=== PATIENT | male | born 1955 | race Caucasian/White ===

== ENCOUNTER 2016-09-10 10:01 | Inpatient (IN) | payer OTHER, MEDICARE ==
[~2016-09-10] VITALS: Ht 177.8 cm; Wt 65.6 kg
[~2016-09-10 10:01] MED LIST: ALBU2.5I INH; AMIT50 PO; OXYC1TAB13 PO; PREG75 PO
[2016-09-10 10:07] VITALS: BP 139/96; PULSE 126; RESP 18; TEMP 98.2; O2SAT 97
[2016-09-10] MEDS ORDERED: SODIUM CHLOR 0.9% 1000 ML INJ 1,000 ML IV SCH (10:15)
[2016-09-10] MEDS ORDERED: SODIUM CHLORIDE 0.9% FLUSH 10 ML FLUSH IV FLUSH PRN ×2 (10:15→14:15)
[2016-09-10] MEDS ORDERED: ONDANSETRON HCL 4 MG/2 ML VIAL IVP ONE (10:15)
[2016-09-10] MEDS ORDERED: MORPHINE SULFATE 4 MG/ML INJ IV PUSH ONE (10:15)
[2016-09-10] MEDS ORDERED: LYRI75CA PO (10:16)
--- NOTE | 2016-09-10 10:27 | PD ---
HPI . Abdominal pain Chief Complaint: Abdominal Pain Time Seen by Provider: 10:10 Travel History International Travel<30 days: No Contact w/Intl Traveler<30days: No Traveled to known affect area: No History of Present Illness HPI Patient presents with chronic abdominal pain which has become acutely worse over the last 2 weeks. He reports associated dry heaves. He reports decreased oral intake and decreased urinary output. He has not been running a fever. Patient has a history of ulcerative colitis and is status total colectomy with ileostomy bag. He has high output from his ileostomy. This is a chronic issue for him. [id number]: Generalized abdominal QUALITY: Cramping SEVERITY: Severe DURATION: Chronic TIMING: Worse for 2 weeks CONTEXT: History of ulcerative colitis with previous colectomy with resultant ileostomy ASSOCIATED SYMPTOMS: Dry heaves, poor oral intake, decreased urinary output PFSH Past Medical History Arthritis: Yes Asthma: Yes Anxiety: Yes Depression: Yes Cancer: No Cardiovascular Problems: No Chest Pain: No Congestive Heart Failure: No COPD: No Cerebrovascular Accident: No Diabetes: No Endocrine: No Gastrointestinal Disorders: Yes (HX ULCERATIVE COLITIS, CHR. ABD. PAIN, CHR. DIARRHEA) GERD: No Genitourinary: No Headaches: No Hepatitis: Yes ( TEENAGER) Hiatal Hernia: No Hypertension: Yes Immune Disorder: No Musculoskeletal: Yes (BACK PAIN) Neurologic: Yes (VERTIGO, NUMBNESS LEGS (L)>(R)) Psychiatric: Yes (DEPRESSION) Reproductive: No Respiratory: Yes (ASTHMA) Migraines: No Seizures: No Sleep Apnea: No Thyroid Disease: No Ulcer: No Tetanus Vaccination: Unknown Influenza Vaccination: No ?: Not Past Surgical History Abdominal Surgery: Yes (ILEOSTOMY & CLOSURE, COLON RESECTION, ENTIRE LARGE INSTESTINE REMOVED) Appendectomy: Yes Cardiac Surgery: No Ear Surgery: No Endocrine Surgery: No Eye Surgery: No Genitourinary Surgery: No Gynecologic Surgery: No Joint Replacement: No Neurologic Surgery: No Pacemaker: No Thoracic Surgery: No Tonsillectomy: Yes (T&A) Other Surgery: Yes (COLOSTOMY) Social History Alcohol Use: No Tobacco Use: Yes (2-3 PPD) Substance Use: No Allergies-Medications (Allergen,Severity, Reaction): Coded Allergies: Nucynta (Verified Allergy, Severe, AMNESIA EPISODES, 09/10/16) Dilaudid (Verified Adverse Reaction, Severe, HALLUCINATIONS, 09/10/16) Reported Meds & Prescriptions Reported Meds & Active Scripts Active Reported Lyrica (Pregabalin) 75 Mg Cap 75 Mg PO BID Review of Systems Except as stated in HPI: all other systems reviewed are Neg General / Constitutional: No: Fever, Chills Cardiovascular: No: Chest Pain or Discomfort Respiratory: No: Shortness of Breath Gastrointestinal: Positive: Nausea, Vomiting, Abdominal Pain Genitourinary: Positive: Decreased Urinary Output Physical Exam Narrative GENERAL: Chronically ill-appearing man. SKIN: Warm and dry. HEAD: Atraumatic. Normocephalic. EYES: Pupils equal and round. Sclera are anicteric. ENT: No nasal bleeding or discharge. Mucous membranes pink and moist. NECK: Trachea midline. Neck is supple. CARDIOVASCULAR: Regular rate and rhythm. Heart sounds are normal. RESPIRATORY: No accessory muscle use. Lungs are clear with full air movement throughout. GASTROINTESTINAL: Abdomen soft. Ileostomy bag on the left-hand side. Brown, watery stool in the ostomy bag. Bowel sounds present. Diffuse abdominal tenderness. Nondistended. MUSCULOSKELETAL: No obvious deformities. No edema. NEUROLOGICAL: Awake and alert. No obvious cranial nerve deficits. Motor grossly within normal limits. Normal speech. PSYCHIATRIC: Appropriate mood and affect; insight and judgment normal. Data Data Last Documented VS Vital Signs Date Time Temp Pulse Resp B/P Pulse Ox O2 Delivery O2 Flow Rate FiO2 09/10/16 12:47 117 16 134/97 96 Room Air 09/10/16 10:07 98.2 Orders Complete Blood Count With Diff (09/10/16 10:15) Comprehensive Metabolic Panel (09/10/16 10:15) Lipase (09/10/16 10:15) Lactic Acid (09/10/16 10:15) Urinalysis - C+S If Indicated (09/10/16 10:15) Ct Abd/Pel W Iv Contrast(Rout) (09/10/16 10:15) Iv Access Insert/Monitor (09/10/16 10:15) NPO (09/10/16 10:15) Morphine Inj (Morphine Inj) (09/10/16 10:15) Ondansetron Inj (Zofran Inj) (09/10/16 10:15) Sodium Chlor 0.9% 1000 Ml Inj (Ns 1000 M (09/10/16 10:15) Sodium Chloride 0.9% Flush (Ns Flush) (09/10/16 10:15) Sodium Chlor 0.9% 1000 Ml Inj (Ns 1000 M (09/10/16 11:45) Urine Culture (09/10/16 12:00) Ceftriaxone Inj (Rocephin Inj) (09/10/16 12:30) Iodixanol 320 Inj (Rad Ct) (Visipaque 32 (09/10/16 12:40) Labs Laboratory Tests Test 09/10/16 09/10/16 10:27 12:00 White Blood Count 22.7 TH/MM3 Red Blood Count 6.06 MIL/MM3 Hemoglobin 16.7 GM/DL Hematocrit 48.0 % Mean Corpuscular Volume 79.2 FL Mean Corpuscular Hemoglobin 27.6 PG Mean Corpuscular Hemoglobin 34.8 % Concent Red Cell Distribution Width 15.5 % Platelet Count 377 TH/MM3 Mean Platelet Volume 7.8 FL Neutrophils (%) (Auto) 83.0 % Lymphocytes (%) (Auto) 10.1 % Monocytes (%) (Auto) 6.3 % Eosinophils (%) (Auto) 0.3 % Basophils (%) (Auto) 0.3 % Neutrophils # (Auto) 18.9 TH/MM3 Lymphocytes # (Auto) 2.3 TH/MM3 Monocytes # (Auto) 1.4 TH/MM3 Eosinophils # (Auto) 0.1 TH/MM3 Basophils # (Auto) 0.1 TH/MM3 CBC Comment AUTO DIFF Differential Comment AUTO DIFF CONFIRMED Sodium Level 127 MEQ/L Potassium Level 3.9 MEQ/L Chloride Level 88 MEQ/L Carbon Dioxide Level 26.2 MEQ/L Anion Gap 13 MEQ/L Blood Urea Nitrogen 33 MG/DL Creatinine 1.80 MG/DL Estimat Glomerular Filtration 39 ML/MIN Rate Random Glucose 112 MG/DL Lactic Acid Level 2.4 mmol/L Calcium Level 9.7 MG/DL Total Bilirubin 1.0 MG/DL Aspartate Amino Transf 23 U/L (AST/SGOT) Alanine Aminotransferase 18 U/L (ALT/SGPT) Alkaline Phosphatase 168 U/L Total Protein 8.8 GM/DL Albumin 4.2 GM/DL Lipase 212 U/L Urine Color YELLOW Urine Turbidity HAZY Urine pH 5.5 Urine Specific [place] 1.009 Urine Protein TRACE mg/dL Urine Glucose (UA) NEG mg/dL Urine Ketones NEG mg/dL Urine Occult Blood MOD Urine Nitrite NEG Urine Bilirubin NEG Urine Urobilinogen LESS THAN 2.0 MG/DL Urine Leukocyte Esterase SMALL Urine RBC 41 /hpf Urine WBC 15 /hpf Urine Squamous Epithelial 1 /hpf Cells Urine Transitional Epithelial <1 /hpf Cells Urine Amorphous Sediment RARE Urine Bacteria RARE /hpf Urine Hyaline Casts 1 /lpf Urine Mucus FEW /lpf Microscopic Urinalysis Comment CULTURE INDICATED MDM Medical Decision Making Medical Screen Exam Complete: Yes Emergency Medical Condition: Yes Medical Record Reviewed: Yes (medical history as outlined in his history of present illness) Differential Diagnosis Differential diagnosis of abdominal pain includes but is not limited to gastritis, pancreatitis, hepatitis, gastroenteritis, gallbladder disease, constipation, urinary retention, UTI, peptic ulcer disease, diverticulitis or appendicitis Narrative Course Patient presents with acute exacerbation of chronic abdominal pain. CBC & BMP Diagram 09/10/16 10:27 UA shows small leukocyte esterase with 15 white cells and rare bacteria. Last Impressions Abdomen/Pelvis CT 09/10/16 1015 Signed Impressions: Service Date/Time: Saturday, September 10, 2016 12:34 - CONCLUSION: The patient is status post prior colectomy with no evidence of intra-abdominal or intra- pelvic abnormality noted. Awilda Aguilera MD Diagnosis Primary Impression: Leukocytosis Qualified Code: D72.829 - Leukocytosis, unspecified type Additional Impressions: Hyponatremia Abdominal pain Qualified Code: R10.84 - Generalized abdominal pain Urinary tract infection Qualified Code: N30.00 - Acute cystitis without hematuria ARF (acute renal failure) Qualified Code: N17.9 - Acute renal failure, unspecified acute renal failure type Admitting Information Admitting Physician Requests: Admit Condition: Dee Quevedo MD Sep 10, 2016 10:26
[2016-09-10 10:42] LABS: AUTOMATED NEUTROPHIL # 18.9 TH/MM3 (1.8-7.7); BASOPHIL # 0.1 TH/MM3 (0-0.2); BASOPHIL % 0.3 % (0.0-2.0); EOSINOPHIL # 0.1 TH/MM3 (0-0.4); EOSINOPHIL % 0.3 % (0.0-4.0); LYMPH % 10.1 % (9.0-44.0); LYMPHOCYTE # 2.3 TH/MM3 (1.0-4.8); MEAN CELL VOLUME 79.2 FL (80.0-100.0); MEAN CORPUSCULAR HEMOGLOBIN 27.6 PG (27.0-34.0); MEAN CORPUSCULAR HGB CONC 34.8 % (32.0-36.0); MONO % 6.3 % (0.0-8.0); PLATELET COUNT 377 TH/MM3 (150-450); RED BLOOD COUNT 6.06 MIL/MM3 (4.50-5.90); RED CELL DISTRIBUTION WIDTH 15.5 % (11.6-17.2); WHITE BLOOD COUNT 22.7 TH/MM3 (4.0-11.0)
[2016-09-10 10:43] LABS: HEMO FLAGS AUTO DIFF
[2016-09-10 11:17] LABS: ALKALINE PHOSPHATASE 168 U/L (45-117)
[2016-09-10 11:19] LABS: ALT (GPT) 18 U/L (12-78); ANION GAP 13 MEQ/L (5-15); AST (GOT) 23 U/L (15-37); BICARBONATE 26.2 MEQ/L (21.0-32.0); BLOOD UREA NITROGEN 33 MG/DL (7-18); CHLORIDE 88 MEQ/L (98-107); GLOMERULAR FILTRATION RATE 39 ML/MIN (>89); SODIUM (NA) 127 MEQ/L (136-145)
[2016-09-10 11:20] LABS: POTASSIUM 3.9 MEQ/L (3.5-5.1); SCAN/DIFF AUTO DIFF CONFIRMED
[2016-09-10] MEDS ORDERED: SODIUM CHLOR 0.9% 1000 ML INJ 1,000 ML IV ONE (11:45)
[2016-09-10 12:22] LABS: BACTERIA, URINE RARE /hpf; BLOOD, URINE MOD (NEG); GLUCOSE,URINE NEG (NEG); HYALINE CAST, URINE 1 /lpf (RARE); KETONE, URINE NEG (NEG); MUCUS URINE FEW /lpf (OCC); NITRITE,URINE NEG (NEG); PH, URINE 5.5 (5.0-8.5); SQUAMOUS EPITHELIAL CELL URINE 1 /hpf (0-5); TRANSITIONAL EPI CELLS, URINE <1 /hpf; URINE COLOR YELLOW (YELLW/STRAW)
[2016-09-10 12:23] LABS: COMMENT (UR) CULTURE INDICATED; CULTURE IF INDICATED CULTURE INDICATED
[2016-09-10] MEDS ORDERED: cefTRIAXone INJ 1,000 MG in SODIUM CHLORIDE 0.9% INJ 100 ML IV ONE (12:30)
[2016-09-10] MEDS ORDERED: IODIXANOL 320 MG/ML 10 ML VIAL (for Rad CT) IV ONE (12:40)
[2016-09-10 12:47] VITALS: BP 134/97; PULSE 117; RESP 16; O2SAT 96
--- NOTE | 2016-09-10 13:15 | RADRPT ---
EXAM DATE/TIME: 09/10/2016 12:34 [facility] COMPARISON: CT ABDOMEN & PELVIS W CONTRAST, April 30, 2014, 18:36. INDICATIONS : Increasing abdominal pain. IV CONTRAST: 47 cc Visipaque (iodixanol) IV ORAL CONTRAST: No oral contrast ingested. RADIATION DOSE: 7.25 CTDIvol (mGy) MEDICAL HISTORY : Ulcerative colitis. SURGICAL HISTORY : Colon resection. Appendectomy. ENCOUNTER: Initial ACUITY: 2 weeks PAIN SCALE: 7/10 LOCATION: Bilateral abdomen TECHNIQUE: Volumetric scanning of the abdomen and pelvis was performed. Using automated exposure control and ad justment of the mA and/or kV according to patient size, radiation dose was kept as low as reasonably achievable to obtain optimal diagnostic quality images. FINDINGS: LOWER LUNGS: The visualized lower lungs are clear. LIVER: Homogeneous density without lesion. There is no dilation of the biliary tree. No calcified gallston es. SPLEEN: Normal size without lesion. PANCREAS: Within normal limits. KIDNEYS: Normal in size and shape. There is no concerning mass, stone or hydronephrosis. Simple right renal c yst exophytic from the lower pole. ADRENAL GLANDS: Within normal limits. VASCULAR: There is no aortic aneurysm. BOWEL/MESENTERY: The stomach and small bowel are unremarkable. Patient is status post prior colostomy with ileostomy i dentified to the left pelvic wall. No evidence of complication. ABDOMINAL WALL: Left pelvic wall ileostomy no evidence of additional defect. RETROPERITONEUM: There is no lymphadenopathy. BLADDER: No wall thickening or mass. REPRODUCTIVE: Within normal limits. INGUINAL: There is no lymphadenopathy or hernia. MUSCULOSKELETAL: Within normal limits for patient age. CONCLUSION: The patient is status post prior colectomy with no evidence of intra-abdominal or int ra-pelvic abnormality noted. Awilda Aguilera MD on September 10, 2016 at 13:09 Board Certified Radiologist. This report was verified electronically.
[2016-09-10] MEDS ORDERED: RESP: ALBUTEROL 2.5 MG/IPRATROPIUM 0.5 MG NEB (PRN) NEB (14:15)
[2016-09-10] MEDS ORDERED: TEMAZEPAM 15 MG CAP PO PRN (14:15)
[2016-09-10] MEDS ORDERED: ONDANSETRON HCL 4 MG/2 ML VIAL IVP PRN (14:15)
[2016-09-10] MEDS ORDERED: ACETAMINOPHEN 325 MG TAB PO PRN ×2 (14:15)
[2016-09-10] MEDS ORDERED: NALOXONE HCL 0.4 MG/ML AMP IV PRN (14:15)
[2016-09-10 14:45] VITALS: BP 156/91; PULSE 98; RESP 16; O2SAT 98
[2016-09-10] MEDS: SODIUM CHLOR 0.9% 1000 ML INJ 1,000 ML IV SCH ×2 (15:16→23:45)
--- NOTE | 2016-09-10 15:41 | HHI.HP ---
[facility] Primary Care Physician Elias Day MD Admission Diagnosis UTI, leukocytosis, acute renal failure, hyponatremia Diagnoses: (1) Urinary tract infection (2) ARF (acute renal failure) (3) High output ileostomy (4) Chronic pain (5) Hyponatremia (6) Abdominal pain (7) Leukocytosis (8) Ulcerative colitis Chief Complaint: Abdominal pain Travel History International Travel<30 Days: No Contact w/Intl Traveler <30 Da: No Traveled to Known Affected Are: No History of Present Illness 60-year-old man with history of ulcerative colitis with significant past surgical history including colectomy done in [place] that was reverted; diverting ileostomy and adhesion removal. He also had a complicated medical course by abdominal abscess and wound infection; came today to the medicine department by EMS for evaluation of over 1 week history of abdominal and rectal pain, decreased appetite, increased ileostomy output and dry heaves. Patient states, he was recently in hospice for 3 months and released in July 2016. Normal labs include WBC of 22.7, sodium 127 and BUN/creatinine 33/1.80 and a UA positive for small leukocytes. CT abdomen/pelvic unremarkable. Patient denies any hematemesis or hemoptysis. Review of Systems Other 12 systems reviewed and are negative except for the one mentioned in history of present illness Past Family Social History Past Medical History Ulcerative colitis Hx of infectious colitis as well - entire large intestines removed after that ( 12 years ago) Complicated course with abdominal wound infection Hx of hypertension prior to losing weight Asthma Past Surgical History Colectomy 10 years Diverting ileostomy and adhesion lysis Feb 2014 Tonsillectomy Deviated septum x2 Appendectomy Reported Medications Lyrica (Pregabalin) 75 Mg Cap 75 Mg PO BID Allergies: Coded Allergies: Nucynta (Verified Allergy, Severe, AMNESIA EPISODES, 09/10/16) Dilaudid (Verified Adverse Reaction, Severe, HALLUCINATIONS, 09/10/16) Family History Mother removal of intestinal mass Sibling with polyps removed Social History Alcohol Use: No Tobacco Use: Yes (2-3 PPD) Substance Use: No Physical Exam Vital Signs Vital Signs Date Time Temp Pulse Resp B/P Pulse Ox O2 Delivery O2 Flow Rate FiO2 09/10/16 14:45 98 16 156/91 98 Room Air 09/10/16 12:47 117 16 134/97 96 Room Air 09/10/16 11:36 18 09/10/16 10:12 18 09/10/16 10:07 98.2 126 18 139/96 97 Physical Exam GENERAL: NAD SKIN: No rashes, ecchymoses or lesions. Cool and dry. HEAD: Atraumatic. Normocephalic. No temporal or scalp tenderness. EYES: Pupils equal round and reactive. Extraocular motions intact. No scleral icterus. No injection or drainage. ENT: Nose without bleeding, purulent drainage or septal hematoma. Throat without erythema, tonsillar hypertrophy or exudate. Uvula midline. Airway patent. NECK: Trachea midline. No JVD or lymphadenopathy. Supple, nontender, no meningeal signs. CARDIOVASCULAR: Regular rate and rhythm without murmurs, gallops, or rubs. RESPIRATORY: Clear to auscultation. Breath sounds equal bilaterally. No wheezes , rales, or rhonchi. GASTROINTESTINAL: Abdomen soft, non-tender, nondistended. ileostomy bag in place; a bag over a small open abdominal wound MUSCULOSKELETAL: Extremities without clubbing, cyanosis, or edema. No joint tenderness, effusion, or edema noted. No calf tenderness. Negative Homans sign bilaterally. NEUROLOGICAL: Awake and alert. Cranial nerves II through XII intact. Motor and sensory grossly within normal limits. Five out of 5 muscle strength in all muscle groups. Normal speech. Laboratory Laboratory Tests Test 09/10/16 09/10/16 09/10/16 10:27 12:00 14:45 White Blood Count 22.7 Red Blood Count 6.06 Hemoglobin 16.7 Hematocrit 48.0 Mean Corpuscular Volume 79.2 Mean Corpuscular Hemoglobin 27.6 Mean Corpuscular Hemoglobin 34.8 Concent Red Cell Distribution Width 15.5 Platelet Count 377 Mean Platelet Volume 7.8 Neutrophils (%) (Auto) 83.0 Lymphocytes (%) (Auto) 10.1 Monocytes (%) (Auto) 6.3 Eosinophils (%) (Auto) 0.3 Basophils (%) (Auto) 0.3 Neutrophils # (Auto) 18.9 Lymphocytes # (Auto) 2.3 Monocytes # (Auto) 1.4 Eosinophils # (Auto) 0.1 Basophils # (Auto) 0.1 CBC Comment AUTO DIFF Differential Comment AUTO DIFF CONFIRMED Sodium Level 127 Potassium Level 3.9 Chloride Level 88 Carbon Dioxide Level 26.2 Anion Gap 13 Blood Urea Nitrogen 33 Creatinine 1.80 Estimat Glomerular Filtration 39 Rate Random Glucose 112 Lactic Acid Level 2.4 0.8 Calcium Level 9.7 Total Bilirubin 1.0 Aspartate Amino Transf 23 (AST/SGOT) Alanine Aminotransferase 18 (ALT/SGPT) Alkaline Phosphatase 168 Total Protein 8.8 Albumin 4.2 Lipase 212 Urine Color YELLOW Urine Turbidity HAZY Urine pH 5.5 Urine Specific [place] 1.009 Urine Protein TRACE Urine Glucose (UA) NEG Urine Ketones NEG Urine Occult Blood MOD Urine Nitrite NEG Urine Bilirubin NEG Urine Urobilinogen LESS THAN 2.0 Urine Leukocyte Esterase SMALL Urine RBC 41 Urine WBC 15 Urine Squamous Epithelial 1 Cells Urine Transitional Epithelial <1 Cells Urine Amorphous Sediment RARE Urine Bacteria RARE Urine Hyaline Casts 1 Urine Mucus FEW Microscopic Urinalysis Comment CULTURE INDICATED Date/Time Procedure Status Source Growth 09/10/16 12:00 Urine Culture Received Urine Clean Catch Pending Result Diagram: 09/10/16 1027 09/10/16 1027 Imaging Last Impressions Abdomen/Pelvis CT 09/10/16 1015 Signed Impressions: Service Date/Time: Saturday, September 10, 2016 12:34 - CONCLUSION: The patient is status post prior colectomy with no evidence of intra-abdominal or intra- pelvic abnormality noted. Awilda Aguilera MD Assessment and Plan Problem List: (1) Ulcerative colitis ICD Code: K51.919 Status: Chronic (2) High output ileostomy ICD Code: R19.8 Status: Acute (3) Urinary tract infection ICD Code: N39.0 Status: Acute (4) ARF (acute renal failure) ICD Code: N17.9 Status: Acute (5) Leukocytosis ICD Code: D72.829 Status: Acute (6) Hyponatremia ICD Code: E87.1 Status: Acute (7) Benign labile hypertension ICD Code: I10 Status: Acute Assessment and Plan 60-year-old man with History of UC Abdominal pain Increased ileostomy output -CT abdomen/pelvics noted and review by me without any acute finding -Start IV fluid NS@ 100cc/hr -Pain management accordingly -Change ileostomy bag per protocol Abnormal UA Leukocytosis -s/p Rocephin IV 1 in ED, continue with antibiotic pending urine and blood culture -Check chest x-ray Hyponatremia -Continue IV fluid hydration Acute renal failure: Prerenal secondary to high ileostomy output; continue with IV fluid hydration. Monitor BUN and creatinine and avoid all nephrotoxic drugs Labile benign hypertension: Start Lopressor 50 mg by mouth every 12 History of UC: Chronic. Patient was recently admitted to hospice. DVT prophylaxis: Bilateral SCDs DO NOT RESUSCITATE Code Status Full code Discussed Condition With Patient, ED physician Physician Certification 2 Midnight Certification Type: Admission for Inpatient Services Order for Inpatient Services The services are ordered in accordance with Medicare regulations or non- Medicare payer requirements, as applicable. In the case of services not specified as inpatient-only, they are appropriately provided as inpatient services in accordance with the 2-midnight benchmark. Estimated LOS (days): 2 days is the estimated time the patient will need to remain in the hospital, assuming treatment plan goals are met and no additional complications. Post-Hospital Plan: Not yet determined Problem Qualifiers (1) Urinary tract infection: Qualified Code: N30.00 - Acute cystitis without hematuria (2) ARF (acute renal failure): Qualified Code: N17.9 - Acute renal failure, unspecified acute renal failure type (3) Abdominal pain: Qualified Code: R10.84 - Generalized abdominal pain (4) Leukocytosis: Qualified Code: D72.829 - Leukocytosis, unspecified type Alex Holt MD Sep 10, 2016 15:41
[2016-09-10 16:26] VITALS: BP 140/90; PULSE 90; RESP 17; O2SAT 97
[2016-09-10] MEDS: MORPHINE SULFATE 4 MG/ML INJ IV PUSH PRN ×3 (17:07→23:42)
--- NOTE | 2016-09-10 17:11 | RADRPT ---
EXAM DATE/TIME: 09/10/2016 16:13 [facility] COMPARISON: CHEST SINGLE AP, November 06, 2014, 12:36. INDICATIONS : Short of breath. Smoker. MEDICAL HISTORY : Ulcerative colitis. SURGICAL HISTORY : Appendectomy. Colon resection. ENCOUNTER: Initial ACUITY: 1 day PAIN SCORE: 0/10 LOCATION: Bilateral chest FINDINGS: A single view of the chest demonstrates the lungs to be symmetrically aerated without evidence of mas s, infiltrate or effusion. There is hyperaeration bilaterally. The cardiomediastinal contours are unr emarkable. Osseous structures are intact. No significant changes compared to the prior study. CONCLUSION: No acute pulmonary infiltrates. Hyperaeration of the lung maxwell. Jonathan Eng MD on September 10, 2016 at 17:08 Board Certified Radiologist. This report was verified electronically.
[2016-09-10 20:00] VITALS: BP 123/80; PULSE 103; RESP 20; TEMP 97.8; O2SAT 93
[2016-09-10] MEDS: SODIUM CHLORIDE 0.9% FLUSH 10 ML FLUSH IV FLUSH SCH (20:39)
[2016-09-10] MEDS: METOPROLOL TARTRATE 50 MG TAB PO SCH (20:39)
[2016-09-11] VITALS: BP 107/75; PULSE 70; RESP 20; TEMP 97.3; O2SAT 92
[2016-09-11] MEDS: MORPHINE SULFATE 4 MG/ML INJ IV PUSH PRN ×7 (02:46→21:07)
[2016-09-11 05:59] LABS: AUTOMATED NEUTROPHIL # 10.8 TH/MM3 (1.8-7.7); BASOPHIL # 0.1 TH/MM3 (0-0.2); BASOPHIL % 0.6 % (0.0-2.0); EOSINOPHIL % 0.3 % (0.0-4.0); HEMATOCRIT 37.6 % (39.0-51.0); HEMO FLAGS DIFF FINAL; LYMPH % 13.3 % (9.0-44.0); LYMPHOCYTE # 1.8 TH/MM3 (1.0-4.8); MEAN CORPUSCULAR HEMOGLOBIN 27.4 PG (27.0-34.0); MEAN CORPUSCULAR HGB CONC 33.8 % (32.0-36.0); MONO % 7.5 % (0.0-8.0); NEUT % 78.3 % (16.0-70.0); PLATELET COUNT 270 TH/MM3 (150-450); RED BLOOD COUNT 4.64 MIL/MM3 (4.50-5.90); RED CELL DISTRIBUTION WIDTH 15.4 % (11.6-17.2); WHITE BLOOD COUNT 13.8 TH/MM3 (4.0-11.0)
[2016-09-11 06:21] LABS: ALKALINE PHOSPHATASE 116 U/L (45-117); ALT (GPT) 11 U/L (12-78); ANION GAP 10 MEQ/L (5-15); AST (GOT) 10 U/L (15-37); BLOOD UREA NITROGEN 30 MG/DL (7-18); CHLORIDE 102 MEQ/L (98-107); GLOMERULAR FILTRATION RATE 49 ML/MIN (>89); SODIUM (NA) 136 MEQ/L (136-145); TOTAL BILIRUBIN ADULT 0.6 MG/DL (0.2-1.0)
[2016-09-11 08:00] VITALS: BP 114/70; PULSE 76; RESP 17; TEMP 98.9; O2SAT 92
[2016-09-11] MEDS: METOPROLOL TARTRATE 50 MG TAB PO SCH ×2 (08:27→20:49)
[2016-09-11] MEDS: PANTOPRAZOLE SOD 40 MG DELAYED RELEASE TAB PO SCH (08:27)
[2016-09-11] MEDS: SODIUM CHLORIDE 0.9% FLUSH 10 ML FLUSH IV FLUSH SCH ×2 (08:27→20:49)
[2016-09-11] MEDS ORDERED: POTASSIUM CHLORIDE 25 MEQ EFFERVESCENT TAB PO ONE (10:15)
[2016-09-11] MEDS: SODIUM CHLOR 0.9% 1000 ML INJ 1,000 ML IV SCH ×2 (10:23→20:50)
--- NOTE | 2016-09-11 10:24 | HHI.PR ---
Subjective Remarks Follow up UTI/Hyponatremia?UC/Chronic pain syndrome 09/11/16-patient seen and examined; still complains of poorly controlled pain; WBC trending down; H/H dropping and patient reports some bleeding in ileostomy bag Objective Vitals Vital Signs Date Time Temp Pulse Resp B/P Pulse Ox O2 Delivery O2 Flow Rate FiO2 09/11/16 08:49 17 09/11/16 08:00 98.9 76 17 114/70 92 09/11/16 00:00 97.3 70 20 107/75 92 09/10/16 20:00 97.8 103 20 123/80 93 09/10/16 16:26 90 17 140/90 97 Room Air 09/10/16 14:45 98 16 156/91 98 Room Air 09/10/16 12:47 117 16 134/97 96 Room Air 09/10/16 11:36 18 I/O 09/10/16 09/10/16 09/10/16 09/11/16 09/11/16 09/11/16 07:00 15:00 23:00 07:00 15:00 23:00 Intake Total 624 ml 240 ml 892 ml Output Total 0 ml 200 ml Balance 624 ml 40 ml 892 ml Intake Oral 120 ml 240 ml IV Total 504 ml 892 ml Output Urine Total 0 ml 200 ml # Voids 1 # Bowel Movements 0 0 Result Diagram: 09/11/16 0458 09/11/16 0458 Imaging Last Impressions Abdomen/Pelvis CT 09/10/16 1015 Signed Impressions: Service Date/Time: Saturday, September 10, 2016 12:34 - CONCLUSION: The patient is status post prior colectomy with no evidence of intra-abdominal or intra- pelvic abnormality noted. Awilda Aguilera MD Chest X-Ray 09/10/16 0000 Signed Impressions: Service Date/Time: Saturday, September 10, 2016 16:13 - CONCLUSION: No acute pulmonary infiltrates. Hyperaeration of the lung maxwell. Jonathan Eng MD Objective Remarks GENERAL: NAD SKIN: Warm and dry. HEAD: Normocephalic. EYES: No scleral icterus. No injection or drainage. NECK: Supple, trachea midline. No JVD or lymphadenopathy. CARDIOVASCULAR: Regular rate and rhythm without murmurs, gallops, or rubs. RESPIRATORY: Breath sounds equal bilaterally. No accessory muscle use. GASTROINTESTINAL: Abdomen soft, non-tender, nondistended. MUSCULOSKELETAL: No cyanosis, or edema. BACK: Nontender without obvious deformity. No CVA tenderness. A/P Problem List: (1) Ulcerative colitis ICD Code: K51.919 Status: Chronic (2) High output ileostomy ICD Code: R19.8 Status: Acute (3) Urinary tract infection ICD Code: N39.0 Status: Acute (4) ARF (acute renal failure) ICD Code: N17.9 Status: Acute (5) Leukocytosis ICD Code: D72.829 Status: Acute (6) Hyponatremia ICD Code: E87.1 Status: Acute (7) Benign labile hypertension ICD Code: I10 Status: Resolved Assessment and Plan 60-year-old man with History of UC Abdominal pain Increased ileostomy output -CT abdomen/pelvics without any acute finding -continue IV fluid NS@ 100cc/hr -Pain management accordingly; increase Morphine to 3mg Q3HPRN -Change ileostomy bag per protocol Abnormal UA/UTI Leukocytosis--trending down -s/p Rocephin IV 1 in ED, continue with antibiotic pending urine and blood culture -CXR with No acute pulmonary infiltrates Hyponatremia -Resolved with IV fluid hydration Hypokalemia: Give K 50Meq X 1 NOW Acute renal failure: Prerenal secondary to high ileostomy output; improving with IV fluid hydration. Monitor BUN and creatinine and avoid all nephrotoxic drugs Labile benign hypertension: Normotensive with Lopressor 50 mg by mouth every 12 History of UC: Chronic. Patient was recently admitted to hospice. Anemia of CD: Monitor H/H however may consider CRS for evaluation if patient with continue Bleeding for Colostomy vs GI DVT prophylaxis: Bilateral SCDs Problem Qualifiers (1) Urinary tract infection: Qualified Code: N30.00 - Acute cystitis without hematuria (2) ARF (acute renal failure): Qualified Code: N17.9 - Acute renal failure, unspecified acute renal failure type (3) Leukocytosis: Qualified Code: D72.829 - Leukocytosis, unspecified type Alex Holt MD Sep 11, 2016 10:24
[2016-09-11] MEDS: cefTRIAXone INJ 1,000 MG in SODIUM CHLORIDE 0.9% INJ 100 ML IV SCH (11:49)
[2016-09-11 12:00] VITALS: BP 120/73; PULSE 76; RESP 17; TEMP 97.7; O2SAT 93
[2016-09-11 16:00] VITALS: BP 103/61; PULSE 64; RESP 16; TEMP 96.9; O2SAT 95
[2016-09-11 20:00] VITALS: BP 123/58; PULSE 60; RESP 21; TEMP 96; O2SAT 93
[2016-09-12 00:02] VITALS: BP 99/96; PULSE 58; RESP 20; TEMP 96; O2SAT 93
[2016-09-12] MEDS: MORPHINE SULFATE 4 MG/ML INJ IV PUSH PRN ×4 (00:20→12:38)
[2016-09-12 04:00] VITALS: BP 109/64; PULSE 69; RESP 20; TEMP 96.2; O2SAT 92
[2016-09-12 05:36] LABS: AUTOMATED NEUTROPHIL # 7.3 TH/MM3 (1.8-7.7); BASOPHIL % 0.4 % (0.0-2.0); EOSINOPHIL # 0.1 TH/MM3 (0-0.4); EOSINOPHIL % 1.2 % (0.0-4.0); HEMATOCRIT 34.2 % (39.0-51.0); HEMO FLAGS DIFF FINAL; LYMPH % 20.4 % (9.0-44.0); LYMPHOCYTE # 2.1 TH/MM3 (1.0-4.8); MEAN CELL VOLUME 82.6 FL (80.0-100.0); MEAN CORPUSCULAR HEMOGLOBIN 27.3 PG (27.0-34.0); MONO % 7.4 % (0.0-8.0); NEUT % 70.6 % (16.0-70.0); PLATELET COUNT 201 TH/MM3 (150-450); RED BLOOD COUNT 4.15 MIL/MM3 (4.50-5.90); RED CELL DISTRIBUTION WIDTH 15.5 % (11.6-17.2); WHITE BLOOD COUNT 10.3 TH/MM3 (4.0-11.0)
[2016-09-12] MEDS: SODIUM CHLOR 0.9% 1000 ML INJ 1,000 ML IV SCH ×3 (05:45→23:37)
[2016-09-12 05:51] LABS: BICARBONATE 22.9 MEQ/L (21.0-32.0)
[2016-09-12 05:59] LABS: POTASSIUM 2.6 MEQ/L (3.5-5.1)
[2016-09-12] MEDS ORDERED: POTASSIUM CHLORIDE 20 MEQ CONTROLLED RELEASE TAB PO ONE ×2 (06:15→08:30)
[2016-09-12] MEDS: POTASSIUM CHLOR 20 MEQ PREMIX 100 ML IV SCH ×2 (06:34→09:30)
[2016-09-12 08:00] VITALS: BP 113/69; PULSE 71; RESP 16; TEMP 98.1; O2SAT 96
[2016-09-12] MEDS: PANTOPRAZOLE SOD 40 MG DELAYED RELEASE TAB PO SCH (08:29)
[2016-09-12] MEDS: METOPROLOL TARTRATE 50 MG TAB PO SCH ×2 (08:29→19:52)
[2016-09-12] MEDS: SODIUM CHLORIDE 0.9% FLUSH 10 ML FLUSH IV FLUSH SCH ×2 (08:29→19:52)
[2016-09-12 12:00] VITALS: BP 106/60; PULSE 63; RESP 16; TEMP 98.7; O2SAT 95
[2016-09-12] MEDS: cefTRIAXone INJ 1,000 MG in SODIUM CHLORIDE 0.9% INJ 100 ML IV SCH (12:37)
--- NOTE | 2016-09-12 13:26 | HHI.PR ---
Subjective Remarks Follow up UTI/Hyponatremia?UC/Chronic pain syndrome 09/11/16-patient seen and examined; still complains of poorly controlled pain; WBC trending down; H/H dropping and patient reports some bleeding in ileostomy bag 09/12/16-patient seen and examined; pain well controlled; would like to try some solid food prior to discharge.Afebrile Objective Vitals Vital Signs Date Time Temp Pulse Resp B/P Pulse Ox O2 Delivery O2 Flow Rate FiO2 09/12/16 12:00 98.7 63 16 106/60 95 09/12/16 08:00 98.1 71 16 113/69 96 09/12/16 04:00 96.2 69 20 109/64 92 09/12/16 00:02 96.0 58 20 99/96 93 09/11/16 20:00 96.0 60 21 123/58 93 09/11/16 17:55 17 09/11/16 16:00 96.9 64 16 103/61 95 I/O 09/11/16 09/11/16 09/11/16 09/12/16 09/12/16 09/12/16 07:00 15:00 23:00 07:00 15:00 23:00 Intake Total 240 ml 1952 ml 740 ml 981 ml Output Total 200 ml 900 ml 200 ml 1300 ml Balance 40 ml 1052 ml 540 ml -319 ml Intake Oral 240 ml 500 ml 120 ml 120 ml IV Total 1452 ml 620 ml 861 ml Output Urine Total 200 ml 900 ml 200 ml 350 ml Stool Total 950 ml Drainage Total 0 ml # Bowel Movements 0 0 0 0 Result Diagram: 09/12/16 0455 09/12/16 0455 Objective Remarks GENERAL: NAD SKIN: Warm and dry. HEAD: Normocephalic. EYES: No scleral icterus. No injection or drainage. NECK: Supple, trachea midline. No JVD or lymphadenopathy. CARDIOVASCULAR: Regular rate and rhythm without murmurs, gallops, or rubs. RESPIRATORY: Breath sounds equal bilaterally. No accessory muscle use. GASTROINTESTINAL: Abdomen soft, non-tender, nondistended. MUSCULOSKELETAL: No cyanosis, or edema. BACK: Nontender without obvious deformity. No CVA tenderness. A/P Problem List: (1) Ulcerative colitis ICD Code: K51.919 Status: Chronic (2) High output ileostomy ICD Code: R19.8 Status: Acute (3) Urinary tract infection ICD Code: N39.0 Status: Acute (4) ARF (acute renal failure) ICD Code: N17.9 Status: Acute (5) Leukocytosis ICD Code: D72.829 Status: Acute (6) Hyponatremia ICD Code: E87.1 Status: Acute (7) Benign labile hypertension ICD Code: I10 Status: Resolved Assessment and Plan 60-year-old man with History of UC Abdominal pain Increased ileostomy output -CT abdomen/pelvics without any acute finding -continue IV fluid NS@ 100cc/hr -Pain management accordingly; d/c Morphine -Change ileostomy bag per protocol Abnormal UA/UTI Leukocytosis--resolved -s/p Rocephin IV 1 in ED, continue with antibiotic pending urine and blood culture -CXR with No acute pulmonary infiltrates Hyponatremia -Resolved with IV fluid hydration Hypokalemia: Give K 40Meq X 1 NOW Acute renal failure: Prerenal secondary to high ileostomy output; improving with IV fluid hydration. Monitor BUN and creatinine and avoid all nephrotoxic drugs Labile benign hypertension: Normotensive with Lopressor 50 mg by mouth every 12 History of UC: Chronic. Patient was recently admitted to hospice. Anemia of CD: Monitor H/H however may consider CRS for evaluation if patient with continue Bleeding for Colostomy vs GI DVT prophylaxis: Bilateral SCDs Discharge Planning Likely discharge in 1 day Problem Qualifiers (1) Urinary tract infection: Qualified Code: N30.00 - Acute cystitis without hematuria (2) ARF (acute renal failure): Qualified Code: N17.9 - Acute renal failure, unspecified acute renal failure type (3) Leukocytosis: Qualified Code: D72.829 - Leukocytosis, unspecified type Alex Holt MD Sep 12, 2016 13:25
[2016-09-12 15:27] LABS: MAGNESIUM 1.5 MG/DL (1.5-2.5); POTASSIUM 3.3 MEQ/L (3.5-5.1)
[2016-09-12] MEDS: ACETAMINOPHEN/HYDROcodone 325 MG/10 MG TAB PO PRN ×3 (15:45→23:20)
[2016-09-12 20:00] VITALS: BP 122/71; PULSE 77; RESP 22; TEMP 97.5; O2SAT 95
[2016-09-13] VITALS: BP 125/83; PULSE 65; RESP 20; TEMP 97.5; O2SAT 99
[2016-09-13] MEDS: ACETAMINOPHEN/HYDROcodone 325 MG/10 MG TAB PO PRN ×3 (03:25→13:20)
[2016-09-13 05:49] LABS: BICARBONATE 20.8 MEQ/L (21.0-32.0); POTASSIUM 3.4 MEQ/L (3.5-5.1)
[2016-09-13] MEDS: SODIUM CHLORIDE 0.9% FLUSH 10 ML FLUSH IV FLUSH SCH (07:59)
[2016-09-13 08:00] VITALS: BP 135/75; PULSE 66; RESP 16; TEMP 97.3; O2SAT 98
[2016-09-13] MEDS: METOPROLOL TARTRATE 50 MG TAB PO SCH (08:00)
[2016-09-13] MEDS: PANTOPRAZOLE SOD 40 MG DELAYED RELEASE TAB PO SCH (08:00)
[2016-09-13] MEDS: SODIUM CHLOR 0.9% 1000 ML INJ 1,000 ML IV SCH (09:56)
--- NOTE | 2016-09-13 11:41 | HHI.PR ---
Subjective Remarks Follow up UTI/Hyponatremia?UC/Chronic pain syndrome 09/11/16-patient seen and examined; still complains of poorly controlled pain; WBC trending down; H/H dropping and patient reports some bleeding in ileostomy bag 09/12/16-patient seen and examined; pain well controlled; would like to try some solid food prior to discharge.Afebrile 09/13/16-patient seen and examined; Pain is requesting more and stronger narcotics;states he can't eat however he was brought to [employer] yesterday which he ate all without any complication of nausea or emesis Objective Vitals Vital Signs Date Time Temp Pulse Resp B/P Pulse Ox O2 Delivery O2 Flow Rate FiO2 09/13/16 08:00 97.3 66 16 135/75 98 09/13/16 04:25 20 09/13/16 00:00 97.5 65 20 125/83 99 09/12/16 20:00 97.5 77 22 122/71 95 09/12/16 12:00 98.7 63 16 106/60 95 I/O 09/12/16 09/12/16 09/12/16 09/13/16 09/13/16 09/13/16 07:00 15:00 23:00 07:00 15:00 23:00 Intake Total 981 ml 923 ml 60 ml 240 ml Output Total 1300 ml 850 ml 500 ml 300 ml Balance -319 ml 73 ml -440 ml -60 ml Intake Oral 120 ml 60 ml 240 ml IV Total 861 ml 923 ml Output Urine Total 350 ml 850 ml 200 ml Stool Total 950 ml 300 ml 300 ml # Voids 4 1 # Bowel Movements 0 Result Diagram: 09/12/16 0455 09/13/16 0522 Imaging Last Impressions Abdomen/Pelvis CT 09/10/16 1015 Signed Impressions: Service Date/Time: Saturday, September 10, 2016 12:34 - CONCLUSION: The patient is status post prior colectomy with no evidence of intra-abdominal or intra- pelvic abnormality noted. Awilda Aguilera MD Chest X-Ray 09/10/16 0000 Signed Impressions: Service Date/Time: Saturday, September 10, 2016 16:13 - CONCLUSION: No acute pulmonary infiltrates. Hyperaeration of the lung maxwell. Jonathan Eng MD Objective Remarks GENERAL: NAD SKIN: Warm and dry. HEAD: Normocephalic. EYES: No scleral icterus. No injection or drainage. NECK: Supple, trachea midline. No JVD or lymphadenopathy. CARDIOVASCULAR: Regular rate and rhythm without murmurs, gallops, or rubs. RESPIRATORY: Breath sounds equal bilaterally. No accessory muscle use. GASTROINTESTINAL: Abdomen soft, non-tender, nondistended. MUSCULOSKELETAL: No cyanosis, or edema. BACK: Nontender without obvious deformity. No CVA tenderness. Procedures none A/P Problem List: (1) Ulcerative colitis ICD Code: K51.919 Status: Chronic (2) High output ileostomy ICD Code: R19.8 Status: Acute (3) Urinary tract infection ICD Code: N39.0 Status: Acute (4) ARF (acute renal failure) ICD Code: N17.9 Status: Acute (5) Leukocytosis ICD Code: D72.829 Status: Acute (6) Hyponatremia ICD Code: E87.1 Status: Acute (7) Benign labile hypertension ICD Code: I10 Status: Resolved (8) Drug-induced mood disorder ICD Code: F19.94 Status: Acute Assessment and Plan 60-year-old man with History of UC Abdominal pain-Improving Increased ileostomy output -CT abdomen/pelvics without any acute finding -continue IV fluid NS@ 100cc/hr -Pain management accordingly; -Change ileostomy bag per protocol Abnormal UA/UTI Leukocytosis--resolved -s/p Rocephin IV 1 in ED, will d/c abx as Urine culture negative -CXR with No acute pulmonary infiltrates Drug-seeking behavior: Patient was advised against Hyponatremia -Resolved with IV fluid hydration Hypokalemia: Give K 40Meq X 1 NOW Acute renal failure: Prerenal secondary to high ileostomy output; improving with IV fluid hydration. Monitor BUN and creatinine and avoid all nephrotoxic drugs Labile benign hypertension: Normotensive with Lopressor 50 mg by mouth every 12 History of UC: Chronic. Patient was recently admitted to hospice. Anemia of CD: Monitor H/H however may consider CRS for evaluation if patient with continue Bleeding for Colostomy vs GI DVT prophylaxis: Bilateral SCDs Problem Qualifiers (1) Urinary tract infection: Qualified Code: N30.00 - Acute cystitis without hematuria (2) ARF (acute renal failure): Qualified Code: N17.9 - Acute renal failure, unspecified acute renal failure type (3) Leukocytosis: Qualified Code: D72.829 - Leukocytosis, unspecified type Alex Holt MD Sep 13, 2016 11:41
--- NOTE | 2016-09-13 11:47 | HHI.FF ---
Face to Face Verification Diagnosis: (1) High output ileostomy (2) Ulcerative colitis (3) Chronic pain (4) Drug-induced mood disorder (5) Benign labile hypertension Physical Therapy Order: Evaluate and Treat Home Health Nursing Order: Signs/symptoms of disease process I have seen patient Stu Dolan on 09/13/16. My clinical findings support the need for the requested home health care services because: Deconditioned w/ increased weakness I certify that my clinical findings support that this patient is homebound because: Poor cardiac reserve Alex Holt MD Sep 13, 2016 11:47
--- NOTE | 2016-09-13 11:48 | HHI.DS ---
Discharge Summary Admission Date Sep 10, 2016 at 14:05 Discharge Date: Sep 13, 2016 Admitting Diagnosis UTI, leukocytosis, acute renal failure, hyponatremia (1) Ulcerative colitis ICD Code: K51.919 (2) High output ileostomy ICD Code: R19.8 (3) Urinary tract infection ICD Code: N39.0 (4) ARF (acute renal failure) ICD Code: N17.9 (5) Leukocytosis ICD Code: D72.829 (6) Hyponatremia ICD Code: E87.1 (7) Benign labile hypertension ICD Code: I10 (8) Drug-induced mood disorder ICD Code: F19.94 Procedures none Brief History - From Admission 60-year-old man with history of ulcerative colitis with significant past surgical history including colectomy done in [place] that was reverted; diverting ileostomy and adhesion removal. He also had a complicated medical course by abdominal abscess and wound infection; came today to the medicine department by EMS for evaluation of over 1 week history of abdominal and rectal pain, decreased appetite, increased ileostomy output and dry heaves. Patient states, he was recently in hospice for 3 months and released in July 2016. Normal labs include WBC of 22.7, sodium 127 and BUN/creatinine 33/1.80 and a UA positive for small leukocytes. CT abdomen/pelvic unremarkable. Patient denies any hematemesis or hemoptysis. CBC/BMP: 09/12/16 0455 09/13/16 0522 Significant Findings Laboratory Tests Test 09/10/16 09/11/16 09/12/16 09/12/16 12:00 04:58 04:55 14:34 Urine Turbidity HAZY (CLEAR) Urine Occult Blood MOD (NEG) Urine Leukocyte Esterase SMALL (NEG) Urine RBC 41 /hpf (0-3) Urine WBC 15 /hpf (0-5) Urine Bacteria RARE /hpf (NONE) Urine Mucus FEW /lpf (OCC) White Blood Count 13.8 TH/MM3 (4.0-11.0) Hemoglobin 12.7 GM/DL 11.3 GM/DL (13.0-17.0) (13.0-17.0) Hematocrit 37.6 % 34.2 % (39.0-51.0) (39.0-51.0) Neutrophils (%) (Auto) 78.3 % 70.6 % (16.0-70.0) (16.0-70.0) Neutrophils # (Auto) 10.8 TH/MM3 (1.8-7.7) Monocytes # (Auto) 1.0 TH/MM3 (0-0.9) Potassium Level 3.0 MEQ/L 2.6 MEQ/L 3.3 MEQ/L (3.5-5.1) (3.5-5.1) (3.5-5.1) Blood Urea Nitrogen 30 MG/DL (7-18) Creatinine 1.46 MG/DL (0.60-1.30) Estimat Glomerular Filtration 49 ML/MIN (>89) 58 ML/MIN (>89) Rate Random Glucose 124 MG/DL 160 MG/DL (74-106) (74-106) Calcium Level 8.4 MG/DL 8.1 MG/DL (8.5-10.1) (8.5-10.1) Aspartate Amino Transf 10 U/L (15-37) (AST/SGOT) Alanine Aminotransferase 11 U/L (12-78) (ALT/SGPT) Total Protein 6.1 GM/DL (6.4-8.2) Albumin 3.0 GM/DL (3.4-5.0) Red Blood Count 4.15 MIL/MM3 (4.50-5.90) Test 09/13/16 05:22 Potassium Level 3.4 MEQ/L (3.5-5.1) Chloride Level 111 MEQ/L (98-107) Carbon Dioxide Level 20.8 MEQ/L (21.0-32.0) Estimat Glomerular Filtration 66 ML/MIN (>89) Rate Random Glucose 121 MG/DL (74-106) Calcium Level 7.9 MG/DL (8.5-10.1) Imaging Last Impressions Abdomen/Pelvis CT 09/10/16 1015 Signed Impressions: Service Date/Time: Saturday, September 10, 2016 12:34 - CONCLUSION: The patient is status post prior colectomy with no evidence of intra-abdominal or intra- pelvic abnormality noted. Awilda Aguilera MD Chest X-Ray 09/10/16 0000 Signed Impressions: Service Date/Time: Saturday, September 10, 2016 16:13 - CONCLUSION: No acute pulmonary infiltrates. Hyperaeration of the lung maxwell. Jonathan Eng MD PE at Discharge GENERAL: NAD SKIN: Warm and dry. HEAD: Normocephalic. EYES: No scleral icterus. No injection or drainage. NECK: Supple, trachea midline. No JVD or lymphadenopathy. CARDIOVASCULAR: Regular rate and rhythm without murmurs, gallops, or rubs. RESPIRATORY: Breath sounds equal bilaterally. No accessory muscle use. GASTROINTESTINAL: Abdomen soft, non-tender, nondistended. MUSCULOSKELETAL: No cyanosis, or edema. BACK: Nontender without obvious deformity. No CVA tenderness. Hospital Course History of UC Abdominal pain-Improving Increased ileostomy output -CT abdomen/pelvics without any acute finding -continue IV fluid NS@ 100cc/hr -Pain management accordingly; -Change ileostomy bag per protocol Abnormal UA/UTI Leukocytosis--resolved -s/p Rocephin IV 1 in ED, will d/c abx as Urine culture negative -CXR with No acute pulmonary infiltrates Drug-seeking behavior: Patient was advised against Hyponatremia -Resolved with IV fluid hydration Hypokalemia: Give K 40Meq X 1 NOW Acute renal failure: Prerenal secondary to high ileostomy output; improving with IV fluid hydration. Monitor BUN and creatinine and avoid all nephrotoxic drugs Labile benign hypertension: Normotensive with Lopressor 50 mg by mouth every 12 History of UC: Chronic. Patient was recently admitted to hospice. Anemia of CD: Monitor H/H however may consider CRS for evaluation if patient with continue Bleeding for Colostomy vs GI DVT prophylaxis: Bilateral SCDs Pt Condition on Discharge: Stable Discharge Disposition: Disch w/ Home Health Serv Discharge Time: > 30 minutes Discharge Instructions DIET: Follow Instructions for: Heart Healthy Diet Activities you can perform: Regular-No Restrictions Follow up Referrals: PCP Follow-up - 1 Week New Medications: Oxycodone (Oxycodone) 10 Mg Tab 10 MG PO Q8H PRN PAIN #20 Ref 0 TAB Continued Medications: Pregabalin (Lyrica) 75 Mg Cap 75 MG PO BID #60 Ref 0 CAP Alex Holt MD Sep 13, 2016 11:48
[2016-09-13] MEDS ORDERED: OXYC-395 PO (11:50)
[2016-09-13 12:00] VITALS: BP 132/79; PULSE 54; RESP 17; TEMP 97.8; O2SAT 97
[2016-09-13] MEDS: cefTRIAXone INJ 1,000 MG in SODIUM CHLORIDE 0.9% INJ 100 ML IV SCH (13:21)
== END 2016-09-13 15:49 | disposition home health service (06) | DRG 683 ==
LOC: NEPE 10:01 → NEDA 14:05 → N07B 17:00
PROVIDERS: ADMIT Hospitalist; ATTEND Hospitalist
DX: N17.9 Acute kidney failure, unspecified (principal); N39.0 Urinary tract infection, site not specified; E87.1 Hypo-osmolality and hyponatremia; I10 Essential (primary) hypertension; K51.90 Ulcerative colitis, unspecified, without complications; Z93.2 Ileostomy status; Z90.49 Acquired absence of other specified parts of digestive tract; G89.4 Chronic pain syndrome; F19.94 Other psychoactive substance use, unspecified with psychoactive substance-induced mood disorder; D63.8 Anemia in other chronic diseases classified elsewhere; J45.909 Unspecified asthma, uncomplicated; F17.210 Nicotine dependence, cigarettes, uncomplicated; Z66 Do not resuscitate
CPT/HCPCS: 71010; 74177; 80048; 80053; 81001; 83605; 83690; 83735; 84132; 85025; 87086; 96361; 96365; 96375; J0696; J2270; J2405; J3480; J7030; Q9967

== ENCOUNTER 2016-12-29 10:33 | Inpatient (IN) | payer OTHER, MEDICARE ==
[~2016-12-29] VITALS: Ht 177.8 cm; Wt 59.8 kg
[~2016-12-29 10:33] MED LIST changes: -ALBU2.5I INH; -AMIT50 PO; +LYRI75CA PO; +OXYC-395 PO; -OXYC1TAB13 PO; -PREG75 PO
[2016-12-29 10:42] VITALS: BP 169/82; PULSE 78; RESP 20; TEMP 98; O2SAT 96
[2016-12-29] MEDS ORDERED: SODIUM CHLOR 0.9% 1000 ML INJ 1,000 ML IV SCH (10:43)
[2016-12-29] MEDS ORDERED: SODIUM CHLORIDE 0.9% FLUSH 5 ML FLUSH IV FLUSH PRN (10:45)
--- NOTE | 2016-12-29 10:49 | PD ---
HPI Chief Complaint: General Weakness Time Seen by Provider: 10:39 Travel History International Travel<30 days: No Contact w/Intl Traveler<30days: No Traveled to known affect area: No History of Present Illness HPI Patient is a 61-year-old male with a history of colostomy secondary to colectomy secondary to colitis presents emergency Department with fatigue and weakness and inability to ambulate times today. Patient states his normal caregivers the son who is been out of town. He states since his son his left he has not had any real by mouth intake except for alcohol. He states has been out of town for 2-3 days. Denies any fever chest pain shortness of breath abdominal pain nausea vomiting diarrhea. States he's been having some loose stool output in his colostomy bag but this is been chronic. She's never had any alcohol withdrawals before. PFSH Past Medical History Arthritis: Yes Asthma: Yes Anxiety: Yes Depression: Yes Cancer: No Cardiovascular Problems: No Chest Pain: No Congestive Heart Failure: No COPD: No Cerebrovascular Accident: No Diabetes: No Endocrine: No Gastrointestinal Disorders: Yes (HX ULCERATIVE COLITIS, CHR. ABD. PAIN, CHR. DIARRHEA) GERD: No Genitourinary: No Headaches: No Hepatitis: Yes ( TEENAGER) Hiatal Hernia: No Hypertension: Yes Immune Disorder: No Musculoskeletal: Yes (BACK PAIN) Neurologic: Yes (VERTIGO, NUMBNESS LEGS (L)>(R)) Psychiatric: Yes (DEPRESSION) Reproductive: No Respiratory: Yes (ASTHMA) Migraines: No Seizures: No Sleep Apnea: No Thyroid Disease: No Ulcer: No Past Surgical History Abdominal Surgery: Yes (ILEOSTOMY & CLOSURE, COLON RESECTION, ENTIRE LARGE INSTESTINE REMOVED) Appendectomy: Yes Cardiac Surgery: No Ear Surgery: No Endocrine Surgery: No Eye Surgery: No Genitourinary Surgery: No Gynecologic Surgery: No Joint Replacement: No Neurologic Surgery: No Pacemaker: No Thoracic Surgery: No Tonsillectomy: Yes (T&A) Other Surgery: Yes (COLOSTOMY) Social History Alcohol Use: No Tobacco Use: Yes (2-3 PPD) Substance Use: No Allergies-Medications (Allergen,Severity, Reaction): Coded Allergies: Nucynta (Verified Allergy, Severe, AMNESIA EPISODES, 09/10/16) Dilaudid (Verified Adverse Reaction, Severe, HALLUCINATIONS, 09/10/16) Reported Meds & Prescriptions Reported Meds & Active Scripts Active Reported Methadone (Methadone HCl) 40 Mg Tab 50 Mg PO DAILY Review of Systems Except as stated in HPI: all other systems reviewed are Neg Physical Exam Narrative GENERAL: Well-developed, very thin male, tremulous. Nontoxic appearance. SKIN: Focused skin assessment warm/dry. HEAD: Atraumatic. Normocephalic. EYES: Pupils equal and round. No scleral icterus. No injection or drainage. ENT: No nasal bleeding or discharge. Mucous membranes pink and moist. NECK: Trachea midline. No JVD. CARDIOVASCULAR: Regular rate and rhythm. No murmur appreciated. RESPIRATORY: No accessory muscle use. Clear to auscultation. Breath sounds equal bilaterally. GASTROINTESTINAL: Abdomen soft, non-tender, nondistended. Hepatic and splenic margins not palpable. Colostomy site clean dry and intact, liquid stool. MUSCULOSKELETAL: No obvious deformities. No clubbing. No cyanosis. No edema. NEUROLOGICAL: Awake and alert. No nerves II through XII are grossly intact and nonfocal, 5 out of 5 strength in all 4 extremity's, normal speech, normal thought pattern, alert and awake and oriented. There is coarse tremor in all 4 extremities mostly on exertion. Psychiatric: insight and judgment normal. Denies suicidal homicidal ideation. Data Data Last Documented VS Vital Signs Date Time Temp Pulse Resp B/P Pulse Ox O2 Delivery O2 Flow Rate FiO2 12/29/16 11:42 69 20 150/76 95 Nasal Cannula 2 12/29/16 10:42 98.0 Orders Electrocardiogram (12/29/16 10:43) Complete Blood Count With Diff (12/29/16 10:43) Comprehensive Metabolic Panel (12/29/16 10:43) Creatine Kinase (Cpk) (12/29/16 10:43) Prothrombin Time / Inr (Pt) (12/29/16 10:43) Act Partial Throm Time (Ptt) (12/29/16 10:43) Troponin I (12/29/16 10:43) Urinalysis - C+S If Indicated (12/29/16 10:43) Chest, Single Ap (12/29/16 10:43) Blood Glucose (12/29/16 10:43) Ecg Monitoring (12/29/16 10:43) Iv Access Insert/Monitor (12/29/16 10:43) Oximetry (12/29/16 10:43) Sodium Chloride 0.9% Flush (Ns Flush) (12/29/16 10:45) Sodium Chlor 0.9% 1000 Ml Inj (Ns 1000 M (12/29/16 10:43) Alcohol (Ethanol) (12/29/16 10:43) Lorazepam Inj (Ativan Inj) (12/29/16 11:00) Admit Order (Ed Use Only) (12/29/16 ) Lorazepam Inj (Ativan Inj) (12/29/16 12:30) Labs Laboratory Tests Test 12/29/16 10:45 White Blood Count 5.7 TH/MM3 Red Blood Count 4.23 MIL/MM3 Hemoglobin 13.3 GM/DL Hematocrit 39.3 % Mean Corpuscular Volume 92.9 FL Mean Corpuscular Hemoglobin 31.4 PG Mean Corpuscular Hemoglobin 33.8 % Concent Red Cell Distribution Width 15.1 % Platelet Count 252 TH/MM3 Mean Platelet Volume 7.3 FL Neutrophils (%) (Auto) % Lymphocytes (%) (Auto) % Monocytes (%) (Auto) % Eosinophils (%) (Auto) % Basophils (%) (Auto) % Neutrophils # (Auto) TH/MM3 Lymphocytes # (Auto) TH/MM3 Monocytes # (Auto) TH/MM3 Eosinophils # (Auto) TH/MM3 Basophils # (Auto) TH/MM3 CBC Comment AUTO DIFF Differential Total Cells 100 Counted Neutrophils % (Manual) 80 % Band Neutrophils % 3 % Lymphocytes % 14 % Monocytes % 3 % Neutrophils # (Manual) 4.7 TH/MM3 Differential Comment FINAL DIFF MANUAL Atypical Lymphocytes % Platelet Estimate NORMAL Platelet Morphology Comment GIANT Red Cell Morphology Comment NORMAL Prothrombin Time 10.5 SEC Prothromb Time International 1.0 RATIO Ratio Activated Partial 25.8 SEC Thromboplast Time Sodium Level 121 MEQ/L Potassium Level 3.2 MEQ/L Chloride Level 74 MEQ/L Carbon Dioxide Level 28.5 MEQ/L Anion Gap 19 MEQ/L Blood Urea Nitrogen 26 MG/DL Creatinine 1.42 MG/DL Estimat Glomerular Filtration 51 ML/MIN Rate Random Glucose 120 MG/DL Calcium Level 9.5 MG/DL Total Bilirubin 0.9 MG/DL Aspartate Amino Transf 133 U/L (AST/SGOT) Alanine Aminotransferase 94 U/L (ALT/SGPT) Alkaline Phosphatase 170 U/L Total Creatine Kinase 61 U/L Troponin I LESS THAN 0.02 NG/ML Total Protein 7.7 GM/DL Albumin 3.6 GM/DL Ethyl Alcohol Level 49 MG/DL MDM Medical Decision Making Medical Screen Exam Complete: Yes Emergency Medical Condition: Yes Interpretation(s) EKG shows sinus rhythm rate of 75, normal axis normal R-wave progression. No concerning ST segment changes. Prolonged QTC of 471. Otherwise normal intervals. This is an abnormal EKG. Differential Diagnosis Dehydration, lecture M normality, AKA, alcoholic ketoacidosis, alcohol withdrawals. Narrative Course Patient roomed in emergency department, thin history suggestive of malnourishment. He is tremulous, labs are significant for hyponatremia to 121, has a CO2 of 28 day 9 gap 19. Mildly hypokalemic. Creatinine of 1.4. My concerns this is a hypovolemic hyponatremic patient, liter of normal saline was given emergency department as well as 2 mg of Ativan. Discussed with Dr. Mercedes of the resident service to be admitted to Dr. Jackson. Recommended ICU level care at this time given the level of sodium in the mild tremors and she is agreeable. Further management by the resident team. Critical Care Narrative Aggregate critical care time was 35 minutes. Time to perform other separately billable procedures was not included in the critical care time. My time did not include minutes spent treating any other patients simultaneously or on activities that did not directly contribute to the patient's treatment. The services I provided to this patient were to treat and/or prevent clinically significant deterioration that could result in: , disability, organ failure. I provided critical care services requiring my management, as noted below: Chart data review, documentation time, medication orders and management, vital sign assessments/reviewing monitor data, ordering and reviewing lab tests, ordering and interpreting/reviewing x-rays and diagnostic studies, care of the patient and discussion of the patient with the admitting physicians. Diagnosis Primary Impression: Hyponatremia Admitting Information Admitting Physician Requests: Admit Condition: Stable Jeffrey Menezes MD Dec 29, 2016 10:49
[2016-12-29] MEDS ORDERED: METH40TA PO (10:52)
[2016-12-29 11:00] LABS: HEMATOCRIT 39.3 % (39.0-51.0); MEAN CELL VOLUME 92.9 FL (80.0-100.0); MEAN CORPUSCULAR HEMOGLOBIN 31.4 PG (27.0-34.0); MEAN CORPUSCULAR HGB CONC 33.8 % (32.0-36.0); PLATELET COUNT 252 TH/MM3 (150-450); RED BLOOD COUNT 4.23 MIL/MM3 (4.50-5.90); RED CELL DISTRIBUTION WIDTH 15.1 % (11.6-17.2); WHITE BLOOD COUNT 5.7 TH/MM3 (4.0-11.0)
[2016-12-29] MEDS ORDERED: LORazepam 2 MG/ML VIAL IV PUSH ONE ×2 (11:00→12:30)
[2016-12-29 11:04] LABS: HEMO FLAGS AUTO DIFF
[2016-12-29 11:13] LABS: PROTHROMBIN TIME - PATIENT 10.5 SEC (9.8-11.6)
[2016-12-29 11:14] LABS: APTT (PATIENT) 25.8 SEC (24.3-30.1)
--- NOTE | 2016-12-29 11:29 | RADRPT ---
EXAM DATE/TIME: 12/29/2016 11:06 [facility] COMPARISON: CHEST SINGLE AP, September 10, 2016, 16:13. INDICATIONS : Cough MEDICAL HISTORY : None. SURGICAL HISTORY : None. ENCOUNTER: Initial ACUITY: 1 day PAIN SCORE: 0/10 LOCATION: Bilateral chest FINDINGS: 2 portable frontal views of the chest show the lungs to be hyperaerated. No infiltrate or effusion. H eart is normal in size. Mild scoliotic curvature to the spine. Old trauma involving the left clavicle . CONCLUSION: Hyperaeration. Clear lungs. Jamil Bradley Jr., MD on December 29, 2016 at 11:27 Board Certified Radiologist. This report was verified electronically.
[2016-12-29 11:33] LABS: ALKALINE PHOSPHATASE 170 U/L (45-117); ALT (GPT) 94 U/L (12-78); ANION GAP 19 MEQ/L (5-15); AST (GOT) 133 U/L (15-37); BICARBONATE 28.5 MEQ/L (21.0-32.0); BLOOD UREA NITROGEN 26 MG/DL (7-18); CHLORIDE 74 MEQ/L (98-107); GLOMERULAR FILTRATION RATE 51 ML/MIN (>89); TOTAL BILIRUBIN ADULT 0.9 MG/DL (0.2-1.0)
[2016-12-29 11:37] LABS: CREATINE KINASE 61 U/L (39-308); POTASSIUM 3.2 MEQ/L (3.5-5.1)
[2016-12-29 11:39] LABS: SODIUM (NA) 121 MEQ/L (136-145)
[2016-12-29 11:42] VITALS: BP 150/76; PULSE 69; RESP 20; O2SAT 95
[2016-12-29 11:42] LABS: BANDS 3 % (0-6); NEUTROPHIL # MANUAL DIFF 4.7 TH/MM3 (1.8-7.7); POLYS (SEG NEUTROPHILS) 80 % (16-70); WBC DIFF SAMPLE 100
[2016-12-29 11:43] LABS: PLATELET ESTIMATE SMEAR NORMAL (NORMAL); PLATELET MORPHOLOGY GIANT (NORMAL); SCAN/DIFF FINAL DIFF MANUAL
--- NOTE | 2016-12-29 12:36 | EKG ---
Date Performed: 12/29/2016 Time Performed: 11:08:12 PTAGE: 61 years EKG: Sinus rhythm PROLONGED QT INTERVAL ABNORMAL ECG NO PREVIOUS TRACING DOCTOR: Eleuterio Del Castillo Interpretating Date/Time 12/29/2016 12:34:40
[2016-12-29] MEDS: SODIUM CHLOR 0.9% 1000 ML INJ 1,000 ML IV SCH ×2 (12:38→20:04)
[2016-12-29] MEDS ORDERED: LORazepam 2 MG TAB PO PRN (12:45)
[2016-12-29] MEDS ORDERED: NALOXONE HCL 0.4 MG/ML AMP IV PRN ×2 (12:45→14:30)
[2016-12-29] MEDS ORDERED: SENNOSIDES 8.6 MG TAB PO PRN (12:45)
[2016-12-29] MEDS ORDERED: LORazepam 2 MG/ML VIAL IV PUSH PRN ×3 (12:45)
[2016-12-29] MEDS ORDERED: ACETAMINOPHEN 325 MG TAB PO PRN (12:45)
[2016-12-29] MEDS ORDERED: BISACODYL 10 MG SUPP RECTAL PRN (12:45)
[2016-12-29] MEDS ORDERED: LACTULOSE SYRUP 20 GM/30 ML CUP PO PRN (12:45)
[2016-12-29] MEDS ORDERED: MAGNESIUM HYDROXIDE SUSP 30 ML CUP PO PRN (12:45)
[2016-12-29] MEDS ORDERED: ONDANSETRON HCL 4 MG/2 ML VIAL IVP PRN (12:45)
[2016-12-29] MEDS ORDERED: SODIUM CHLORIDE 0.9% FLUSH 10 ML FLUSH IV FLUSH PRN (12:45)
[2016-12-29] MEDS ORDERED: FLUMAZENIL 0.5 MG/5 ML VIAL IV PUSH PRN (12:45)
--- NOTE | 2016-12-29 12:48 | HHI.HP ---
[facility] Service Family Medicine Primary Care Physician Elias Day MD Admission Diagnosis Hypovolemic Hyponatremia. Diagnoses: International Travel<30 Days: No Contact w/Intl Traveler<30days: No Known Affected Area: No History of Present Illness Patient is a 61-year-old male with past medical history significant for alcohol abuse, ulcerative colitis status post colectomy presenting due to generalized weakness. Patient reports that he came to the ED because he was not able to stand up this morning. Over the past several months he has been feeling weak and this has worsened over the past several days. The last time he had something to eat is about 2 days ago. His stepson axis his caregiver and prepares his food. He has been out of town for the last 2 days. Patient has only been drinking alcohol. He has had about 4 glasses of whiskey with ice today. He denies ever going through alcohol withdrawal. When he was younger he stopped drinking beer on his own and denies having any issues. He denies history of seizures. He has gone through withdrawal from opiate pain medication. He reports that he was previously on hospice, indication is unclear. He reports that he is no longer on hospice due to weight gain. He endorses chronic abdominal pain and he currently treats this pain with methadone and alcohol. He has fallen several times in the past few days. He attributes this to losing his balance. No injuries associated with falls. Review of Systems Constitutional: COMPLAINS OF: Fever, Dizziness, DENIES: Chills, Change in appetite Eyes: DENIES: Blurred vision Ears, nose, mouth, throat: COMPLAINS OF: Hearing loss, Vertigo Respiratory: COMPLAINS OF: Cough, Sputum production, Shortness of breath Cardiovascular: DENIES: Chest pain, Syncope Gastrointestinal: DENIES: Black stools, Bloody stools Genitourinary: DENIES: Dysuria Musculoskeletal: COMPLAINS OF: Muscle aches Integumentary: COMPLAINS OF: Rash Neurologic: COMPLAINS OF: Localized weakness Past Family Social History Past Medical History Per EMR review and patient: Ulcerative colitis History of infectious colitis History of hypertension, controlled after weight loss Asthma [place] on right buttock Past Surgical History Per EMR: Colectomy 10 years ago Diverting ileostomy and adhesion lysis in 2014 Tonsillectomy Deviated septum repair 2 Appendectomy Reported Medications Reported Meds & Active Scripts Active Reported Methadone (Methadone HCl) 40 Mg Tab 50 Mg PO DAILY liquid Allergies: Coded Allergies: Nucynta (Verified Allergy, Severe, AMNESIA EPISODES, 09/10/16) Dilaudid (Verified Adverse Reaction, Severe, HALLUCINATIONS, 09/10/16) Active Ordered Medications Inpatient Medications Acetaminophen (Tylenol) 650 mg Q4H PRN PO TEMP > 100.4; Start 12/29/16 at 12:45 Bisacodyl (Dulcolax Supp) 10 mg DAILY PRN RECTAL SEVERE CONSITIPATION; Start at 12:45 Enoxaparin Sodium (Lovenox Inj) 40 mg Q24H SQ Last administered on 12/29/16 13 :00; Start 12/29/16 at 13:00 Flumazenil (Romazicon Inj) 0.2 mg Q1M PRN IV PUSH SEE LABEL COMMENTS; Start at 12:45 IV Flush (NS Flush) 2 ml UNSCH PRN IV FLUSH FLUSH AFTER USING IV ACCESS; Start 12/29/16 at 10:45; Stop 12/29/16 at 12:56; Status DC Lactulose (Lactulose Liq) 30 ml DAILY PRN PO SEVERE CONSITIPATION; Start at 12:45 Lorazepam (Ativan Inj) 2 mg Q15M PRN IV PUSH CIWA > 20; Start 12/29/16 at 12:45 Lorazepam (Ativan) 2 mg Q2H PRN PO CIWA 11-14; Start 12/29/16 at 12:45 Lorazepam 1 mg 1 mg ONCE ONCE IV PUSH Last administered on 12/29/16 12:30; Start 12/29/16 at 12:30; Stop 12/29/16 at 12:58; Status DC Magnesium Hydroxide (Milk Of Magnesia Liq) 30 ml Q12H PRN PO MILD - MODERATE CONSTIPATION; Start 12/29/16 at 12:45 Naloxone HCl (Narcan Inj) 0.4 mg UNSCH PRN IV SEE LABEL COMMENTS; Start at 12:45 Ondansetron HCl (Zofran Inj) 4 mg Q6H PRN IVP NAUSEA OR VOMITING; Start at 12:45 Senna/Docusate Sodium (Lilliana-Colace) 1 tab BID PO ; Start 12/29/16 at 21:00 Sennosides (Senokot) 17.2 mg Q12H PRN PO MODERATE - SEVERE CONSTIPATION; Start 12/29/16 at 12:45 Sodium Chloride (NS 1000 ml Inj) 1,000 ml @ 100 mls/hr Q10H IV Last administered on 12/29/16t 12:38; Start 12/29/16 at 12:38 Sodium Chloride (NS Flush) 2 ml BID IV FLUSH ; Start 12/29/16 at 21:00 Family History Mother: overweight, ?DM, at 80 Father: at 64, "blood clot in his heart" Social History Lives with step son Smoke: 2 PPD, 40 years Alcohol: 4-5 glasses of whiskey 1.75L lasts 3 days Drugs: denies Physical Exam Vital Signs Vital Signs Date Time Temp Pulse Resp B/P Pulse Ox O2 Delivery O2 Flow Rate FiO2 12/29/16 11:42 69 20 150/76 95 Nasal Cannula 2 12/29/16 10:42 98.0 78 20 169/82 96 Physical Exam GENERAL: This is a thin disheveled appearing patient, patient with significant resting tremor of upper extremities. SKIN: Patient with macular rash over upper chest, right lateral arm. Cool and dry. Patient with decubitus ulcer stage 1-2 on right side of intergluteal cleft about 5 cm in diameter, does not appear to be infected. HEAD: Atraumatic. Normocephalic. No temporal or scalp tenderness. EYES: Pupils sluggish. Extraocular motions intact. No scleral icterus. No injection or drainage. ENT: Nose without bleeding, purulent drainage or septal hematoma. Throat without erythema, tonsillar hypertrophy or exudate. Uvula midline. Airway patent. NECK: Trachea midline. No JVD or lymphadenopathy. Supple, nontender, no meningeal signs. CARDIOVASCULAR: Regular rate and rhythm. RESPIRATORY: Clear to auscultation. Breath sounds equal bilaterally. No wheezes. GASTROINTESTINAL: Abdomen soft, non-tender, nondistended. Pt with ostomy in left lower quadrant, stoma appears pink, minimal amount of green liquid output. MUSCULOSKELETAL: Extremities without clubbing, cyanosis, or edema. No calf tenderness. Negative Homans sign bilaterally. NEUROLOGICAL: Awake and alert. 4 out of 5 muscle strength in all muscle groups. Normal speech. Pt with difficulty answering some questions due to not being able to remember. Laboratory Laboratory Tests Test 12/29/16 10:45 White Blood Count 5.7 Red Blood Count 4.23 Hemoglobin 13.3 Hematocrit 39.3 Mean Corpuscular Volume 92.9 Mean Corpuscular Hemoglobin 31.4 Mean Corpuscular Hemoglobin 33.8 Concent Red Cell Distribution Width 15.1 Platelet Count 252 Mean Platelet Volume 7.3 Neutrophils (%) (Auto) Lymphocytes (%) (Auto) Monocytes (%) (Auto) Eosinophils (%) (Auto) Basophils (%) (Auto) Neutrophils # (Auto) Lymphocytes # (Auto) Monocytes # (Auto) Eosinophils # (Auto) Basophils # (Auto) CBC Comment AUTO DIFF Differential Total Cells 100 Counted Neutrophils % (Manual) 80 Band Neutrophils % 3 Lymphocytes % 14 Monocytes % 3 Neutrophils # (Manual) 4.7 Differential Comment FINAL DIFF MANUAL Atypical Lymphocytes Platelet Estimate NORMAL Platelet Morphology Comment GIANT Red Cell Morphology Comment NORMAL Prothrombin Time 10.5 Prothromb Time International 1.0 Ratio Activated Partial 25.8 Thromboplast Time Sodium Level 121 Potassium Level 3.2 Chloride Level 74 Carbon Dioxide Level 28.5 Anion Gap 19 Blood Urea Nitrogen 26 Creatinine 1.42 Estimat Glomerular Filtration 51 Rate Random Glucose 120 Calcium Level 9.5 Total Bilirubin 0.9 Aspartate Amino Transf 133 (AST/SGOT) Alanine Aminotransferase 94 (ALT/SGPT) Alkaline Phosphatase 170 Total Creatine Kinase 61 Troponin I LESS THAN 0.02 Total Protein 7.7 Albumin 3.6 Ethyl Alcohol Level 49 Result Diagram: 12/29/16 1045 12/29/16 1045 Imaging Last 24 hours Impressions Chest X-Ray 12/29/16 1043 Signed Impressions: Service Date/Time: December 11:06 - CONCLUSION: Hyperaeration. Clear lungs. Jamil Bradley Jr., MD Assessment and Plan Assessment and Plan Patient is a 61-year-old male with history of ulcerative colitis, status post colectomy, chronic pain presenting due to weakness. On admission patient was found to be hyponatremic with a sodium of 121. Patient also has a history of alcohol abuse, concern for withdrawal. Patient to be admitted to the intensive care unit. Code Status Full Discussed Condition With SDW Dr. Avina, PGY-1 Problem List: (1) Generalized weakness Status: Acute Plan: Patient reports weakness for the past several months, worsening over the last few days. Likely due to combination of alcohol abuse and poor nutrition status. -Patient with history of alcohol abuse, see plan below -See plan for hyponatremia -We'll check B12, folate -Continue to monitor (2) Alcohol withdrawal Status: Acute Plan: Patient with significant alcohol use history. Concern for withdrawal. Patient denies having any issues or seizures associated with withdrawal in the past. -CIWA Proticol -Rally pack -Patient to be counseled regarding alcohol abuse (3) Hyponatremia Status: Acute Plan: On admission patient with hyponatremia, sodium 121. -We'll monitor BMPs Q4hrs to avoid rapid overcorrection -pt with very poor nutritional status and hx of alcohol abuse which are likely contributing factors (4) Chronic pain Status: Acute Plan: Patient reports history of chronic abdominal pain and that he has been on methadone. Unable to verify. -[place] 5-325 for pain 3-5, 10-325 pain >5 -Additional pain control as needed (5) Pressure ulcer of sacrum Status: Acute Plan: Pt with 6cm pressure ulcer to the right intragluteal cleft. Does not appear to be infected. -Wound care consult -Continue to monitor (6) Elevated liver enzymes Status: Acute Plan: Patient reports a distant history of hepatitis, unable to recall type. AST and ALT elevated to 133 and 94 respectively. -Will check hepatitis profile (7) FEN/PPX Status: Acute Plan: Fluids: Normal saline at 100 mL's/Hr, to be titrated based on sodium increase Electrolytes: See above. Continue to monitor and replete as needed. Nutrition: Regular diet DVT PPX: Lovenox GI PPX: Protonix Physician Certification 2 Midnight Certification Type: Admission for Inpatient Services Order for Inpatient Services The services are ordered in accordance with Medicare regulations or non- Medicare payer requirements, as applicable. In the case of services not specified as inpatient-only, they are appropriately provided as inpatient services in accordance with the 2-midnight benchmark. Estimated LOS (days): 2 2 days is the estimated time the patient will need to remain in the hospital, assuming treatment plan goals are met and no additional complications. Post-Hospital Plan: Not yet determined Problem Qualifiers (1) Pressure ulcer of sacrum: Qualified Code: L89.152 - Decubitus ulcer of sacral region, stage 2 Eden Mercedes MD R2 Dec 29, 2016 12:48
[2016-12-29 12:50] LABS: BLOOD, URINE NEG (NEG); GLUCOSE,URINE NEG (NEG); KETONE, URINE 40 mg/dL (NEG); MUCUS URINE FEW /lpf (OCC); NITRITE,URINE NEG (NEG); URINE COLOR YELLOW (YELLW/STRAW)
[2016-12-29 13:00] LABS: COMMENT (UR) CATH-CULT NOT IND; CULTURE IF INDICATED CATH CULTURE NOT IND
[2016-12-29] MEDS: ENOXAPARIN SODIUM 40 MG/0.4 ML SYRINGE SQ SCH (13:00)
[2016-12-29] MEDS ORDERED: cloNIDine HCL 0.1 MG TAB PO PRN (14:15)
[2016-12-29] MEDS: MULTIVITAMINS/MINERALS THERAPEUTIC TAB PO SCH (14:15)
[2016-12-29] MEDS: THIAMINE HCL 100 MG TAB PO SCH (14:15)
[2016-12-29] MEDS: FOLIC ACID 1 MG TAB PO SCH (14:15)
[2016-12-29] MEDS ORDERED: ACETAMINOPHEN/HYDROcodone 325 MG/5 MG TAB PO PRN (14:30)
[2016-12-29] MEDS ORDERED: POTASSIUM CHLORIDE 10 MEQ CAP PO ONE (14:30)
[2016-12-29 16:55] VITALS: BP 139/69; PULSE 86; RESP 20; O2SAT 98
[2016-12-29] MEDS: LORazepam 2 MG/ML VIAL IV PUSH PRN ×2 (18:25→22:09)
[2016-12-29] MEDS ORDERED: CHLORHEXIDINE GLUCONATE 2 % 1 PACK (2 CLOTHS)(extra cloths) TOPICAL PRN (19:00)
[2016-12-29 21:08] VITALS: BP 127/70; PULSE 67; RESP 20; TEMP 98.2; O2SAT 91
[2016-12-29 21:55] LABS: BICARBONATE 27.5 MEQ/L (21.0-32.0); POTASSIUM 3.5 MEQ/L (3.5-5.1)
[2016-12-29 22:00] VITALS: PULSE 78
[2016-12-29] MEDS: DOCUSATE SODIUM 50 MG/SENNA 8.6 MG TAB PO SCH (22:09)
[2016-12-29] MEDS: SODIUM CHLORIDE 0.9% FLUSH 10 ML FLUSH IV FLUSH SCH (22:10)
[2016-12-29] MEDS: CHLORHEXIDINE GLUCONATE 2 % 1 PACK (2 CLOTHS)(taper/protocol) TOPICAL SCH (22:10)
[2016-12-29 23:00] VITALS: BP 147/91; PULSE 69; RESP 28; TEMP 98.2; O2SAT 97
[2016-12-30] VITALS (13 sets, daily range): BP systolic 122–160; BP diastolic 68–84; PULSE 61–88; RESP 17–32; TEMP 97.8–99.3; O2SAT 95–100
[2016-12-30 03:55] LABS: ANION GAP 12 MEQ/L (5-15); BICARBONATE 31.5 MEQ/L (21.0-32.0); BLOOD UREA NITROGEN 22 MG/DL (7-18); CHLORIDE 90 MEQ/L (98-107); GLOMERULAR FILTRATION RATE 81 ML/MIN (>89); POTASSIUM 3.2 MEQ/L (3.5-5.1); SODIUM (NA) 133 MEQ/L (136-145)
[2016-12-30] MEDS ORDERED: POTASSIUM CHLORIDE 10 MEQ CAP PO ONE (04:45)
[2016-12-30 05:34] LABS: ANION GAP 11 MEQ/L (5-15); BICARBONATE 29.7 MEQ/L (21.0-32.0); BLOOD UREA NITROGEN 22 MG/DL (7-18); CHLORIDE 89 MEQ/L (98-107); GLOMERULAR FILTRATION RATE 85 ML/MIN (>89); POTASSIUM 3.1 MEQ/L (3.5-5.1); SODIUM (NA) 130 MEQ/L (136-145)
[2016-12-30] MEDS: LORazepam 2 MG/ML VIAL IV PUSH PRN ×2 (05:37→09:30)
[2016-12-30] MEDS: SODIUM CHLOR 0.9% 1000 ML INJ 1,000 ML IV SCH ×2 (05:38→17:17)
[2016-12-30] MEDS: FOLIC ACID 1 MG TAB PO SCH (09:30)
[2016-12-30] MEDS: MULTIVITAMINS/MINERALS THERAPEUTIC TAB PO SCH (09:30)
[2016-12-30] MEDS: DOCUSATE SODIUM 50 MG/SENNA 8.6 MG TAB PO SCH ×2 (09:30→20:31)
[2016-12-30] MEDS: PANTOPRAZOLE SOD 40 MG DELAYED RELEASE TAB PO SCH (09:30)
[2016-12-30] MEDS: THIAMINE HCL 100 MG TAB PO SCH (09:30)
[2016-12-30] MEDS: ACETAMINOPHEN/HYDROcodone 325 MG/10 MG TAB PO PRN (09:31)
[2016-12-30 11:13] LABS: ALT (GPT) 63 U/L (12-78); AST (GOT) 81 U/L (15-37)
[2016-12-30 11:15] LABS: ALKALINE PHOSPHATASE 136 U/L (45-117); CALCIUM-PROTEIN CORRECTED 9.1 MG/DL (8.5-10.1); TOTAL BILIRUBIN ADULT 1.2 MG/DL (0.2-1.0)
[2016-12-30] MEDS ORDERED: METHADONE HCL 10 MG/10 ML ORAL SOLUTION PO ONE (12:00)
[2016-12-30] MEDS ORDERED: POTASSIUM CHLORIDE 10 MEQ CONTROLLED RELEASE TAB PO ONE (12:00)
[2016-12-30] MEDS: ENOXAPARIN SODIUM 40 MG/0.4 ML SYRINGE SQ SCH (12:46)
[2016-12-30 13:04] LABS: MAGNESIUM 1.4 MG/DL (1.5-2.5)
--- NOTE | 2016-12-30 15:43 | PD.WCN.NOT ---
Wound Consult Description: Consult for WOUND MANAGEMENT for sacral decub ulcer per Eden Mercedes MD R2 Communicated with: JEAN Gunderson Recommendation: Barrier cream BID and PRN for excoriation (scratch morgan) to right buttock Additional Information: Patient seen on with JEAN Gunderson for sacral evaluation. Patient independently turned himself to his left side for assessment of sacrum, bilateral buttocks. Scratch morgan noted to right inner buttock with blanching erythema noted. There are no open areas or ulcers noted. Patient skin is visualized and note to be dry and "itchy" per patient with evidence of scratch morgan to right buttock as well as bilateral upper extremities. Patient is noted with an ileostomy attached to gravity drainage bag with 4 unidentified coated pills noted inside pouch. Patient states that he crushes his pills at home, due to ileostomy, his pills aren't absorbed in the small intestine otherwise. Supplies were ordered in the patients size of 1 & 3/4, however patient states he has tried many companies and has found that only the eber appliances stick to his skin. All other appliances leak. Ostomy Type: Ileostomy Additional information [employer] appliances ordered in his size of 1 & 3/4 for the end ileostomy noted in the mid lower left quadrant. The functioning stoma is red, moist, round, with a long protrusion. Yellow/green effluent noted in gravity drainage bag with 4 undigested pills noted to the pouch. Shirley Tobar [facility] Dec 30, 2016 15:43
--- NOTE | 2016-12-30 15:50 | HHI.FPPN ---
Subjective Remarks Patient seen and examined this morning. He states that he continues to have shaking movements, but at this time they are at his baseline level. No current complaint of Nausea, vomiting, fever, chills, shortness of breath, chest pain, change in bowel or bladder habits. Patient states that he would like to resume his methadone treatment he was receiving outpatient, 50mg daily. No other acute complaints. (Mychal Avina MD R1) Objective Vitals Vital Signs Date Time Temp Pulse Resp B/P Pulse Ox O2 Delivery O2 Flow Rate FiO2 12/30/16 14:00 75 12/30/16 12:00 75 12/30/16 11:00 99.3 65 32 128/84 97 12/30/16 10:00 75 12/30/16 08:00 75 12/30/16 08:00 98.9 68 32 122/68 97 12/30/16 06:00 75 12/30/16 04:00 64 12/30/16 03:00 99.3 65 32 147/84 97 12/30/16 02:00 61 12/30/16 00:00 64 12/29/16 23:00 98.2 69 28 147/91 97 12/29/16 22:00 78 12/29/16 21:08 98.2 67 20 127/70 91 12/29/16 16:55 86 20 139/69 98 Room Air I/O 12/29/16 12/29/16 12/29/16 12/30/16 12/30/16 12/30/16 06:59 14:59 22:59 06:59 14:59 22:59 Intake Total 360 ml 770 ml 1130 ml Output Total 150 ml 570 ml 1000 ml Balance 210 ml 200 ml 130 ml Intake Oral 20 ml 50 ml 380 ml IV Total 340 ml 720 ml 750 ml Output Urine Total 470 ml 450 ml Stool Total 150 ml 100 ml 550 ml (Mychal Avina MD R1) Result Diagram: 12/29/16 1045 12/30/16 0341 Objective Remarks GENERAL: Patient laying in bed, comfortable, pleasant SKIN: Warm and dry. HEAD: Atraumatic. Normocephalic. EYES: Pupils equal and round. No scleral icterus. No injection or drainage. ENT: No nasal bleeding or discharge. Mucous membranes pink and moist. NECK: Trachea midline. No JVD. CARDIOVASCULAR: Regular rate and rhythm. Normal S1/S2 RESPIRATORY: No accessory muscle use. Clear to auscultation. Breath sounds equal bilaterally. GASTROINTESTINAL: Abdomen soft, non-tender, nondistended. Hepatic and splenic margins not palpable. Ostomy bag in place, no leakage, brownish/liquid feces within. MUSCULOSKELETAL: Extremities without clubbing, cyanosis, or edema. No obvious deformities. NEUROLOGICAL: Awake and alert. No obvious cranial nerve deficits. Motor grossly within normal limits. Five out of 5 muscle strength in the arms and legs. Normal speech. PSYCHIATRIC: Appropriate mood and affect; insight and judgment normal. Medications and IVs Current Medications Medications (Trade) Dose Ordered Sig/Huber Route Start Time Stop Time Status Last Admin (NS 1000 ml Inj) 1,000 ml @ 100 mls/hr Q10H IV 12/29/16 12:38 12/30/16 05:38 (NS Flush) 2 ml UNSCH PRN IV FLUSH 12/29/16 12:45 (NS Flush) 2 ml BID IV FLUSH 12/29/16 21:00 12/29/16 22:10 (Tylenol) 650 mg Q4H PRN PO 12/29/16 12:45 (Zofran Inj) 4 mg Q6H PRN IVP 12/29/16 12:45 (Lovenox Inj) 40 mg Q24H SQ 12/29/16 13:00 12/30/16 12:46 (Narcan Inj) 0.4 mg UNSCH PRN IV 12/29/16 12:45 (Lilliana-Colace) 1 tab BID PO 12/29/16 21:00 12/30/16 09:30 (Milk Of Magnesia Liq) 30 ml Q12H PRN PO 12/29/16 12:45 (Senokot) 17.2 mg Q12H PRN PO 12/29/16 12:45 (Dulcolax Supp) 10 mg DAILY PRN RECTAL 12/29/16 12:45 (Lactulose Liq) 30 ml DAILY PRN PO 12/29/16 12:45 (Romazicon Inj) 0.2 mg Q1M PRN IV PUSH 12/29/16 12:45 (Ativan) 1 mg Q4H PRN PO 12/29/16 12:45 (Ativan Inj) 1 mg Q4H PRN IV PUSH 12/29/16 12:45 12/30/16 09:30 (Ativan) 2 mg Q2H PRN PO 12/29/16 12:45 (Ativan Inj) 2 mg Q2H PRN IV PUSH 12/29/16 12:45 (Ativan Inj) 2 mg Q1H PRN IV PUSH 12/29/16 12:45 (Ativan Inj) 2 mg Q15M PRN IV PUSH 12/29/16 12:45 (Folate) 1 mg DAILY PO 12/29/16 14:15 01/03/17 14:14 12/30/16 09:30 (Vitamin B1) 100 mg DAILY PO 12/29/16 14:15 12/30/16 09:30 (Theragran M Tab) 1 tab DAILY PO 12/29/16 14:15 01/03/17 14:14 12/30/16 09:30 (Protonix) 40 mg DAILY PO 12/30/16 09:00 12/30/16 09:30 (Catapres) 0.1 mg Q6H PRN PO 12/29/16 14:15 ([place] 5-325 Mg) 1 tab Q4H PRN PO 12/29/16 14:30 ([place] 10-325 Mg) 1 tab Q4H PRN PO 12/29/16 14:30 12/30/16 09:31 (Narcan Inj) 0.4 mg UNSCH PRN IV 12/29/16 14:30 Miscellaneous Information Patient in critical care unit? Ass... [id number] .XX 12/29/16 19:00 12/29/16 19:00 (Chlorhexidine 2% Cloth) 3 pack DAILY@04 TOPICAL 12/30/16 04:00 01/03/17 04:01 12/29/16 22:10 (Chlorhexidine 2% Cloth) 3 pack UNSCH PRN TOPICAL 12/29/16 19:00 01/03/17 18:56 (Habitrol 21 Mg Patch.24 Hr) 1 patch DAILY T-DERMAL 12/31/16 09:00 Miscellaneous Information 1 HS T-DERMAL 12/30/16 21:00 (Mychal Avina MD R1) A/P Assessment and Plan Patient is a 61-year-old male with history of ulcerative colitis, status post colectomy, chronic pain presenting due to weakness. On admission patient was found to be hyponatremic with a sodium of 121. 130 the next day (12/30) Patient also has a history of alcohol abuse, concern for withdrawal. Patient initially admitted to the intensive care unit. (Mychal Avina MD R1) Attending Attestation Patient seen and examined. Case reviewed and discussed with the resident team. Agree with plan of care as discussed with me and documented in the resident note. (John Douglass MD) Problem List: (1) Generalized weakness Status: Acute Plan: Patient reports weakness for the past several months, worsening over the last few days. Likely due to combination of alcohol abuse and poor nutrition status. -Patient with history of alcohol abuse, see plan below -See plan for hyponatremia -B12 normal 424 - Folate high >20 -Continue to monitor (2) Alcohol withdrawal Status: Acute Plan: Patient with significant alcohol use history. Concern for withdrawal. Patient denies having any issues or seizures associated with withdrawal in the past. -CIWA Proticol -Rally pack -Patient to be counseled regarding alcohol abuse (3) Hyponatremia Status: Acute Plan: On admission patient with hyponatremia, sodium 121. 130 on 12/30 -Will monitor BMPs to avoid rapid overcorrection -pt with very poor nutritional status and hx of alcohol abuse which are likely contributing factors (4) Chronic pain Status: Acute Plan: Patient reports history of chronic abdominal pain and that he has been on methadone. -[place] 5-325 for pain 3-5, 10-325 pain >5 - Will add 50 mg Methadone daily as reported -Additional pain control as needed (5) Pressure ulcer of sacrum Status: Acute Plan: Pt with 6cm pressure ulcer to the right intragluteal cleft. Does not appear to be infected. -Wound care consult -Continue to monitor (6) Elevated liver enzymes Status: Acute Plan: Patient reports a distant history of hepatitis, unable to recall type. AST and ALT elevated to 133 and 94 respectively. -Will check hepatitis profile (7) FEN/PPX Status: Acute Plan: Fluids: Normal saline at 100 mL's/Hr, to be titrated based on sodium increase Electrolytes: See above. Continue to monitor and replete as needed. Nutrition: Regular diet DVT PPX: Lovenox GI PPX: Protonix (Mychal Avina MD R1) Problem Qualifiers (1) Pressure ulcer of sacrum: Qualified Code: L89.152 - Decubitus ulcer of sacral region, stage 2 Mychal Avina MD R1 Dec 30, 2016 15:50 John Douglass MD Dec 30, 2016 16:11
[2016-12-30] MEDS: SODIUM CHLORIDE 0.9% FLUSH 10 ML FLUSH IV FLUSH SCH (20:31)
[2016-12-30] MEDS: REMOVE OLD PATCH T-DERMAL SCH (20:37)
[2016-12-31] VITALS (7 sets, daily range): BP systolic 128–175; BP diastolic 80–97; PULSE 57–82; RESP 16–20; TEMP 97.8–98.5; O2SAT 93–100
[2016-12-31] MEDS: CHLORHEXIDINE GLUCONATE 2 % 1 PACK (2 CLOTHS)(taper/protocol) TOPICAL SCH (03:47)
[2016-12-31] MEDS: SODIUM CHLOR 0.9% 1000 ML INJ 1,000 ML IV SCH ×2 (04:38→22:07)
[2016-12-31] MEDS: LORazepam 1 MG TAB PO PRN ×2 (06:30→17:30)
[2016-12-31] MEDS: DOCUSATE SODIUM 50 MG/SENNA 8.6 MG TAB PO SCH ×2 (09:00→21:00)
[2016-12-31] MEDS: SODIUM CHLORIDE 0.9% FLUSH 10 ML FLUSH IV FLUSH SCH ×2 (09:00→22:07)
--- NOTE | 2016-12-31 09:06 | HHI.FPPN ---
Subjective Remarks Pt seen and examined this morning. No acute events overnight. Pt has been afebrile. Pt is frustrated that his ostomy is leaking despite several attempts to secure it. He denies chest pain, shortness of breath. He has not been getting out of bed. PT recommended In Patient rehabilitation and he is interested in this to help him regain his strength. He has been eating well, no nausea or vomiting. No other acute concerns. Objective Vitals Vital Signs Date Time Temp Pulse Resp B/P Pulse Ox O2 Delivery O2 Flow Rate FiO2 12/31/16 07:51 Room Air 12/31/16 04:00 97.8 64 16 150/80 93 12/31/16 00:00 98.0 80 16 128/87 94 12/30/16 20:10 65 12/30/16 20:00 97.8 88 17 153/79 95 12/30/16 16:00 Room Air 2.00 12/30/16 14:57 97.9 67 20 160/80 100 12/30/16 14:00 75 12/30/16 12:00 75 12/30/16 11:00 99.3 65 32 128/84 97 12/30/16 10:00 75 I/O 12/30/16 12/30/16 12/30/16 12/31/16 12/31/16 12/31/16 06:59 14:59 22:59 06:59 14:59 22:59 Intake Total 770 ml 1130 ml 480 ml 1140 ml Output Total 570 ml 1000 ml 400 ml 600 ml Balance 200 ml 130 ml 80 ml 540 ml Intake Oral 50 ml 380 ml 480 ml 240 ml IV Total 720 ml 750 ml 900 ml Output Urine Total 470 ml 450 ml 400 ml 450 ml Stool Total 100 ml 550 ml 150 ml Result Diagram: 12/29/16 1045 12/30/16 0341 Objective Remarks GENERAL: Patient laying in bed, comfortable. Pt with mild resting tremor. SKIN: Warm and dry. HEAD: Atraumatic. Normocephalic. EYES: Pupils equal and round. No scleral icterus. No injection or drainage. ENT: No nasal bleeding or discharge. Mucous membranes pink and moist. NECK: Trachea midline. No JVD. CARDIOVASCULAR: Regular rate and rhythm. Normal S1/S2 RESPIRATORY: No accessory muscle use. Clear to auscultation. Breath sounds equal bilaterally. No wheezing. GASTROINTESTINAL: Abdomen soft, non-tender, nondistended. Hepatic and splenic margins not palpable. Ostomy bag in place, minimal leakage, brown/green liquid stool. MUSCULOSKELETAL: Extremities without clubbing, cyanosis, or edema. No obvious deformities. NEUROLOGICAL: Awake and alert. No obvious cranial nerve deficits. Motor grossly within normal limits. Five out of 5 muscle strength in the arms and legs. Normal speech. PSYCHIATRIC: Appropriate mood and affect; insight and judgment normal. A/P Assessment and Plan Patient is a 61-year-old male with history of ulcerative colitis, status post colectomy, chronic pain presenting due to weakness. On admission patient was found to be hyponatremic with a sodium of 121. 130 the next day (12/30) Patient also has a history of alcohol abuse, concern for withdrawal. Patient initially admitted to the intensive care unit. Discharge Planning Anticipate discharge to inpatient rehabilitation facility once sodium levels returned to normal and patient is stable for discharge, likely later today or tomorrow. Problem List: (1) Generalized weakness Status: Acute Plan: Patient reports weakness for the past several months, worsening over the last few days. Likely due to combination of alcohol abuse and poor nutrition status. Patient has been seen and evaluated by physical therapy who recommends inpatient rehabilitation, patient is agreeable to this. -Patient with history of alcohol abuse, see plan below -See plan for hyponatremia -B12 normal 424 - Folate high >20 -Continue to monitor (2) Alcohol withdrawal Status: Acute Plan: Patient with significant alcohol use history. Concern for withdrawal. Patient denies having any issues or seizures associated with withdrawal in the past. Patient has required 1 mg of po Ativan this morning -[place] Protocol -Rally pack -Patient to be counseled regarding alcohol abuse (3) Hyponatremia Status: Acute Plan: On admission patient with hyponatremia, sodium 121. 130 on 12/30 -Labs for this morning pending -Continue to monitor (4) Chronic pain Status: Acute Plan: Patient reports history of chronic abdominal pain and that he has been on methadone. -[place] 5-325 for pain 3-5, 10-325 pain >5 -Will add 50 mg Methadone daily as reported -Additional pain control as needed (5) Pressure ulcer of sacrum Status: Acute Plan: Pt with 6cm pressure ulcer to the right of intragluteal cleft. Does not appear to be infected. -Wound care consulted, appreciate recommendations -Continue to monitor (6) Elevated liver enzymes Status: Acute Plan: Patient reports a distant history of hepatitis, unable to recall type. On admission AST and ALT elevated to 133 and 94 respectively. -Hepatitis profile negative -Continue to monitor (7) FEN/PPX Status: Acute Plan: Fluids: Normal saline at 100 mL's/Hr, to be titrated based on sodium increase Electrolytes: See above. Magnesium slightly low, will give Magnesium sulfate 1Gm x1. Potassium low at 3.1, will give 40meq potassium chloride. Consider crushing tablets if potassium remains low. Continue to monitor and replete as needed. Nutrition: Regular diet DVT PPX: Lovenox GI PPX: Protonix Problem Qualifiers (1) Pressure ulcer of sacrum: Qualified Code: L89.152 - Decubitus ulcer of sacral region, stage 2 Eden Mercedes MD R2 Dec 31, 2016 09:06
[2016-12-31] MEDS: BACITRACIN TOP OINT 15 GM TUBE TOPICAL SCH ×2 (10:00→22:10)
[2016-12-31 10:29] LABS: BICARBONATE 28.4 MEQ/L (21.0-32.0); POTASSIUM 3.1 MEQ/L (3.5-5.1)
[2016-12-31] MEDS: MULTIVITAMINS/MINERALS THERAPEUTIC TAB PO SCH (10:29)
[2016-12-31] MEDS: PANTOPRAZOLE SOD 40 MG DELAYED RELEASE TAB PO SCH (10:29)
[2016-12-31] MEDS: THIAMINE HCL 100 MG TAB PO SCH (10:29)
[2016-12-31] MEDS: NICOTINE 21 MG/24 HR PATCH T-DERMAL SCH (10:29)
[2016-12-31] MEDS: FOLIC ACID 1 MG TAB PO SCH (10:30)
[2016-12-31] MEDS ORDERED: MAGNESIUM SULFATE 1 GM PREMIX 100 ML IV ONE (10:45)
[2016-12-31] MEDS ORDERED: POTASSIUM CHLORIDE 10 MEQ CAP PO ONE (10:45)
--- NOTE | 2016-12-31 10:48 | HHI.DCPOC ---
Discharge Care Plan Diagnosis: (1) Chronic pain (2) Pressure ulcer of sacrum (3) Elevated liver enzymes (4) Alcohol withdrawal (5) Hyponatremia (6) Generalized weakness Goals to Promote Your Health * To prevent worsening of your condition and complications * To maintain your health at the optimal level Directions to Meet Your Goals Take your medications as prescribed Follow your dietary instruction Follow activity as directed Keep your appointments as scheduled Take your immunizations and boosters as scheduled If your symptoms worsen call your PCP, if no PCP go to Urgent Care Center or Emergency Room Smoking is Dangerous to Your Health. Avoid second hand smoke Call the 24-hour hour crisis hotline for domestic abuse at Eden Mercedes MD R2 Dec 31, 2016 10:48
[2016-12-31] MEDS: ENOXAPARIN SODIUM 40 MG/0.4 ML SYRINGE SQ SCH (12:54)
[2016-12-31] MEDS: METHADONE HCL 10 MG/10 ML ORAL SOLUTION PO SCH (13:08)
[2016-12-31 13:52] LABS: CALCIUM-PROTEIN CORRECTED 8.7 MG/DL (8.5-10.1)
[2016-12-31] MEDS: REMOVE OLD PATCH T-DERMAL SCH (21:00)
[2016-12-31] MEDS: ACETAMINOPHEN/HYDROcodone 325 MG/10 MG TAB PO PRN (22:09)
[2017-01-01 00:52] VITALS: BP 142/77; PULSE 70; RESP 18; TEMP 98.6; O2SAT 98
[2017-01-01] MEDS: CHLORHEXIDINE GLUCONATE 2 % 1 PACK (2 CLOTHS)(taper/protocol) TOPICAL SCH (03:01)
[2017-01-01 05:16] VITALS: BP 122/60; PULSE 96; RESP 20; TEMP 97.4; O2SAT 97
[2017-01-01] MEDS: ACETAMINOPHEN/HYDROcodone 325 MG/10 MG TAB PO PRN ×2 (05:54→22:22)
[2017-01-01 08:00] VITALS: BP 150/89; PULSE 64; PULSE 73; RESP 20; TEMP 98; O2SAT 100
[2017-01-01 08:31] LABS: BICARBONATE 30.4 MEQ/L (21.0-32.0); CALCIUM-PROTEIN CORRECTED 8.7 MG/DL (8.5-10.1)
[2017-01-01 08:39] LABS: POTASSIUM 2.7 MEQ/L (3.5-5.1)
[2017-01-01] MEDS: NICOTINE 21 MG/24 HR PATCH T-DERMAL SCH (08:51)
[2017-01-01] MEDS: PANTOPRAZOLE SOD 40 MG DELAYED RELEASE TAB PO SCH (08:52)
[2017-01-01] MEDS: METHADONE HCL 10 MG/10 ML ORAL SOLUTION PO SCH (08:53)
[2017-01-01] MEDS: MULTIVITAMINS/MINERALS THERAPEUTIC TAB PO SCH (08:54)
[2017-01-01] MEDS: THIAMINE HCL 100 MG TAB PO SCH (08:54)
[2017-01-01] MEDS: FOLIC ACID 1 MG TAB PO SCH (08:54)
[2017-01-01] MEDS: DOCUSATE SODIUM 50 MG/SENNA 8.6 MG TAB PO SCH ×2 (08:55→21:00)
[2017-01-01] MEDS: SODIUM CHLORIDE 0.9% FLUSH 10 ML FLUSH IV FLUSH SCH ×2 (09:00→21:00)
[2017-01-01] MEDS ORDERED: POTASSIUM CHLORIDE 10 MEQ CONTROLLED RELEASE TAB PO ONE (09:30)
[2017-01-01] MEDS: SODIUM CHLOR 0.9% 1000 ML INJ 1,000 ML IV SCH ×2 (10:38→20:38)
[2017-01-01] MEDS: BACITRACIN TOP OINT 15 GM TUBE TOPICAL SCH ×2 (10:41→22:21)
--- NOTE | 2017-01-01 11:27 | HHI.FPPN ---
Subjective Remarks Patient seen and examined this morning. No acute events over night. Patient states that he continues to feel weak, however it is better than when he first came in. Complains of some mild nausea. Brought in home supplies for his ostomy and hopes to change out the one supplied by the hospital. No other complaints of vomiting, fever, chills, chest pain, shortness of breath, abdominal pain, change in bowel habits, change in urinary habits. Objective Vitals Vital Signs Date Time Temp Pulse Resp B/P Pulse Ox O2 Delivery O2 Flow Rate FiO2 01/01/17 05:16 97.4 96 20 122/60 97 01/01/17 00:52 98.6 70 18 142/77 98 01/01/17 00:00 Room Air 12/31/16 20:07 61 12/31/16 20:00 98.5 65 18 161/89 100 12/31/16 20:00 Room Air 12/31/16 16:00 98.0 82 20 165/97 98 12/31/16 12:00 98.1 68 20 172/90 100 I/O 12/31/16 12/31/16 12/31/16 01/01/17 01/01/17 01/01/17 07:00 15:00 23:00 07:00 15:00 23:00 Intake Total 1140 ml 240 ml 1050 ml 392 ml Output Total 600 ml 1275 ml 300 ml 200 ml Balance 540 ml -1035 ml 750 ml 192 ml Intake Oral 240 ml 240 ml IV Total 900 ml 1050 ml 392 ml Output Urine Total 450 ml 700 ml 300 ml 200 ml Stool Total 150 ml 575 ml # Bowel Movements 0 0 Result Diagram: 12/29/16 1045 01/01/17 0505 Objective Remarks GENERAL: Patient laying in bed, comfortable. Pt with mild resting tremor. SKIN: Warm and dry. HEAD: Atraumatic. Normocephalic. EYES: Pupils equal and round. No scleral icterus. No injection or drainage. ENT: No nasal bleeding or discharge. Mucous membranes pink and moist. NECK: Trachea midline. No JVD. CARDIOVASCULAR: Regular rate and rhythm. Normal S1/S2 RESPIRATORY: No accessory muscle use. Clear to auscultation. Breath sounds equal bilaterally. No wheezing. GASTROINTESTINAL: Abdomen soft, non-tender, nondistended. Hepatic and splenic margins not palpable. Ostomy bag in place, no leakage, brown/green liquid stool. MUSCULOSKELETAL: Extremities without clubbing, cyanosis, or edema. No obvious deformities. NEUROLOGICAL: Awake and alert. No obvious cranial nerve deficits. Motor grossly within normal limits. Five out of 5 muscle strength in the arms and legs. Normal speech. PSYCHIATRIC: Appropriate mood and affect; insight and judgment normal. Medications and IVs Current Medications Medications (Trade) Dose Ordered Sig/Huber Route Start Time Stop Time Status Last Admin (NS 1000 ml Inj) 1,000 ml @ 100 mls/hr Q10H IV 12/29/16 12:38 01/01/17 10:38 (NS Flush) 2 ml UNSCH PRN IV FLUSH 12/29/16 12:45 (NS Flush) 2 ml BID IV FLUSH 12/29/16 21:00 01/01/17 09:00 (Tylenol) 650 mg Q4H PRN PO 12/29/16 12:45 (Zofran Inj) 4 mg Q6H PRN IVP 12/29/16 12:45 (Lovenox Inj) 40 mg Q24H SQ 12/29/16 13:00 12/31/16 12:54 (Narcan Inj) 0.4 mg UNSCH PRN IV 12/29/16 12:45 (Lilliana-Colace) 1 tab BID PO 12/29/16 21:00 12/30/16 09:30 (Milk Of Magnesia Liq) 30 ml Q12H PRN PO 12/29/16 12:45 (Senokot) 17.2 mg Q12H PRN PO 12/29/16 12:45 (Dulcolax Supp) 10 mg DAILY PRN RECTAL 12/29/16 12:45 (Lactulose Liq) 30 ml DAILY PRN PO 12/29/16 12:45 (Romazicon Inj) 0.2 mg Q1M PRN IV PUSH 12/29/16 12:45 (Ativan) 1 mg Q4H PRN PO 12/29/16 12:45 12/31/16 17:30 (Ativan Inj) 1 mg Q4H PRN IV PUSH 12/29/16 12:45 12/30/16 09:30 (Ativan) 2 mg Q2H PRN PO 12/29/16 12:45 (Ativan Inj) 2 mg Q2H PRN IV PUSH 12/29/16 12:45 (Ativan Inj) 2 mg Q1H PRN IV PUSH 12/29/16 12:45 (Ativan Inj) 2 mg Q15M PRN IV PUSH 12/29/16 12:45 (Folate) 1 mg DAILY PO 12/29/16 14:15 01/03/17 14:14 01/01/17 08:54 (Vitamin B1) 100 mg DAILY PO 12/29/16 14:15 01/01/17 08:54 (Theragran M Tab) 1 tab DAILY PO 12/29/16 14:15 01/03/17 14:14 01/01/17 08:54 (Protonix) 40 mg DAILY PO 12/30/16 09:00 01/01/17 08:52 (Catapres) 0.1 mg Q6H PRN PO 12/29/16 14:15 ([place] 5-325 Mg) 1 tab Q4H PRN PO 12/29/16 14:30 ([place] 10-325 Mg) 1 tab Q4H PRN PO 12/29/16 14:30 01/01/17 05:54 (Narcan Inj) 0.4 mg UNSCH PRN IV 12/29/16 14:30 Miscellaneous Information Patient in critical care unit? Ass... Q361D .XX 12/29/16 19:00 12/29/16 19:00 (Chlorhexidine 2% Cloth) 3 pack DAILY@04 TOPICAL 12/30/16 04:00 01/03/17 04:01 12/29/16 22:10 (Chlorhexidine 2% Cloth) 3 pack UNSCH PRN TOPICAL 12/29/16 19:00 01/03/17 18:56 (Habitrol 21 Mg Patch.24 Hr) 1 patch DAILY T-DERMAL 12/31/16 09:00 01/01/17 08:51 Miscellaneous Information 1 HS T-DERMAL 12/30/16 21:00 12/31/16 21:00 (Methadone Liq) 50 mg DAILY PO 12/31/16 09:00 01/01/17 08:53 (Baciguent Oint) 1 applic Q12HR TOPICAL 12/31/16 10:00 01/01/17 10:41 A/P Assessment and Plan Patient is a 61-year-old male with history of ulcerative colitis, status post colectomy, chronic pain presenting due to weakness. On admission patient was found to be hyponatremic with a sodium of 121. 130 the next day (12/30) Patient also has a history of alcohol abuse, concern for withdrawal. Patient initially admitted to the intensive care unit. Discharge Planning Anticipate discharge to inpatient rehabilitation facility once sodium levels returned to normal and patient is stable for discharge, likely later today or tomorrow. Problem List: (1) Generalized weakness Status: Acute Plan: Patient reports weakness for the past several months, worsening over the last few days. Likely due to combination of alcohol abuse and poor nutrition status. Patient has been seen and evaluated by physical therapy who recommends inpatient rehabilitation, patient is agreeable to this. -Patient with history of alcohol abuse, see plan below -See plan for hyponatremia -B12 normal 424 - Folate high >20 -Continue to monitor (2) Alcohol withdrawal Status: Acute Plan: Patient with significant alcohol use history. Concern for withdrawal. Patient denies having any issues or seizures associated with withdrawal in the past. Patient has required 1 mg of po Ativan 12/31 -[facility] Protocol -Rally pack -Patient to be counseled regarding alcohol abuse (3) Hyponatremia Status: Acute Plan: On admission patient with hyponatremia, sodium 121. 130 on 12/30, 01/01: 133 -Sodium improving -Continue to monitor (4) Hypokalemia Status: Acute Plan: Potassium reported as 2.7 on 01/01 - 40 mg KCL administered - Follow up afternoon labs, additional KCL if low - Continue to monitor and treat as needed (5) Chronic pain Status: Acute Plan: Patient reports history of chronic abdominal pain and that he has been on methadone. -[place] 5-325 for pain 3-5, 10-325 pain >5 -50 mg Methadone daily as reported -Additional pain control as needed (6) Pressure ulcer of sacrum Status: Acute Plan: Pt with 6cm pressure ulcer to the right of intragluteal cleft. Does not appear to be infected. -Wound care consulted, appreciate recommendations -Continue to monitor (7) Elevated liver enzymes Status: Acute Plan: Patient reports a distant history of hepatitis, unable to recall type. On admission AST and ALT elevated to 133 and 94 respectively. -Hepatitis profile negative -Continue to monitor (8) FEN/PPX Status: Acute Plan: Fluids: Normal saline at 100 mL's/Hr, to be titrated based on sodium increase Electrolytes: See above. Magnesium still low, will give Magnesium sulfate 1Gm x1. Potassium low at 2.7, will give 40meq potassium chloride. Consider crushing tablets if potassium remains low. Continue to monitor and replete as needed. Nutrition: Regular diet DVT PPX: Lovenox GI PPX: Protonix Problem Qualifiers (1) Pressure ulcer of sacrum: Qualified Code: L89.152 - Decubitus ulcer of sacral region, stage 2 Mychal Avina MD R1 Jan 01, 2017 11:27
[2017-01-01] MEDS ORDERED: MAGNESIUM SULFATE 1 GM PREMIX 100 ML IV ONE (11:30)
[2017-01-01 12:00] VITALS: BP 155/95; PULSE 89; RESP 20; TEMP 97.6; O2SAT 97
[2017-01-01 13:32] LABS: BICARBONATE 30.6 MEQ/L (21.0-32.0); POTASSIUM 3.4 MEQ/L (3.5-5.1)
[2017-01-01] MEDS: ENOXAPARIN SODIUM 40 MG/0.4 ML SYRINGE SQ SCH (14:35)
[2017-01-01 16:00] VITALS: BP 149/97; PULSE 92; RESP 20; TEMP 98.2; O2SAT 97
[2017-01-01] MEDS: LORazepam 1 MG TAB PO PRN (17:33)
[2017-01-01 20:00] VITALS: BP 136/74; PULSE 81; PULSE 92; RESP 20; TEMP 98.7; O2SAT 96
[2017-01-01] MEDS: REMOVE OLD PATCH T-DERMAL SCH (21:00)
[2017-01-02] VITALS (7 sets, daily range): BP systolic 132–161; BP diastolic 74–91; PULSE 67–93; RESP 17–22; TEMP 97.8–98.4; O2SAT 97–99
[2017-01-02] MEDS: CHLORHEXIDINE GLUCONATE 2 % 1 PACK (2 CLOTHS)(taper/protocol) TOPICAL SCH (04:00)
[2017-01-02] MEDS: SODIUM CHLOR 0.9% 1000 ML INJ 1,000 ML IV SCH ×2 (04:42→16:43)
[2017-01-02 08:42] LABS: HEMATOCRIT 33.2 % (39.0-51.0); MEAN CELL VOLUME 95.3 FL (80.0-100.0); MEAN CORPUSCULAR HEMOGLOBIN 31.8 PG (27.0-34.0); MEAN CORPUSCULAR HGB CONC 33.4 % (32.0-36.0); PLATELET COUNT 163 TH/MM3 (150-450); RED BLOOD COUNT 3.49 MIL/MM3 (4.50-5.90); RED CELL DISTRIBUTION WIDTH 15.2 % (11.6-17.2); REVIEW FLAG FINAL; WHITE BLOOD COUNT 5.5 TH/MM3 (4.0-11.0)
[2017-01-02] MEDS: SODIUM CHLORIDE 0.9% FLUSH 10 ML FLUSH IV FLUSH SCH ×2 (08:58→20:57)
[2017-01-02] MEDS: DOCUSATE SODIUM 50 MG/SENNA 8.6 MG TAB PO SCH ×2 (08:59→20:57)
[2017-01-02] MEDS: FOLIC ACID 1 MG TAB PO SCH (08:59)
[2017-01-02] MEDS: MULTIVITAMINS/MINERALS THERAPEUTIC TAB PO SCH (09:01)
[2017-01-02] MEDS: PANTOPRAZOLE SOD 40 MG DELAYED RELEASE TAB PO SCH (09:01)
[2017-01-02] MEDS: THIAMINE HCL 100 MG TAB PO SCH (09:02)
[2017-01-02] MEDS: BACITRACIN TOP OINT 15 GM TUBE TOPICAL SCH ×2 (09:03→21:02)
[2017-01-02] MEDS: NICOTINE 21 MG/24 HR PATCH T-DERMAL SCH (09:03)
[2017-01-02] MEDS: METHADONE HCL 10 MG/10 ML ORAL SOLUTION PO SCH (09:05)
[2017-01-02 09:14] LABS: BICARBONATE 27.3 MEQ/L (21.0-32.0); MAGNESIUM 1.3 MG/DL (1.5-2.5); POTASSIUM 3.3 MEQ/L (3.5-5.1)
[2017-01-02] MEDS ORDERED: MAGNESIUM SULFATE 1 GM PREMIX 100 ML IV ONE (13:00)
[2017-01-02] MEDS ORDERED: POTASSIUM CHLORIDE 10 MEQ CONTROLLED RELEASE TAB PO ONE (13:00)
--- NOTE | 2017-01-02 13:38 | HHI.FPPN ---
Subjective Remarks Pt seen and examined this morning. No acute events overnight. Pt reports feeling stable. He denies new chest pain, shortness of breath. He denies any new abdominal pain. Ostomy output is normal in color and consistency. He has no other acute complains. Objective Vitals Vital Signs Date Time Temp Pulse Resp B/P Pulse Ox O2 Delivery O2 Flow Rate FiO2 01/02/17 12:00 98.1 76 20 161/84 97 01/02/17 10:18 20 01/02/17 10:10 67 01/02/17 08:00 97.8 73 20 157/88 97 01/02/17 04:00 98.4 69 20 132/74 97 01/02/17 00:00 97.9 93 20 139/90 97 01/01/17 20:00 81 01/01/17 20:00 Room Air 01/01/17 20:00 98.7 92 20 136/74 96 01/01/17 16:00 98.2 92 20 149/97 97 I/O 01/01/17 01/01/17 01/01/17 01/02/17 01/02/17 01/02/17 07:00 15:00 23:00 07:00 15:00 23:00 Intake Total 392 ml 210 ml 879 ml 616 ml Output Total 200 ml 2000 ml 220 ml Balance 192 ml -1790 ml 879 ml 396 ml Intake Oral 210 ml 240 ml IV Total 392 ml 879 ml 376 ml Output Urine Total 200 ml 400 ml 130 ml Stool Total 1600 ml 90 ml # Bowel Movements 0 Result Diagram: 01/02/1772301/02/17723 Objective Remarks GENERAL: Patient laying in bed, comfortable. Pt with mild resting tremor. SKIN: Warm and dry. HEAD: Atraumatic. Normocephalic. EYES: Pupils equal and round. No scleral icterus. No injection or drainage. ENT: No nasal bleeding or discharge. Mucous membranes pink and moist. NECK: Trachea midline. No JVD. CARDIOVASCULAR: Regular rate and rhythm. Normal S1/S2 RESPIRATORY: No accessory muscle use. Clear to auscultation. Breath sounds equal bilaterally. No wheezing. GASTROINTESTINAL: Abdomen soft, non-tender, nondistended. Hepatic and splenic margins not palpable. Ostomy bag in place, no leakage, brown/green liquid stool. MUSCULOSKELETAL: Extremities without clubbing, cyanosis, or edema. No obvious deformities. NEUROLOGICAL: Awake and alert. No obvious cranial nerve deficits. Normal speech. PSYCHIATRIC: Appropriate mood and affect; insight and judgment normal. A/P Assessment and Plan Patient is a 61-year-old male with history of ulcerative colitis, status post colectomy, chronic pain presenting due to weakness. On admission patient was found to be hyponatremic with a sodium of 121. 130 the next day (12/30) Patient also has a history of alcohol abuse, concern for withdrawal. Patient initially admitted to the intensive care unit. Discharge Planning Anticipate discharge to inpatient rehabilitation facility once sodium levels returned to normal and patient is stable for discharge, likely later today or tomorrow. Problem List: (1) Generalized weakness Status: Acute Plan: Patient reports weakness for the past several months, worsening over the last few days. Likely due to combination of alcohol abuse and poor nutrition status. Patient has been seen and evaluated by physical therapy who recommends inpatient rehabilitation, patient is agreeable to this. -Patient with history of alcohol abuse, see plan below -See plan for hyponatremia -B12 normal 424 - Folate high >20 -Continue to monitor (2) Alcohol withdrawal Status: Acute Plan: Patient with significant alcohol use history. Concern for withdrawal. Patient denies having any issues or seizures associated with withdrawal in the past. -[facility] Protocol -Rally pack -Patient to be counseled regarding alcohol abuse (3) Hyponatremia Status: Resolved Plan: On admission patient with hyponatremia, sodium 121. 130 on 12/30, 01/01: 133 Sodium 136 this morning, hyponatremia resolved -Continue to monitor (4) Hypokalemia Status: Acute Plan: Potassium reported as 2.7 on 01/01 - 40 mg KCL administered - Follow up afternoon labs, additional KCL if low - Continue to monitor and treat as needed (5) Chronic pain Status: Acute Plan: Patient reports history of chronic abdominal pain and that he has been on methadone. -[place] 5-325 for pain 3-5, 10-325 pain >5 -50 mg Methadone daily as reported -Additional pain control as needed (6) Pressure ulcer of sacrum Status: Acute Plan: Pt with 6cm pressure ulcer to the right of intragluteal cleft. Does not appear to be infected. -Wound care consulted, appreciate recommendations -Continue to monitor (7) Elevated liver enzymes Status: Acute Plan: Patient reports a distant history of hepatitis, unable to recall type. On admission AST and ALT elevated to 133 and 94 respectively. -Hepatitis profile negative -Continue to monitor (8) FEN/PPX Status: Acute Plan: Fluids: Normal saline at 100 mL's/Hr, to be titrated based on sodium increase Electrolytes: See above. Magnesium still low, will give Magnesium sulfate 1Gm x1. Potassium low at 3.3, will give 40meq potassium chloride. Continue to monitor and replete as needed. Nutrition: Regular diet DVT PPX: Lovenox GI PPX: Protonix Problem Qualifiers (1) Pressure ulcer of sacrum: Qualified Code: L89.152 - Decubitus ulcer of sacral region, stage 2 Eden Mercedes MD R2 Jan 02, 2017 13:38
[2017-01-02] MEDS: ENOXAPARIN SODIUM 40 MG/0.4 ML SYRINGE SQ SCH (13:47)
[2017-01-02] MEDS ORDERED: ALBUAER3 INH (13:53)
[2017-01-02] MEDS: ACETAMINOPHEN/HYDROcodone 325 MG/10 MG TAB PO PRN ×2 (16:44→20:57)
[2017-01-02 18:19] LABS: BICARBONATE 26.7 MEQ/L (21.0-32.0); MAGNESIUM 1.6 MG/DL (1.5-2.5); POTASSIUM 3.8 MEQ/L (3.5-5.1)
[2017-01-02] MEDS: REMOVE OLD PATCH T-DERMAL SCH (21:03)
[2017-01-03] VITALS (7 sets, daily range): BP systolic 111–162; BP diastolic 56–83; PULSE 63–78; RESP 17–24; TEMP 97.9–98; O2SAT 96–100
[2017-01-03] MEDS: ACETAMINOPHEN/HYDROcodone 325 MG/10 MG TAB PO PRN ×4 (01:14→14:49)
[2017-01-03] MEDS: SODIUM CHLOR 0.9% 1000 ML INJ 1,000 ML IV SCH ×2 (01:15→13:58)
[2017-01-03] MEDS: CHLORHEXIDINE GLUCONATE 2 % 1 PACK (2 CLOTHS)(taper/protocol) TOPICAL SCH (04:00)
[2017-01-03] MEDS: SODIUM CHLORIDE 0.9% FLUSH 10 ML FLUSH IV FLUSH SCH (08:21)
[2017-01-03] MEDS: FOLIC ACID 1 MG TAB PO SCH (08:21)
[2017-01-03] MEDS: METHADONE HCL 10 MG/10 ML ORAL SOLUTION PO SCH (08:22)
[2017-01-03] MEDS: PANTOPRAZOLE SOD 40 MG DELAYED RELEASE TAB PO SCH (08:22)
[2017-01-03] MEDS: DOCUSATE SODIUM 50 MG/SENNA 8.6 MG TAB PO SCH (08:22)
[2017-01-03] MEDS: THIAMINE HCL 100 MG TAB PO SCH (08:23)
[2017-01-03] MEDS: NICOTINE 21 MG/24 HR PATCH T-DERMAL SCH (08:23)
[2017-01-03] MEDS: BACITRACIN TOP OINT 15 GM TUBE TOPICAL SCH (08:23)
[2017-01-03] MEDS: MULTIVITAMINS/MINERALS THERAPEUTIC TAB PO SCH (08:23)
[2017-01-03 12:11] LABS: HEMATOCRIT 29.5 % (39.0-51.0); MEAN CELL VOLUME 94.2 FL (80.0-100.0); MEAN CORPUSCULAR HEMOGLOBIN 31.6 PG (27.0-34.0); MEAN CORPUSCULAR HGB CONC 33.6 % (32.0-36.0); PLATELET COUNT 172 TH/MM3 (150-450); RED BLOOD COUNT 3.14 MIL/MM3 (4.50-5.90); RED CELL DISTRIBUTION WIDTH 15.3 % (11.6-17.2); REVIEW FLAG FINAL; WHITE BLOOD COUNT 4.6 TH/MM3 (4.0-11.0)
[2017-01-03 12:32] LABS: BICARBONATE 20.7 MEQ/L (21.0-32.0); POTASSIUM 3.6 MEQ/L (3.5-5.1)
[2017-01-03] MEDS ORDERED: ALBUTEROL SULFATE 90 MCG/ACT HFA 18 GM INHALER INH PRN (12:45)
--- NOTE | 2017-01-03 13:39 | HHI.FPPN ---
Subjective Remarks Patient seen and examined this morning. Afebrile vital signs stable. Patient reports that he still feeling weak and having some generalized pain. He is worried about leaving the hospital but he does want to go to rehabilitation to get stronger. He admits to drinking but does not feel that he is an alcoholic. Endorses: Anxiety, generalized pain, generalized weakness Denies: Fever, chills, nausea, vomiting, shortness of breath, chest pain, headache, abdominal pain, calf pain Objective Vitals Vital Signs Date Time Temp Pulse Resp B/P Pulse Ox O2 Delivery O2 Flow Rate FiO2 01/03/17 12:00 98.0 64 24 152/82 98 01/03/17 11:51 18 01/03/17 10:55 100 Room Air 01/03/17 10:54 78 01/03/17 09:39 20 01/03/17 08:00 98.0 68 22 151/73 100 01/03/17 04:00 97.9 63 17 162/83 96 01/03/17 00:00 97.9 69 19 158/77 98 01/02/17 20:00 98.0 75 17 143/74 99 01/02/17 20:00 71 01/02/17 20:00 Room Air 01/02/17 16:00 98.4 76 22 138/91 97 01/02/17 15:47 97 Room Air I/O 01/02/17 01/02/17 01/02/17 01/03/17 01/03/17 01/03/17 07:00 15:00 23:00 07:00 15:00 23:00 Intake Total 616 ml 360 ml 1540 ml 1144 ml Output Total 220 ml 450 ml 1050 ml 280 ml Balance 396 ml -90 ml 490 ml 864 ml Intake Oral 240 ml 360 ml 160 ml 220 ml IV Total 376 ml 1380 ml 924 ml Output Urine Total 130 ml 450 ml 200 ml 280 ml Stool Total 90 ml 850 ml # Bowel Movements 0 0 0 Result Diagram: 01/03/17 1100 01/03/17 1100 Imaging Last Impressions Chest X-Ray 12/29/16 1043 Signed Impressions: Service Date/Time: December 11:06 - CONCLUSION: Hyperaeration. Clear lungs. Jamil Bradley Jr., MD Objective Remarks GENERAL: Patient laying in bed, comfortable. Pt with mild resting tremor. SKIN: Warm and dry. HEAD: Atraumatic. Normocephalic. EYES: Pupils equal and round. No scleral icterus. No injection or drainage. ENT: No nasal bleeding or discharge. Mucous membranes pink and moist. NECK: Trachea midline. No JVD. CARDIOVASCULAR: Regular rate and rhythm. Normal S1/S2 RESPIRATORY: No accessory muscle use. Clear to auscultation. Breath sounds equal bilaterally. No wheezing. GASTROINTESTINAL: Abdomen soft, non-tender, nondistended. Hepatic and splenic margins not palpable. Ostomy bag in place, no leakage, brown/green liquid stool. MUSCULOSKELETAL: Extremities without clubbing, cyanosis, or edema. No obvious deformities. NEUROLOGICAL: Awake and alert. No obvious cranial nerve deficits. Normal speech. PSYCHIATRIC: Appropriate mood and affect; insight and judgment normal. Medications and IVs Current Medications Medications (Trade) Dose Ordered Sig/Huber Route Start Time Stop Time Status Last Admin (NS 1000 ml Inj) 1,000 ml @ 100 mls/hr Q10H IV 12/29/16 12:38 01/03/17 01:15 (NS Flush) 2 ml UNSCH PRN IV FLUSH 12/29/16 12:45 (NS Flush) 2 ml BID IV FLUSH 12/29/16 21:00 01/02/17 20:57 (Tylenol) 650 mg Q4H PRN PO 12/29/16 12:45 (Zofran Inj) 4 mg Q6H PRN IVP 12/29/16 12:45 (Lovenox Inj) 40 mg Q24H SQ 12/29/16 13:00 01/02/17 13:47 (Narcan Inj) 0.4 mg UNSCH PRN IV 12/29/16 12:45 (Lilliana-Colace) 1 tab BID PO 12/29/16 21:00 01/03/17 08:22 (Milk Of Magnesia Liq) 30 ml Q12H PRN PO 12/29/16 12:45 (Senokot) 17.2 mg Q12H PRN PO 12/29/16 12:45 (Dulcolax Supp) 10 mg DAILY PRN RECTAL 12/29/16 12:45 (Lactulose Liq) 30 ml DAILY PRN PO 12/29/16 12:45 (Romazicon Inj) 0.2 mg Q1M PRN IV PUSH 12/29/16 12:45 (Ativan) 1 mg Q4H PRN PO 12/29/16 12:45 01/01/17 17:33 (Ativan Inj) 1 mg Q4H PRN IV PUSH 12/29/16 12:45 12/30/16 09:30 (Ativan) 2 mg Q2H PRN PO 12/29/16 12:45 (Ativan Inj) 2 mg Q2H PRN IV PUSH 12/29/16 12:45 (Ativan Inj) 2 mg Q1H PRN IV PUSH 12/29/16 12:45 (Ativan Inj) 2 mg Q15M PRN IV PUSH 12/29/16 12:45 (Folate) 1 mg DAILY PO 12/29/16 14:15 01/03/17 14:14 01/03/17 08:21 (Vitamin B1) 100 mg DAILY PO 12/29/16 14:15 01/03/17 08:23 (Theragran M Tab) 1 tab DAILY PO 12/29/16 14:15 01/03/17 14:14 01/03/17 08:23 (Protonix) 40 mg DAILY PO 12/30/16 09:00 01/03/17 08:22 (Catapres) 0.1 mg Q6H PRN PO 12/29/16 14:15 ([place] 5-325 Mg) 1 tab Q4H PRN PO 12/29/16 14:30 ([place] 10-325 Mg) 1 tab Q4H PRN PO 12/29/16 14:30 01/03/17 10:29 (Narcan Inj) 0.4 mg UNSCH PRN IV 12/29/16 14:30 Miscellaneous Information Patient in critical care unit? Ass... Q361D .XX 12/29/16 19:00 12/29/16 19:00 (Chlorhexidine 2% Cloth) 3 pack UNSCH PRN TOPICAL 12/29/16 19:00 01/03/17 18:56 (Habitrol 21 Mg Patch.24 Hr) 1 patch DAILY T-DERMAL 12/31/16 09:00 01/03/17 08:23 Miscellaneous Information 1 HS T-DERMAL 12/30/16 21:00 01/02/17 21:03 (Methadone Liq) 50 mg DAILY PO 12/31/16 09:00 01/03/17 08:22 (Baciguent Oint) 1 applic Q12HR TOPICAL 12/31/16 10:00 01/03/17 08:23 (Ventolin Hfa Inh) 2 puff Q6H PRN INH 01/03/17 12:45 A/P Assessment and Plan Patient is a 61-year-old male with history of ulcerative colitis, status post colectomy, chronic pain presenting due to weakness. On admission patient was found to be hyponatremic with a sodium of 121. 130 the next day (12/30) Patient also has a history of alcohol abuse, concern for withdrawal. Patient initially admitted to the intensive care unit. Discharge Planning Anticipate discharge to inpatient rehabilitation facility today Problem List: (1) Generalized weakness Status: Acute Plan: Generalized weakness believed to be due to low sodium from alcohol abuse -Patient with history of alcohol abuse, see plan below -See plan for hyponatremia -B12 normal 424 - Folate high >20 -Continue to monitor (2) Alcohol withdrawal Status: Acute Plan: Patient with significant alcohol use history. Concern for withdrawal. Patient denies having any issues or seizures associated with withdrawal in the past. -[facility] Protocol -Rally pack -Patient to be counseled regarding alcohol abuse (3) Hyponatremia Status: Resolved Plan: On admission patient with hyponatremia, sodium 121. Currently 134 Hyponatremia has been resolved -Continue to monitor (4) Chronic pain Status: Acute Plan: Patient reports history of chronic abdominal pain and that he has been on methadone. -[place] 5-325 for pain 3-5, 10-325 pain >5 -50 mg Methadone daily as reported -Additional pain control as needed (5) Pressure ulcer of sacrum Status: Acute Plan: Pt with 6cm pressure ulcer to the right of intragluteal cleft. Does not appear to be infected. -Wound care consulted, appreciate recommendations -Continue to monitor (6) Elevated liver enzymes Status: Acute Plan: Patient reports a distant history of hepatitis, unable to recall type. On admission AST and ALT elevated to 133 and 94 respectively. -Hepatitis profile negative -Continue to monitor (7) FEN/PPX Status: Acute Plan: Fluids: Normal saline at 100 mL's/Hr, to be titrated based on sodium increase Electrolytes monitor and exercise replace accordingly Nutrition: Regular diet DVT PPX: Lovenox GI PPX: Protonix (8) Anemia Status: Acute Plan: Patient found to have a trending down H&H during this visit. 13.1/39.3- 11.1/33.2- 9.9/29.5 Currently believed to be due to dilution -Repeat CBC in 1 day at the SNF -[place] ordered Problem Qualifiers (1) Pressure ulcer of sacrum: Qualified Code: L89.152 - Decubitus ulcer of sacral region, stage 2 Chava Hammonds MD R2 Jan 03, 2017 13:39
[2017-01-03] MEDS: ENOXAPARIN SODIUM 40 MG/0.4 ML SYRINGE SQ SCH (13:58)
[2017-01-03] MEDS ORDERED: HYDR-3288 PO (17:50)
== END 2017-01-03 16:40 | DRG 641 ==
LOC: NEPC 10:33 → NEDA 12:22 → HIMN 18:55 → N03B 12-30 12:20 → HIMN 12-30 12:22 → N04A 12-30 14:58
PROVIDERS: ADMIT Family Medicine; ATTEND Family Medicine
DX: E87.1 Hypo-osmolality and hyponatremia (principal); L89.152 Pressure ulcer of sacral region, stage 2; E46 Unspecified protein-calorie malnutrition; Z68.1 Body mass index [BMI] 19.9 or less, adult; K51.90 Ulcerative colitis, unspecified, without complications; F10.239 Alcohol dependence with withdrawal, unspecified; R53.1 Weakness; G89.29 Other chronic pain; Z79.891 Long term (current) use of opiate analgesic; R74.8 Abnormal levels of other serum enzymes; Z90.49 Acquired absence of other specified parts of digestive tract; F17.210 Nicotine dependence, cigarettes, uncomplicated; Z93.3 Colostomy status; E87.6 Hypokalemia; D64.9 Anemia, unspecified
CPT/HCPCS: 71010; 76937; 80048; 80053; 80074; 80307; 81001; 82272; 82550; 82607; 82746; 83735; 84100; 84155; 84484; 85007; 85027; 85610; 85730; 87641; 93005; 96361; 96374; J1650; J2060; J3475; J7030

== ENCOUNTER 2017-02-03 20:02 | Inpatient (IN) | payer OTHER, MEDICARE ==
[~2017-02-03] VITALS: Ht 177.8 cm; Wt 55.5 kg
[~2017-02-03 20:02] MED LIST changes: +ALBUAER3 INH; +HYDR-3288 PO; -LYRI75CA PO; +METH40TA PO; -OXYC-395 PO
[2017-02-03 21:15] VITALS: BP 114/65; PULSE 91; RESP 15; TEMP 97.5; O2SAT 95
[2017-02-03 21:19] LABS: AUTOMATED NEUTROPHIL # 14.4 TH/MM3 (1.8-7.7); BASOPHIL % 0.2 % (0.0-2.0); HEMATOCRIT 39.3 % (39.0-51.0); HEMO FLAGS DIFF FINAL; LYMPH % 3.6 % (9.0-44.0); LYMPHOCYTE # 0.6 TH/MM3 (1.0-4.8); MEAN CELL VOLUME 92.3 FL (80.0-100.0); MEAN CORPUSCULAR HEMOGLOBIN 30.2 PG (27.0-34.0); MEAN CORPUSCULAR HGB CONC 32.7 % (32.0-36.0); MONO % 5.3 % (0.0-8.0); NEUT % 90.9 % (16.0-70.0); PLATELET COUNT 270 TH/MM3 (150-450); RED BLOOD COUNT 4.26 MIL/MM3 (4.50-5.90); RED CELL DISTRIBUTION WIDTH 15.3 % (11.6-17.2); WHITE BLOOD COUNT 15.9 TH/MM3 (4.0-11.0)
[2017-02-03 21:29] LABS: INTERNATIONAL NORMALIZED RATIO 1.1 RATIO; PROTHROMBIN TIME - PATIENT 12.5 SEC (9.8-11.6)
[2017-02-03 21:33] LABS: ANION GAP 20 MEQ/L (5-15); AST (GOT) 60 U/L (15-37); BICARBONATE 34.7 MEQ/L (21.0-32.0); CHLORIDE 72 MEQ/L (98-107); GLOMERULAR FILTRATION RATE 6 ML/MIN (>89); POTASSIUM 3.3 MEQ/L (3.5-5.1); SODIUM (NA) 127 MEQ/L (136-145)
[2017-02-03 21:35] LABS: ALT (GPT) 37 U/L (12-78); BLOOD UREA NITROGEN 178 MG/DL (7-18); TOTAL BILIRUBIN ADULT 1.3 MG/DL (0.2-1.0)
[2017-02-03 21:36] VITALS: BP 114/65; PULSE 86; RESP 19; O2SAT 97
[2017-02-03 21:36] LABS: ALKALINE PHOSPHATASE 115 U/L (45-117)
--- NOTE | 2017-02-03 21:52 | PD ---
HPI Chief Complaint: Medical Clearance Time Seen by Provider: 21:34 Travel History International Travel<30 days: No Contact w/Intl Traveler<30days: No Traveled to known affect area: No History of Present Illness HPI 61-year-old male presents to the emergency department from home by EMS transport for evaluation of generalized weakness and failure to thrive. Patient is a poor historian. Patient history is obtained from nurse report by EMS and medical record. Patient has history of alcohol abuse ulcer colitis status post colectomy with colostomy and chronic generalized weakness. Patient was recently hospitalized 12/2016 for electrolyte disturbance generalized weakness and alcohol abuse. Patient reportedly was at one time on hospice but son reportedly removed him from hospice and has been caring for him at home on his own but is no longer able to do so. Due to sent inability to care for his father he has called EMS to transport him to the emergency department for further management and evaluation. There is no report of recent febrile illness or injuries or falls. PFSH Past Medical History Narrative Medical Ulcerative colitis; colectomy; colostomy; hypertension; asthma; alcoholism; decubitus ulcer sacrum/intergluteal cleft, 6 cm; chronic abdominal pain managed with methadone; prolonged QT interval; failure to thrive; nursing notes reviewed Arthritis: Yes Asthma: Yes Anxiety: Yes Depression: Yes Cancer: No Cardiovascular Problems: No Chest Pain: No Congestive Heart Failure: No COPD: No Cerebrovascular Accident: No Diabetes: No Endocrine: No Gastrointestinal Disorders: Yes (HX ULCERATIVE COLITIS, CHR. ABD. PAIN, CHR. DIARRHEA) GERD: No Genitourinary: No Headaches: No Hepatitis: Yes ( TEENAGER) Hiatal Hernia: No Hypertension: Yes Immune Disorder: No Musculoskeletal: Yes (BACK PAIN) Neurologic: Yes (VERTIGO, NUMBNESS LEGS (L)>(R)) Psychiatric: Yes (DEPRESSION) Reproductive: No Respiratory: Yes (ASTHMA) Migraines: No Seizures: No Sleep Apnea: No Thyroid Disease: No Ulcer: No Past Surgical History Surgical History: Unable to Obtain Abdominal Surgery: Yes (ILEOSTOMY & CLOSURE, COLON RESECTION, ENTIRE LARGE INSTESTINE REMOVED) Appendectomy: Yes Cardiac Surgery: No Ear Surgery: No Endocrine Surgery: No Eye Surgery: No Genitourinary Surgery: No Gynecologic Surgery: No Joint Replacement: No Neurologic Surgery: No Pacemaker: No Thoracic Surgery: No Tonsillectomy: Yes (T&A) Other Surgery: Yes (COLOSTOMY) Social History Alcohol Use: Yes Tobacco Use: Yes (2-3 PPD) Substance Use: No Allergies-Medications (Allergen,Severity, Reaction): Coded Allergies: tapentadol (Unverified Allergy, Severe, AMNESIA EPISODES, 02/03/17) hydromorphone (Unverified Adverse Reaction, Severe, HALLUCINATIONS, 02/03/17 ) *MDRO Multi-Drug Resistant Organism (Verified Adverse Reaction, Unknown, MRSA, 02/03/17) MRSA screen (nares) POSITIVE - 12/29/16 Reported Meds & Prescriptions Reported Meds & Active Scripts Active [place] (Hydrocodone-Acetaminophen) 7.5-325 mg Tab 1 Tab PO Q6H PRN Proair Hfa 8.5 GM Inh (Albuterol Sulfate) 90 Mcg/Act Aer 2 Puff INH Q6H PRN 108 mcg/actuation Reported Methadone (Methadone HCl) 40 Mg Tab 50 Mg PO DAILY Review of Systems Except as stated in HPI: all other systems reviewed are Neg Physical Exam Narrative GENERAL: Thin elderly male in no respiratory distress SKIN: Warm and dry. HEAD: Normocephalic. EYES: No scleral icterus. No injection or drainage. NECK: Supple, trachea midline. No JVD or lymphadenopathy. CARDIOVASCULAR: Regular rate and rhythm without murmurs, gallops, or rubs. RESPIRATORY: Breath sounds equal bilaterally. No accessory muscle use. GASTROINTESTINAL: Abdomen soft, non-tender, nondistended. MUSCULOSKELETAL: No cyanosis, or edema. BACK: Nontender without obvious deformity. No CVA tenderness. Data Data Last Documented VS Vital Signs Date Time Temp Pulse Resp B/P (MAP) Pulse Ox O2 Delivery O2 Flow Rate FiO2 02/03/17 21:36 86 19 114/65 (81) 97 Nasal Cannula 2.00 02/03/17 21:15 97.5 Orders Orders Complete Blood Count With Diff (02/03/17 20:31) Prothrombin Time / Inr (Pt) (02/03/17 20:31) Comprehensive Metabolic Panel (02/03/17 20:46) Electrocardiogram (02/03/17 ) Magnesium (Mg) (02/03/17 21:34) Ckmb (Isoenzyme) Profile (02/03/17 21:34) Troponin I (02/03/17 21:34) CKMB (02/03/17 20:45) CKMB% (02/03/17 20:45) Sodium Chlor 0.9% 1000 Ml Inj (Ns 1000 M (02/03/17 22:30) Sodium Chlor 0.9% 1000 Ml Inj (Ns 1000 M (02/03/17 22:45) Chest, Single Ap (02/03/17 ) Admit Order (Ed Use Only) (02/03/17 ) ^ Saline Lock (02/03/17 22:42) Resp Oxygen Zack C Titrat 1-4 L (02/03/17 ) Notify Dr: Other (02/03/17 22:42) Sodium Chloride 0.9% Flush (Ns Flush) (02/04/17 09:00) Sodium Chloride 0.9% Flush (Ns Flush) (02/03/17 22:45) Consult Nephrology (02/03/17 22:42) Labs Laboratory Tests Test 02/03/17 20:45 White Blood Count 15.9 TH/MM3 Red Blood Count 4.26 MIL/MM3 Hemoglobin 12.9 GM/DL Hematocrit 39.3 % Mean Corpuscular Volume 92.3 FL Mean Corpuscular Hemoglobin 30.2 PG Mean Corpuscular Hemoglobin Concent 32.7 % Red Cell Distribution Width 15.3 % Platelet Count 270 TH/MM3 Mean Platelet Volume 8.9 FL Neutrophils (%) (Auto) 90.9 % Lymphocytes (%) (Auto) 3.6 % Monocytes (%) (Auto) 5.3 % Eosinophils (%) (Auto) 0.0 % Basophils (%) (Auto) 0.2 % Neutrophils # (Auto) 14.4 TH/MM3 Lymphocytes # (Auto) 0.6 TH/MM3 Monocytes # (Auto) 0.8 TH/MM3 Eosinophils # (Auto) 0.0 TH/MM3 Basophils # (Auto) 0.0 TH/MM3 CBC Comment DIFF FINAL Differential Comment Prothrombin Time 12.5 SEC Prothromb Time International Ratio 1.1 RATIO Blood Urea Nitrogen 178 MG/DL Creatinine 9.51 MG/DL Random Glucose 95 MG/DL Total Protein 7.9 GM/DL Albumin 3.3 GM/DL Calcium Level 9.4 MG/DL Alkaline Phosphatase 115 U/L Aspartate Amino Transf (AST/SGOT) 60 U/L Alanine Aminotransferase (ALT/SGPT) 37 U/L Total Bilirubin 1.3 MG/DL Sodium Level 127 MEQ/L Potassium Level 3.3 MEQ/L Chloride Level 72 MEQ/L Carbon Dioxide Level 34.7 MEQ/L Anion Gap 20 MEQ/L Estimat Glomerular Filtration Rate 6 ML/MIN Magnesium Level 2.5 MG/DL Total Creatine Kinase 594 U/L Creatine Kinase MB 4.5 NG/ML Creatine Kinase MB % 0.8 % Troponin I LESS THAN 0.02 NG/ML MDM Medical Decision Making Medical Screen Exam Complete: Yes Emergency Medical Condition: Yes Medical Record Reviewed: Yes ([facility][1] service Dr. John Douglass/ Dr Aline Mercedes/Dr. Elias Day) Interpretation(s) EKG sinus rhythm rate [address] elevation or injury pattern QT 451/QTc 491 prolonged QT interval Differential Diagnosis generalized weakness, electrolyte disturbance, renal insufficiency, anemia, sepsis, metabolic disturbance Narrative Course IV access obtained specimens collected and sent for resulting Patient given IV fluids Lab values pending Lab values resulted patient acute renal failure with low-normal potassium; patient administered bolus of normal saline and maintenance fluids Patient with leukocytosis; will admit for service acute kidney injury and failure to thrive for ongoing correction of renal function electrolytes replacement and malnutrition Physician Communication Physician Communication discussed with Dr Melo --nephrology front desk admin --agrees w bolus and maintenance NS at 100 cc/hr; discussed with Dr Hummel will admit to [facility] M/S telemetry Diagnosis Primary Impression: ARF (acute renal failure) Additional Impressions: Failure to thrive in adult SIRS (systemic inflammatory response syndrome) Admitting Information Admitting Physician Requests: Admit Kelle Gray MD Feb 03, 2017 21:52
[2017-02-03 22:13] LABS: MAGNESIUM 2.5 MG/DL (1.5-2.5)
[2017-02-03 22:16] LABS: CREATINE KINASE 594 U/L (39-308)
[2017-02-03 22:28] LABS: CKMB 4.5 NG/ML (0.5-3.6)
[2017-02-03] MEDS ORDERED: SODIUM CHLORIDE 0.9% FLUSH 10 ML FLUSH IVF PRN (22:45)
[2017-02-03] MEDS ORDERED: SODIUM CHLOR 0.9% 1000 ML INJ 1,000 ML IV ONE (22:45)
[2017-02-03] MEDS ORDERED: LORazepam 2 MG/ML VIAL IV PUSH PRN (22:45)
[2017-02-03] MEDS ORDERED: FLUMAZENIL 0.5 MG/5 ML VIAL IV PUSH PRN (22:45)
[2017-02-03] MEDS ORDERED: MAGNESIUM HYDROXIDE SUSP 30 ML CUP PO PRN (22:45)
[2017-02-03] MEDS ORDERED: ACETAMINOPHEN 325 MG TAB PO PRN (22:45)
[2017-02-03] MEDS ORDERED: SENNOSIDES 8.6 MG TAB PO PRN (22:45)
[2017-02-03] MEDS ORDERED: LACTULOSE SYRUP 20 GM/30 ML CUP PO PRN (22:45)
[2017-02-03] MEDS ORDERED: BISACODYL 10 MG SUPP RECTAL PRN (22:45)
--- NOTE | 2017-02-03 22:54 | HHI.HP ---
[facility] Elias Day MD Admission Diagnosis ARF; sirs Diagnoses: (1) ARF (acute renal failure) Diagnosis: Principal (2) Failure to thrive in adult Diagnosis: Principal (3) Hypokalemia Diagnosis: Principal (4) Rhabdomyolysis Diagnosis: Principal (5) Leukocytosis Diagnosis: Principal (6) Alcohol abuse Diagnosis: Principal Travel History International Travel<30 Days: No Contact w/Intl Traveler <30 Da: No Traveled to Known Affected Are: No History of Present Illness This is a 61-year-old male with a PMH of HTN, Asthma, UC s/p Colectomy/Colostomy , Decubitus Ulcer, Chronic Pain on Methadone, Anxiety, Depression, Alcohol Abuse and Tobacco Abuse who was brought to the ER by EMS secondary to generalized weakness. Per report, pt previously on Hospice, however d/c'd home w/ Son after last admission, per EMS Son reported he was unable to care for patient any longer and called EMS. Pt very poor historian, lethargic, unable to give many details. Unable to contact Son. On arrival, BP 114/65, HR 91, O2 sat 95% on RA, Afebrile. WBC 15.9. 1112.9, producing 9.9 on 01/03/17. Na 127, K + 3.3. Creatinine 9.51, previously 0.87 on 01/03/17. Mg 2.5. CPK 594. Trop negative. INR 1.1. Dr. Melo consulted by ER physician, recommended IVF for hydration, no emergent need for dialysis at this time. Review of Systems Except as stated in HPI: all other systems reviewed are Neg ROS: 14 point review of systems otherwise negative. Past Family Social History Past Medical History PMH: HTN, Asthma, UC s/p Colectomy/Colostomy, Decubitus Ulcer, Chronic Pain on Methadone, Anxiety, Depression, Alcohol Abuse and Tobacco Abuse Past Surgical History PAST SURGICAL HISTORY: Colectomy, Colostomy, Appendectomy, Tonsillectomy Allergies: Coded Allergies: tapentadol (Unverified Allergy, Severe, AMNESIA EPISODES, 02/03/17) hydromorphone (Unverified Adverse Reaction, Severe, HALLUCINATIONS, 02/03/17 ) *MDRO Multi-Drug Resistant Organism (Verified Adverse Reaction, Unknown, MRSA, 02/03/17) MRSA screen (nares) POSITIVE - 12/29/16 Family History PAST FAMILY HISTORY: Reviewed. No h/o DM or CAD Social History PAST SOCIAL HISTORY: Positive for alcohol abuse, unable to quantify. Smokes 2- 3 ppd. Negative for drugs. Physical Exam Vital Signs Vital Signs Date Time Temp Pulse Resp B/P (MAP) Pulse Ox O2 Delivery O2 Flow Rate FiO2 02/03/17 21:36 86 19 114/65 (81) 97 Nasal Cannula 2.00 02/03/17 21:28 83 15 02/03/17 21:15 97.5 91 15 114/65 (81) 95 Physical Exam PE: GENERAL: Middle-aged white male, cachectic, chronically ill appearing, in no acute distress. HEENT: PERRLA, EOMI. No scleral icterus or conjunctival pallor. No lid lag or facial droop. Dry mucous membranes. CARDIOVASCULAR: Regular rate and rhythm. No obvious murmurs to auscultation. No chest tenderness to palpation. RESPIRATORY: No obvious rhonchi or wheezing. Clear to auscultation. Breath sounds equal bilaterally. GASTROINTESTINAL: Abdomen soft, non-tender, nondistended. BS normal. MUSCULOSKELETAL: Extremities without clubbing, cyanosis, or edema. No obvious deformities. NEUROLOGICAL: Awake, alert, oriented to person. Lethargic, unable to provide much history. No focal neurologic deficits. Moving both upper and lower extremities spontaneously. Laboratory Laboratory Tests Test 02/03/17 20:45 White Blood Count 15.9 Red Blood Count 4.26 Hemoglobin 12.9 Hematocrit 39.3 Mean Corpuscular Volume 92.3 Mean Corpuscular Hemoglobin 30.2 Mean Corpuscular Hemoglobin Concent 32.7 Red Cell Distribution Width 15.3 Platelet Count 270 Mean Platelet Volume 8.9 Neutrophils (%) (Auto) 90.9 Lymphocytes (%) (Auto) 3.6 Monocytes (%) (Auto) 5.3 Eosinophils (%) (Auto) 0.0 Basophils (%) (Auto) 0.2 Neutrophils # (Auto) 14.4 Lymphocytes # (Auto) 0.6 Monocytes # (Auto) 0.8 Eosinophils # (Auto) 0.0 Basophils # (Auto) 0.0 CBC Comment DIFF FINAL Differential Comment Prothrombin Time 12.5 Prothromb Time International Ratio 1.1 Blood Urea Nitrogen 178 Creatinine 9.51 Random Glucose 95 Total Protein 7.9 Albumin 3.3 Calcium Level 9.4 Alkaline Phosphatase 115 Aspartate Amino Transf (AST/SGOT) 60 Alanine Aminotransferase (ALT/SGPT) 37 Total Bilirubin 1.3 Sodium Level 127 Potassium Level 3.3 Chloride Level 72 Carbon Dioxide Level 34.7 Anion Gap 20 Estimat Glomerular Filtration Rate 6 Magnesium Level 2.5 Total Creatine Kinase 594 Creatine Kinase MB 4.5 Creatine Kinase MB % 0.8 Troponin I LESS THAN 0.02 Result Diagram: 02/03/17204402/03/172044 Caprintracy VTE Risk Assessment Netorintracy VTE Risk Assessment: No/Low Risk (score <= 1) VTE Pharm Contraindication: High risk for bleeding Caprini Risk Assessment Model Point Value = 1 Point Value = 2 Point Value = 3 Point Value = 5 Age 41-60 Minor surgery BMI > 25 kg/m2 Swollen legs Varicose veins or History of unexplained or recurrent spontaneous Oral contraceptives or hormone replacement Sepsis (< 1 month) Serious lung disease, including pneumonia (< 1 month) Abnormal pulmonary function Acute myocardial infarction Congestive heart failure (< 1 month) History of inflammatory bowel disease Medical patient at bed rest Age 61-74 Arthroscopic surgery Major open surgery (> 45 min) Laparoscopic surgery (> 45 min) Malignancy Confined to bed (> 72 hours) Immobilizing plaster cast Central venous access Age >= 75 History of VTE Family history of VTE Factor V Leiden Prothrombin [id number] Lupus anticoagulant Anticardiolipin antibodies Elevated serum homocysteine Heparin-induced thrombocytopenia Other congenital or acquired thrombophilia Stroke (< 1 month) Elective arthroplasty Hip, pelvis, or leg fracture Acute spinal cord injury (< 1 month) Prophylaxis Regimen Total Risk Factor Score Risk Level Prophylaxis Regimen 0-1 Low Early ambulation 2 Moderate Order ONE of the following: *Sequential Compression Device (SCD) *Heparin 5000 units SQ BID 3-4 Higher Order ONE of the following medications: *Heparin 5000 units SQ TID *Enoxaparin/Lovenox 40 mg SQ daily (WT < 150 kg, CrCl > 30 mL/min) *Enoxaparin/Lovenox 30 mg SQ daily (WT < 150 kg, CrCl > 10-29 mL/min) *Enoxaparin/Lovenox 30 mg SQ BID (WT < 150 kg, CrCl > 30 mL/min) AND/OR *Sequential Compression Device (SCD) 5 or more Highest Order ONE of the following medications: *Heparin 5000 units SQ TID (Preferred with Epidurals) *Enoxaparin/Lovenox 40 mg SQ daily (WT < 150 kg, CrCl > 30 mL/min) *Enoxaparin/Lovenox 30 mg SQ daily (WT < 150 kg, CrCl > 10-29 mL/min) *Enoxaparin/Lovenox 30 mg SQ BID (WT < 150 kg, CrCl > 30 mL/min) AND *Sequential Compression Device (SCD) Assessment and Plan Problem List: (1) ARF (acute renal failure) ICD Code: N17.9 - Acute kidney failure, unspecified Status: Acute (2) Failure to thrive in adult ICD Code: R62.7 - Adult failure to thrive (3) Hypokalemia ICD Code: E87.6 - Hypokalemia Status: Acute (4) Rhabdomyolysis ICD Code: M62.82 - Rhabdomyolysis (5) Leukocytosis ICD Code: D72.829 - Leukocytosis Status: Acute (6) Alcohol abuse ICD Code: F10.10 - Alcohol abuse, uncomplicated Assessment and Plan A/P: 1. ARF: Acute Renal Failure. Severe. Creatinine 9.51, previously 0.87 on 01/03, K+ 3.3. Dr. Melo consulted by ER physician, recommended IVF for hydration. U/a pending, IVF for hydration, repeat labs, monitor closely. Insert Ball, monitor I/O. 2. Failure to Thrive: previously on Hospice, recently under the care of Son, however per report Son unable to care for pt any longer and called EMS. + significant deconditioning, +lethargy. LFTs stable in comparison to previous, Check Ammonia. IVF for hydration as above. PT for eval/tx. Case Management for assistance w/ d/c planning. Unable to contact Son to discuss plan of care. 3. Hypokalemia: Mild. K+ 3.3. In light of ARF will hold off on replacement, repeat lab in am. 4. Rhabdomyolysis: Mild. CPK 594. Check U/a. Check serial CPK for trend. IVF for hydration. 5. Leukocytosis: WBC 15.9, elevated neutrophil count. Afebrile. CXR pending. U/a pending, will follow. Obtain Blood Cultures, Lactic Acid. No clear infectious etiology at this time. 6. DVT Prophylaxis: Pharmacologic contraindication secondary to high risk for bleeding. 7. Social work for d/c planning as needed. 8. Case discussed w/ ER physician at length. Physician Certification 2 Midnight Certification Type: Admission for Inpatient Services Order for Inpatient Services The services are ordered in accordance with Medicare regulations or non- Medicare payer requirements, as applicable. In the case of services not specified as inpatient-only, they are appropriately provided as inpatient services in accordance with the 2-midnight benchmark. Estimated LOS (days): 2 days is the estimated time the patient will need to remain in the hospital, assuming treatment plan goals are met and no additional complications. Post-Hospital Plan: Not yet determined Tori Hummel MD Feb 03, 2017 22:54
[2017-02-03] MEDS: SODIUM CHLOR 0.9% 1000 ML INJ 1,000 ML IV SCH (23:00)
--- NOTE | 2017-02-03 23:07 | RADRPT ---
EXAM DATE/TIME: 02/03/2017 22:48 [facility] COMPARISON: CHEST SINGLE AP, December 29, 2016, 11:06. INDICATIONS : Short of breath. MEDICAL HISTORY : Unobtainable. SURGICAL HISTORY : Unobtainable. ENCOUNTER: Initial ACUITY: 1 day PAIN SCORE: Non-responsive. LOCATION: Bilateral chest FINDINGS: A single view of the chest demonstrates no focal consolidation or effusion. Heart size within normal limits. No pneumothorax. Mild scoliosis. CONCLUSION: 1. No acute findings. Calvin Keller MD on February 03, 2017 at 23:04 Board Certified Radiologist. This report was verified electronically.
[2017-02-03 23:29] VITALS: O2SAT 97
[2017-02-03 23:32] LABS: BLOOD, URINE TRACE (NEG); GLUCOSE,URINE NEG (NEG); KETONE, URINE NEG (NEG); MUCUS URINE FEW /lpf (OCC); NITRITE,URINE NEG (NEG); URINE COLOR YELLOW (YELLW/STRAW)
[2017-02-03 23:33] LABS: COMMENT (UR) CATH-CULT NOT IND; CULTURE IF INDICATED CATH CULTURE NOT IND
[2017-02-03 23:56] VITALS: BP 137/61; PULSE 77; RESP 19; O2SAT 97
[2017-02-04] VITALS: BP 105/58; PULSE 73; RESP 15; TEMP 95.4; O2SAT 94
[2017-02-04] MEDS: LORazepam 1 MG TAB PO PRN (01:55)
[2017-02-04] MEDS: SODIUM CHLOR 0.9% 1000 ML INJ 1,000 ML IV SCH (05:47)
[2017-02-04 06:57] LABS: AUTOMATED NEUTROPHIL # 10.6 TH/MM3 (1.8-7.7); BASOPHIL % 0.1 % (0.0-2.0); EOSINOPHIL % 0.2 % (0.0-4.0); HEMATOCRIT 30.5 % (39.0-51.0); HEMO FLAGS DIFF FINAL; LYMPH % 11.6 % (9.0-44.0); LYMPHOCYTE # 1.5 TH/MM3 (1.0-4.8); MEAN CELL VOLUME 92.7 FL (80.0-100.0); MEAN CORPUSCULAR HEMOGLOBIN 30.6 PG (27.0-34.0); MONO % 8.8 % (0.0-8.0); NEUT % 79.3 % (16.0-70.0); PLATELET COUNT 222 TH/MM3 (150-450); RED CELL DISTRIBUTION WIDTH 15.1 % (11.6-17.2); WHITE BLOOD COUNT 13.4 TH/MM3 (4.0-11.0)
[2017-02-04 07:48] LABS: ALKALINE PHOSPHATASE 80 U/L (45-117); ALT (GPT) 26 U/L (12-78); ANION GAP 21 MEQ/L (5-15); AST (GOT) 48 U/L (15-37); BICARBONATE 30.2 MEQ/L (21.0-32.0); BLOOD UREA NITROGEN 156 MG/DL (7-18); CHLORIDE 83 MEQ/L (98-107); CREATINE KINASE 517 U/L (39-308); GLOMERULAR FILTRATION RATE 7 ML/MIN (>89); SODIUM (NA) 134 MEQ/L (136-145); TOTAL BILIRUBIN ADULT 0.8 MG/DL (0.2-1.0)
[2017-02-04 07:51] LABS: POTASSIUM 2.6 MEQ/L (3.5-5.1)
[2017-02-04 08:00] VITALS: BP 95/52; PULSE 67; RESP 18; TEMP 95.9; O2SAT 93
[2017-02-04 08:14] LABS: CKMB 4.4 NG/ML (0.5-3.6)
[2017-02-04] MEDS: FOLIC ACID 1 MG TAB PO SCH ×2 (09:00→09:30)
[2017-02-04] MEDS: DOCUSATE SODIUM 50 MG/SENNA 8.6 MG TAB PO SCH ×3 (09:00→21:27)
[2017-02-04] MEDS: THIAMINE HCL 100 MG TAB PO SCH ×2 (09:00→09:29)
[2017-02-04] MEDS: MULTIVITAMINS/MINERALS THERAPEUTIC TAB PO SCH ×2 (09:00→09:30)
[2017-02-04] MEDS ORDERED: SODIUM CHLORIDE 0.9% FLUSH 10 ML FLUSH IV FLUSH SCH (09:00)
--- NOTE | 2017-02-04 09:25 | EKG ---
Date Performed: 02/03/2017 Time Performed: 21:42:18 PTAGE: 61 years EKG: Sinus rhythm RIGHT ATRIAL ENLARGEMENT LEFT ATRIAL ENLARGEMENT PROLONGED QT INTERVAL ABNORMAL ECG PREVIOUS TRACING : 02/03/2017 21.41 DOCTOR: Eleazar Valenzuela Interpretating Date/Time 02/06/2017 13:54:01
[2017-02-04] MEDS: SODIUM CHLORIDE 0.9% FLUSH 10 ML FLUSH IV FLUSH SCH ×2 (09:30→21:00)
[2017-02-04 12:00] VITALS: BP 97/56; PULSE 62; RESP 17; TEMP 96.5; O2SAT 91
[2017-02-04] MEDS: NS + KCL 20 MEQ INJ 1,000 ML IV SCH ×2 (12:10→21:28)
[2017-02-04] MEDS: POTASSIUM CHLOR 20 MEQ PREMIX 100 ML IV SCH ×2 (12:10→16:16)
[2017-02-04 14:05] LABS: CKMB 4.7 NG/ML (0.5-3.6)
--- NOTE | 2017-02-04 15:42 | MB ---
cc: LAURI COLEMAN MD DATE OF CONSULTATION 02/04/17 REASON FOR CONSULTATION Acute kidney injury with elevated BUN and creatinine for evaluation. HISTORY OF PRESENT ILLNESS This is a 61-year-old male with past medical history of hypertension. History of alcoholism, bronchial asthma, anxiety, depression, alcohol abuse and bedridden status with decubitus ulcer, was admitted because of generalized weakness and altered mental status. I was called to see the patient because of elevated BUN and creatinine. The patient was found to have BUN of 178 and creatinine of 9.5. His creatinine was 0.87 on January 03. He had acute kidney injury in 2014 and creatinine went up to as high as 1.79 but it improved. He also has another acute kidney injury in October of 2014. The patient is not able to give any history, he is still quite lethargic and most of the history was taken from the patient's chart according to which he has been lethargic at home after he was discharged from the hospital. The patient was discharged on January 03. He has a colostomy and not eating well and getting more and more lethargic. There is no known history of any vomiting. PAST MEDICAL HISTORY Hypertension, history of alcoholism, bronchial asthma, history of decubitus ulcer, previous history of acute kidney injury, anxiety depression. PAST SURGICAL HISTORY Colectomy, colostomy, appendicectomy, tonsillectomy. REVIEW OF SYSTEMS The review of systems cannot be taken since the patient is not answering any questions. ALLERGIES HE HAS ALLERGY TO HYDROMORPHONE AND TAPENTADOL. SOCIAL HISTORY The patient lives with his son at home. He has history of alcoholism and also smoking two to three pack per day. FAMILY HISTORY Family history is noncontributory. MEDICATIONS Currently he is on following medications: 1. Normal saline getting at 125 an hour. 2. Lilliana-Colace 1 tablet b.i.d. 3. Folic acid 1 milligram daily. 4. Thiamine 100 milligrams daily. 5. Theragran. 6. Multivitamin daily. 7. Ativan as needed. PHYSICAL EXAMINATION GENERAL: On examination the patient is quite lethargic. He just opens eyes on verbal commands and not following any other commands. VITAL SIGNS: His last blood pressure is 95/52, temperature 95.9, oxygen saturation 93-94% on 2 liters nasal cannula. HEENT: The pupils are mid-constricted. Nonicteric sclera. Conjunctiva pale. NECK: Supple. JVD is not elevated. LUNGS: The patient has bilateral decreased air entry with occasional wheezing. HEART: S1-S2. Regular rhythm. ABDOMEN: Soft, lax. There is a colostomy bag in the left side with liquid stool. There is no tenderness. Bowel sounds positive. EXTREMITIES: There is no pedal edema. INVESTIGATION WBC count is 13.4, hemoglobin 10.1, platelet count of 222, neutrophils 79.3%, sodium 134, potassium 2.6, chloride 83, bicarb 30.2, BUN 156, creatinine 7.98, AST is 48, ALT is 26, creatinine kinase 517, MB is 4.4. Troponin I less than 0.02. Total protein 6.1, albumin of 2.4, INR 1.1. Urinalysis showing trace protein. Blood cultures pending. IMAGING STUDIES The patient has chest x-ray done yesterday which shows no acute finding. His ammonia level was 12 yesterday. ASSESSMENT/PLAN 1. Acute kidney injury. 2. Dehydration. 3. Malnutrition and failure to thrive. 4. Rhabdomyolysis. 5. Hypokalemia and hyponatremia. 6. History of alcoholism and elevated liver enzymes. 7. Anemia. 8. Bedridden status. The patient has not been taking much orally and was quite dehydrated when admitted and now is getting IV fluids. The potassium is low. He will need the potassium supplement and I will also check the magnesium level, although it was normal yesterday. Agree with continuing IV fluid. I will change IV fluids and add some potassium into it. The acute kidney injury is either because of dehydration alone or contributed to some extent by the rhabdomyolysis also. I will also get the urine sodium and ultrasound of the kidneys. Sodium level is improving. Thank you for the consultation. I will follow the patient while he is in the hospital. MD YOLANDA RiveraJ/SPRING /10:28 AM /3:26 PM
--- NOTE | 2017-02-04 15:55 | RADRPT ---
EXAM DATE/TIME: 02/04/2017 13:53 [facility] COMPARISON: US KIDNEY/RENAL/BLADDER, August 25, 2014, 16:49. INDICATIONS : Increased BUN/Creatnine. MEDICAL HISTORY : Hypertension. Glasses. Head trauma. Vertigo. Numbness. Asthma. Abdominal pain. Arthritis. Hepatit is. MRSA. Depression. Anxiety. Post traumatic stress disorder. SURGICAL HISTORY : Tonsillectomy. Appendectomy. Oral surgery. Adenoidectomy. Colon resection. Large intestine removed. Ileostomy. ENCOUNTER: Subsequent ACUITY: 1 day PAIN SCORE: 110 LOCATION: Bilateral flank MEASUREMENTS: RIGHT KIDNEY: 10.7 x 3.6 x 4.6 cm LEFT KIDNEY: 10.7 x 3.6 x 4.3 cm FINDINGS: RIGHT KIDNEY: Minimal increase in echogenicity of cortex no hydronephrosis. LEFT KIDNEY: Again minimal increase in echogenicity of cortex no hydronephrosis. BLADDER: Within normal limits given the degree of distension. CONCLUSION: Probable mild medical renal disease without hydronephrosis. Sid Ang MD FACR on February 04, 2017 at 15:52 Board Certified Radiologist. This report was verified electronically.
[2017-02-04 16:00] VITALS: BP 91/57; PULSE 63; RESP 16; TEMP 96.1; O2SAT 95
[2017-02-04 17:52] VITALS: O2SAT 91
[2017-02-04 20:00] VITALS: BP_SYST 162; BP_SYST 98; BP_DIAS 60; BP_DIAS 74; PULSE 60; PULSE 61; PULSE 83; RESP 20; RESP 21; TEMP 96.3; TEMP 97.6; O2SAT 94; O2SAT 98
[2017-02-04] MEDS ORDERED: POTASSIUM CHLORIDE INJ 20 MEQ in SODIUM CHLOR 0.9% 1000 ML INJ 1,000 ML IV SCH (22:30)
--- NOTE | 2017-02-04 22:36 | RADRPT ---
EXAM DATE/TIME: 02/04/2017 22:09 [facility] COMPARISON: CHEST SINGLE AP, October 11, 2014, 10:07CHEST SINGLE AP, September 10, 2016, 16:13. CHEST SINGLE AP, Sept2016, 22:48. INDICATIONS : Congestion. Possible pneumonia. MEDICAL HISTORY : None. SURGICAL HISTORY : None. ENCOUNTER: Subsequent ACUITY: 3 days PAIN SCORE: Non-responsive. LOCATION: Bilateral chest FINDINGS: A single view of the chest demonstrates the lungs to be symmetrically aerated without evidence of mas s, consolidative infiltrate or effusion. There is mild streaky opacity at the left lung base. The car diomediastinal contours are unremarkable. Osseous structures are intact. CONCLUSION: No acute disease. There is no visualized pneumonia. Mychal Harper MD on February 04, 2017 at 22:30 Board Certified Radiologist. This report was verified electronically.
[2017-02-05] VITALS (9 sets, daily range): BP systolic 90–127; BP diastolic 53–70; PULSE 52–79; RESP 14–20; TEMP 96.1–98; O2SAT 91–99
[2017-02-05] MEDS: NS + KCL 20 MEQ INJ 1,000 ML IV SCH (04:24)
[2017-02-05] MEDS ORDERED: DEXTROSE 50% IN WATER 50 ML SYRINGE IV ONE (06:30)
[2017-02-05] MEDS: D5-1/2 NS + KCL 20 MEQ INJ 1,000 ML IV SCH ×3 (06:45→22:15)
[2017-02-05] MEDS: FOLIC ACID 1 MG TAB PO SCH (09:00)
[2017-02-05] MEDS: THIAMINE HCL 100 MG TAB PO SCH (09:00)
[2017-02-05] MEDS: SODIUM CHLORIDE 0.9% FLUSH 10 ML FLUSH IV FLUSH SCH ×2 (09:00→21:00)
[2017-02-05] MEDS: MULTIVITAMINS/MINERALS THERAPEUTIC TAB PO SCH (09:00)
[2017-02-05] MEDS: DOCUSATE SODIUM 50 MG/SENNA 8.6 MG TAB PO SCH ×2 (09:00→22:14)
--- NOTE | 2017-02-05 12:00 | HHI.NPPN ---
Subjective History of Present Illness 61-year-old male with past medical history of hypertension. History of alcoholism, bronchial asthma, anxiety, depression, alcohol abuse and bedridden status with decubitus ulcer, was admitted because of generalized weakness and altered mental status. I was called to see the patient because of elevated BUN and creatinine. Additional Remarks Patient is more alert, able to tell his name but not following much commands, remain confused. Review of Systems General Constitutional: Fatigue Objective Data Data Vital Signs Date Time Temp Pulse Resp B/P (MAP) Pulse Ox O2 Delivery O2 Flow Rate FiO2 02/05/17 08:30 92 Nasal Cannula 4.00 02/05/17 08:00 97.3 60 15 96/53 (67) 92 02/05/17 05:55 90/58 (69) 02/05/17 04:00 96.5 59 20 126/70 (88) 98 02/05/17 00:00 98.0 79 20 105/59 (74) 99 02/04/17 20:00 96.3 60 20 98/60 (73) 94 02/04/17 20:00 61 02/04/17 17:52 91 Nasal Cannula 4.00 02/04/17 16:00 96.1 63 16 91/57 (68) 95 02/04/17 12:00 96.5 62 17 97/56 (70) 91 -: 02/04/17 0520 02/04/17 0520 Physical Exam General Appearance: No Acute Distress, Comfortable Eyes Eye Exam: Pupils Equal Throat Throat Exam: Oral Mucosa [place] & Moist Neck Neck Exam: Neck Supple Pulmonary Resp Exam: Breath Sounds Equal, No Distress, Decreased Bases Cardiology CV Exam: Regular, Normal Sinus Rhythm Gastrointestinal/Abdomen GI Exam: Soft, Non-Tender, Bowel Sounds Present GI Remarks colostomy bag in place. Extremeties Extremities Exam: No Edema Neurologic Neuro Exam: Obtunded (wakes up on command.) Assessment/Plan Assessment Summary: VISHAL/Acute Renal Failure, Dehydration, Hypotension Electrolyte Assessment: Hypokalemia Problem List: (1) Failure to thrive in adult ICD Codes: R62.7 - Adult failure to thrive (2) Hypokalemia ICD Codes: E87.6 - Hypokalemia Status: Acute (3) High output ileostomy ICD Codes: R19.8 - High output ileostomy; Z93.2 - Ileostomy status Status: Acute (4) Anemia ICD Codes: D64.9 - Anemia Status: Acute (5) Hypokalemia ICD Codes: E87.6 - Hypokalemia Status: Acute (6) ARF (acute renal failure) ICD Codes: N17.9 - Acute kidney failure, unspecified Status: Acute Plan Patient has been non oliguric, No new BMP today. Continue IVF,encourage oral intake. Follow the urine out out and BMP. Avoid Nephrotoxins. CPK was improving yesterday. Jessa Melo MD Feb 05, 2017 12:00
[2017-02-05 16:57] LABS: BASOPHIL # 0.1 TH/MM3 (0-0.2); BASOPHIL % 0.5 % (0.0-2.0); EOSINOPHIL # 0.1 TH/MM3 (0-0.4); EOSINOPHIL % 0.6 % (0.0-4.0); HEMATOCRIT 31.8 % (39.0-51.0); HEMO FLAGS DIFF FINAL; LYMPH % 10.3 % (9.0-44.0); LYMPHOCYTE # 1.3 TH/MM3 (1.0-4.8); MEAN CELL VOLUME 95.3 FL (80.0-100.0); MEAN CORPUSCULAR HEMOGLOBIN 31.6 PG (27.0-34.0); MEAN CORPUSCULAR HGB CONC 33.2 % (32.0-36.0); MONO % 10.8 % (0.0-8.0); NEUT % 77.8 % (16.0-70.0); PLATELET COUNT 163 TH/MM3 (150-450); RED BLOOD COUNT 3.33 MIL/MM3 (4.50-5.90); RED CELL DISTRIBUTION WIDTH 15.9 % (11.6-17.2); WHITE BLOOD COUNT 12.8 TH/MM3 (4.0-11.0)
--- NOTE | 2017-02-05 19:26 | HHI.PR ---
Subjective Remarks Follow-up on acute renal failure. He has improved today even further with IV fluids fortunately. Nursing reports that the patient is slightly more awake today. Says he is coughing some. Contacted son today who said that this presentation had happened before to the patient. Said that he had been taken off of hospice by the hospice staff could he had improved. Says that the patient normally at baseline and has normal intact mentation and communicates regularly. Says that he changes his own ostomy bag on his own but recently became weaker slowly over time and then found him very weak just prior to admission Objective Vital Signs Date Time Temp Pulse Resp B/P (MAP) Pulse Ox O2 Delivery O2 Flow Rate FiO2 02/05/17 18:01 91 Nasal Cannula 4.00 02/05/17 16:00 96.1 52 14 100/55 (70) 91 02/05/17 12:00 96.8 62 16 103/57 (72) 93 02/05/17 08:30 92 Nasal Cannula 4.00 02/05/17 08:00 97.3 60 15 96/53 (67) 92 02/05/17 05:55 90/58 (69) 02/05/17 04:00 96.5 59 20 126/70 (88) 98 02/05/17 00:00 98.0 79 20 105/59 (74) 99 02/04/17 20:00 96.3 60 20 98/60 (73) 94 02/04/17 20:00 61 I/O 02/04/17 02/04/17 02/04/17 02/05/17 02/05/17 02/05/17 07:00 15:00 23:00 07:00 15:00 23:00 Intake Total 2938 ml 945 ml 150 ml 50 ml 2271 ml 0 ml Output Total 350 ml 725 ml 200 ml 960 ml Balance 2588 ml 945 ml -575 ml -150 ml 2271 ml -960 ml Intake Oral 200 ml 150 ml 50 ml 0 ml IV Total 2738 ml 945 ml 2271 ml Output Urine Total 350 ml 525 ml 200 ml 850 ml Stool Total 200 ml 110 ml # Voids 1 Result Diagram: 02/05/17 1637 02/04/17 0520 Objective Remarks Gen.: Very hard to arouse, does eventually wake up to answer question or 2, of which he mumbles in response that is inaudible Abdomen: Soft, nondistended, minimally tender to palpation with no guarding or rebound Extremities: No lower strep edema Eyes: Symmetrical pupils bilaterally that are normal in size, no icterus noted Neuro: No tremors no facial droop, no slurred speech A/P Assessment and Plan 1. ARF: Acute Renal Failure. Severe. - Appreciate recommendations from nephrology, hydrating aggressively with fluid composition help from nephrology . Trend creatinine and bmp daily. Earlier specimen from today was hemolyzed, repeat attempt in process. 2. Failure to Thrive: Suspect that the patient becomes dehydrated over time, will need stool analysis to see if he has any type of diarrhea of which he does not disclose to anyone with his ostomy bag 3. Hypersomnolence - ammonia within normal limits, suspect this is largely due to the uremia, hydrate as above. We'll obtain B12 since patient has an alcoholic and drug abuse history (particularly with marijuana). Obtaining drug screen. NGTD, do not suspect infx process at this time. monitor cbc daily. On CIWA protocol as well. 3. Hypokalemia: replacing w/in IVF and monitoring. 4. Rhabdomyolysis: Improving trends, continue aggressive hydration 5. Leukocytosis: Likely stress related, blood cultures are negative 1, no fever, monitor 6. DVT Prophylaxis: Pharmacologic contraindication secondary to high risk for bleeding. We'll place on SCDs Aden Fernandez MD Feb 05, 2017 19:26
[2017-02-05 20:43] LABS: ACETAMINOPHEN LESS THAN 2.0 MCG/ML (10.0-30.0); BLOOD UREA NITROGEN 103 MG/DL (7-18); GLOMERULAR FILTRATION RATE 21 ML/MIN (>89)
[2017-02-05 20:44] LABS: ANION GAP 7 MEQ/L (5-15); BICARBONATE 30.6 MEQ/L (21.0-32.0); CHLORIDE 106 MEQ/L (98-107); POTASSIUM 3.6 MEQ/L (3.5-5.1); SODIUM (NA) 144 MEQ/L (136-145)
[2017-02-06] VITALS (7 sets, daily range): BP systolic 116–130; BP diastolic 64–79; PULSE 62–81; RESP 12–22; TEMP 95.5–98.5; O2SAT 94–99
[2017-02-06 05:56] LABS: ANION GAP 7 MEQ/L (5-15); BICARBONATE 29.9 MEQ/L (21.0-32.0); BLOOD UREA NITROGEN 84 MG/DL (7-18); CHLORIDE 107 MEQ/L (98-107); CREATINE KINASE 144 U/L (39-308); GLOMERULAR FILTRATION RATE 27 ML/MIN (>89); POTASSIUM 3.3 MEQ/L (3.5-5.1); SODIUM (NA) 144 MEQ/L (136-145)
[2017-02-06] MEDS: D5-1/2 NS + KCL 20 MEQ INJ 1,000 ML IV SCH ×3 (06:09→22:45)
[2017-02-06] MEDS: MULTIVITAMINS/MINERALS THERAPEUTIC TAB PO SCH (09:00)
[2017-02-06] MEDS: THIAMINE HCL 100 MG TAB PO SCH (09:00)
[2017-02-06] MEDS: FOLIC ACID 1 MG TAB PO SCH (09:00)
[2017-02-06] MEDS: DOCUSATE SODIUM 50 MG/SENNA 8.6 MG TAB PO SCH ×2 (09:00→21:00)
[2017-02-06] MEDS: SODIUM CHLORIDE 0.9% FLUSH 10 ML FLUSH IV FLUSH SCH ×2 (09:00→21:00)
--- NOTE | 2017-02-06 10:13 | HHI.PR ---
Subjective Remarks Follow-up on acute renal failure and somnolence. Discussed with nursing, he seems to be slightly more responsive today but still mumbles his speech. Does not correctly answer questions. It was anticipated that his altered mental status was due to metabolic encephalopathy from the profound uremia secondary to renal failure but despite substantial improvements in his renal function today is still persisting with some mild improvement. Nurse states that his colostomy bag output has been unchanged, liquid (which is probably his baseline at home). Is stating that he is coughing a lot more today and she has been holding his medications because he would occasionally gag with some feeds, not eating. Objective Vital Signs Date Time Temp Pulse Resp B/P (MAP) Pulse Ox O2 Delivery O2 Flow Rate FiO2 02/06/17 08:00 97.1 67 12 130/71 (90) 96 02/06/17 04:00 97.4 62 20 127/64 (85) 94 02/06/17 00:00 98.5 64 20 116/64 (81) 95 02/05/17 20:00 96.5 60 20 127/64 (85) 93 02/05/17 18:01 91 Nasal Cannula 4.00 02/05/17 16:00 96.1 52 14 100/55 (70) 91 02/05/17 12:00 96.8 62 16 103/57 (72) 93 I/O 02/05/17 02/05/17 02/05/17 02/06/17 02/06/17 02/06/17 07:00 15:00 23:00 07:00 15:00 23:00 Intake Total 50 ml 2271 ml 0 ml 0 ml Output Total 200 ml 960 ml 1800 ml Balance -150 ml 2271 ml -960 ml -1800 ml Intake Oral 50 ml 0 ml 0 ml IV Total 2271 ml Output Urine Total 200 ml 850 ml 900 ml Stool Total 110 ml 900 ml Result Diagram: 02/05/17 1637 02/06/17 0332 Objective Remarks Gen.: More easily aroused today, was drowsy and or sleeping when I walked in. Abdomen: Soft, nondistended, no tenderness palpation noted today Extremities: No lower extremity edema Eyes: Symmetrical pupils bilaterally that are normal in size, no icterus noted Neuro: No tremors no facial droop, no slurred speech will spontaneously move all 4 extremities Respiratory: Breath sounds are coarse bilaterally with no focal crackles rales or rhonchi, A/P Assessment and Plan 1. ARF: Acute Renal Failure. Severe. - Appreciate recommendations from nephrology, hydrating aggressively with fluid composition help from nephrology . Trend creatinine and bmp daily. Earlier specimen from today was hemolyzed, repeat attempt in process. 2. encephalopathy - suspected to be multifactorial, at this point metabolic encephalopathy is playing some role but a minor role since his metabolic derangements have significantly improved with mild improvement in his mental condition. B12 and folate are stable along w/ ammonia level. tylenol level unremarkable, not useful at this time to obtain blood etoh since it's likely out of his system. Ordering TSH, RPR, CT scan of the head, if unremarkable proceed with MRI with and without contrast. Anticipate lumbar puncture at the end of all this if this is all negative, neurology consult has been placed. Ordering speech consult as well given poor by mouth intake and questionable safe by mouth alimentation. UDS is still pending. On CINJ protocol. Prior hx of THC charted on older drug screens. BCx's neg x 2 days. Afebrile. Don't suspect infectious cause at this time. May need EEG. Fall precautions ordered. Ordering PT/OT as well to stimulate ambulation. 3. cough - wet sounding, ordering cbc today and cxr 4. Hypokalemia: improving replacing w/in IVF and monitoring. 5. Rhabdomyolysis: resolved 6. Leukocytosis: Since it is improving with just conservative supportive care with IV fluids, will monitor 7. DVT Prophylaxis: Pharmacologic contraindication secondary to high risk for bleeding. SCDs Spoke with laura Rodriguez on the phone to obtain further history, says that patient does have a psychiatric history of being in a "looney bin" in [place] at some point in the past where he had to go pick him up from there. Says that otherwise he is very coherent at baseline, and on his worst days he just says some odd things but a depressed mental status is not normal for him. He says he will try to look into seeing exactly what facility and in what city the patient had been in. I updated him on the patient's clinical status that we were still trying to pinpoint a cause for the encephalopathy since then had minimally improved. He himself related the patient had some sort of surgical operation in the past with what sounds to be intestinal anastomosis was then followed by a colostomy at some point and that the patient was transitioned to hospice due to intractable pain. He was apparently discharged from hospice because his pain had improved and the patient was able to go ahead and live at home afterwards. Aden Fernandez MD Feb 06, 2017 10:13
--- NOTE | 2017-02-06 11:18 | RADRPT ---
EXAM DATE/TIME: 02/06/2017 11:05 [facility] COMPARISON: CT BRAIN W/O CONTRAST, April 29, 2014, 13:17. INDICATIONS : Altered mental status. RADIATION DOSE: 34.10 CTDIvol (mGy) MEDICAL HISTORY : Hypertension. SURGICAL HISTORY : None. ENCOUNTER: Initial ACUITY: 1 day PAIN SCALE: 0/10 LOCATION: cranial TECHNIQUE: Multiple contiguous axial images were obtained of the head. Using automated exposure control and adj ustment of the mA and/or kV according to patient size, radiation dose was kept as low as reasonably a chievable to obtain optimal diagnostic quality images. DICOM format image data is available electro nically for review and comparison. FINDINGS: CEREBRUM: The ventricles are normal for age. No evidence of midline shift, mass lesion, hemorrhage or acute in farction. No extra-axial fluid collections are seen. POSTERIOR FOSSA: The cerebellum and brainstem are intact. The 4th ventricle is midline. The cerebellopontine angle i s unremarkable. EXTRACRANIAL: The visualized portion of the orbits is intact. SKULL: The calvaria is intact. No evidence of skull fracture. CONCLUSION: Normal examination. Ran Hurley MD on February 06, 2017 at 11:16 Board Certified Radiologist. This report was verified electronically.
[2017-02-06 12:54] LABS: AUTOMATED NEUTROPHIL # 11.6 TH/MM3 (1.8-7.7); BASOPHIL # 0.1 TH/MM3 (0-0.2); BASOPHIL % 0.4 % (0.0-2.0); EOSINOPHIL # 0.1 TH/MM3 (0-0.4); EOSINOPHIL % 0.7 % (0.0-4.0); HEMATOCRIT 34.7 % (39.0-51.0); HEMO FLAGS DIFF FINAL; LYMPH % 8.6 % (9.0-44.0); LYMPHOCYTE # 1.2 TH/MM3 (1.0-4.8); MEAN CELL VOLUME 94.9 FL (80.0-100.0); MEAN CORPUSCULAR HEMOGLOBIN 30.9 PG (27.0-34.0); MEAN CORPUSCULAR HGB CONC 32.6 % (32.0-36.0); MONO % 7.3 % (0.0-8.0); PLATELET COUNT 222 TH/MM3 (150-450); RED BLOOD COUNT 3.66 MIL/MM3 (4.50-5.90); WHITE BLOOD COUNT 13.9 TH/MM3 (4.0-11.0)
--- NOTE | 2017-02-06 13:05 | RADRPT ---
EXAM DATE/TIME: 02/06/2017 12:51 [facility] COMPARISON: CHEST SINGLE AP, February 04, 2017, 22:09. INDICATIONS : Cough. MEDICAL HISTORY : Hypertension. SURGICAL HISTORY : None. ENCOUNTER: Subsequent ACUITY: 4 - 6 days PAIN SCORE: 0/10 LOCATION: Bilateral chest FINDINGS: Minimal parenchymal opacity left base. Right lung clear.. The cardiomediastinal contours are unrema rkable. Osseous structures are intact. CONCLUSION: Minimal parenchymal opacity left base, progressed in the interval. Sid Ang MD FACR on February 06, 2017 at 13:02 Board Certified Radiologist. This report was verified electronically.
--- NOTE | 2017-02-06 13:25 | MB ---
cc: JESSY SHANNON M.D. DATE OF CONSULTATION: 02/06/2017 DATE OF : 1955 REASON FOR CONSULTATION Encephalopathy. HISTORY OF PRESENT ILLNESS The patient is a 61-year-old man with a history of hypertension, ulcerative colitis, asthma, colectomy, colostomy, decubitus ulcer, chronic pain on methadone, anxiety, depression, alcohol, tobacco abuse, was brought into the ER by ambulance due to generalized weakness. Per chart it says he was previously on hospice but discharged home with son after last admission. Son reported he was unable to care for him and called EMS. The patient is still lethargic, opens his eyes with sternal rub. The practical nursing faculty was in and was feeding him his puree diet. He tells her that he does not like any of the food but he does swallow a few spoons of each of the items and then he is now going down for x-ray. Apparently neurology is consulted because of ongoing encephalopathy. He was found on admission to have a CPK of 594, sodium of 127, white count of 15.9, creatinine of 9.51. SOCIAL HISTORY As stated, smoker of 2-3 packs a day, alcohol; unable to quantify how much. PHYSICAL EXAMINATION VITAL SIGNS: Temperature 97.1, pulse 67, respiratory rate 12, blood pressure 130/71, sating at 96% on 4 liters nasal cannula. NEURO: He is somnolent, arousable, able to state his name, answers yes and no, does not sound dysarthric, is not oriented except to himself. Pupils are reactive. His face looks fairly symmetrical. Motor carcamo he seems to be moving everything but does not follow any strength testing. DTRs are 2+. Toes he withdraws. Does not do cerebellar testing for me. His gait is withheld, it is not safe to get him out of bed, too somnolent. LABORATORY DATA Labs are reviewed. He came in with a white count of 15.9, currently it is 12.8, 77.8% neutrophils with a hemoglobin of 10.5, hematocrit 31.8, platelets 163,000. Chemistries: Came in with a sodium of 127 currently it is 144, AST 60, ALT 37 which has improved to 48 and 26, respectively. His CK on admission was 594, currently it is 144. B12 766, TSH 0.595. His creatinine on admission was 9.51, GFR 6, BUN of 178. Currently his creatinine is 2.46, GFR 27, BUN 84, glucose 146, calcium 8.4, phosphorus 1.4. Toxicology ethanol level was 49. Acetaminophen level was less than 2. Urine culture was not indicated. MRSA was detected on PCR. Serology hepatitis A, B and C were unremarkable. Microbiology no growth in [address] head was unremarkable. Chest x-ray two days ago showed no acute disease. Renal ultrasound shows probable mild medical renal disease without hydronephrosis. IMPRESSION 61-year-old man continues to be encephalopathic, seems to be a little bit more responsive today per staff, able to swallow food. He is on a puree diet but he is thin, does not look like he eats well at all. Multiple reasons for his encephalopathy, metabolic and infectious etiology. Hopefully, this will continue to improve. His CT was unremarkable. TSH was normal. I believe RPR is still pending, not done so it should be checked. We will get an EEG as well. It just may take some time for him to improve. The brain usually does not improve as fast as some other organs, so it may be just a delay. Check an ammonia level. Certainly if he is not improving, I would go ahead and get an MRI and possibly even a spinal tap. Watch him for alcohol withdrawal. Ativan or Librium should be used if needed and further recommendations to be made accordingly. MD ROMÁN Estrada/JOSE /12:46 PM /1:02 PM
--- NOTE | 2017-02-06 16:05 | HHI.NPPN ---
Subjective History of Present Illness 61-year-old male with past medical history of hypertension. History of alcoholism, bronchial asthma, anxiety, depression, alcohol abuse and bedridden status with decubitus ulcer, was admitted because of generalized weakness and altered mental status. I was called to see the patient because of elevated BUN and creatinine. Additional Remarks Patient is more alert, but remain confused, not in distress. Review of Systems General Constitutional: Fatigue Objective Data Data Vital Signs Date Time Temp Pulse Resp B/P (MAP) Pulse Ox O2 Delivery O2 Flow Rate FiO2 02/06/17 10:42 96 Nasal Cannula 4.00 02/06/17 08:00 97.1 67 12 130/71 (90) 96 02/06/17 04:00 97.4 62 20 127/64 (85) 94 02/06/17 00:00 98.5 64 20 116/64 (81) 95 02/05/17 20:00 96.5 60 20 127/64 (85) 93 02/05/17 18:01 91 Nasal Cannula 4.00 -: 02/06/17 1227 02/06/17 0332 Physical Exam General Appearance: No Acute Distress, Comfortable Eyes Eye Exam: Pupils Equal Throat Throat Exam: Oral Mucosa [place] & Moist Neck Neck Exam: Neck Supple Pulmonary Resp Exam: Breath Sounds Equal, No Distress, Decreased Bases Cardiology CV Exam: Regular, Normal Sinus Rhythm Gastrointestinal/Abdomen GI Exam: Soft, Non-Tender, Bowel Sounds Present GI Remarks colostomy bag in place. Extremeties Extremities Exam: No Edema Neurologic Neuro Exam: Obtunded (wakes up on command.) Assessment/Plan Assessment Summary: VISHAL/Acute Renal Failure, Dehydration, Hypotension Electrolyte Assessment: Hypokalemia Problem List: (1) Failure to thrive in adult ICD Codes: R62.7 - Adult failure to thrive (2) Hypokalemia ICD Codes: E87.6 - Hypokalemia Status: Acute (3) High output ileostomy ICD Codes: R19.8 - High output ileostomy; Z93.2 - Ileostomy status Status: Acute (4) Anemia ICD Codes: D64.9 - Anemia Status: Acute (5) Hypokalemia ICD Codes: E87.6 - Hypokalemia Status: Acute (6) ARF (acute renal failure) ICD Codes: N17.9 - Acute kidney failure, unspecified Status: Acute Plan Patient has been non oliguric, Creatinine continue to improve. K is low, on IVF with Kcl. Continue IVF,encourage oral intake. Follow the urine out out and BMP. Avoid Nephrotoxins. CPK is now normalized. Going for Brain MRI. Avoid Nephrotoxins, follow the BMP. Jessa Melo MD Feb 06, 2017 16:05
--- NOTE | 2017-02-06 16:29 | RADRPT ---
EXAM DATE/TIME: 02/06/2017 15:56 [facility] COMPARISON: No previous studies available for comparison. INDICATIONS : Encephalopthy. Altered mental status.. MEDICAL HISTORY : Hypertension. SURGICAL HISTORY : Colostomy. ENCOUNTER: Subsequent ACUITY: 2 day PAIN SCORE: 0/10 LOCATION: Head TECHNIQUE: Multiplanar, multisequence MRI of the brain was performed without contrast. FINDINGS: The study is degraded by motion artifact. CEREBRUM: There is diffuse moderate atrophic change with sulcal and ventricular prominence. No evidence of midl ine shift, mass lesion, hemorrhage or acute infarction. No extraaxial fluid collections are seen. T he pituitary gland and suprasellar cistern are normal in configuration. WHITE MATTER: On the flair weighted images there is increased signal noted in the periventricular white matter and centrum semiovale characteristic of chronic small vessel ischemic change. POSTERIOR FOSSA: The cerebellum and brainstem are intact. The 4th ventricle is midline. The cerebellopontine angle is unremarkable. The cerebellar tonsils are normal in position. DIFFUSION IMAGING: No focal areas of restricted diffusion are seen. No evidence of acute infarction. EXTRACRANIAL: The visualized portions of the orbits are unremarkable. There is opacification of the left maxillary sinus and multiple ethmoidal air cells. CONCLUSION: 1. Suboptimal examination secondary to motion artifact. 2. No evidence of acute hemorrhage, mass or infarction. 3. Moderate atrophic change and chronic small vessel ischemic changes. 4. The left maxillary sinus is opacified and there is opacification of several ethmoidal air cells. Mychal Harper MD on February 06, 2017 at 16:25 Board Certified Radiologist. This report was verified electronically.
[2017-02-06] MEDS: LORazepam 2 MG TAB PO PRN (18:51)
[2017-02-07] VITALS (8 sets, daily range): BP systolic 126–145; BP diastolic 78–91; PULSE 63–88; RESP 18–22; TEMP 96.3–98.1; O2SAT 93–98
[2017-02-07] MEDS: LORazepam 2 MG TAB PO PRN (00:32)
[2017-02-07 01:37] LABS: C. DIFF EPI 027 PRESUMPTIVE NEGATIVE (NEGATIVE)
[2017-02-07] MEDS: D5-1/2 NS + KCL 20 MEQ INJ 1,000 ML IV SCH ×3 (05:28→20:03)
[2017-02-07] MEDS: DOCUSATE SODIUM 50 MG/SENNA 8.6 MG TAB PO SCH ×3 (08:02→20:03)
[2017-02-07] MEDS: MULTIVITAMINS/MINERALS THERAPEUTIC TAB PO SCH ×2 (08:02→08:06)
[2017-02-07] MEDS: FOLIC ACID 1 MG TAB PO SCH ×2 (08:02→08:06)
[2017-02-07] MEDS: THIAMINE HCL 100 MG TAB PO SCH ×2 (08:02→08:06)
[2017-02-07] MEDS: SODIUM CHLORIDE 0.9% FLUSH 10 ML FLUSH IV FLUSH SCH ×2 (08:03→20:03)
[2017-02-07 13:06] LABS: AUTOMATED NEUTROPHIL # 10.7 TH/MM3 (1.8-7.7); BASOPHIL % 0.2 % (0.0-2.0); EOSINOPHIL # 0.2 TH/MM3 (0-0.4); EOSINOPHIL % 1.1 % (0.0-4.0); HEMATOCRIT 34.4 % (39.0-51.0); HEMO FLAGS DIFF FINAL; LYMPH % 12.2 % (9.0-44.0); LYMPHOCYTE # 1.7 TH/MM3 (1.0-4.8); MEAN CELL VOLUME 95.6 FL (80.0-100.0); MEAN CORPUSCULAR HGB CONC 32.4 % (32.0-36.0); MONO % 9.3 % (0.0-8.0); NEUT % 77.2 % (16.0-70.0); PLATELET COUNT 236 TH/MM3 (150-450); RED BLOOD COUNT 3.59 MIL/MM3 (4.50-5.90); RED CELL DISTRIBUTION WIDTH 15.2 % (11.6-17.2); WHITE BLOOD COUNT 13.8 TH/MM3 (4.0-11.0)
--- NOTE | 2017-02-07 13:12 | HHI.PR ---
Subjective Remarks Follow-up on acute renal failure and somnolence. Nursing patient me saying that the patient is actually yelling out and saying that he is in pain which is a dramatic improvement in his level of alertness. She says that he is complaining of pain all over. However when I went to go see the patient on my own, he does not talk much, when asked about his pain he doesn't say anything. Objective Vital Signs Date Time Temp Pulse Resp B/P (MAP) Pulse Ox O2 Delivery O2 Flow Rate FiO2 02/07/17 12:00 97.5 72 18 126/87 (100) 98 02/07/17 08:00 96.4 78 18 136/84 (101) 94 02/07/17 04:00 97.7 88 20 131/91 (104) 97 02/07/17 00:00 98.1 83 22 135/82 (99) 93 02/06/17 23:42 Nasal Cannula 4.00 02/06/17 20:00 97.7 81 22 118/78 (91) 94 02/06/17 16:00 95.5 71 16 122/74 (90) 98 I/O 02/06/17 02/06/17 02/06/17 02/07/17 02/07/17 02/07/17 07:00 15:00 23:00 07:00 15:00 23:00 Intake Total 0 ml 120 ml 640 ml Output Total 1800 ml 1450 ml 1150 ml Balance -1800 ml -1330 ml -510 ml Intake Oral 0 ml 120 ml 240 ml IV Total 400 ml Output Urine Total 900 ml 875 ml 700 ml Stool Total 900 ml 575 ml 450 ml Result Diagram: 02/07/17 1238 02/06/17 0332 Objective Remarks Gen.: Sleeping, easily awoken, slightly more alert today but will again drift off to sleep, this sleeping with his knees propped up in a flexed position on the bed nondistended, minimal tenderness to palpation over abdomen Extremities: No lower extremity edema Neuro: No tremors no facial droop, no slurred speech will spontaneously move all 4 extremities Respiratory: Breath sounds are coarse bilaterally with no focal crackles rales or rhonchi, A/P Assessment and Plan 1. ARF: Acute Renal Failure. Severe. - Appreciate recommendations from nephrology, hydrating aggressively with fluid composition help from nephrology . Trend creatinine and bmp daily. nearing baseline w/ good improvement. 2. encephalopathy - suspected to be multifactorial, partially contributed to by renal failure but remaining components are yet to be elucidated since renal function has improved substantially nearing baseline . Blood cultures are negative 3 days, B12, folate, Tylenol level, TSH are all unremarkable. RPR and today's renal function panel are still pending. MRI of the head is not showing any obvious causes but is limited due to motion artifact, CT had his negative for any acute insults as well. On [facility] protocol. Prior hx of THC charted on older drug screens. My independent review of both chest x-ray films of the last 3 days does not show any acute disease. Continue fall precautions, PT OT and ST. 3. cough -monitor for now, CBC and chest x-ray are unremarkable, no fevers, we' ll not treat for any infection at this time 4. Hypokalemia: improving replacing w/in IVF and monitoring. 5. Rhabdomyolysis: resolved 6. Leukocytosis: Since it is improving with just conservative supportive care with IV fluids, will monitor 7. DVT Prophylaxis: Pharmacologic contraindication secondary to high risk for bleeding. SCDs Spoke with laura Rodriguez on the phone to obtain further history, says that patient does have a psychiatric history of being in a "looney bin" in [place] at some point in the past where he had to go pick him up from there. Says that otherwise he is very coherent at baseline, and on his worst days he just says some odd things but a depressed mental status is not normal for him. He says he will try to look into seeing exactly what facility and in what city the patient had been in. I updated him on the patient's clinical status that we were still trying to pinpoint a cause for the encephalopathy since then had minimally improved. He himself related the patient had some sort of surgical operation in the past with what sounds to be intestinal anastomosis was then followed by a colostomy at some point and that the patient was transitioned to hospice due to intractable pain. He was apparently discharged from hospice because his pain had improved and the patient was able to go ahead and live at home afterwards. Discussed case w/ FM resident who had taken care of patient sometime in the past , did corroborate that the patient was a poor historian, had a substantial alcoholic abuse hx and opiate addiction, with no confirmation for a hospice diagnosis. . Aden Fernandez MD Feb 07, 2017 13:12
[2017-02-07 13:40] LABS: BICARBONATE 29.9 MEQ/L (21.0-32.0); POTASSIUM 4.2 MEQ/L (3.5-5.1)
[2017-02-07 13:56] LABS: INDIRECT BILIRUBIN 0.5 MG/DL (0.0-0.8); TOTAL BILIRUBIN ADULT 0.7 MG/DL (0.2-1.0)
[2017-02-07] MEDS: ACETAMINOPHEN/CODEINE 300 MG/30 MG TAB PO PRN (14:39)
--- NOTE | 2017-02-07 18:36 | PD.WCN.NOT ---
Wound Consult Description: Consult for wound on sacrum per Dr Fernandez Communicated with: JEAN Andres Recommendation: Calazime skin protectant BID and PRN to bilateral buttocks,sacrum, and gluteal cleft Continue to reposition patient from left to right Q2H and PRN for comfort [employer] [employer] bed/specialty surface for pressure injury to sacrum Additional Information: *Late entry* Patient seen earlier today on [address] for wound to sacrum. Patient was positioned to his left side for assessment. Sacral wound visualized and open to air and noted above foam dressing in place. Foam adhesive removed from below sacral wound that was noted to be saturated in a yellow fluid. Patient is noted with a echeverria catheter. There are multiple partial thickness skin loss areas with jagged wound margins noted to bilateral buttocks indicating a moisture and friction etiology with blanching erythema noted to the periwounds. The sacrum is noted with an open punched out circular wound with 100% white tissue measuring 0.8cm x 1cm x 0cm that appears to have been pressure related with blanchable erythema of the periwound. The 100% moist white tissue within the wound bed is at periwound skin level and appears to be epithelial tissue, however it is uncertain at this time as the tissue was not cleansed with a moistened gauze to remove the tissue. Entire areas of the sacrum, gluteal cleft , and bilateral buttocks were covered in Calazime skin protectant and recommended BID and PRN. Patient is noted in wrist restraints that were removed during assessment and returned after the assessment. Shirley Tobar [facility] Feb 07, 2017 18:36
[2017-02-07] MEDS: LORazepam 2 MG/ML VIAL IV PUSH PRN (20:01)
--- NOTE | 2017-02-07 20:09 | HHI.NPPN ---
Subjective History of Present Illness 61-year-old male with past medical history of hypertension. History of alcoholism, bronchial asthma, anxiety, depression, alcohol abuse and bedridden status with decubitus ulcer, was admitted because of generalized weakness and altered mental status. I was called to see the patient because of elevated BUN and creatinine. Additional Remarks Patient is more alert, remain confused, not in distress. Review of Systems General Constitutional: Fatigue Objective Data Data 02/07/17 02/08/17 19:00 07:00 Intake Total 0 ml Output Total 1400 ml Balance -1400 ml Intake Oral 0 ml Output Urine Total 1000 ml Stool Total 400 ml Vital Signs Date Time Temp Pulse Resp B/P (MAP) Pulse Ox O2 Delivery O2 Flow Rate FiO2 02/07/17 17:41 98 Nasal Cannula 4.00 02/07/17 16:00 96.3 68 18 143/82 (102) 97 02/07/17 12:00 97.5 72 18 126/87 (100) 98 02/07/17 08:00 96.4 78 18 136/84 (101) 94 02/07/17 04:00 97.7 88 20 131/91 (104) 97 02/07/17 00:00 98.1 83 22 135/82 (99) 93 02/06/17 23:42 Nasal Cannula 4.00 -: 02/07/17 1238 02/07/17 1238 Physical Exam General Appearance: No Acute Distress, Comfortable Eyes Eye Exam: Pupils Equal Throat Throat Exam: Oral Mucosa [place] & Moist Neck Neck Exam: Neck Supple Pulmonary Resp Exam: Breath Sounds Equal, No Distress, Decreased Bases Cardiology CV Exam: Regular, Normal Sinus Rhythm Gastrointestinal/Abdomen GI Exam: Soft, Non-Tender, Bowel Sounds Present GI Remarks colostomy bag in place. Extremeties Extremities Exam: No Edema Neurologic Neuro Exam: Obtunded (wakes up on command.) Assessment/Plan Assessment Summary: VISHAL/Acute Renal Failure, Dehydration, Hypotension Electrolyte Assessment: Hypokalemia Problem List: (1) Failure to thrive in adult ICD Codes: R62.7 - Adult failure to thrive (2) Hypokalemia ICD Codes: E87.6 - Hypokalemia Status: Acute (3) High output ileostomy ICD Codes: R19.8 - High output ileostomy; Z93.2 - Ileostomy status Status: Acute (4) Anemia ICD Codes: D64.9 - Anemia Status: Acute (5) Hypokalemia ICD Codes: E87.6 - Hypokalemia Status: Acute (6) ARF (acute renal failure) ICD Codes: N17.9 - Acute kidney failure, unspecified Status: Acute Plan Patient has been non oliguric, Creatinine continue to improve. K is low, on IVF with Kcl. Continue IVF,encourage oral intake. Follow the urine out out and BMP. Avoid Nephrotoxins. CPK is now normalized. Going for Brain MRI. Avoid Nephrotoxins. Continue IVF, Creatinine is improving. Jessa Melo MD Feb 07, 2017 20:09
[2017-02-08] VITALS (8 sets, daily range): BP systolic 114–171; BP diastolic 66–102; PULSE 70–88; RESP 14–20; TEMP 95.6–97.4; O2SAT 94–100
[2017-02-08] MEDS: LORazepam 2 MG/ML VIAL IV PUSH PRN ×3 (00:31→12:02)
[2017-02-08] MEDS: D5-1/2 NS + KCL 20 MEQ INJ 1,000 ML IV SCH ×3 (04:23→22:43)
[2017-02-08] MEDS: ACETAMINOPHEN/CODEINE 300 MG/30 MG TAB PO PRN ×2 (08:21→15:00)
[2017-02-08] MEDS: MULTIVITAMINS/MINERALS THERAPEUTIC TAB PO SCH (08:22)
[2017-02-08] MEDS: DOCUSATE SODIUM 50 MG/SENNA 8.6 MG TAB PO SCH ×2 (08:22→20:06)
[2017-02-08] MEDS: FOLIC ACID 1 MG TAB PO SCH (08:22)
[2017-02-08] MEDS: THIAMINE HCL 100 MG TAB PO SCH (08:22)
[2017-02-08] MEDS: SODIUM CHLORIDE 0.9% FLUSH 10 ML FLUSH IV FLUSH SCH ×2 (08:30→20:11)
--- NOTE | 2017-02-08 11:15 | HHI.PR ---
Subjective Remarks Follow-up on acute renal failure and somnolence. Nursing patient me saying that the patient yelled out again and pain as described as all over. She had received report that he actually was alert enough to the point where he ate most of his dinner last night, did not eat his breakfast or lunch yesterday, did not eat breakfast today. When I going to talk to the patient, he is somnolent and is very hard to arouse but responds inappropriately, when asked about his pain, he gives no details and says inappropriate responses such as "thank you". He is clearly not oriented nor alert. Currently having EEG done Objective Vital Signs Date Time Temp Pulse Resp B/P (MAP) Pulse Ox O2 Delivery O2 Flow Rate FiO2 02/08/17 10:47 96 Nasal Cannula 4.00 02/08/17 08:00 97.4 75 16 130/84 (99) 98 02/08/17 04:00 76 20 171/77 (108) 94 02/08/17 00:00 81 18 143/66 (91) 99 02/07/17 20:07 63 02/07/17 20:00 83 18 145/78 (100) 93 02/07/17 17:41 98 Nasal Cannula 4.00 02/07/17 16:00 96.3 68 18 143/82 (102) 97 02/07/17 12:00 97.5 72 18 126/87 (100) 98 I/O 02/07/17 02/07/17 02/07/17 02/08/17 02/08/17 02/08/17 07:00 15:00 23:00 07:00 15:00 23:00 Intake Total 640 ml 1902 ml 1035 ml Output Total 1150 ml 1400 ml 950 ml Balance -510 ml 502 ml 85 ml Intake Oral 240 ml 0 ml IV Total 400 ml 1902 ml 1035 ml Output Urine Total 700 ml 1000 ml 650 ml Stool Total 450 ml 400 ml 300 ml Result Diagram: 02/07/17 1238 02/07/17 1238 Objective Remarks Gen.: Somnolent, easily awoken but drifts off to sleep quickly, speaks audible words in short sentences in replies that are not appropriate for my questions Neuro: No tremors no facial droop, no slurred speech will spontaneously move all 4 extremities Respiratory: Breath sounds are coarse bilaterally with no focal crackles rales or rhonchi, unlabored A/P Assessment and Plan on 02/07: Spoke with laura Rodriguez on the phone to obtain further history, says that patient does have a psychiatric history of being in a "looney bin" in [place] at some point in the past where he had to go pick him up from there. Says that otherwise he is very coherent at baseline, and on his worst days he just says some odd things but a depressed mental status is not normal for him. He says he will try to look into seeing exactly what facility and in what city the patient had been in. I updated him on the patient's clinical status that we were still trying to pinpoint a cause for the encephalopathy since then had minimally improved. He himself related the patient had some sort of surgical operation in the past with what sounds to be intestinal anastomosis was then followed by a colostomy at some point and that the patient was transitioned to hospice due to intractable pain. He was apparently discharged from hospice because his pain had improved and the patient was able to go ahead and live at home afterwards. Discussed case w/ FM resident who had taken care of patient sometime in the past , did corroborate that the patient was a poor historian, had a substantial alcoholic abuse hx and opiate addiction, with no confirmation for a hospice diagnosis. Current plan for 02/08: 1. ARF: Acute Renal Failure - significantly improved, continue IVF per nephrology. 2. encephalopathy versus ? MOOD DISORDER - yet to be elucidated as uremia is near resolution, and all diagnostic testing so far has been negative including B12, folate, Tylenol levels, TSH, RPR, CT head, MRI head (limited due to motion artifact). Consulted psychiatry to see if they can provide any assistance with this since the patient apparently has drastically fluctuating level of alertness and also does have a charted history of opiate and alcohol abuse. EEG near completion. 3. failure to thrive - likely 2/2 encephalopathy and GI comorbidities. see #4. 4. Mild abdominal tenderness- will order CT scan of the abdomen with IV contrast (given charted history of ulcerative colitis, with colostomy secondary to colectomy), once renal function is more stable since the patient does not give a good history we are still trying to elucidate a cause of his encephalopathy vs altered mentation 5. Hypokalemia: improving replacing w/in IVF and monitoring. 6. Leukocytosis: Since it is improving with just conservative supportive care with IV fluids, will monitor 7. DVT Prophylaxis: Pharmacologic contraindication secondary to high risk for bleeding. SCDs Aden Fernandez MD Feb 08, 2017 11:15
--- NOTE | 2017-02-08 16:42 | HHI.NPPN ---
Subjective History of Present Illness 61-year-old male with past medical history of hypertension. History of alcoholism, bronchial asthma, anxiety, depression, alcohol abuse and bedridden status with decubitus ulcer, was admitted because of generalized weakness and altered mental status. I was called to see the patient because of elevated BUN and creatinine. Additional Remarks Patient is more alert, remain confused, complaining of abd. pain. Review of Systems General Constitutional: Fatigue Objective Data Data 02/08/17 02/09/17 19:00 07:00 Output Total 75 ml Balance -75 ml Stool Total 75 ml Vital Signs Date Time Temp Pulse Resp B/P (MAP) Pulse Ox O2 Delivery O2 Flow Rate FiO2 02/08/17 12:00 95.9 72 16 171/102 (125) 100 02/08/17 10:47 96 Nasal Cannula 4.00 02/08/17 08:00 97.4 75 16 130/84 (99) 98 02/08/17 04:00 76 20 171/77 (108) 94 02/08/17 00:00 81 18 143/66 (91) 99 02/07/17 20:07 63 02/07/17 20:00 83 18 145/78 (100) 93 02/07/17 17:41 98 Nasal Cannula 4.00 -: 02/07/17 1238 02/07/17 1238 Physical Exam General Appearance: No Acute Distress, Comfortable Eyes Eye Exam: Pupils Equal Throat Throat Exam: Oral Mucosa [place] & Moist Neck Neck Exam: Neck Supple Pulmonary Resp Exam: Breath Sounds Equal, No Distress, Decreased Bases Cardiology CV Exam: Regular, Normal Sinus Rhythm Gastrointestinal/Abdomen GI Exam: Soft, Non-Tender, Bowel Sounds Present GI Remarks colostomy bag in place. Extremeties Extremities Exam: No Edema Neurologic Neuro Exam: Obtunded (wakes up on command.) Assessment/Plan Assessment Summary: VISHAL/Acute Renal Failure, Dehydration, Hypotension Electrolyte Assessment: Hypokalemia Problem List: (1) Failure to thrive in adult ICD Codes: R62.7 - Adult failure to thrive (2) Hypokalemia ICD Codes: E87.6 - Hypokalemia Status: Acute (3) High output ileostomy ICD Codes: R19.8 - High output ileostomy; Z93.2 - Ileostomy status Status: Acute (4) Anemia ICD Codes: D64.9 - Anemia Status: Acute (5) Hypokalemia ICD Codes: E87.6 - Hypokalemia Status: Acute (6) ARF (acute renal failure) ICD Codes: N17.9 - Acute kidney failure, unspecified Status: Acute Plan Patient has been non oliguric, Creatinine continue to improve. K is low, on IVF with Kcl. Continue IVF,encourage oral intake. Follow the urine out out and BMP. Avoid Nephrotoxins. CPK is now normalized. Going for Brain MRI. Avoid Nephrotoxins. Continue IVF, no new BMP, will send in AM. Jessa Melo MD Feb 08, 2017 16:42
[2017-02-08] MEDS: LORazepam 1 MG TAB PO PRN (20:06)
--- NOTE | 2017-02-08 21:11 | MG ---
cc: NAOMI SINGLETON MD Lab No: [id number] Date: 02/08/17 Age: 61 Sex: M Race: DATE OF 1955 A 61-year-old with history of confusion. Poly frequency EEG with mixture of alpha, theta and delta frequencies, 20-50 microvolts occurring, phase reversals at T3 noted at EPOC 34 and some frontal sharps as well bilateral. Myogenic electrical artifact occurring off and on during the recording. Sharp wave T3 EPOC 68. Frontal sharp EPOC 72. Good EEG variability reactivity. Limited driving with photic stimulation. Single lead EKG showing sinus rhythm. INTERPRETATION Mild to moderate encephalopathy with frontal and left temporal isolated sharp waves. Clinical correlation. Naomi Singleton MD MG/EO /8:00 PM /9:04 PM
[2017-02-08] MEDS ORDERED: PHENYTOIN SODIUM 100 MG CAP PO ONE (22:00)
[2017-02-08] MEDS: HALOPERIDOL LACTATE 5 MG/ML AMP IM PRN (22:38)
[2017-02-09] VITALS: BP 133/57; PULSE 20; PULSE 68; RESP 20; TEMP 97.2; O2SAT 95
[2017-02-09] MEDS: LORazepam 2 MG/ML VIAL IV PUSH PRN ×5 (00:35→21:16)
[2017-02-09] MEDS: ACETAMINOPHEN/CODEINE 300 MG/30 MG TAB PO PRN ×3 (00:36→17:42)
[2017-02-09 04:00] VITALS: BP 97/52; PULSE 81; RESP 18; TEMP 97.4; O2SAT 96
[2017-02-09] MEDS: D5-1/2 NS + KCL 20 MEQ INJ 1,000 ML IV SCH ×3 (05:08→15:47)
[2017-02-09 08:00] VITALS: BP 109/68; PULSE 88; RESP 15; TEMP 96.9; O2SAT 94
[2017-02-09 08:57] VITALS: O2SAT 96
[2017-02-09] MEDS: SODIUM CHLORIDE 0.9% FLUSH 10 ML FLUSH IV FLUSH SCH ×2 (09:00→21:00)
[2017-02-09] MEDS: PHENYTOIN SODIUM 100 MG CAP PO SCH ×2 (10:10→21:17)
[2017-02-09] MEDS: DOCUSATE SODIUM 50 MG/SENNA 8.6 MG TAB PO SCH ×2 (10:10→21:00)
[2017-02-09] MEDS: THIAMINE HCL 100 MG TAB PO SCH (10:11)
[2017-02-09 12:00] VITALS: BP 103/70; PULSE 79; RESP 17; TEMP 97.2; O2SAT 95
--- NOTE | 2017-02-09 12:25 | HHI.NPPN ---
Subjective History of Present Illness 61-year-old male with past medical history of hypertension. History of alcoholism, bronchial asthma, anxiety, depression, alcohol abuse and bedridden status with decubitus ulcer, was admitted because of generalized weakness and altered mental status. I was called to see the patient because of elevated BUN and creatinine. Additional Remarks Patient is more alert, remain confused, complaining of abd. pain, not in distress. Review of Systems General Constitutional: Fatigue Objective Data Data 02/09/17 02/10/17 19:00 07:00 Output Total 250 ml Balance -250 ml Stool Total 250 ml Vital Signs Date Time Temp Pulse Resp B/P (MAP) Pulse Ox O2 Delivery O2 Flow Rate FiO2 02/09/17 08:57 96 Nasal Cannula 4.00 02/09/17 08:00 96.9 88 15 109/68 (82) 94 02/09/17 04:00 97.4 81 18 97/52 (67) 96 02/09/17 02:00 18 02/09/17 00:00 97.2 68 20 133/57 (82) 95 02/08/17 20:00 96.8 70 18 137/75 (95) 97 02/08/17 18:02 94 Nasal Cannula 4.00 02/08/17 16:00 95.6 88 14 114/73 (87) 94 -: 02/07/17 1238 02/07/17 1238 Physical Exam General Appearance: No Acute Distress, Comfortable Eyes Eye Exam: Pupils Equal Throat Throat Exam: Oral Mucosa [place] & Moist Neck Neck Exam: Neck Supple Pulmonary Resp Exam: Breath Sounds Equal, No Distress, Decreased Bases Cardiology CV Exam: Regular, Normal Sinus Rhythm Gastrointestinal/Abdomen GI Exam: Soft, Non-Tender, Bowel Sounds Present GI Remarks colostomy bag in place. Extremeties Extremities Exam: No Edema Neurologic Neuro Exam: Obtunded (wakes up on command.) Assessment/Plan Assessment Summary: VISHAL/Acute Renal Failure, Dehydration, Hypotension Electrolyte Assessment: Hypokalemia Problem List: (1) Failure to thrive in adult ICD Codes: R62.7 - Adult failure to thrive (2) Hypokalemia ICD Codes: E87.6 - Hypokalemia Status: Acute (3) High output ileostomy ICD Codes: R19.8 - High output ileostomy; Z93.2 - Ileostomy status Status: Acute (4) Anemia ICD Codes: D64.9 - Anemia Status: Acute (5) Hypokalemia ICD Codes: E87.6 - Hypokalemia Status: Acute (6) ARF (acute renal failure) ICD Codes: N17.9 - Acute kidney failure, unspecified Status: Acute Plan Patient has been non oliguric, Creatinine continue to improve. K is low, on IVF with Kcl. Continue IVF,encourage oral intake. Follow the urine out out and BMP. Avoid Nephrotoxins. CPK is now normalized. Going for Brain MRI. Avoid Nephrotoxins. Continue IVF, Creatinine is now 1.5. Jessa Melo MD Feb 09, 2017 12:25
[2017-02-09 14:57] LABS: POTASSIUM 4.2 MEQ/L (3.5-5.1)
--- NOTE | 2017-02-09 18:41 | HHI.PR ---
Subjective Remarks Patient is somnolent, he was able to open eyes and mention his name only, he seems to be comfortable Objective Vitals Vital Signs Date Time Temp Pulse Resp B/P (MAP) Pulse Ox O2 Delivery O2 Flow Rate FiO2 02/09/17 12:00 97.2 79 17 103/70 (81) 95 02/09/17 08:57 96 Nasal Cannula 4.00 02/09/17 08:00 96.9 88 15 109/68 (82) 94 02/09/17 04:00 97.4 81 18 97/52 (67) 96 02/09/17 02:00 18 02/09/17 00:00 97.2 68 20 133/57 (82) 95 02/08/17 20:00 96.8 70 18 137/75 (95) 97 I/O 02/08/17 02/08/17 02/08/17 02/09/17 02/09/17 02/09/17 06:59 14:59 22:59 06:59 14:59 22:59 Intake Total 1035 ml 150 ml 3861 ml Output Total 950 ml 75 ml 1505 ml 500 ml 250 ml 750 ml Balance 85 ml -75 ml -1355 ml -500 ml -250 ml 3111 ml Intake Oral 150 ml 0 ml IV Total 1035 ml 3861 ml Output Urine Total 650 ml 700 ml 500 ml 300 ml Stool Total 300 ml 75 ml 805 ml 250 ml 450 ml Result Diagram: 02/07/17 1238 02/09/17 1350 Objective Remarks - GENERAL: This is a well-nourished, well-developed patient somnolent SKIN: No rashes, warm and dry HEAD: Atraumatic. Normocephalic. EYES: Pupils equal round and reactive. Extraocular motions intact. No scleral icterus. ENT: Nose without bleeding, or drainage, Airway patent. NECK: Trachea midline. Supple CARDIOVASCULAR: Regular rate and rhythm without murmurs, gallops, or rubs. RESPIRATORY: Fair air entry bilaterally. No wheezes, rales, or rhonchi. GASTROINTESTINAL: Abdomen soft, non-tender, nondistended. Positive bowel sounds MUSCULOSKELETAL: Extremities without clubbing, cyanosis, or edema. Pedal pulses appreciated NEUROLOGICAL: Patient somnolent Moves all extremity. A/P Problem List: (1) ARF (acute renal failure) ICD Code: N17.9 - Acute kidney failure, unspecified Status: Acute (2) Failure to thrive in adult ICD Code: R62.7 - Adult failure to thrive (3) Hypokalemia ICD Code: E87.6 - Hypokalemia Status: Acute (4) Rhabdomyolysis ICD Code: M62.82 - Rhabdomyolysis (5) Leukocytosis ICD Code: D72.829 - Leukocytosis Status: Acute (6) Alcohol abuse ICD Code: F10.10 - Alcohol abuse, uncomplicated Assessment and Plan 02/09: BMP today pending, continue following with nephrology and neurology Per previous documentation patient was discharged from hospice because his pain had improved and the patient was able to go ahead and live at home afterwards. Also it was mentioned that patient had a substantial alcoholic abuse hx and opiate addiction, with no confirmation for a hospice diagnosis. 1. ARF: Acute Renal Failure - significantly improved, continue IVF per nephrology. 2. encephalopathy versus ? MOOD DISORDER -versus due to uremia which is improving, all diagnostic testing so far has been negative including B12, folate , Tylenol levels, TSH, RPR, CT head, MRI head (limited due to motion artifact). Consulted psychiatry to see if they can provide any assistance with this since the patient apparently has drastically fluctuating level of alertness and also does have a charted history of opiate and alcohol abuse. EEG near completion. 3. failure to thrive - likely 2/2 encephalopathy and GI comorbidities. see #4. 4. Mild abdominal tenderness- will order CT scan of the abdomen with IV contrast (given charted history of ulcerative colitis, with colostomy secondary to colectomy), once renal function is more stable since the patient does not give a good history we are still trying to elucidate a cause of his encephalopathy vs altered mentation 5. Hypokalemia: improving replacing w/in IVF and monitoring. 6. Leukocytosis: Since it is improving with just conservative supportive care with IV fluids, will monitor 7. DVT Prophylaxis: Pharmacologic contraindication secondary to high risk for bleeding. SCDDiana Graham MD Feb 09, 2017 18:41
[2017-02-09 20:00] VITALS: BP 122/84; PULSE 104; RESP 18; TEMP 97; O2SAT 98
[2017-02-10] VITALS (7 sets, daily range): BP systolic 123–149; BP diastolic 76–93; PULSE 96–131; RESP 18–20; TEMP 96–97.8; O2SAT 94–100
[2017-02-10] MEDS: ACETAMINOPHEN/CODEINE 300 MG/30 MG TAB PO PRN ×2 (01:20→15:39)
[2017-02-10] MEDS: LORazepam 2 MG/ML VIAL IV PUSH PRN ×4 (01:20→21:43)
[2017-02-10] MEDS: HALOPERIDOL LACTATE 5 MG/ML AMP IM PRN (02:51)
[2017-02-10] MEDS ORDERED: HALOPERIDOL LACTATE 5 MG/ML AMP IV PUSH ONE (04:00)
[2017-02-10] MEDS ORDERED: LORazepam 2 MG/ML VIAL IV PUSH ONE (04:00)
[2017-02-10] MEDS ORDERED: ZIPRASIDONE MESYLATE 20 MG VIAL IM ONE (04:45)
[2017-02-10] MEDS: D5-1/2 NS + KCL 20 MEQ INJ 1,000 ML IV SCH ×2 (05:25→11:43)
[2017-02-10] MEDS: HEPARIN SODIUM - SQ 10,000 UNITS/ML VIAL SQ SCH ×3 (05:25→21:37)
[2017-02-10 07:27] LABS: AUTOMATED NEUTROPHIL # 10.9 TH/MM3 (1.8-7.7); BASOPHIL % 0.2 % (0.0-2.0); EOSINOPHIL % 0.4 % (0.0-4.0); HEMATOCRIT 35.4 % (39.0-51.0); HEMO FLAGS DIFF FINAL; LYMPH % 14.5 % (9.0-44.0); MEAN CELL VOLUME 93.5 FL (80.0-100.0); MEAN CORPUSCULAR HEMOGLOBIN 30.4 PG (27.0-34.0); MEAN CORPUSCULAR HGB CONC 32.5 % (32.0-36.0); MONO % 6.6 % (0.0-8.0); NEUT % 78.3 % (16.0-70.0); PLATELET COUNT 321 TH/MM3 (150-450); RED BLOOD COUNT 3.79 MIL/MM3 (4.50-5.90); RED CELL DISTRIBUTION WIDTH 15.2 % (11.6-17.2)
[2017-02-10 07:46] LABS: BICARBONATE 22.7 MEQ/L (21.0-32.0); POTASSIUM 4.2 MEQ/L (3.5-5.1)
[2017-02-10] MEDS: DOCUSATE SODIUM 50 MG/SENNA 8.6 MG TAB PO SCH ×3 (08:30→21:00)
[2017-02-10] MEDS: THIAMINE HCL 100 MG TAB PO SCH ×2 (08:30→08:43)
[2017-02-10] MEDS: PHENYTOIN SODIUM 100 MG CAP PO SCH ×3 (08:30→21:25)
[2017-02-10] MEDS: SODIUM CHLORIDE 0.9% FLUSH 10 ML FLUSH IV FLUSH SCH ×2 (11:42→21:00)
[2017-02-10] MEDS: SODIUM CHLORIDE 0.9% FLUSH 10 ML FLUSH IV FLUSH PRN (11:48)
--- NOTE | 2017-02-10 15:49 | HHI.NPPN ---
Subjective History of Present Illness 61-year-old male with past medical history of hypertension. History of alcoholism, bronchial asthma, anxiety, depression, alcohol abuse and bedridden status with decubitus ulcer, was admitted because of generalized weakness and altered mental status. I was called to see the patient because of elevated BUN and creatinine. Additional Remarks Patient is alert, remain confused, complaining of abd. pain, agitated off and on. Review of Systems General Constitutional: Fatigue Objective Data Data Vital Signs Date Time Temp Pulse Resp B/P (MAP) Pulse Ox O2 Delivery O2 Flow Rate FiO2 02/10/17 12:00 97.3 120 19 149/91 (110) 100 02/10/17 08:01 100 21 02/10/17 08:00 96.6 131 19 149/93 (111) 100 02/10/17 04:00 97.8 129 20 123/80 (94) 94 02/10/17 02:20 20 02/10/17 00:00 96.0 126 20 140/76 (97) 100 02/09/17 22:51 Nasal Cannula 4.00 02/09/17 20:00 97.0 104 18 122/84 (97) 98 -: 02/10/17 0623 02/10/17 0623 Physical Exam General Appearance: No Acute Distress, Comfortable Eyes Eye Exam: Pupils Equal Throat Throat Exam: Oral Mucosa [place] & Moist Neck Neck Exam: Neck Supple Pulmonary Resp Exam: Breath Sounds Equal, No Distress, Decreased Bases Cardiology CV Exam: Regular, Normal Sinus Rhythm Gastrointestinal/Abdomen GI Exam: Soft, Non-Tender, Bowel Sounds Present GI Remarks colostomy bag in place. Extremeties Extremities Exam: No Edema Neurologic Neuro Exam: Obtunded (wakes up on command.) Assessment/Plan Assessment Summary: VISHAL/Acute Renal Failure, Dehydration, Hypotension Electrolyte Assessment: Hypokalemia Problem List: (1) Failure to thrive in adult ICD Codes: R62.7 - Adult failure to thrive (2) Hypokalemia ICD Codes: E87.6 - Hypokalemia Status: Acute (3) High output ileostomy ICD Codes: R19.8 - High output ileostomy; Z93.2 - Ileostomy status Status: Acute (4) Anemia ICD Codes: D64.9 - Anemia Status: Acute (5) Hypokalemia ICD Codes: E87.6 - Hypokalemia Status: Acute (6) ARF (acute renal failure) ICD Codes: N17.9 - Acute kidney failure, unspecified Status: Acute Plan Patient has been non oliguric, Creatinine continue to improve. K is low, on IVF with Kcl. Continue IVF,encourage oral intake. Follow the urine out out and BMP. Avoid Nephrotoxins. CPK is now normalized. Brain MRI done, results noted. Avoid Nephrotoxins. Continue IVF, Creatinine is stable at 1.5. Follow the urine out put and BMP. Jessa Melo MD Feb 10, 2017 15:49
--- NOTE | 2017-02-10 19:56 | HHI.PR ---
Subjective Remarks Patient is completely somnolent today discussed with the nurse he had 2 mg of Ativan because he score high on CIWA protocol Objective Vitals Vital Signs Date Time Temp Pulse Resp B/P (MAP) Pulse Ox O2 Delivery O2 Flow Rate FiO2 02/10/17 16:00 97.4 99 19 140/89 (106) 100 02/10/17 12:00 97.3 120 19 149/91 (110) 100 02/10/17 08:01 100 21 02/10/17 08:00 96.6 131 19 149/93 (111) 100 02/10/17 04:00 97.8 129 20 123/80 (94) 94 02/10/17 02:20 20 02/10/17 00:00 96.0 126 20 140/76 (97) 100 02/09/17 22:51 Nasal Cannula 4.00 02/09/17 20:00 97.0 104 18 122/84 (97) 98 I/O 02/09/17 02/09/17 02/09/17 02/10/17 02/10/17 02/10/17 06:59 14:59 22:59 06:59 14:59 22:59 Intake Total 3861 ml 0 ml Output Total 500 ml 250 ml 750 ml 400 ml 1200 ml Balance -500 ml -250 ml 3111 ml -400 ml -1200 ml Intake Oral 0 ml 0 ml IV Total 3861 ml Output Urine Total 500 ml 300 ml 400 ml 500 ml Stool Total 250 ml 450 ml 700 ml # Bowel Movements 1 Result Diagram: 02/10/1762202/10/17622 Objective Remarks - GENERAL: This is a well-nourished, well-developed patient somnolent SKIN: No rashes, warm and dry HEAD: Atraumatic. Normocephalic. EYES: Pupils equal round and reactive. Extraocular motions intact. No scleral icterus. ENT: Nose without bleeding, or drainage, Airway patent. NECK: Trachea midline. Supple CARDIOVASCULAR: Regular rate and rhythm without murmurs, gallops, or rubs. RESPIRATORY: Fair air entry bilaterally. No wheezes, rales, or rhonchi. GASTROINTESTINAL: Abdomen soft, non-tender, nondistended. Positive bowel sounds MUSCULOSKELETAL: Extremities without clubbing, cyanosis, or edema. Pedal pulses appreciated NEUROLOGICAL: Patient somnolent, not responsive to verbal or pain stimuli A/P Problem List: (1) ARF (acute renal failure) ICD Code: N17.9 - Acute kidney failure, unspecified Status: Acute (2) Failure to thrive in adult ICD Code: R62.7 - Adult failure to thrive (3) Hypokalemia ICD Code: E87.6 - Hypokalemia Status: Acute (4) Rhabdomyolysis ICD Code: M62.82 - Rhabdomyolysis (5) Leukocytosis ICD Code: D72.829 - Leukocytosis Status: Acute (6) Alcohol abuse ICD Code: F10.10 - Alcohol abuse, uncomplicated Assessment and Plan 02/09: BMP today pending, continue following with nephrology and neurology 02/10: Creatinine is 1.51, patient is nonresponsive to verbal or tactile stimuli, he received Ativan iv per [facility] protocol I discussed with the nurse, will try to back off on Ativan 1. ARF: Acute Renal Failure - significantly improved, continue IVF per nephrology. 2. encephalopathy versus ? MOOD DISORDER -versus due to uremia which is improving, all diagnostic testing so far has been negative including B12, folate , Tylenol levels, TSH, RPR, CT head, MRI head (limited due to motion artifact). Consulted psychiatry to see if they can provide any assistance with this since the patient apparently has drastically fluctuating level of alertness and also does have a charted history of opiate and alcohol abuse. EEG near completion. 3. failure to thrive - likely 2/2 encephalopathy and GI comorbidities. see #4. 4. Mild abdominal tenderness- will order CT scan of the abdomen with IV contrast (given charted history of ulcerative colitis, with colostomy secondary to colectomy), once renal function is more stable since the patient does not give a good history we are still trying to elucidate a cause of his encephalopathy vs altered mentation 5. Hypokalemia: improving replacing w/in IVF and monitoring. 6. Leukocytosis: Since it is improving with just conservative supportive care with IV fluids, will monitor 7. DVT Prophylaxis: Pharmacologic contraindication secondary to high risk for bleeding. SCDs Per previous documentation patient was discharged from hospice because his pain had improved and the patient was able to go ahead and live at home afterwards. Also it was mentioned that patient had a substantial alcoholic abuse hx and opiate addiction, with no confirmation for a hospice diagnosis. Diana Angel MD Feb 10, 2017 19:56
[2017-02-11 00:20] VITALS: BP 157/96; PULSE 104; RESP 18; TEMP 97.4; O2SAT 93
[2017-02-11 04:00] VITALS: BP 164/94; PULSE 129; RESP 20; TEMP 96.1; O2SAT 94
[2017-02-11] MEDS: ACETAMINOPHEN/CODEINE 300 MG/30 MG TAB PO PRN (05:07)
[2017-02-11] MEDS: HEPARIN SODIUM - SQ 10,000 UNITS/ML VIAL SQ SCH ×3 (05:11→20:36)
[2017-02-11] MEDS: D5-1/2 NS + KCL 20 MEQ INJ 1,000 ML IV SCH ×5 (05:12→20:36)
[2017-02-11 07:17] LABS: BICARBONATE 20.2 MEQ/L (21.0-32.0)
[2017-02-11 08:00] VITALS: BP 131/82; PULSE 132; RESP 20; TEMP 96.9; O2SAT 100
[2017-02-11] MEDS: THIAMINE HCL 100 MG TAB PO SCH (08:13)
[2017-02-11] MEDS: PHENYTOIN SODIUM 100 MG CAP PO SCH ×2 (08:13→20:36)
[2017-02-11] MEDS: DOCUSATE SODIUM 50 MG/SENNA 8.6 MG TAB PO SCH ×2 (08:13→20:36)
[2017-02-11] MEDS: SODIUM CHLORIDE 0.9% FLUSH 10 ML FLUSH IV FLUSH SCH ×2 (08:14→20:36)
[2017-02-11] MEDS: LORazepam 2 MG/ML VIAL IV PUSH PRN ×2 (10:08→22:32)
[2017-02-11] MEDS ORDERED: LORazepam 2 MG/ML VIAL IV ONE (11:00)
--- NOTE | 2017-02-11 11:01 | HHI.PR ---
Subjective Remarks Written by Courtney Vee, acting as scribe for Dr. Angel on 02/11/17 at 11:01. Follow up encephalopathy, VISHAL. Patient seen and examined. Spoke with bedside RN. Patient is tachycardic, HR 130's and restless in bed. States he "feels horrible". Orders for 2 mg Ativan, pending to give. Will monitor closely. Afebrile. Objective Vitals Vital Signs Date Time Temp Pulse Resp B/P (MAP) Pulse Ox O2 Delivery O2 Flow Rate FiO2 02/11/17 08:00 96.9 132 20 131/82 (98) 100 02/11/17 04:00 96.1 129 20 164/94 (117) 94 02/11/17 00:20 97.4 104 18 157/96 (116) 93 02/10/17 20:00 96.5 96 18 135/84 (101) 99 02/10/17 16:00 97.4 99 19 140/89 (106) 100 02/10/17 12:00 97.3 120 19 149/91 (110) 100 I/O 02/10/17 02/10/17 02/10/17 02/11/17 02/11/17 02/11/17 07:00 15:00 23:00 07:00 15:00 23:00 Intake Total 0 ml Output Total 700 ml 1200 ml 700 ml 210 ml Balance -700 ml -1200 ml -700 ml -210 ml Intake Oral 0 ml Output Urine Total 400 ml 500 ml 450 ml Stool Total 300 ml 700 ml 250 ml 210 ml # Bowel Movements 1 Result Diagram: 02/10/17 0623 02/11/17 0639 Imaging Last Impressions Head CT 02/06/17 0000 Signed Impressions: Service Date/Time: Monday, February 06, 2017 11:05 - CONCLUSION: Normal examination. Ran Hurley MD Chest X-Ray 02/06/17 0000 Signed Impressions: Service Date/Time: Monday, February 06, 2017 12:51 - CONCLUSION: Minimal parenchymal opacity left base, progressed in the interval. Sid Ang MD FACR Brain MRI 02/06/17 0000 Signed Impressions: Service Date/Time: Monday, February 06, 2017 15:56 - CONCLUSION: 1. Suboptimal examination secondary to motion artifact. 2. No evidence of acute hemorrhage, mass or infarction. 3. Moderate atrophic change and chronic small vessel ischemic changes. 4. The left maxillary sinus is opacified and there is opacification of several ethmoidal air cells. Mychal Harper MD Renal Ultrasound 02/04/17 0000 Signed Impressions: Service Date/Time: Saturday, February 04, 2017 13:53 - CONCLUSION: Probable mild medical renal disease without hydronephrosis. Sid Ang MD FACR Objective Remarks GENERAL: Middle-aged white male, cachectic, chronically ill appearing, lying in bed restless. SKIN: No rash. Warm and dry. HEENT: PERRLA, EOMI. No scleral icterus or conjunctival pallor. Dry mucous membranes. Nose without bleeding, or drainage, Airway patent. CARDIOVASCULAR: Regular rate and rhythm. No obvious murmurs to auscultation. No chest tenderness to palpation. S1 and S2 present. RESPIRATORY: No obvious rhonchi or wheezing. Clear to auscultation. Breath sounds equal bilaterally. GASTROINTESTINAL: Abdomen soft, non-tender, nondistended. MUSCULOSKELETAL: Extremities without clubbing, cyanosis, or edema. No obvious deformities. NEUROLOGICAL: Awake, alert, oriented to person. Lethargic, unable to provide much history. No focal neurologic deficits. Moving both upper and lower extremities spontaneously. A/P Problem List: (1) ARF (acute renal failure) ICD Code: N17.9 - Acute kidney failure, unspecified Status: Acute (2) Failure to thrive in adult ICD Code: R62.7 - Adult failure to thrive (3) Hypokalemia ICD Code: E87.6 - Hypokalemia Status: Acute (4) Rhabdomyolysis ICD Code: M62.82 - Rhabdomyolysis (5) Leukocytosis ICD Code: D72.829 - Leukocytosis Status: Acute (6) Alcohol abuse ICD Code: F10.10 - Alcohol abuse, uncomplicated Assessment and Plan 02/09: BMP today pending, continue following with nephrology and neurology. 02/10: Creatinine is 1.51, patient is nonresponsive to verbal or tactile stimuli, he received Ativan iv per CIWA protocol I discussed with the nurse, will try to back off on Ativan 02/11: Sinus tachycardic HR in 130's. Order for Ativan 2 mg IV. Monitor closely and watch for effectiveness. If not, will order Haldol. Patient is at high risk for DTs and possible ICU admission and need for Precedex drip, will monitor closely. Spoke with Dr. Tran who will follow up with patient today. Await further recommendations. 1. Acute Renal Failure: significantly improved, continue IVF per nephrology. 2. Encephalopathy versus mood disorder versus due to uremia which is improving, all diagnostic testing so far has been negative including B12, folate, Tylenol levels, TSH, RPR, CT head, MRI head (limited due to motion artifact). Consulted psychiatry to see if they can provide any assistance with this since the patient apparently has drastically fluctuating level of alertness and also does have a charted history of opiate and alcohol abuse, appreciate input. EEG showing mild to moderate encephalopathy with frontal and left temporal isolated sharp waves. Neurology following, appreciate input. 3. Failure to thrive - likely 2/2 encephalopathy and GI comorbidities. see #4. 4. Mild abdominal tenderness - will order CT scan of the abdomen with IV contrast (given charted history of ulcerative colitis, with colostomy secondary to colectomy), once renal function is more stable since the patient does not give a good history we are still trying to elucidate a cause of his encephalopathy vs altered mentation. 5. Hypokalemia: improving replacing w/in IVF and monitoring. 6. Leukocytosis: Since it is improving with just conservative supportive care with IV fluids, will monitor. Afebrile. No signs of infection at this time. 7. DVT Prophylaxis: Pharmacologic contraindication secondary to high risk for bleeding. SCDs. Per previous documentation patient was discharged from hospice because his pain had improved and the patient was able to go ahead and live at home afterwards. Also it was mentioned that patient had a substantial alcoholic abuse hx and opiate addiction, with no confirmation for a hospice diagnosis. Attending Statement This note was transcribed by scribe [Courtney [email or web address]]. I, Dr. Diana Angel personally performed the history, physical exam, and medical decision making; and confirmed the accuracy of the information in the transcribed note. Authenticated by Dr. Diana Angel on 02/11/17 at 11:10. Courtney Vee Feb 11, 2017 11:01 Diana Angel MD Feb 11, 2017 11:13
[2017-02-11 12:00] VITALS: BP 138/95; PULSE 119; RESP 20; TEMP 97.8; O2SAT 95
--- NOTE | 2017-02-11 12:26 | HHI.PR ---
Review/Management Diagnosis/Plan: (1) Uremic encephalopathy ICD Codes: G93.41 - Metabolic encephalopathy; N19 - Unspecified kidney failure Status: Acute Plan: tremors/myoclonus may be related to acute but improving uremia vs etoh withdrawal recs f/u dilantin level hydration/nutritional support iv thamine repeat eeg follow exam (2) Encephalopathy acute ICD Codes: G93.40 - Encephalopathy, unspecified Status: Acute (3) Seizure ICD Codes: R56.9 - Unspecified convulsions Status: Acute (4) ARF (acute renal failure) ICD Codes: N17.9 - Acute kidney failure, unspecified Status: Acute Subjective Subjective Comments No acute events reported xcover pt poor hx Active Medications Current Medications Medications (Trade) Dose Ordered Sig/Huber Route Start Time Stop Time Status Last Admin (Vitamin B1) 100 mg DAILY PO 02/04/17 09:00 02/11/17 08:13 (Romazicon Inj) 0.2 mg Q1M PRN IV PUSH 02/03/17 22:45 (Ativan) 1 mg Q4H PRN PO 02/03/17 22:45 02/08/17 20:06 (Ativan Inj) 1 mg Q4H PRN IV PUSH 02/03/17 22:45 02/11/17 10:08 (Ativan) 2 mg Q2H PRN PO 02/03/17 22:45 02/07/17 00:32 (Ativan Inj) 2 mg Q2H PRN IV PUSH 02/03/17 22:45 02/10/17 15:40 (Ativan Inj) 2 mg Q1H PRN IV PUSH 02/03/17 22:45 02/09/17 21:16 (Ativan Inj) 2 mg Q15M PRN IV PUSH 02/03/17 22:45 (Haldol Inj) 2 mg Q15M PRN IM 02/03/17 22:45 02/10/17 02:51 (NS Flush) 2 ml UNSCH PRN IV FLUSH 02/03/17 22:45 02/10/17 11:48 (NS Flush) 2 ml BID IV FLUSH 02/04/17 09:00 02/10/17 11:42 (Lilliana-Colace) 1 tab BID PO 02/04/17 09:00 02/11/17 08:13 (Milk Of Magnesia Liq) 30 ml Q12H PRN PO 02/03/17 22:45 (Senokot) 17.2 mg Q12H PRN PO 02/03/17 22:45 (Dulcolax Supp) 10 mg DAILY PRN RECTAL 02/03/17 22:45 (Lactulose Liq) 30 ml DAILY PRN PO 02/03/17 22:45 Potassium Chloride/Dextrose/ Sod Cl 1,000 ml @ 125 mls/hr Q8H IV 02/05/17 06:45 02/11/17 08:14 (Tylenol-Codeine #3) 2 tab Q6H PRN PO 02/07/17 11:15 02/11/17 05:07 (Dilantin) 200 mg BID PO 02/09/17 09:00 02/11/17 08:13 (Heparin Inj) 5,000 units Q8HR SQ 02/10/17 06:00 02/11/17 05:11 (Folate) 1 mg DAILY PO 02/11/17 11:30 UNV (Vitamin B12) 100 mcg DAILY PO 02/11/17 11:30 UNV Allergies Allergies Coded Allergies tapentadol (Unverified Allergy, Severe, AMNESIA EPISODES, 02/03/17) hydromorphone (Unverified Adverse Reaction, Severe, HALLUCINATIONS, 02/03/17) *MDRO Multi-Drug Resistant Organism (Verified Adverse Reaction, Unknown, MRSA , 02/03/17) Review of Systems All other ROS: ROS reviewed as documented in chart Exam I&O / VS 02/11/17 02/11/17 02/12/17 15:00 23:00 07:00 Output Total 210 ml Balance -210 ml Stool Total 210 ml Vital Signs Date Time Temp Pulse Resp B/P (MAP) Pulse Ox O2 Delivery O2 Flow Rate FiO2 02/11/17 08:00 96.9 132 20 131/82 (98) 100 02/11/17 04:00 96.1 129 20 164/94 (117) 94 02/11/17 00:20 97.4 104 18 157/96 (116) 93 02/10/17 20:00 96.5 96 18 135/84 (101) 99 02/10/17 16:00 97.4 99 19 140/89 (106) 100 Neurologic: Other Exam Comments drowsy, arousable, cachectic appearance, mumbles name, minimally follows command , eomi, resists pupillary exam, espana to gravity, mild le tremors, no clonus, planterflexor Objective Micro and Labs Laboratory Tests Test 02/11/17 06:39 Blood Urea Nitrogen 21 Creatinine 1.84 Random Glucose 98 Calcium Level 8.1 Sodium Level 137 Potassium Level 5.0 Chloride Level 105 Carbon Dioxide Level 20.2 Anion Gap 12 Estimat Glomerular Filtration Rate 38 Date/Time Source Procedure Growth Status 02/03/17 23:10 Blood Peripheral Aerobic Blood Culture - Final NO GROWTH IN 5 DAYS Complete 02/03/17 23:10 Blood Peripheral Anaerobic Blood Culture - Final NO GROWTH IN 5 DAYS Complete Vinay Buitrago MD Feb 11, 2017 12:26
[2017-02-11] MEDS: CYANOCOBALAMIN 100 MCG TAB PO SCH (13:00)
[2017-02-11] MEDS: FOLIC ACID 1 MG TAB PO SCH (13:00)
[2017-02-11 16:00] VITALS: BP 138/85; PULSE 125; RESP 20; TEMP 98.9; O2SAT 99
[2017-02-11] MEDS: THIAMINE INJ 100 MG in SODIUM CHLORIDE 0.9% INJ 100 ML IV SCH (16:25)
[2017-02-11 20:00] VITALS: BP 143/98; PULSE 111; RESP 18; TEMP 97.4; O2SAT 98
[2017-02-12] VITALS (17 sets, daily range): BP systolic 119–166; BP diastolic 77–106; PULSE 96–136; RESP 14–38; TEMP 97–98.8; O2SAT 97–100
[2017-02-12] MEDS: HEPARIN SODIUM - SQ 10,000 UNITS/ML VIAL SQ SCH ×3 (04:48→21:35)
[2017-02-12] MEDS: LORazepam 2 MG/ML VIAL IV PUSH PRN (04:48)
[2017-02-12] MEDS: PHENYTOIN SODIUM 100 MG CAP PO SCH (08:59)
[2017-02-12] MEDS: FOLIC ACID 1 MG TAB PO SCH (08:59)
[2017-02-12] MEDS: CYANOCOBALAMIN 100 MCG TAB PO SCH (09:00)
[2017-02-12] MEDS ORDERED: LORazepam 2 MG/ML VIAL IV PUSH PRN (09:00)
[2017-02-12] MEDS: DOCUSATE SODIUM 50 MG/SENNA 8.6 MG TAB PO SCH ×2 (09:00→21:35)
[2017-02-12] MEDS: SODIUM CHLORIDE 0.9% FLUSH 10 ML FLUSH IV FLUSH SCH ×2 (09:02→21:00)
--- NOTE | 2017-02-12 09:18 | HHI.PR ---
Subjective Remarks Written by Namita Vee, acting as scribe for Dr. Angel on 02/12/17 at 09:17. Follow up encephalopathy, VISHAL. Patient seen and examined. Spoke with bedside RN who states HR is in the 130's. More lethargic. Does not awaken to voice, moans to stimulation, does not follow commands. Patient on RA, sats 97%, HR 132 on monitor. Afebrile. BP stable. Shallow breathing. Objective Vitals Vital Signs Date Time Temp Pulse Resp B/P (MAP) Pulse Ox O2 Delivery O2 Flow Rate FiO2 02/12/17 08:00 97.8 130 19 155/97 (116) 97 02/12/17 04:00 98.2 98 18 126/79 (95) 98 02/12/17 00:00 97.0 108 18 130/81 (97) 98 02/11/17 20:00 97.4 111 18 143/98 (113) 98 02/11/17 16:00 98.9 125 20 138/85 (102) 99 02/11/17 12:00 97.8 119 20 138/95 (109) 95 I/O 02/11/17 02/11/17 02/11/17 02/12/17 02/12/17 02/12/17 07:00 15:00 23:00 07:00 15:00 23:00 Intake Total 1300 ml 240 ml Output Total 700 ml 210 ml 1200 ml 1550 ml Balance -700 ml -210 ml 100 ml -1310 ml Intake Oral 400 ml 240 ml IV Total 900 ml Output Urine Total 450 ml 500 ml 350 ml Stool Total 250 ml 210 ml 700 ml 1200 ml Result Diagram: 02/10/17 0623 02/11/17 0639 Imaging Last Impressions Head CT 02/06/17 0000 Signed Impressions: Service Date/Time: Monday, February 06, 2017 11:05 - CONCLUSION: Normal examination. Ran Hurley MD Chest X-Ray 02/06/17 0000 Signed Impressions: Service Date/Time: Monday, February 06, 2017 12:51 - CONCLUSION: Minimal parenchymal opacity left base, progressed in the interval. Sid Ang MD FACR Brain MRI 02/06/17 0000 Signed Impressions: Service Date/Time: Monday, February 06, 2017 15:56 - CONCLUSION: 1. Suboptimal examination secondary to motion artifact. 2. No evidence of acute hemorrhage, mass or infarction. 3. Moderate atrophic change and chronic small vessel ischemic changes. 4. The left maxillary sinus is opacified and there is opacification of several ethmoidal air cells. Mychal Harper MD Renal Ultrasound 02/04/17 0000 Signed Impressions: Service Date/Time: Saturday, February 04, 2017 13:53 - CONCLUSION: Probable mild medical renal disease without hydronephrosis. Sid Ang MD FACR Objective Remarks GENERAL: Middle-aged white male, cachectic, chronically ill appearing, lying in bed lethargic. SKIN: No rash. Warm and dry. HEENT: PERRLA, EOMI. No scleral icterus or conjunctival pallor. Dry mucous membranes. Nose without bleeding, or drainage, Airway patent. CARDIOVASCULAR: Tachycardic. No obvious murmurs to auscultation. No chest tenderness to palpation. S1 and S2 present. RESPIRATORY: Left lung field crackles noted. Shallow breathing. No obvious rhonchi or wheezing. Breath sounds equal bilaterally. GASTROINTESTINAL: Abdomen soft, non-tender, nondistended. MUSCULOSKELETAL: Extremities without clubbing, cyanosis, or edema. No obvious deformities. NEUROLOGICAL: Lethargic. Moaning to stimulation. No focal neurologic deficits. A/P Problem List: (1) ARF (acute renal failure) ICD Code: N17.9 - Acute kidney failure, unspecified Status: Acute (2) Failure to thrive in adult ICD Code: R62.7 - Adult failure to thrive (3) Hypokalemia ICD Code: E87.6 - Hypokalemia Status: Acute (4) Rhabdomyolysis ICD Code: M62.82 - Rhabdomyolysis (5) Leukocytosis ICD Code: D72.829 - Leukocytosis Status: Acute (6) Alcohol abuse ICD Code: F10.10 - Alcohol abuse, uncomplicated Assessment and Plan 02/09: BMP today pending, continue following with nephrology and neurology. 02/10: Creatinine is 1.51, patient is nonresponsive to verbal or tactile stimuli, he received Ativan iv per CIWA protocol I discussed with the nurse, will try to back off on Ativan 02/11: Sinus tachycardic HR in 130's. Order for Ativan 2 mg IV. Monitor closely and watch for effectiveness. If not, will order Haldol. Patient is at high risk for DTs and possible ICU admission and need for Precedex drip, will monitor closely. Spoke with Dr. Tran who will follow up with patient today. Await further recommendations. 02/12: Patient seen and examined, HR 132. RN at bedside. Patient lethargic, breathing shallow. Does not follow commands or open eyes to stimulation. Appears to be more metabolic in nature. Ordering STAT labs, STAT EKG, STAT CXR and transfer to ICU for closer monitoring. Afebrile. No signs of infection. Some crackles noted on left lower lung field. Will also check an ammonia level and lactic acid. r/o sepsis vs metabolic , reviewed cxr right at the machine prior to getting the official report , i did not appreciate any consolidation. 1115 Patient transferred to ICU. Labs reviewed. ABG reviewed. CXR reviewed. EKG reviewed. Spoke with Dr. Kern with updates on patient status. Worsening leukocytosis, worsening creatinine. Appears to be in respiratory alkalosis with metabolic compensation. I called Dr. Bradley the sign maintenance and discussed with him the case in graciously agreed to resume critical care, he requested CT scan of the head noncontrast which was placed critical care time spent 60 minutes A/P 1. Acute Renal Failure: significantly improved, continue IVF per nephrology. 2. Encephalopathy versus mood disorder versus due to uremia, all diagnostic testing so far has been negative including B12, folate, Tylenol levels, TSH, RPR , CT head, MRI head (limited due to motion artifact). Consulted psychiatry to see if they can provide any assistance with this since the patient apparently has drastically fluctuating level of alertness and also does have a charted history of opiate and alcohol abuse, appreciate input. EEG showing mild to moderate encephalopathy with frontal and left temporal isolated sharp waves. Neurology following and saw patient yesterday, orders to repeat EEG, follow. Dilantin level normal. LP and CSF cultures ordered. Started on Cerebyx. 3. Failure to thrive - likely 2/2 encephalopathy and GI comorbidities. see #4. 4. Mild abdominal tenderness - will order CT scan of the abdomen with IV contrast (given charted history of ulcerative colitis, with colostomy secondary to colectomy), once renal function is more stable since the patient does not give a good history we are still trying to elucidate a cause of his encephalopathy vs altered mentation. 5. Hypokalemia, improved: Now hyperkalemic, 5.9. Will stop IVF with K. 6. Leukocytosis suspect secondary to dehydration/volume depletion vs infectious source?: Trending up. WBC 14 -->21.9. Lactic acid normal. Afebrile. No signs of infection. CXR unremarkable. Will follow CBC. Ensure hydration, will give NS 500 ml bolus x 1, and place on IVF NS @ 125ml/hr. Spoke with Dr. Kern and updated on patient status, agreeable with the plan. Will continue IV fluids. Afebrile. No signs of infection at this time. 7. DVT Prophylaxis: Pharmacologic contraindication secondary to high risk for bleeding. SCDs. 8. Severe hypomagnesium: Magnesium 0.7 this am. Replace with 2 g IV x 1 now. Follow BMP. 9. Hypoxia with respiratory alkalosis: ABG reviewed. Transferred to ICU. Now managing care. Per previous documentation patient was discharged from hospice because his pain had improved and the patient was able to go ahead and live at home afterwards. Also it was mentioned that patient had a substantial alcoholic abuse hx and opiate addiction, with no confirmation for a hospice diagnosis. Attending Statement This note was transcribed by scribe [[email or web address]]. I, Dr. Diana Angel personally performed the history, physical exam, and medical decision making; and confirmed the accuracy of the information in the transcribed note. Authenticated by Dr. Diana Angel on 02/12/17 at 09:52. Namita Vee Feb 12, 2017 09:17 Diana Angel MD Feb 12, 2017 09:49
[2017-02-12] MEDS ORDERED: METOPROLOL TARTRATE 5 MG/5 ML VIAL IV PUSH ONE (09:30)
[2017-02-12 09:51] LABS: BASOPHIL # 0.1 TH/MM3 (0-0.2); BASOPHIL % 0.3 % (0.0-2.0); EOSINOPHIL % 0.1 % (0.0-4.0); HEMATOCRIT 37.6 % (39.0-51.0); LYMPH % 10.3 % (9.0-44.0); LYMPHOCYTE # 2.3 TH/MM3 (1.0-4.8); MEAN CELL VOLUME 91.7 FL (80.0-100.0); MEAN CORPUSCULAR HEMOGLOBIN 30.7 PG (27.0-34.0); MEAN CORPUSCULAR HGB CONC 33.5 % (32.0-36.0); MONO % 7.2 % (0.0-8.0); NEUT % 82.1 % (16.0-70.0); PLATELET COUNT 570 TH/MM3 (150-450); RED CELL DISTRIBUTION WIDTH 14.5 % (11.6-17.2); WHITE BLOOD COUNT 21.9 TH/MM3 (4.0-11.0)
[2017-02-12 09:58] LABS: HEMO FLAGS AUTO DIFF
--- NOTE | 2017-02-12 09:58 | HHI.PR ---
Review/Management Diagnosis/Plan: (1) Uremic encephalopathy ICD Codes: G93.41 - Metabolic encephalopathy; N19 - Unspecified kidney failure Status: Acute Plan: tremors/myoclonus may be related to acute but improving uremia vs etoh withdrawal recs f/u dilantin level low- change to iv cerebryx, rest of labs -pending check lp start iv acyclovir repeat eeg-pending follow exam Dr. Murrieta to follow pt (2) Encephalopathy acute ICD Codes: G93.40 - Encephalopathy, unspecified Status: Acute (3) Seizure ICD Codes: R56.9 - Unspecified convulsions Status: Acute (4) ARF (acute renal failure) ICD Codes: N17.9 - Acute kidney failure, unspecified Status: Acute Subjective Subjective Comments tachy slept well Active Medications Current Medications Medications (Trade) Dose Ordered Sig/Huber Route Start Time Stop Time Status Last Admin (Romazicon Inj) 0.2 mg Q1M PRN IV PUSH 02/03/17 22:45 (Ativan) 1 mg Q4H PRN PO 02/03/17 22:45 02/08/17 20:06 (Ativan Inj) 1 mg Q4H PRN IV PUSH 02/03/17 22:45 02/12/17 04:48 (Ativan) 2 mg Q2H PRN PO 02/03/17 22:45 02/07/17 00:32 (Ativan Inj) 2 mg Q2H PRN IV PUSH 02/03/17 22:45 02/10/17 15:40 (Ativan Inj) 2 mg Q1H PRN IV PUSH 02/03/17 22:45 02/09/17 21:16 (Ativan Inj) 2 mg Q15M PRN IV PUSH 02/03/17 22:45 (Haldol Inj) 2 mg Q15M PRN IM 02/03/17 22:45 02/10/17 02:51 (NS Flush) 2 ml UNSCH PRN IV FLUSH 02/03/17 22:45 02/10/17 11:48 (NS Flush) 2 ml BID IV FLUSH 02/04/17 09:00 02/12/17 09:02 (Lilliana-Colace) 1 tab BID PO 02/04/17 09:00 02/11/17 20:36 (Milk Of Magnesia Liq) 30 ml Q12H PRN PO 02/03/17 22:45 (Senokot) 17.2 mg Q12H PRN PO 02/03/17 22:45 (Dulcolax Supp) 10 mg DAILY PRN RECTAL 02/03/17 22:45 (Lactulose Liq) 30 ml DAILY PRN PO 02/03/17 22:45 Potassium Chloride/Dextrose/ Sod Cl 1,000 ml @ 125 mls/hr Q8H IV 02/05/17 06:45 02/11/17 20:36 (Tylenol-Codeine #3) 2 tab Q6H PRN PO 02/07/17 11:15 02/11/17 05:07 (Dilantin) 200 mg BID PO 02/09/17 09:00 02/11/17 20:36 (Heparin Inj) 5,000 units Q8HR SQ 02/10/17 06:00 02/12/17 04:48 (Folate) 1 mg DAILY PO 02/11/17 13:00 (Vitamin B12) 100 mcg DAILY PO 02/11/17 13:00 Thiamine HCl 100 mg/Sodium Chloride 101 ml @ 101 mls/hr DAILY IV 02/11/17 15:00 02/11/17 16:25 (Ativan Inj) 1 mg Q15M PRN IV PUSH 02/12/17 09:00 Allergies Allergies Coded Allergies tapentadol (Unverified Allergy, Severe, AMNESIA EPISODES, 02/03/17) hydromorphone (Unverified Adverse Reaction, Severe, HALLUCINATIONS, 02/03/17) *MDRO Multi-Drug Resistant Organism (Verified Adverse Reaction, Unknown, MRSA , 02/03/17) Review of Systems All other ROS: ROS reviewed as documented in chart Exam I&O / VS Vital Signs Date Time Temp Pulse Resp B/P (MAP) Pulse Ox O2 Delivery O2 Flow Rate FiO2 02/12/17 08:00 97.8 130 19 155/97 (116) 97 02/12/17 04:00 98.2 98 18 126/79 (95) 98 02/12/17 00:00 97.0 108 18 130/81 (97) 98 02/11/17 20:00 97.4 111 18 143/98 (113) 98 02/11/17 16:00 98.9 125 20 138/85 (102) 99 02/11/17 12:00 97.8 119 20 138/95 (109) 95 Neurologic: Other Exam Comments drowsy, arousable, cachectic appearance, mumbles name, minimally follows command , eomi, resists pupillary exam, espana to gravity, mild le tremors, no clonus, planterflexor Objective Micro and Labs Laboratory Tests Test 02/12/17 06:37 02/12/17 09:32 Phenytoin (Dilantin) Level 2.7 Date/Time Source Procedure Growth Status 02/03/17 23:10 Blood Peripheral Aerobic Blood Culture - Final NO GROWTH IN 5 DAYS Complete 02/03/17 23:10 Blood Peripheral Anaerobic Blood Culture - Final NO GROWTH IN 5 DAYS Complete Vinay Buitrago MD Feb 12, 2017 09:58
[2017-02-12] MEDS ORDERED: FOSPHENYTOIN INJ 1,000 MGPE in SODIUM CHLORIDE 0.9% INJ 50 ML IV ONE (10:00)
--- NOTE | 2017-02-12 10:10 | RADRPT ---
EXAM DATE/TIME: 02/12/2017 09:14 [facility] COMPARISON: CHEST SINGLE AP, February 06, 2017, 12:51. INDICATIONS : Shortness of breath. Concern for pneumonia. MEDICAL HISTORY : Hypertension. SURGICAL HISTORY : None. ENCOUNTER: Initial ACUITY: 1 day PAIN SCORE: Non-responsive. LOCATION: Bilateral chest FINDINGS: Portable AP view of the chest demonstrates a normal-sized cardiac silhouette. No effusion, consolidat ion, or pneumothorax is visualized. The bones and soft tissues demonstrate no acute abnormality. CONCLUSION: No acute cardiopulmonary abnormality is identified. Dylon Cortez MD on February 12, 2017 at 10:07 Board Certified Radiologist. This report was verified electronically.
[2017-02-12 10:12] LABS: MAGNESIUM 0.7 MG/DL (1.5-2.5); POTASSIUM 5.6 MEQ/L (3.5-5.1)
[2017-02-12 10:15] LABS: INDIRECT BILIRUBIN 0.4 MG/DL (0.0-0.8); TOTAL BILIRUBIN ADULT 0.6 MG/DL (0.2-1.0)
[2017-02-12 10:25] LABS: BLOOD GAS BASE EXCESS -3.5 mmol/L (-2-2); BLOOD GAS HCO3 19 mmol/L (22-26); BLOOD GAS METHEMOGLOBIN 0.9 % (0-2); BLOOD GAS O2 HGB SATURATION 96 % (90-100); BLOOD GAS PCO2 21 mmHg (38-42); BLOOD GAS PO2 98 mmHg (61-120); BLOOD GAS TOTAL HGB 13.3 G/DL (12.0-16.0); TEMP CORR TO 98.6
[2017-02-12 10:26] LABS: CRITICAL VALUE YES; DRAW SITE LT BRACHIAL; FIO2 21 %; NUMBER OF ARTERIAL PUNCTURES 1; STAT YES
[2017-02-12 10:34] LABS: PLATELET ESTIMATE SMEAR HIGH (NORMAL); PLATELET MORPHOLOGY NORMAL (NORMAL); SCAN/DIFF AUTO DIFF CONFIRMED
[2017-02-12] MEDS: THIAMINE INJ 100 MG in SODIUM CHLORIDE 0.9% INJ 100 ML IV SCH (11:07)
[2017-02-12] MEDS ORDERED: SODIUM CHLORID 0.9% 500 ML INJ 500 ML IV ONE (11:15)
[2017-02-12] MEDS: SODIUM CHLORIDE 0.9% IV SCH (11:57)
[2017-02-12] MEDS: MAGNESIUM SULFATE 1 GM PREMIX 100 ML IV SCH ×2 (11:57→13:12)
[2017-02-12] MEDS: ACYCLOVIR IV SCH (11:57)
[2017-02-12] MEDS ORDERED: MIDAZOLAM HCL 5 MG/5 ML VIAL ONE (12:49)
[2017-02-12] MEDS: SODIUM CHLOR 0.9% 1000 ML INJ 1,000 ML IV SCH ×2 (13:06→21:34)
--- NOTE | 2017-02-12 13:06 | MG ---
cc: NAOMI SINGLETON MD Sex M DATE OF STUDY: 02/11/2017 [id number] DATE OF : 1955 HISTORY: The patient is a 61 year-old with a history of lethargy, mental status changes. DESCRIPTION: Significant electrical myogenic artifact noted throughout the recording. The background appearing to show 2-5 Hz activity 20-50 microvolts. Single lead EKG showed artifact. INTERPRETATION Significant artifact. However, underlying moderate encephalopathy appears to be present. Clinical correlation. Naomi Singleton MD MG/[place] /12:46 PM /1:00 PM
--- NOTE | 2017-02-12 13:07 | HHI.NPPN ---
Subjective History of Present Illness 61-year-old male with past medical history of hypertension. History of alcoholism, bronchial asthma, anxiety, depression, alcohol abuse and bedridden status with decubitus ulcer, was admitted because of generalized weakness and altered mental status. I was called to see the patient because of elevated BUN and creatinine. Additional Remarks Patient is confused transferred back to ICU ARF worse Review of Systems General Constitutional: Fatigue Objective Data Data 02/12/17 02/13/17 19:00 07:00 Intake Total 250 ml Balance 250 ml IV Total 250 ml Vital Signs Date Time Temp Pulse Resp B/P (MAP) Pulse Ox O2 Delivery O2 Flow Rate FiO2 02/12/17 10:52 107 30 137/91 (106) 100 02/12/17 10:00 107 120/94 (103) 02/12/17 09:50 136 162/89 (113) 02/12/17 08:00 97.8 130 19 155/97 (116) 97 02/12/17 04:00 98.2 98 18 126/79 (95) 98 02/12/17 00:00 97.0 108 18 130/81 (97) 98 02/11/17 20:00 97.4 111 18 143/98 (113) 98 02/11/17 16:00 98.9 125 20 138/85 (102) 99 -: 02/12/17 0932 02/12/17 0932 Physical Exam General Appearance: No Acute Distress, Comfortable Eyes Eye Exam: Pupils Equal Throat Throat Exam: Oral Mucosa [place] & Moist Neck Neck Exam: Neck Supple Pulmonary Resp Exam: Breath Sounds Equal, No Distress, Decreased Bases Cardiology CV Exam: Regular, Normal Sinus Rhythm Gastrointestinal/Abdomen GI Exam: Soft, Non-Tender, Bowel Sounds Present Extremeties Extremities Exam: No Edema Neurologic Neuro Exam: Obtunded (wakes up on command.) Assessment/Plan Assessment Summary: VISHAL/Acute Renal Failure, Dehydration, Hypotension Electrolyte Assessment: Hypokalemia Problem List: (1) Failure to thrive in adult ICD Codes: R62.7 - Adult failure to thrive (2) Hypokalemia ICD Codes: E87.6 - Hypokalemia Status: Acute (3) High output ileostomy ICD Codes: R19.8 - High output ileostomy; Z93.2 - Ileostomy status Status: Acute (4) Anemia ICD Codes: D64.9 - Anemia Status: Acute (5) Hypokalemia ICD Codes: E87.6 - Hypokalemia Status: Acute (6) ARF (acute renal failure) ICD Codes: N17.9 - Acute kidney failure, unspecified Status: Acute Plan Patient has been non oliguric, Creatinine worse gets dehydrated poor oral intake weight loss agitated Continue IVF,encourage oral intake. Follow the urine out out and BMP. Avoid Nephrotoxins. CPK is now normalized. ROSAS Mendez from IVF as Andrea MORA with Dayron Raphael MD Feb 12, 2017 13:07
[2017-02-12] MEDS ORDERED: PROPOFOL 1000 MG/100 ML INJ 100 ML ONE (15:05)
[2017-02-12] MEDS ORDERED: ROCURONIUM INJ 100 MG/10 ML VIAL IV PUSH ONE (16:15)
[2017-02-12] MEDS ORDERED: MIDAZOLAM HCL 10 MG/10 ML VIAL IV PUSH ONE (16:15)
[2017-02-12] MEDS: PROPOFOL 1000 MG/100 ML IV PRN ×2 (16:21→21:39)
--- NOTE | 2017-02-12 16:26 | RADRPT ---
EXAM DATE/TIME: 02/12/2017 16:04 [facility] COMPARISON: CHEST SINGLE AP, February 12, 2017, 9:14. INDICATIONS : Post intubation. MEDICAL HISTORY : Hypertension. SURGICAL HISTORY : None. ENCOUNTER: Subsequent ACUITY: 2 weeks PAIN SCORE: Non-responsive. LOCATION: Bilateral chest FINDINGS: A single view of the chest demonstrates interval placement of endotracheal and nasogastric tubes whic h are in good position. Lungs are well-expanded and remain clear. Heart and mediastinal structures are stable. CONCLUSION: 1. Satisfactory position of endotracheal and nasogastric tubes. 2. No acute cardiopulmonary process. Emerson Reyes MD on February 12, 2017 at 16:24 Board Certified Radiologist. This report was verified electronically.
--- NOTE | 2017-02-12 16:27 | PD.CONS ---
[facility] Service Critical Care Medicine Consult Requested By Hospitalist Service Reason for Consult Worsening encephalopathy Primary Care Physician Elias Day MD History of Present Illness This is a 61yM with htn, chronic pain on methadone, anxiety, depression, etoh abuse who was previously on Hospice care but taken out of Hospice. Admitted after he became worseningly lethargic and was brought in by EMS. His inpatient admission includes a worsening acute kidney injury, and worsening encephalopathy. Today, his mental status declined and he was transferred to the ICU. When I evaluated the patient, he was obtunded, GCS of 6, I intubated the patient (see separate procedure note for details). At the request of Neurology, I performed LP. No additional history is obtainable from the patient secondary to his encephalopathy. Review of Systems ROS Limitations: Clinical Condition, Altered Mental Status Past Family Social History Allergies: Coded Allergies: tapentadol (Unverified Allergy, Severe, AMNESIA EPISODES, 02/03/17) hydromorphone (Unverified Adverse Reaction, Severe, HALLUCINATIONS, 02/03/17 ) *MDRO Multi-Drug Resistant Organism (Verified Adverse Reaction, Unknown, MRSA, 02/03/17) MRSA screen (nares) POSITIVE - 12/29/16 Past Medical History HTN Asthma UC s/p Colectomy/Colostomy Decubitus Ulcer Chronic Pain on Methadone Anxiety Depression Alcohol Abuse Tobacco Abuse Past Surgical History Colectomy Colostomy Appendectomy Tonsillectomy Reported Medications Unknown and unobtainable secondary to the clinical condition of the patient. Active Ordered Medications See MAR Family History Unobtainable secondary to the clinical condition of the patient. Social History + alcohol abuse. Smokes 2-3 ppd. Negative for drugs. Physical Exam Vital Signs Vital Signs Date Time Temp Pulse Resp B/P (MAP) Pulse Ox O2 Delivery O2 Flow Rate FiO2 02/12/17 15:08 100 60 02/12/17 15:02 40 02/12/17 14:00 102 02/12/17 13:00 101 33 134/80 (98) 99 02/12/17 12:00 98 02/12/17 12:00 98.8 98 31 130/78 (95) 99 02/12/17 10:52 107 30 137/91 (106) 100 02/12/17 10:00 107 120/94 (103) 02/12/17 09:50 136 162/89 (113) 02/12/17 08:00 97.8 130 19 155/97 (116) 97 02/12/17 04:00 98.2 98 18 126/79 (95) 98 02/12/17 00:00 97.0 108 18 130/81 (97) 98 02/11/17 20:00 97.4 111 18 143/98 (113) 98 Physical Exam GENERAL: Frail elderly male, lying in bed, obtunded, unresponsive HEENT: Normocephalic. Atraumatic. Pupils equal, round, reactive, conjugate. Mucous membranes are moist NECK: Trachea is midline. There is no JVD. CHEST: Equal chest rise. Clear to auscultation CARDIOVASCULAR: Cardiac rate, regular rhythm. Sinus by telemetry ABDOMEN: Soft, nontender, nondistended. No guarding. MUSCULOSKELETAL: Pulses 2+. No peripheral edema. NEUROLOGICAL: RASS -4. GCS 6. Grimaces to deep sternal rub. Does not open eyes. Does not follow commands. Laboratory Laboratory Tests Test 02/12/17 06:37 02/12/17 09:32 02/12/17 10:20 02/12/17 15:20 Phenytoin (Dilantin) Level 2.7 White Blood Count 21.9 Red Blood Count 4.10 Hemoglobin 12.6 Hematocrit 37.6 Mean Corpuscular Volume 91.7 Mean Corpuscular Hemoglobin 30.7 Mean Corpuscular Hemoglobin Concent 33.5 Red Cell Distribution Width 14.5 Platelet Count 570 Mean Platelet Volume 8.0 Neutrophils (%) (Auto) 82.1 Lymphocytes (%) (Auto) 10.3 Monocytes (%) (Auto) 7.2 Eosinophils (%) (Auto) 0.1 Basophils (%) (Auto) 0.3 Neutrophils # (Auto) 18.0 Lymphocytes # (Auto) 2.3 Monocytes # (Auto) 1.6 Eosinophils # (Auto) 0.0 Basophils # (Auto) 0.1 CBC Comment AUTO DIFF Differential Comment AUTO DIFF CONFIRMED Platelet Estimate HIGH Platelet Morphology Comment NORMAL Blood Urea Nitrogen 26 Creatinine 2.83 Random Glucose 109 Total Protein 7.6 Albumin 2.9 Calcium Level 8.6 Phosphorus Level 2.8 Magnesium Level 0.7 Alkaline Phosphatase 135 Aspartate Amino Transf (AST/SGOT) 17 Alanine Aminotransferase (ALT/SGPT) 19 Total Bilirubin 0.6 Direct Bilirubin 0.2 Sodium Level 135 Potassium Level 5.6 Chloride Level 104 Carbon Dioxide Level 19.0 Anion Gap 12 Estimat Glomerular Filtration Rate 23 Lactic Acid Level 1.5 Indirect Bilirubin 0.4 Ammonia 13 Blood Gas Puncture Site LT BRACHIAL Blood Gas Patient Temperature 98.6 Blood Gas HCO3 19 Blood Gas Base Excess -3.5 Blood Gas Oxygen Saturation 96 Arterial Blood pH 7.55 Arterial Blood Partial Pressure CO2 21 Arterial Blood Partial Pressure O2 98 Arterial Blood Oxygen Content 18.0 Arterial Blood Carboxyhemoglobin 1.0 Arterial Blood Methemoglobin 0.9 Blood Gas Hemoglobin 13.3 Blood Gas Inspired Oxygen 21 Date/Time Source Procedure Growth Status 02/12/17 13:40 Blood Peripheral Aerobic Blood Culture Pending Received 02/12/17 13:40 Blood Peripheral Anaerobic Blood Culture Pending Received 02/12/17 15:20 Cerebral Spinal Fluid Lumbar Puncture Gram Stain Pending Received 02/12/17 15:20 Cerebral Spinal Fluid Lumbar Puncture CSF Culture Pending Received Result Diagram: 02/12/17 0932 02/12/17 0932 Imaging Last Impressions Chest X-Ray 02/12/17 0000 Signed Impressions: Service Date/Time: Sunday, February 12, 2017 09:14 - CONCLUSION: No acute cardiopulmonary abnormality is identified. Dylon Cortez MD Head CT 02/06/17 0000 Signed Impressions: Service Date/Time: Monday, February 06, 2017 11:05 - CONCLUSION: Normal examination. Ran Hurley MD Brain MRI 02/06/17 0000 Signed Impressions: Service Date/Time: Monday, February 06, 2017 15:56 - CONCLUSION: 1. Suboptimal examination secondary to motion artifact. 2. No evidence of acute hemorrhage, mass or infarction. 3. Moderate atrophic change and chronic small vessel ischemic changes. 4. The left maxillary sinus is opacified and there is opacification of several ethmoidal air cells. Mychal Harper MD Renal Ultrasound 02/04/17 0000 Signed Impressions: Service Date/Time: Saturday, February 04, 2017 13:53 - CONCLUSION: Probable mild medical renal disease without hydronephrosis. Sid Ang MD FACR Assessment and Plan Assessment and Plan Assessment: 61yM with alcohol abuse and severe metabolic encephalopathy. Likely a large component of hepatic encephalopathy, although cannot rule out organic central process. Will proceed with LP. Will empirically start Lactulose. No SBT today given his encephalopathy. will re-engage palliative care given poor prognosis and prior hospice admission. Very critically ill with multiple organs involved and very poor prognosis. Plan: Severe acute encephalopathy- likely metabolic, vs hepatic - frequent neuro checks - LP - abx - lactulose Acute hypoxic respiratory failure - vent bundle - hob at 30 degrees - no sbt given encephalopathy - wean fio2 for spo2 > 90% Acute kidney injury - nephrology on board - appears clinically euvolemic This patient remains critically ill with one or more organ systems which are or may become a threat to life. I have spent in excess of 50 minutes discontinuously in the care and management of this patient. This time is exclusive of procedures, and includes, but is not limited to, evaluation of the patient, review of the medical record, discussions with family, consultants, nursing staff, or respiratory therapy, and documentation in the medical record. Spike Ambriz MD Feb 12, 2017 16:27
--- NOTE | 2017-02-12 16:28 | PD.PROCEDR ---
Procedure Note Procedure Endotracheal Intubation Diagnosis: Acute encephalopathy Indications: Acute hypoxic respiratory failure requiring intubation, GCS less than 6 Consent: Emergent Anesthesia: Versed 10 mg IV, Rocuronium 100 mg IV Description of the Procedure: The patient was positioned in the sniffing position. Pre-oxygenation was performed using a [id number]. Anesthesia was induced via rapid sequence. A Mobley #2 was used for laryngoscopy and a Grade I view was obtained. A 8.0 cuffed endotracheal tube was inserted atraumatically through the vocal cords. Confirmation of correct endotracheal tube placement was made by equal and bilateral breath sounds and colorimetric CO2 detection. The endotracheal tube was secured at 23 cm at the teeth. There were no immediate complications noted. The patient remained hemodynamically stable throughout the procedure. A chest x-ray has been ordered. I personally performed the procedure. Spike Ambriz MD Feb 12, 2017 16:28
[2017-02-12] MEDS ORDERED: RESP: ALBUTEROL 2.5 MG/IPRATROPIUM 0.5 MG NEB (PRN) INH (16:30)
[2017-02-12] MEDS ORDERED: DEXTROSE 50% IN WATER 50 ML VIAL(D50) IV PUSH PRN (16:30)
--- NOTE | 2017-02-12 16:32 | PD.PROCEDR ---
Procedure Note Procedure Lumbar Puncture Diagnosis: Acute encephalopathy Indications: Acute encephalopathy Consent: Written consent was obtained Anesthesia: Propofol Description of the Procedure: The patient was placed in the supine, left lateral decubitus position. The patient was prepped and draped sterilely. 1% lidocaine was infiltrated subcutaneously. A 20g Quincke needle was inserted into the L3-4 interspace and advanced until CSF was obtained. Opening pressure was obtained. CSF was drained in 4 incremental vials. The needle was removed and a dressing was applied. The patient was returned to the supine position. Instructions were given to remain flat x 2 hours. There were no immediate complications noted. There was minimal EBL. The patient tolerated the procedure well. Opening Pressure: 11 Amount of CSF removed: 10 mL Findings: Clear CSF I personally performed the procedure. Spike Ambriz MD Feb 12, 2017 16:32
[2017-02-12 16:37] LABS: CSF LYMPHOCYTES 100 %; CSF NEUTROPHILS 0 %; GROSS BLOOD TUBE #1 0 (0); GROSS BLOOD TUBE #2 0 (0); GROSS BLOOD TUBE #3 0 (0); GROSS BLOOD TUBE #4 0 (0); SUPERNATE COLOR TUBE #1 CLEAR (CLEAR); SUPERNATE COLOR TUBE #2 CLEAR (CLEAR); SUPERNATE COLOR TUBE #3 CLEAR (CLEAR); SUPERNATE COLOR TUBE #4 CLEAR (CLEAR); VOLUME TUBE # 2 2.5 ML; VOLUME TUBE # 3 2.5 ML; VOLUME TUBE # 4 4.5 ML; WBC TUBE #4 2 /MM3 (0-10)
[2017-02-12] MEDS: LACTULOSE SYRUP 20 GM/30 ML CUP PO SCH ×3 (17:14→21:35)
[2017-02-12] MEDS: INSULIN NovoLIN REGULAR SUPPLEMENTAL SCALE SQ SCH (17:34)
--- NOTE | 2017-02-12 17:44 | EKG ---
Date Performed: 02/12/2017 Time Performed: 09:20:36 PTAGE: 61 years EKG: SINUS TACHYCARDIA BORDERLINE RIGHT AXIS DEVIATION ABNORMAL RHYTHM ECG PREVIOUS TRACING : 02/03/2017 21.42 Since prior tracing, sinus rate has increased DOCTOR: Chava Thompson Interpretating Date/Time 02/12/2017 17:42:28
[2017-02-12 17:49] LABS: BACTERIA, URINE MANY /hpf; BLOOD, URINE MOD (NEG); COMMENT (UR) CATH-CULTURE IND; CULTURE IF INDICATED CATH CULTURE IND; GLUCOSE,URINE NEG (NEG); KETONE, URINE NEG (NEG); MUCUS URINE FEW /lpf (OCC); NITRITE,URINE POS (NEG); PH, URINE 6.5 (5.0-8.5); RENAL EPITHELIAL CELLS 1 /hpf; SQUAMOUS EPITHELIAL CELL URINE 8 /hpf (0-5); TRANSITIONAL EPI CELLS, URINE 1 /hpf; URINE COLOR YELLOW (YELLW/STRAW)
[2017-02-12] MEDS: RESP: ALBUTEROL 2.5 MG/IPRATROPIUM 0.5 MG NEB (SCH) INH (20:38)
[2017-02-12] MEDS ORDERED: MIDAZOLAM 100 MG/100 ML INJ 100 ML IV PRN (21:00)
[2017-02-12] MEDS: CHLORHEXIDINE 0.12% (ORAL KIT) 15 ML CUP MT SCH (21:34)
[2017-02-12] MEDS: FOSPHENYTOIN SODIUM 100 MG PE/2 ML VIAL IV SCH (21:35)
[2017-02-12] MEDS: fentaNYL DRIP 250 ML IV PRN (21:36)
[2017-02-13] VITALS (25 sets, daily range): BP systolic 93–133; BP diastolic 61–82; PULSE 92–117; RESP 13–29; TEMP 97.4–100; O2SAT 97–100
[2017-02-13] MEDS: ACYCLOVIR IV SCH ×2 (00:10→10:43)
[2017-02-13] MEDS: SODIUM CHLORIDE 0.9% IV SCH ×2 (00:10→10:43)
[2017-02-13] MEDS: RESP: ALBUTEROL 2.5 MG/IPRATROPIUM 0.5 MG NEB (SCH) INH ×4 (03:24→20:43)
[2017-02-13] MEDS: INSULIN NovoLIN REGULAR SUPPLEMENTAL SCALE SQ SCH ×4 (05:47→18:00)
[2017-02-13] MEDS: HEPARIN SODIUM - SQ 10,000 UNITS/ML VIAL SQ SCH ×3 (05:47→22:50)
[2017-02-13] MEDS: SODIUM CHLOR 0.9% 1000 ML INJ 1,000 ML IV SCH ×3 (05:47→16:34)
[2017-02-13] MEDS: PROPOFOL 1000 MG/100 ML IV PRN ×3 (05:48→20:01)
[2017-02-13] MEDS: CHLORHEXIDINE 0.12% (ORAL KIT) 15 ML CUP MT SCH ×2 (08:15→20:01)
[2017-02-13] MEDS: THIAMINE INJ 100 MG in SODIUM CHLORIDE 0.9% INJ 100 ML IV SCH (08:16)
[2017-02-13] MEDS: CYANOCOBALAMIN 100 MCG TAB PO SCH (08:16)
[2017-02-13] MEDS: SODIUM CHLORIDE 0.9% FLUSH 10 ML FLUSH IV FLUSH SCH ×2 (08:16→20:00)
[2017-02-13] MEDS: FOLIC ACID 1 MG TAB PO SCH (08:16)
[2017-02-13] MEDS: SODIUM CHLORIDE 0.9% FLUSH 10 ML FLUSH IV FLUSH PRN (08:16)
[2017-02-13] MEDS: LACTULOSE SYRUP 20 GM/30 ML CUP PO SCH ×4 (08:16→20:00)
[2017-02-13] MEDS: FOSPHENYTOIN SODIUM 100 MG PE/2 ML VIAL IV SCH ×2 (08:19→22:13)
[2017-02-13] MEDS: METHADONE HCL 10 MG TAB PO SCH (08:19)
[2017-02-13 08:53] LABS: AUTOMATED NEUTROPHIL # 14.6 TH/MM3 (1.8-7.7); BASOPHIL # 0.3 TH/MM3 (0-0.2); BASOPHIL % 1.4 % (0.0-2.0); EOSINOPHIL # 0.1 TH/MM3 (0-0.4); EOSINOPHIL % 0.3 % (0.0-4.0); HEMATOCRIT 34.8 % (39.0-51.0); LYMPH % 10.9 % (9.0-44.0); LYMPHOCYTE # 2.2 TH/MM3 (1.0-4.8); MEAN CELL VOLUME 94.3 FL (80.0-100.0); MEAN CORPUSCULAR HEMOGLOBIN 30.3 PG (27.0-34.0); MEAN CORPUSCULAR HGB CONC 32.2 % (32.0-36.0); MONO % 13.5 % (0.0-8.0); NEUT % 73.9 % (16.0-70.0); PLATELET COUNT 331 TH/MM3 (150-450); RED BLOOD COUNT 3.69 MIL/MM3 (4.50-5.90); RED CELL DISTRIBUTION WIDTH 15.2 % (11.6-17.2); WHITE BLOOD COUNT 19.7 TH/MM3 (4.0-11.0)
[2017-02-13] MEDS: DOCUSATE SODIUM 50 MG/SENNA 8.6 MG TAB PO SCH ×2 (09:00→20:01)
[2017-02-13 09:03] LABS: HEMO FLAGS AUTO DIFF
[2017-02-13 09:09] LABS: BICARBONATE 20.8 MEQ/L (21.0-32.0); POTASSIUM 5.5 MEQ/L (3.5-5.1)
[2017-02-13 09:31] LABS: CALCIUM-PROTEIN CORRECTED 7.9 MG/DL (8.5-10.1)
--- NOTE | 2017-02-13 11:20 | HHI.CCPN ---
Subjective Remarks/Hospital Course Hospital Course: This is a 61yM with htn, chronic pain on methadone, anxiety, depression, etoh abuse who was previously on Hospice care but taken out of Hospice. Admitted after he became worseningly lethargic and was brought in by EMS. His inpatient admission includes a worsening acute kidney injury, and worsening encephalopathy. Today, his mental status declined and he was transferred to the ICU. When I evaluated the patient, he was obtunded, GCS of 6, I intubated the patient (see separate procedure note for details). At the request of Neurology, I performed LP. No additional history is obtainable from the patient secondary to his encephalopathy. subjective: 02/13: no improvements in encephalopathy. CSF with 100 lymphocytes, elevated protein, possibly consistent with a viral process, but opening pressure not elevated. Cr continues to rise despite + fluid balance. nephrology following. Objective Vital Signs Date Time Temp Pulse Resp B/P (MAP) Pulse Ox O2 Delivery O2 Flow Rate FiO2 02/13/17 10:00 97 02/13/17 08:24 97.4 20 133/69 (90) 97 02/13/17 08:00 40 02/09/17 22:51 Nasal Cannula 4.00 Intake and Output 02/13/17 02/13/17 02/14/17 08:00 16:00 00:00 Intake Total 1934 ml 100 ml Output Total 2175 ml Balance -241 ml 100 ml Result Diagram: 02/13/17 0730 02/13/17 0750 Imaging Last Impressions Chest X-Ray 02/12/17 0000 Signed Impressions: Service Date/Time: Sunday, February 12, 2017 09:14 - CONCLUSION: No acute cardiopulmonary abnormality is identified. Dylon Cortez MD Head CT 02/06/17 0000 Signed Impressions: Service Date/Time: Monday, February 06, 2017 11:05 - CONCLUSION: Normal examination. Ran Hurley MD Brain MRI 02/06/17 0000 Signed Impressions: Service Date/Time: Monday, February 06, 2017 15:56 - CONCLUSION: 1. Suboptimal examination secondary to motion artifact. 2. No evidence of acute hemorrhage, mass or infarction. 3. Moderate atrophic change and chronic small vessel ischemic changes. 4. The left maxillary sinus is opacified and there is opacification of several ethmoidal air cells. Mychal Harper MD Renal Ultrasound 02/04/17 0000 Signed Impressions: Service Date/Time: Saturday, February 04, 2017 13:53 - CONCLUSION: Probable mild medical renal disease without hydronephrosis. Sid Ang MD FACR Objective Remarks GENERAL: Frail elderly male, lying in bed, intubated, sedated. HEENT: Normocephalic. Atraumatic. Pupils equal, round, reactive, conjugate. Mucous membranes are moist NECK: Trachea is midline. There is no JVD. CHEST: Equal chest rise. Clear to auscultation CARDIOVASCULAR: tachycardic rate, regular rhythm. Sinus by telemetry ABDOMEN: Soft, nontender, nondistended. No guarding. MUSCULOSKELETAL: Pulses 2+. No peripheral edema. NEUROLOGICAL: RASS -4. GCS 6. Grimaces to deep sternal rub. Does not open eyes. Does not follow commands. A/P Assessment and Plan Assessment: 61yM with alcohol abuse and severe metabolic encephalopathy. Likely a large component of hepatic encephalopathy, although cannot rule out organic central process. Appreciate neurology ongoing recommendations. No SBT today given his encephalopathy. Palliative following. Cr rising is another organ system damaged and likely poor prognosis as well. nephrology following. Very critically ill with multiple organs involved and very poor prognosis. He likely will not survive this hospital stay. Plan: Severe acute encephalopathy- likely metabolic, vs hepatic - frequent neuro checks - await CSF cultures - f/u HSV - abx - lactulose - Neurology following Acute hypoxic respiratory failure - vent bundle - hob at 30 degrees - no sbt given encephalopathy - wean fio2 for spo2 > 90% Acute kidney injury- worsening. - nephrology on board - appears clinically euvolemic This patient remains critically ill with one or more organ systems which are or may become a threat to life. I have spent in excess of 31 minutes discontinuously in the care and management of this patient. This time is exclusive of procedures, and includes, but is not limited to, evaluation of the patient, review of the medical record, discussions with family, consultants, nursing staff, or respiratory therapy, and documentation in the medical record. Spike Ambriz MD Feb 13, 2017 11:20
[2017-02-13 11:44] LABS: OVALOCYTES 1+ (NORMAL); SCAN/DIFF AUTO DIFF CONFIRMED
[2017-02-13] MEDS: fentaNYL DRIP 250 ML IV PRN (15:07)
--- NOTE | 2017-02-13 15:58 | RADRPT ---
EXAM DATE/TIME: 02/13/2017 15:41 [facility] COMPARISON: MRI BRAIN W/O CONTRAST, February 06, 2017, 15:56. CT BRAIN W/O CONTRAST, February 06, 2017, 11:05. INDICATIONS : Altered mental status. RADIATION DOSE: 56.35 CTDIvol (mGy) MEDICAL HISTORY : Hypertension. SURGICAL HISTORY : None. ENCOUNTER: Subsequent ACUITY: 1 week PAIN SCALE: 0/10 LOCATION: cranial TECHNIQUE: Multiple contiguous axial images were obtained of the head. Using automated exposure control and adj ustment of the mA and/or kV according to patient size, radiation dose was kept as low as reasonably a chievable to obtain optimal diagnostic quality images. DICOM format image data is available electro nically for review and comparison. FINDINGS: CEREBRUM: Moderate cerebral atrophy. Moderate periventricular and deep white matter hypodensities. Ventricles a re normal for degree of atrophy. No evidence of midline shift, mass lesion, hemorrhage or acute infar ction. No extra-axial fluid collections are seen. POSTERIOR FOSSA: The cerebellum and brainstem are intact. The 4th ventricle is midline. The cerebellopontine angle i s unremarkable. EXTRACRANIAL: The visualized portion of the orbits is intact. Mucoperiosteal thickening involving the left maxillar y sinus and sphenoid sinus. SKULL: The calvaria is intact. No evidence of skull fracture. CONCLUSION: 1. Senescent changes with redemonstration of moderate periventricular small vessel ischemic white mat ter demyelination. 2. No acute intracranial abnormality or significant interval change. Sebastian Lopez MD on February 13, 2017 at 15:51 Board Certified Radiologist. This report was verified electronically.
--- NOTE | 2017-02-13 15:59 | HHI.NPPN ---
Subjective History of Present Illness 61-year-old male with past medical history of hypertension. History of alcoholism, bronchial asthma, anxiety, depression, alcohol abuse and bedridden status with decubitus ulcer, was admitted because of generalized weakness and altered mental status. I was called to see the patient because of elevated BUN and creatinine. Additional Remarks Patient is intubated and sedated. Review of Systems General Constitutional: Fatigue Objective Data Data 02/13/17 02/14/17 19:00 07:00 Intake Total 968 ml Output Total 750 ml Balance 218 ml IV Total 393 ml Tube Feeding 475 ml Other 100 ml Stool Total 750 ml Vital Signs Date Time Temp Pulse Resp B/P (MAP) Pulse Ox O2 Delivery O2 Flow Rate FiO2 02/13/17 14:58 100 40 02/13/17 14:00 108 02/13/17 12:00 97.8 109 13 100/66 (77) 100 02/13/17 12:00 109 02/13/17 12:00 40 02/13/17 11:31 99 40 02/13/17 11:00 93 13 93/61 (72) 100 02/13/17 10:00 97 02/13/17 10:00 97 16 110/71 (84) 100 02/13/17 09:00 100 15 107/70 (82) 100 02/13/17 08:24 97.4 97 20 133/69 (90) 97 02/13/17 08:00 98.8 95 13 100/68 (79) 100 02/13/17 08:00 40 02/13/17 08:00 95 02/13/17 07:30 100 40 02/13/17 07:00 95 13 119/69 (86) 100 02/13/17 06:00 92 02/13/17 04:13 100 40 02/13/17 04:00 40 02/13/17 04:00 98.7 117 20 118/79 (92) 100 02/13/17 04:00 117 02/13/17 02:00 114 02/13/17 01:11 100 40 02/13/17 00:00 100 02/13/17 00:00 40 02/13/17 00:00 98.6 100 16 130/82 (98) 100 02/12/17 22:00 105 02/12/17 20:38 100 40 02/12/17 20:00 101 02/12/17 20:00 40 02/12/17 20:00 98.8 101 29 141/90 (107) 100 02/12/17 18:00 99 24 119/77 (91) 100 02/12/17 18:00 99 02/12/17 17:22 40 02/12/17 17:00 96 38 149/106 (120) 100 02/12/17 16:00 40 02/12/17 16:00 96 02/12/17 16:00 97.8 96 14 149/79 (102) 100 -: 02/13/17 0730 02/13/17 0750 Microbiology 02/12/17 Gram Stain - Final, Resulted 02/12/17 Sputum Culture - Preliminary, Resulted S. Aureus Mrsa 02/12/17 Urine Culture - Preliminary, Resulted S. Aureus Mrsa Physical Exam General Appearance Remarks Intubated and sedated. Eyes Eye Exam: Pupils Equal Throat Throat Exam: Oral Mucosa [place] & Moist Neck Neck Exam: Neck Supple Pulmonary Resp Exam: Breath Sounds Equal, No Distress, Decreased Bases Cardiology CV Exam: Regular, Normal Sinus Rhythm Gastrointestinal/Abdomen GI Exam: Soft, Non-Tender, Bowel Sounds Present GI Remarks colostomy bag in place. Extremeties Extremities Exam: No Edema Neurologic Neuro Exam: Sedated Assessment/Plan Assessment Summary: VISHAL/Acute Renal Failure, Dehydration, Hypotension Electrolyte Assessment: Hypokalemia Problem List: (1) Failure to thrive in adult ICD Codes: R62.7 - Adult failure to thrive (2) Hypokalemia ICD Codes: E87.6 - Hypokalemia Status: Acute (3) High output ileostomy ICD Codes: R19.8 - High output ileostomy; Z93.2 - Ileostomy status Status: Acute (4) Anemia ICD Codes: D64.9 - Anemia Status: Acute (5) Hypokalemia ICD Codes: E87.6 - Hypokalemia Status: Acute (6) ARF (acute renal failure) ICD Codes: N17.9 - Acute kidney failure, unspecified Status: Acute Plan Patient has been non oliguric, Creatinine continue to increase. K is 5.5, Hco3 is 20, PH was 7.55, as he has Resp. alkalosis. Continue IVF, Follow the urine out out and BMP. Avoid Nephrotoxins. CPK is now normalized. If Creatinine continue to increase, will consider HD. Jessa Melo MD Feb 13, 2017 15:59
--- NOTE | 2017-02-13 16:01 | PD.CONS ---
Consult Service Palliative Care . Consult Requested By Dr. Ambriz. . Primary Care Physician Elias Day MD . Reason for Consultation a. To assist with evaluation and management of symptoms including: dyspnea, pain. b. To assist medical decision maker(s) with: better understanding of current medical conditions; weighing benefits/burdens of medical treatment options; making medical treatment decisions. . (KennethElizabeth) HPI History of Present Illness Mr. Dolan is a 61-year-old male with past medical history of HTN, asthma, ulcerative colitis s/p Colectomy/Colostomy, decubitus ulcer, chronic pain on Methadone, anxiety, depression, alcohol abuse and tobacco abuse. Patient was previously on [facility] 08/03/15 - 08/10/15, he was discharged as he was not felt to be terminal at that time. He had FTT secondary to depression. He presented to [facility] ER by EMS on 02/03/17 with generalized weakness. Michael Hernández ([facility]) reported he was unable to care for patient any longer and called EMS. Upon arrival patient was unable to provide good history. On arrival, BP 114/65, HR 91, O2 sat 95% on RA, Afebrile. WBC 15.9. 1112.9, producing 9.9 on 01/03/17. Na 127, K+ 3.3. Creatinine 9.51, previously 0.87 on . Mg 2.5. CPK 594. Trop negative. INR 1.1. Dr. Melo consulted by ER physician, recommended IVF for hydration, no emergent need for dialysis at this time. Hospital course has been significant for worsening acute kidney injury and encephalopathy. Patient was transferred to [facility] on 02/12/17 and was emergently intubated as he was obtunded, GCS of 6. Lumbar puncture was done due to increased encephalopathy per neurology request. 02/13/17, Patient remains intubated on [facility] vent with no improvement in encephalopathy. CSF with 100 lymphocytes, elevated protein, possibly consistent with a viral process, but opening pressure not elevated. Creatinine continues to rise despite + fluid balance. Nephrology, Dr. Kern following. Going for CT brain at the time of my visit. Spoke with Michael Hernández [facility] via phone. He elects NO CODE and NO DIALYSIS. Will speak again after CT brain results. He acknowledges patient decline prior to admission and "knows the patient has been ready to and didn't even want him to call 911." He states "I just couldn't let him lay on the couch and ." He requests follow up palliative care call on 02/14/17. . Function/Cognitive Trajectory Patient has had ongoing decline in the past year. He was unable to care for himself in the weeks prior to admission. Family reports he did not want to come to the hospital and has been ready to . . (Elizabeth Cooper) Review of Systems ROS Limitations: Unresponsive (on mech vent) Constitutional: COMPLAINS OF: Fatigue, Weight loss, Change in appetite ( decreased prior to admission. ), Pain, Generalized weakness Respiratory: COMPLAINS OF: Shortness of breath Gastrointestinal: COMPLAINS OF: Anorexia Hematologic/Lymphatics: COMPLAINS OF: Bruising Psychiatric: COMPLAINS OF: Anxiety, Depression (Elizabeth Cooper) Past Family Social History Coded Allergies: tapentadol (Unverified Allergy, Severe, AMNESIA EPISODES, 02/03/17) hydromorphone (Unverified Adverse Reaction, Severe, HALLUCINATIONS, 02/03/17 ) Past Medical History PMH: HTN, Asthma, UC s/p Colectomy/Colostomy, Decubitus Ulcer, Chronic Pain on Methadone, Anxiety, Depression, Alcohol Abuse and Tobacco Abuse . Past Surgical History PAST SURGICAL HISTORY: Colectomy, Colostomy, Appendectomy, Tonsillectomy . Reported Medications Reported Meds & Active Scripts Active [place] (Hydrocodone-Acetaminophen) 7.5-325 mg Tab 1 Tab PO Q6H PRN Proair Hfa 8.5 GM Inh (Albuterol Sulfate) 90 Mcg/Act Aer 2 Puff INH Q6H PRN 108 mcg/actuation Reported Methadone (Methadone HCl) 40 Mg Tab 50 Mg PO DAILY Current Medications Medications (Trade) Dose Ordered Sig/Huber Route Start Time Stop Time Status Last Admin (Romazicon Inj) 0.2 mg Q1M PRN IV PUSH 02/03/17 22:45 (NS Flush) 2 ml UNSCH PRN IV FLUSH 02/03/17 22:45 02/13/17 08:16 (NS Flush) 2 ml BID IV FLUSH 02/04/17 09:00 02/13/17 08:16 (Lilliana-Colace) 1 tab BID PO 02/04/17 09:00 02/12/17 21:35 (Milk Of Magnesia Liq) 30 ml Q12H PRN PO 02/03/17 22:45 (Senokot) 17.2 mg Q12H PRN PO 02/03/17 22:45 (Dulcolax Supp) 10 mg DAILY PRN RECTAL 02/03/17 22:45 (Lactulose Liq) 30 ml DAILY PRN PO 02/03/17 22:45 (Heparin Inj) 5,000 units Q8HR SQ 02/10/17 06:00 02/13/17 13:24 (Folate) 1 mg DAILY PO 02/11/17 13:00 02/13/17 08:16 (Vitamin B12) 100 mcg DAILY PO 02/11/17 13:00 02/13/17 08:16 Thiamine HCl 100 mg/Sodium Chloride 101 ml @ 101 mls/hr DAILY IV 02/11/17 15:00 02/13/17 08:16 (Cerebyx Inj) 200 mgpe Q12HR IV 02/12/17 21:00 02/13/17 08:19 Sodium Chloride 1,000 ml @ 125 mls/hr Q8H IV 02/12/17 11:15 02/13/17 05:47 Propofol 100 ml @ 1.617 mls/ hr TITRATE PRN IV 02/12/17 16:15 02/13/17 13:24 (Duoneb Neb) 1 ampule Q6HR NEB INH 02/12/17 22:00 02/13/17 14:58 (Duoneb Neb) 1 ampule Q2HR NEB PRN INH 02/12/17 16:30 (Peridex 0.12% Liq) 15 ml BID@08,20 MT 02/12/17 20:00 02/13/17 08:15 (D50w (Vial) Inj) 25 ml UNSCH PRN IV PUSH 02/12/17 16:30 (NovoLIN R SUPPLEMENTAL SCALE) 1 Q6HR SQ 02/12/17 18:00 02/13/17 11:34 (Lactulose Liq) 30 ml QID PO 02/12/17 16:30 02/13/17 13:24 Midazolam HCl 100 ml @ 2 mls/hr TITRATE PRN IV 02/12/17 21:00 Fentanyl Citrate 250 ml @ 5 mls/hr TITRATE PRN IV 02/12/17 21:00 02/13/17 15:07 (Dolophine) 50 mg DAILY PO 02/13/17 09:00 02/13/17 08:19 Acyclovir Sodium 530 mg/Sodium Chloride 100 ml @ 100 mls/hr Q24H IV 02/14/17 11:00 Family History PAST FAMILY HISTORY: Reviewed. No h/o DM or CAD Substance Use Tobacco: Alcohol: Prescription med abuse: Illicits: Psychosocial History . Lives with son. . Spiritual/Cultural Factors None. . (Elizabeth Cooper) Living Will: Copy in medical record Health Care Surrogate: Copy in medical record Health Care Surrogate(s): Living Will and HCS scanned into EMR. Designated health care surrogate, Michael Hernández. . Today's verbally stated goals: Patient incapacitated, not likely to regain capacity. . Family/friends goals: NO CODE and NO DIALYSIS for now. Will speak again on 02/14/17 per family request. . Ethical and Legal Issues Living Will and HCS scanned into EMR. Designated health care surrogate, Michael Hernández. . (Elizabeth Cooper) Physical Exam Vital Signs Date Time Temp Pulse Resp B/P (MAP) Pulse Ox O2 Delivery O2 Flow Rate FiO2 02/13/17 14:58 100 40 02/13/17 14:00 108 02/13/17 12:00 97.8 109 13 100/66 (77) 100 02/13/17 12:00 109 02/13/17 12:00 40 02/13/17 11:31 99 40 02/13/17 11:00 93 13 93/61 (72) 100 02/13/17 10:00 97 02/13/17 10:00 97 16 110/71 (84) 100 02/13/17 09:00 100 15 107/70 (82) 100 02/13/17 08:24 97.4 97 20 133/69 (90) 97 02/13/17 08:00 98.8 95 13 100/68 (79) 100 02/13/17 08:00 40 02/13/17 08:00 95 02/13/17 07:30 100 40 02/13/17 07:00 95 13 119/69 (86) 100 02/13/17 06:00 92 02/13/17 04:13 100 40 02/13/17 04:00 40 02/13/17 04:00 98.7 117 20 118/79 (92) 100 02/13/17 04:00 117 02/13/17 02:00 114 02/13/17 01:11 100 40 02/13/17 00:00 100 02/13/17 00:00 40 02/13/17 00:00 98.6 100 16 130/82 (98) 100 02/12/17 22:00 105 02/12/17 20:38 100 40 02/12/17 20:00 101 02/12/17 20:00 40 02/12/17 20:00 98.8 101 29 141/90 (107) 100 02/12/17 18:00 99 24 119/77 (91) 100 02/12/17 18:00 99 02/12/17 17:22 40 02/12/17 17:00 96 38 149/106 (120) 100 02/12/17 16:00 40 02/12/17 16:00 96 02/12/17 16:00 97.8 96 14 149/79 (102) 100 02/13/17 02/14/17 19:00 07:00 Intake Total 968 ml Output Total 750 ml Balance 218 ml IV Total 393 ml Tube Feeding 475 ml Other 100 ml Stool Total 750 ml Exam CONSTITUTIONAL/GENERAL: This is a critically, chronically ill patient, sedated on mech vent. TUBES/LINES/DRAINS: ETT, OG, wrist restraints, colostomy, Ball, PIV x 2, podus boots. SKIN: No jaundice, rashes, or lesions. Ecchymoses on upper extremities. No wounds seen anteriorly. Skin temperature appropriate. Not diaphoretic. HEAD: Atraumatic. Normocephalic. Temporal wasting. EYES: Pupils equal and round and reactive. No scleral icterus. No injection or drainage. ENT: Unable to hearing. Nose without bleeding or purulent drainage. Throat difficult to visualize due to tubes. Mucous membranes are moist. NECK: Trachea midline. CARDIOVASCULAR: Tachycardic. No JVD. RESPIRATORY/CHEST: Symmetric, unlabored respirations on mech vent. Clear to auscultation. GASTROINTESTINAL: Abdomen soft, nondistended. Colostomy patent. GENITOURINARY: Without palpable bladder distension. Ball catheter in place. MUSCULOSKELETAL: Cachectic. Extremities without clubbing, cyanosis, or edema. No mottling or clubbing. LYMPHATICS: No palpable cervical or supraclavicular adenopathy. NEUROLOGICAL: Sedated. Grimaces to deep sternal rub. Does not open eyes. Does not follow commands. PSYCHIATRIC: Sedated. . (Elizabeth Cooper) Diagnostic Tests Laboratory Laboratory Tests Test 02/11/17 06:39 02/12/17 06:37 02/12/17 09:32 02/12/17 10:20 Blood Urea Nitrogen 21 MG/DL (7-18) 26 MG/DL (7-18) Creatinine 1.84 MG/DL (0.60-1.30) 2.83 MG/DL (0.60-1.30) Random Glucose 98 MG/DL (74-106) 109 MG/DL (74-106) Calcium Level 8.1 MG/DL (8.5-10.1) 8.6 MG/DL (8.5-10.1) Sodium Level 137 MEQ/L (136-145) 135 MEQ/L (136-145) Potassium Level 5.0 MEQ/L (3.5-5.1) 5.6 MEQ/L (3.5-5.1) Chloride Level 105 MEQ/L (98-107) 104 MEQ/L (98-107) Carbon Dioxide Level 20.2 MEQ/L (21.0-32.0) 19.0 MEQ/L (21.0-32.0) Anion Gap 12 MEQ/L (5-15) 12 MEQ/L (5-15) Estimat Glomerular Filtration Rate 38 ML/MIN (>89) 23 ML/MIN (>89) Phenytoin (Dilantin) Level 2.7 MCG/ML (10.0-20.0) White Blood Count 21.9 TH/MM3 (4.0-11.0) Red Blood Count 4.10 MIL/MM3 (4.50-5.90) Hemoglobin 12.6 GM/DL (13.0-17.0) Hematocrit 37.6 % (39.0-51.0) Mean Corpuscular Volume 91.7 FL (80.0-100.0) Mean Corpuscular Hemoglobin 30.7 PG (27.0-34.0) Mean Corpuscular Hemoglobin Concent 33.5 % (32.0-36.0) Red Cell Distribution Width 14.5 % (11.6-17.2) Platelet Count 570 TH/MM3 (150-450) Mean Platelet Volume 8.0 FL (7.0-11.0) Neutrophils (%) (Auto) 82.1 % (16.0-70.0) Lymphocytes (%) (Auto) 10.3 % (9.0-44.0) Monocytes (%) (Auto) 7.2 % (0.0-8.0) Eosinophils (%) (Auto) 0.1 % (0.0-4.0) Basophils (%) (Auto) 0.3 % (0.0-2.0) Neutrophils # (Auto) 18.0 TH/MM3 (1.8-7.7) Lymphocytes # (Auto) 2.3 TH/MM3 (1.0-4.8) Monocytes # (Auto) 1.6 TH/MM3 (0-0.9) Eosinophils # (Auto) 0.0 TH/MM3 (0-0.4) Basophils # (Auto) 0.1 TH/MM3 (0-0.2) CBC Comment AUTO DIFF Differential Comment AUTO DIFF CONFIRMED Platelet Estimate HIGH (NORMAL) Platelet Morphology Comment NORMAL (NORMAL) Total Protein 7.6 GM/DL (6.4-8.2) Albumin 2.9 GM/DL (3.4-5.0) Phosphorus Level 2.8 MG/DL (2.5-4.9) Magnesium Level 0.7 MG/DL (1.5-2.5) Alkaline Phosphatase 135 U/L (45-117) Aspartate Amino Transf (AST/SGOT) 17 U/L (15-37) Alanine Aminotransferase (ALT/SGPT) 19 U/L (12-78) Total Bilirubin 0.6 MG/DL (0.2-1.0) Direct Bilirubin 0.2 MG/DL (0.0-0.2) Lactic Acid Level 1.5 mmol/L (0.4-2.0) Indirect Bilirubin 0.4 MG/DL (0.0-0.8) Ammonia 13 MCMOL/L (11-32) Blood Gas Puncture Site LT BRACHIAL Blood Gas Patient Temperature 98.6 Blood Gas HCO3 19 mmol/L (22-26) Blood Gas Base Excess -3.5 mmol/L (-2-2) Blood Gas Oxygen Saturation 96 % (90-100) Arterial Blood pH 7.55 (7.380-7.420) Arterial Blood Partial Pressure CO2 21 mmHg (38-42) Arterial Blood Partial Pressure O2 98 mmHg (61-120) Arterial Blood Oxygen Content 18.0 Vol % (12.0-20.0) Arterial Blood Carboxyhemoglobin 1.0 % (0-4) Arterial Blood Methemoglobin 0.9 % (0-2) Blood Gas Hemoglobin 13.3 G/DL (12.0-16.0) Blood Gas Inspired Oxygen 21 % Test 02/12/17 15:20 02/12/17 16:30 02/13/17 07:30 02/13/17 07:50 CSF Volume (Tube 1) 2.0 ML CSF Supernatant Color (tube 1) CLEAR (CLEAR) CSF Gross Blood (Tube 1) 0 (0) CSF Volume (Tube 2) 2.5 ML CSF Supernatant Color (tube 2) CLEAR (CLEAR) CSF Gross Blood (Tube 2) 0 (0) CSF Volume (Tube 3) 2.5 ML CSF Supernatant Color (tube 3) CLEAR (CLEAR) CSF Gross Blood (Tube 3) 0 (0) CSF Volume (Tube 4) 4.5 ML CSF Supernatant Color (tube 4) CLEAR (CLEAR) CSF Gross Blood (Tube 4) 0 (0) CSF WBC (Tube 4) 2 /MM3 (0-10) CSF RBC (Tube 4) 0 /MM3 (NONE) CSF Neutrophils 0 % CSF Lymphocytes 100 % CSF Glucose 70 MG/DL (40-80) CSF Total Protein 62.6 MG/DL (15.0-45.0) Urine Color YELLOW (YELLW/STRAW) Urine Turbidity CLOUDY (CLEAR) Urine pH 6.5 (5.0-8.5) Urine Specific [place] 1.025 (1.002-1.035) Urine Protein 300 mg/dL (NEG-TRACE) Urine Glucose (UA) NEG mg/dL (NEG) Urine Ketones NEG mg/dL (NEG) Urine Occult Blood MOD (NEG) Urine Nitrite POS (NEG) Urine Bilirubin NEG (NEG) Urine Urobilinogen LESS THAN 2.0 MG/DL (LESS Urine Leukocyte Esterase LARGE (NEG) Urine RBC 95 /hpf (0-3) Urine WBC /hpf (0-5) Urine WBC Clumps MANY (NONE) Urine Squamous Epithelial Cells 8 /hpf (0-5) Urine Transitional Epithelial Cells 1 /hpf (NONE) Urine Renal Epithelial Cells 1 /hpf (NONE) Urine Bacteria MANY /hpf (NONE) Urine Mucus FEW /lpf (OCC) Microscopic Urinalysis Comment CATH-CULTURE IND White Blood Count 19.7 TH/MM3 (4.0-11.0) Red Blood Count 3.69 MIL/MM3 (4.50-5.90) Hemoglobin 11.2 GM/DL (13.0-17.0) Hematocrit 34.8 % (39.0-51.0) Mean Corpuscular Volume 94.3 FL (80.0-100.0) Mean Corpuscular Hemoglobin 30.3 PG (27.0-34.0) Mean Corpuscular Hemoglobin Concent 32.2 % (32.0-36.0) Red Cell Distribution Width 15.2 % (11.6-17.2) Platelet Count 331 TH/MM3 (150-450) Mean Platelet Volume 9.1 FL (7.0-11.0) Neutrophils (%) (Auto) 73.9 % (16.0-70.0) Lymphocytes (%) (Auto) 10.9 % (9.0-44.0) Monocytes (%) (Auto) 13.5 % (0.0-8.0) Eosinophils (%) (Auto) 0.3 % (0.0-4.0) Basophils (%) (Auto) 1.4 % (0.0-2.0) Neutrophils # (Auto) 14.6 TH/MM3 (1.8-7.7) Lymphocytes # (Auto) 2.2 TH/MM3 (1.0-4.8) Monocytes # (Auto) 2.7 TH/MM3 (0-0.9) Eosinophils # (Auto) 0.1 TH/MM3 (0-0.4) Basophils # (Auto) 0.3 TH/MM3 (0-0.2) CBC Comment AUTO DIFF Differential Comment AUTO DIFF CONFIRMED Ovalocytes 1+ (NORMAL) Hematology Comments Blood Urea Nitrogen 32 MG/DL (7-18) Creatinine 3.68 MG/DL (0.60-1.30) Random Glucose 122 MG/DL (74-106) Total Protein 5.9 GM/DL (6.4-8.2) Calcium Level 7.3 MG/DL (8.5-10.1) Sodium Level 142 MEQ/L (136-145) Potassium Level 5.5 MEQ/L (3.5-5.1) Chloride Level 109 MEQ/L (98-107) Carbon Dioxide Level 20.8 MEQ/L (21.0-32.0) Anion Gap 12 MEQ/L (5-15) Estimat Glomerular Filtration Rate 17 ML/MIN (>89) Protein Corrected Calcium 7.9 MG/DL (8.5-10.1) Phenytoin (Dilantin) Level 12.0 MCG/ML (10.0-20.0) (Elizabeth Cooper) Result Diagram: 02/13/17 0730 02/13/17 0750 Microbiology Microbiology Date/Time Source Procedure Growth Status 02/12/17 13:40 Blood Peripheral Aerobic Blood Culture - Preliminary NO GROWTH IN 1 DAY Resulted 02/12/17 13:40 Blood Peripheral Anaerobic Blood Culture - Preliminary NO GROWTH IN 1 DAY Resulted 02/12/17 13:30 Blood Peripheral Aerobic Blood Culture - Preliminary NO GROWTH IN 1 DAY Resulted 02/12/17 13:30 Blood Peripheral Anaerobic Blood Culture - Preliminary NO GROWTH IN 1 DAY Resulted 02/12/17 15:20 Cerebral Spinal Fluid Lumbar Puncture Gram Stain - Final Resulted 02/12/17 15:20 Cerebral Spinal Fluid Lumbar Puncture CSF Culture - Preliminary NO GROWTH IN 24 HOURS. Resulted 02/12/17 17:30 Sputum Endotracheal Gram Stain - Final Resulted 02/12/17 17:30 Sputum Culture - Preliminary S. Aureus Mrsa Resulted 02/12/17 16:30 Urine Catheterized Urine Urine Culture - Preliminary S. Aureus Mrsa Resulted Imaging Last Impressions Chest X-Ray 02/12/17 0000 Signed Impressions: Service Date/Time: Sunday, February 12, 2017 16:04 - CONCLUSION: 1. Satisfactory position of endotracheal and nasogastric tubes. 2. No acute cardiopulmonary process. Emerson Reyes MD Head CT 02/06/17 0000 Signed Impressions: Service Date/Time: Monday, February 06, 2017 11:05 - CONCLUSION: Normal examination. Ran Hurley MD Brain MRI 02/06/17 0000 Signed Impressions: Service Date/Time: Monday, February 06, 2017 15:56 - CONCLUSION: 1. Suboptimal examination secondary to motion artifact. 2. No evidence of acute hemorrhage, mass or infarction. 3. Moderate atrophic change and chronic small vessel ischemic changes. 4. The left maxillary sinus is opacified and there is opacification of several ethmoidal air cells. Mychal Harper MD Renal Ultrasound 02/04/17 0000 Signed Impressions: Service Date/Time: Saturday, February 04, 2017 13:53 - CONCLUSION: Probable mild medical renal disease without hydronephrosis. Sid Ang MD FACR Procedures * 02/12/17 - Intubated and Lumbar puncture. . (Elizabeth Cooper) Patient/Family Conference Present at Family Conference: Spoke with Michael Hernández via phone. . Family Conference Time (mins): 45 Family Conference Location: Telephone Issues Discussed: * Palliative care role, purpose, approach * Additional medical, psychosocial, and spiritual history * Patients general health, functional status, and cognitive changes in the months leading up to the current hospitalization * Patient/family understanding of the current medical problems * Patient/family understanding of prognosis * Patients goals of care as best understood from advance directives and/or conversations and/or values * Current medical treatment options and benefits/burdens of those options * Likely scenarios comparing ongoing aggressive care with a transition to comfort measures only * Questions answered to the best of my ability * Palliative care contact information provided 02/13/17: Spoke with THI Santos via phone. He elects NO CODE and NO DIALYSIS. Will speak again after CT brain results. He acknowledges patient decline prior to admission and "knows the patient has been ready to and didn 't even want him to call 911." He states "I just couldn't let him lay on the couch and ." He requests follow up palliative care call on 02/14/17. . (Elizabeth Cooper) Assessment and Plan Pertinent Non-Medical Issues Psychosocial: . Lives with son. Spiritual: None. Legal: Living Will and HCS scanned into EMR. Designated health care surrogate, Michael Hernández. Ethical issues impacting care: No known concerns at this time. . Prognosis 61yM with alcohol abuse and severe metabolic encephalopathy. Likely a large component of hepatic encephalopathy, although cannot rule out organic central process. Appreciate neurology ongoing recommendations. No SBT today given his encephalopathy. Palliative following. Cr rising is another organ system damaged and likely poor prognosis as well. nephrology following. Very critically ill with multiple organs involved and very poor prognosis. He likely will not survive this hospital stay. . Code Status: No Code Plan * Living Will and HCS scanned into EMR. Designated health care surrogate, Michael Hernández. * NO CODE * 02/13/17: Spoke with Michael Hernández [facility] via phone. He elects NO CODE and NO DIALYSIS. Will speak again after CT brain results. He acknowledges patient decline prior to admission and "knows the patient has been ready to and didn 't even want him to call 911." He states "I just couldn't let him lay on the couch and ." He requests follow up palliative care call on 02/14/17. * SYMPTOMS: Dyspnea: on mech vent. Pain: history of chronic pain, debility and now with tubes and decline. On Fentnayl and Diprivan appears comfortable. No neew medication recommendations at this time. * Palliative care number provided. * Palliative care will continue to follow to assist with further clarification of goals. . (Elizabeth Cooper) Thank you for the opportunity to participate in the care of Mr. Dolan. (Elizabeth Cooper) Attestation To help prompt me to consider important information that might be impacting today's encounter and assessment, information from prior notes written by myself or my colleagues may have been "brought forward" into today's note. My signature on this note, however, is an attestation that I personally performed the exam, history, and/or decision-making noted today, and, unless otherwise indicated, the interactions with patient, family, and staff as well as the review of records all occurred today. I also attest that the listed assessment and stated plan reflect my best clinical judgment today based on the combination of historical information, prior notes, and today's exam/ interactions. When time spent is documented, it refers only to time spent today by the signer, or if indicated, combined time spent today by collaborating physician/nurse practitioner. (Elizabeth Cooper) Collaborating MD Comments Chart reviewed. Case discussed with palliative care PHYSICIAN PRACTICE ADMINISTRATOR. Above note reviewed and I concur. . (Devin Mora MD) Elizabeth Cooper Feb 13, 2017 16:01 Devin Mora MD Mar 12, 2017 11:30
[2017-02-13] MEDS ORDERED: VANCOMYCIN INJ 1,100 MG in SODIUM CHLOR 0.9% 250 ML INJ 250 ML IV ONE (16:30)
[2017-02-13] MEDS ORDERED: Vancomycin Consult Pharmacy 1 EA OTHER SCH (16:30)
[2017-02-14] VITALS (25 sets, daily range): BP systolic 93–133; BP diastolic 56–73; PULSE 80–120; RESP 14–28; TEMP 98.3–100.6; O2SAT 98–100
[2017-02-14] MEDS: SODIUM CHLOR 0.9% 1000 ML INJ 1,000 ML IV SCH ×3 (01:38→18:36)
[2017-02-14] MEDS: RESP: ALBUTEROL 2.5 MG/IPRATROPIUM 0.5 MG NEB (SCH) INH ×4 (03:27→21:07)
[2017-02-14] MEDS: HEPARIN SODIUM - SQ 10,000 UNITS/ML VIAL SQ SCH ×2 (05:28→13:13)
[2017-02-14] MEDS: PROPOFOL 1000 MG/100 ML IV PRN ×2 (05:29→12:30)
[2017-02-14] MEDS: INSULIN NovoLIN REGULAR SUPPLEMENTAL SCALE SQ SCH ×4 (06:00→18:00)
[2017-02-14] MEDS: CHLORHEXIDINE 0.12% (ORAL KIT) 15 ML CUP MT SCH ×2 (08:00→20:00)
[2017-02-14] MEDS: SODIUM CHLORIDE 0.9% FLUSH 10 ML FLUSH IV FLUSH SCH ×2 (09:00→20:50)
[2017-02-14] MEDS: LACTULOSE SYRUP 20 GM/30 ML CUP PO SCH ×5 (09:00→20:50)
[2017-02-14] MEDS: FOSPHENYTOIN SODIUM 100 MG PE/2 ML VIAL IV SCH ×2 (09:00→20:50)
[2017-02-14] MEDS: METHADONE HCL 10 MG TAB PO SCH (09:20)
[2017-02-14] MEDS: FOLIC ACID 1 MG TAB PO SCH (09:20)
[2017-02-14] MEDS: DOCUSATE SODIUM 50 MG/SENNA 8.6 MG TAB PO SCH ×2 (09:20→20:50)
[2017-02-14] MEDS: THIAMINE INJ 100 MG in SODIUM CHLORIDE 0.9% INJ 100 ML IV SCH (09:20)
[2017-02-14] MEDS: CYANOCOBALAMIN 100 MCG TAB PO SCH (09:21)
[2017-02-14] MEDS: fentaNYL DRIP 250 ML IV PRN (09:43)
[2017-02-14] MEDS: SODIUM CHLORIDE 0.9% IV SCH (11:05)
[2017-02-14] MEDS: ACYCLOVIR IV SCH (11:05)
[2017-02-14 12:06] LABS: POTASSIUM 3.7 MEQ/L (3.5-5.1)
--- NOTE | 2017-02-14 12:54 | HHI.HCPN ---
Reason for visit a. To assist with evaluation and management of symptoms including: dyspnea, pain. b. To assist medical decision maker(s) with: better understanding of current medical conditions; weighing benefits/burdens of medical treatment options; making medical treatment decisions. . (Elizabeth Cooper) Subjective/Interval History Patient seen and examined in ICU. No family at bedside. Patient remains sedated on mech vent. Tmax 100.6. BP 96/62. FiO2 40%. CBC results pending. Creatinine 2.49. Urine and sputum cultures positive MDRO MRSA. No new imaging. . Family/friend interactions Will call family after I am able to speak with circular sawyer stone. 2pm: Spoke with Dr. Osborne, wants to reevaluate status in another 24 hours to better prognosticate. Left message for Michael Hernández to provide medical update. . (Elizabeth Cooper) Advance Directives Living Will: Copy in medical record Health Care Surrogate: Copy in medical record (Elizabeth Cooper) Advance Directive Specifics Health Care Surrogate(s): Living Will and HCS scanned into EMR. Designated health care surrogate, Michael Hernández. . Significant change in goals: NO CODE, NO DIALYSIS, further treatment goals will be clarified as needed. . (Elizabeth Cooper) Objective Vital Signs Date Time Temp Pulse Resp B/P (MAP) Pulse Ox O2 Delivery O2 Flow Rate FiO2 02/14/17 11:24 99 40 02/14/17 10:00 88 02/14/17 09:00 92 02/14/17 08:09 100 40 02/14/17 08:00 40 02/14/17 08:00 90 02/14/17 08:00 99.6 90 26 96/62 (73) 100 02/14/17 07:00 102 02/14/17 06:00 105 02/14/17 04:27 100 40 02/14/17 04:00 40 02/14/17 04:00 115 02/14/17 04:00 99.9 115 14 115/59 (77) 100 02/14/17 02:00 117 02/14/17 00:48 100 40 02/14/17 00:00 96 02/14/17 00:00 40 02/14/17 00:00 100.6 96 18 93/56 (68) 100 02/13/17 22:00 99 02/13/17 20:43 100 40 02/13/17 20:00 100.0 116 16 112/66 (81) 100 02/13/17 20:00 40 02/13/17 20:00 116 02/13/17 18:00 110 02/13/17 16:30 100 100 02/13/17 16:00 109 02/13/17 16:00 98.8 109 29 120/62 (81) 100 02/13/17 16:00 40 02/13/17 15:00 104 13 114/69 (84) 100 02/13/17 14:58 100 40 02/13/17 14:00 108 14 110/68 (82) 100 02/13/17 14:00 108 02/13/17 13:00 109 13 110/72 (85) 100 Intake & Output 02/14/17 02/14/17 07:00 19:00 Intake Total 1720 ml Output Total 2900.0 ml Balance -1180.0 ml IV Total 1461 ml Tube Feeding 199 ml Other 60 ml Output Urine Total 250 ml Stool Total 2550 ml Tube Feeding Residual Discard 100.0 ml Physical Exam CONSTITUTIONAL/GENERAL: This is a critically, chronically ill patient, sedated on mech vent. TUBES/LINES/DRAINS: ETT, OG, wrist restraints, colostomy, Ball, PIV x 2, podus boots. SKIN: No jaundice, rashes, or lesions. Ecchymoses on upper extremities. No wounds seen anteriorly. Skin temperature appropriate. Not diaphoretic. ENT: Unable to hearing. Nose without bleeding or purulent drainage. Throat difficult to visualize due to tubes. Mucous membranes are moist. CARDIOVASCULAR: Tachycardic. No JVD. RESPIRATORY/CHEST: Symmetric, unlabored respirations on mech vent. Clear to auscultation. GASTROINTESTINAL: Abdomen soft, nondistended. Colostomy patent. GENITOURINARY: Without palpable bladder distension. Ball catheter in place. MUSCULOSKELETAL: Cachectic. Extremities without clubbing, cyanosis, or edema. No mottling or clubbing. NEUROLOGICAL: Sedated. Grimaces to deep sternal rub. Does not open eyes. Does not follow commands. PSYCHIATRIC: Sedated. . (Elizabeth Cooper) Diagnostic Tests Laboratory Laboratory Tests Test 02/12/17 06:37 02/12/17 09:32 02/12/17 10:20 02/12/17 15:20 Phenytoin (Dilantin) Level 2.7 MCG/ML (10.0-20.0) White Blood Count 21.9 TH/MM3 (4.0-11.0) Red Blood Count 4.10 MIL/MM3 (4.50-5.90) Hemoglobin 12.6 GM/DL (13.0-17.0) Hematocrit 37.6 % (39.0-51.0) Mean Corpuscular Volume 91.7 FL (80.0-100.0) Mean Corpuscular Hemoglobin 30.7 PG (27.0-34.0) Mean Corpuscular Hemoglobin Concent 33.5 % (32.0-36.0) Red Cell Distribution Width 14.5 % (11.6-17.2) Platelet Count 570 TH/MM3 (150-450) Mean Platelet Volume 8.0 FL (7.0-11.0) Neutrophils (%) (Auto) 82.1 % (16.0-70.0) Lymphocytes (%) (Auto) 10.3 % (9.0-44.0) Monocytes (%) (Auto) 7.2 % (0.0-8.0) Eosinophils (%) (Auto) 0.1 % (0.0-4.0) Basophils (%) (Auto) 0.3 % (0.0-2.0) Neutrophils # (Auto) 18.0 TH/MM3 (1.8-7.7) Lymphocytes # (Auto) 2.3 TH/MM3 (1.0-4.8) Monocytes # (Auto) 1.6 TH/MM3 (0-0.9) Eosinophils # (Auto) 0.0 TH/MM3 (0-0.4) Basophils # (Auto) 0.1 TH/MM3 (0-0.2) CBC Comment AUTO DIFF Differential Comment AUTO DIFF CONFIRMED Platelet Estimate HIGH (NORMAL) Platelet Morphology Comment NORMAL (NORMAL) Blood Urea Nitrogen 26 MG/DL (7-18) Creatinine 2.83 MG/DL (0.60-1.30) Random Glucose 109 MG/DL (74-106) Total Protein 7.6 GM/DL (6.4-8.2) Albumin 2.9 GM/DL (3.4-5.0) Calcium Level 8.6 MG/DL (8.5-10.1) Phosphorus Level 2.8 MG/DL (2.5-4.9) Magnesium Level 0.7 MG/DL (1.5-2.5) Alkaline Phosphatase 135 U/L (45-117) Aspartate Amino Transf (AST/SGOT) 17 U/L (15-37) Alanine Aminotransferase (ALT/SGPT) 19 U/L (12-78) Total Bilirubin 0.6 MG/DL (0.2-1.0) Direct Bilirubin 0.2 MG/DL (0.0-0.2) Sodium Level 135 MEQ/L (136-145) Potassium Level 5.6 MEQ/L (3.5-5.1) Chloride Level 104 MEQ/L (98-107) Carbon Dioxide Level 19.0 MEQ/L (21.0-32.0) Anion Gap 12 MEQ/L (5-15) Estimat Glomerular Filtration Rate 23 ML/MIN (>89) Lactic Acid Level 1.5 mmol/L (0.4-2.0) Indirect Bilirubin 0.4 MG/DL (0.0-0.8) Ammonia 13 MCMOL/L (11-32) Blood Gas Puncture Site LT BRACHIAL Blood Gas Patient Temperature 98.6 Blood Gas HCO3 19 mmol/L (22-26) Blood Gas Base Excess -3.5 mmol/L (-2-2) Blood Gas Oxygen Saturation 96 % (90-100) Arterial Blood pH 7.55 (7.380-7.420) Arterial Blood Partial Pressure CO2 21 mmHg (38-42) Arterial Blood Partial Pressure O2 98 mmHg (61-120) Arterial Blood Oxygen Content 18.0 Vol % (12.0-20.0) Arterial Blood Carboxyhemoglobin 1.0 % (0-4) Arterial Blood Methemoglobin 0.9 % (0-2) Blood Gas Hemoglobin 13.3 G/DL (12.0-16.0) Blood Gas Inspired Oxygen 21 % CSF Volume (Tube 1) 2.0 ML CSF Supernatant Color (tube 1) CLEAR (CLEAR) CSF Gross Blood (Tube 1) 0 (0) CSF Volume (Tube 2) 2.5 ML CSF Supernatant Color (tube 2) CLEAR (CLEAR) CSF Gross Blood (Tube 2) 0 (0) CSF Volume (Tube 3) 2.5 ML CSF Supernatant Color (tube 3) CLEAR (CLEAR) CSF Gross Blood (Tube 3) 0 (0) CSF Volume (Tube 4) 4.5 ML CSF Supernatant Color (tube 4) CLEAR (CLEAR) CSF Gross Blood (Tube 4) 0 (0) CSF WBC (Tube 4) 2 /MM3 (0-10) CSF RBC (Tube 4) 0 /MM3 (NONE) CSF Neutrophils 0 % CSF Lymphocytes 100 % CSF Glucose 70 MG/DL (40-80) CSF Total Protein 62.6 MG/DL (15.0-45.0) Test 02/12/17 16:30 02/13/17 07:30 02/13/17 07:50 02/14/17 06:48 Urine Color YELLOW (YELLW/STRAW) Urine Turbidity CLOUDY (CLEAR) Urine pH 6.5 (5.0-8.5) Urine Specific [place] 1.025 (1.002-1.035) Urine Protein 300 mg/dL (NEG-TRACE) Urine Glucose (UA) NEG mg/dL (NEG) Urine Ketones NEG mg/dL (NEG) Urine Occult Blood MOD (NEG) Urine Nitrite POS (NEG) Urine Bilirubin NEG (NEG) Urine Urobilinogen LESS THAN 2.0 MG/DL (LESS Urine Leukocyte Esterase LARGE (NEG) Urine RBC 95 /hpf (0-3) Urine WBC /hpf (0-5) Urine WBC Clumps MANY (NONE) Urine Squamous Epithelial Cells 8 /hpf (0-5) Urine Transitional Epithelial Cells 1 /hpf (NONE) Urine Renal Epithelial Cells 1 /hpf (NONE) Urine Bacteria MANY /hpf (NONE) Urine Mucus FEW /lpf (OCC) Microscopic Urinalysis Comment CATH-CULTURE IND White Blood Count 19.7 TH/MM3 (4.0-11.0) Red Blood Count 3.69 MIL/MM3 (4.50-5.90) Hemoglobin 11.2 GM/DL (13.0-17.0) Hematocrit 34.8 % (39.0-51.0) Mean Corpuscular Volume 94.3 FL (80.0-100.0) Mean Corpuscular Hemoglobin 30.3 PG (27.0-34.0) Mean Corpuscular Hemoglobin Concent 32.2 % (32.0-36.0) Red Cell Distribution Width 15.2 % (11.6-17.2) Platelet Count 331 TH/MM3 (150-450) Mean Platelet Volume 9.1 FL (7.0-11.0) Neutrophils (%) (Auto) 73.9 % (16.0-70.0) Lymphocytes (%) (Auto) 10.9 % (9.0-44.0) Monocytes (%) (Auto) 13.5 % (0.0-8.0) Eosinophils (%) (Auto) 0.3 % (0.0-4.0) Basophils (%) (Auto) 1.4 % (0.0-2.0) Neutrophils # (Auto) 14.6 TH/MM3 (1.8-7.7) Lymphocytes # (Auto) 2.2 TH/MM3 (1.0-4.8) Monocytes # (Auto) 2.7 TH/MM3 (0-0.9) Eosinophils # (Auto) 0.1 TH/MM3 (0-0.4) Basophils # (Auto) 0.3 TH/MM3 (0-0.2) CBC Comment AUTO DIFF Differential Comment AUTO DIFF CONFIRMED Ovalocytes 1+ (NORMAL) Hematology Comments Blood Urea Nitrogen 32 MG/DL (7-18) Creatinine 3.68 MG/DL (0.60-1.30) Random Glucose 122 MG/DL (74-106) Total Protein 5.9 GM/DL (6.4-8.2) Calcium Level 7.3 MG/DL (8.5-10.1) Sodium Level 142 MEQ/L (136-145) Potassium Level 5.5 MEQ/L (3.5-5.1) Chloride Level 109 MEQ/L (98-107) Carbon Dioxide Level 20.8 MEQ/L (21.0-32.0) Anion Gap 12 MEQ/L (5-15) Estimat Glomerular Filtration Rate 17 ML/MIN (>89) Protein Corrected Calcium 7.9 MG/DL (8.5-10.1) Phenytoin (Dilantin) Level 12.0 MCG/ML (10.0-20.0) 11.7 MCG/ML (10.0-20.0) Random Vancomycin Level 16.6 COMMENT Test 02/14/17 11:12 02/14/17 11:15 Blood Urea Nitrogen 34 MG/DL (7-18) Creatinine 2.49 MG/DL (0.60-1.30) Random Glucose 122 MG/DL (74-106) Calcium Level 7.9 MG/DL (8.5-10.1) Sodium Level 145 MEQ/L (136-145) Potassium Level 3.7 MEQ/L (3.5-5.1) Chloride Level 114 MEQ/L (98-107) Carbon Dioxide Level 23.0 MEQ/L (21.0-32.0) Anion Gap 8 MEQ/L (5-15) Estimat Glomerular Filtration Rate 27 ML/MIN (>89) (Elizabeth Cooper) Result Diagram: 02/13/17 0730 02/14/17 1112 Microbiology Microbiology Date/Time Source Procedure Growth Status 02/12/17 13:40 Blood Peripheral Aerobic Blood Culture - Preliminary NO GROWTH IN 2 DAYS Resulted 02/12/17 13:40 Blood Peripheral Anaerobic Blood Culture - Preliminary NO GROWTH IN 2 DAYS Resulted 02/12/17 13:30 Blood Peripheral Aerobic Blood Culture - Preliminary NO GROWTH IN 2 DAYS Resulted 02/12/17 13:30 Blood Peripheral Anaerobic Blood Culture - Preliminary NO GROWTH IN 2 DAYS Resulted 02/12/17 15:20 Cerebral Spinal Fluid Lumbar Puncture Gram Stain - Final Resulted 02/12/17 15:20 Cerebral Spinal Fluid Lumbar Puncture CSF Culture - Preliminary NO GROWTH IN 48 HOURS. Resulted 02/12/17 17:30 Sputum Endotracheal Gram Stain - Final Complete 02/12/17 17:30 Sputum Culture - Final S. Aureus Mrsa Complete 02/12/17 16:30 Urine Catheterized Urine Urine Culture - Final S. Aureus Mrsa Complete Imaging Last Impressions Head CT 02/12/17 0000 Signed Impressions: Service Date/Time: Monday, February 13, 2017 15:41 - CONCLUSION: 1. Senescent changes with redemonstration of moderate periventricular small vessel ischemic white matter demyelination. 2. No acute intracranial abnormality or significant interval change. Sebastian Lopez MD Chest X-Ray 02/12/17 0000 Signed Impressions: Service Date/Time: Sunday, February 12, 2017 16:04 - CONCLUSION: 1. Satisfactory position of endotracheal and nasogastric tubes. 2. No acute cardiopulmonary process. Emerson Reyes MD Brain MRI 02/06/17 0000 Signed Impressions: Service Date/Time: Monday, February 06, 2017 15:56 - CONCLUSION: 1. Suboptimal examination secondary to motion artifact. 2. No evidence of acute hemorrhage, mass or infarction. 3. Moderate atrophic change and chronic small vessel ischemic changes. 4. The left maxillary sinus is opacified and there is opacification of several ethmoidal air cells. Mychal Harper MD Renal Ultrasound 02/04/17 0000 Signed Impressions: Service Date/Time: Saturday, February 04, 2017 13:53 - CONCLUSION: Probable mild medical renal disease without hydronephrosis. Sid Ang MD FACR Procedures * 02/12/17 - Intubated and Lumbar puncture. . (Elizabeth Cooper) Assessment and Plan Disease Oriented Problem List: (1) Acute respiratory failure with hypoxia (2) Encephalopathy acute (3) ARF (acute renal failure) Symptom Scale: (1) Chronic pain 0-10 Scale: Unable to quantify (2) Encephalopathy acute 0-10 Scale: Unable to quantify Pertinent Non-Medical Issues Psychosocial: . Lives with son. Spiritual: None. Legal: Living Will and HCS scanned into EMR. Designated health care surrogate, Michael Hernández. Ethical issues impacting care: No known concerns at this time. . Important Contacts * Michael H[place]ington, [facility], son: [phone] . Prognosis 61yM with alcohol abuse and severe metabolic encephalopathy. Likely a large component of hepatic encephalopathy, although cannot rule out organic central process. Appreciate neurology ongoing recommendations. No SBT today given his encephalopathy. Palliative following. Cr rising is another organ system damaged and likely poor prognosis as well. nephrology following. Very critically ill with multiple organs involved and very poor prognosis. He likely will not survive this hospital stay. . Code Status: No Code Plan * Living Will and HCS scanned into EMR. Designated health care surrogate, Michael Hernández. * NO CODE * 02/13/17: Spoke with THI Santos via phone. He elects NO CODE and NO DIALYSIS. Will speak again after CT brain results. He acknowledges patient decline prior to admission and "knows the patient has been ready to and didn 't even want him to call 911." He states "I just couldn't let him lay on the couch and ." * 02/14/17: Spoke with Dr. Osborne, wants to reevaluate status in another 24 hours to better prognosticate. Left message for Michael to provide medical update. * SYMPTOMS: Dyspnea: on mech vent. Pain: history of chronic pain, debility and now with tubes and decline. On Fentnayl and Diprivan appears comfortable. No new medication recommendations at this time, plan to wean sedation. * Palliative care will continue to follow to assist with further clarification of goals. . (Elizabeth Cooper) Attestation To help prompt me to consider important information that might be impacting today's encounter and assessment, information from prior notes written by myself or my colleagues may have been "brought forward" into today's note. My signature on this note, however, is an attestation that I personally performed the exam, history, and/or decision-making noted today, and, unless otherwise indicated, the interactions with patient, family, and staff as well as the review of records all occurred today. I also attest that the listed assessment and stated plan reflect my best clinical judgment today based on the combination of historical information, prior notes, and today's exam/ interactions. When time spent is documented, it refers only to time spent today by the signer, or if indicated, combined time spent today by collaborating physician/nurse practitioner. (Elizabeth Cooper) Collaborating MD Comments Chart reviewed. Case discussed with palliative care LAWYER CRIMINAL. Above note reviewed and I concur. . (Devin Mora MD) Elizabeth Cooper Feb 14, 2017 12:54 Devin Mora MD Mar 12, 2017 11:39
--- NOTE | 2017-02-14 14:05 | HHI.CCPN ---
Subjective Remarks/Hospital Course Hospital Course: This is a 61yM with htn, chronic pain on methadone, anxiety, depression, etoh abuse who was previously on Hospice care but taken out of Hospice. Admitted after he became worseningly lethargic and was brought in by EMS. His inpatient admission includes a worsening acute kidney injury, and worsening encephalopathy. Today, his mental status declined and he was transferred to the ICU. When I evaluated the patient, he was obtunded, GCS of 6, I intubated the patient (see separate procedure note for details). At the request of Neurology, I performed LP. No additional history is obtainable from the patient secondary to his encephalopathy. subjective: 02/13: no improvements in encephalopathy. CSF with 100 lymphocytes, elevated protein, possibly consistent with a viral process, but opening pressure not elevated. Cr continues to rise despite + fluid balance. nephrology following. 02/14 Remains encephalopathic on sedation. Withdraws to pain. HSV pending. Creat improving. No HD per son. Currently remains DNR. Hb dropped from 11.2 to 8.5. No obvious GI bleed. Sputum and urine culture growing MRSA Objective Vital Signs Date Time Temp Pulse Resp B/P (MAP) Pulse Ox O2 Delivery O2 Flow Rate FiO2 02/14/17 11:24 99 40 02/14/17 10:00 88 02/14/17 08:00 99.6 26 96/62 (73) Intake and Output 02/14/17 02/14/17 02/15/17 08:00 16:00 00:00 Intake Total 1359 ml Output Total 2800 ml Balance -1441 ml Result Diagram: 02/13/17 0730 02/14/17 1112 Other Results Microbiology Date/Time Source Procedure Growth Status 02/12/17 17:30 Sputum Endotracheal Gram Stain - Final Complete 02/12/17 17:30 Sputum Culture - Final S. Aureus Mrsa Complete 02/12/17 16:30 Urine Catheterized Urine Urine Culture - Final S. Aureus Mrsa Complete Imaging Last Impressions Chest X-Ray 02/12/17 0000 Signed Impressions: Service Date/Time: Sunday, February 12, 2017 09:14 - CONCLUSION: No acute cardiopulmonary abnormality is identified. Dylon Cortez MD Head CT 02/06/17 0000 Signed Impressions: Service Date/Time: Monday, February 06, 2017 11:05 - CONCLUSION: Normal examination. Ran Hurley MD Brain MRI 02/06/17 0000 Signed Impressions: Service Date/Time: Monday, February 06, 2017 15:56 - CONCLUSION: 1. Suboptimal examination secondary to motion artifact. 2. No evidence of acute hemorrhage, mass or infarction. 3. Moderate atrophic change and chronic small vessel ischemic changes. 4. The left maxillary sinus is opacified and there is opacification of several ethmoidal air cells. Mychal Harper MD Renal Ultrasound 02/04/17 0000 Signed Impressions: Service Date/Time: Saturday, February 04, 2017 13:53 - CONCLUSION: Probable mild medical renal disease without hydronephrosis. Sid Ang MD FACR Objective Remarks GENERAL: Frail elderly male, lying in bed, intubated, sedated. HEENT: Normocephalic. Atraumatic. Pupils equal, round, reactive, conjugate. Mucous membranes are moist NECK: Trachea is midline. There is no JVD. CHEST: Equal chest rise. Clear to auscultation CARDIOVASCULAR: Regular rhythm. Sinus by telemetry. No murmurs ABDOMEN: Soft, nontender, nondistended. No guarding. MUSCULOSKELETAL: Pulses 2+. No peripheral edema. NEUROLOGICAL: RASS -4. Grimaces to deep sternal rub. Does not open eyes. Does not follow commands. Withdraws x four. A/P Assessment and Plan Assessment: 61yM with alcohol abuse and severe metabolic encephalopathy. Appreciate neurology ongoing recommendations. No SBT given his encephalopathy. Palliative following. Nephrology following. Very critically ill with multiple organs involved and very poor prognosis. DNR at this time and family refused HD Plan: Severe acute encephalopathy- likely metabolic, vs hepatic - frequent neuro checks. DC all continuos sedation - await CSF cultures neg to date - f/u HSV - abx - lactulose - Neurology following Acute hypoxic respiratory failure - vent bundle - hob at 30 degrees - no sbt given encephalopathy - wean fio2 for spo2 > 90% Severe sepsis - Sputum and urine culture positive for MRSA - Continue pharmacy dosed vancomycin - Continue acyclovir until HSV labs resulted and negative Acute kidney injury - nephrology on board. Son Refuses dialysis - appears clinically euvolemic Anemia, rule out GIB - Place on Protonix 40 mg IV BID - Type and screen, send Hemoccult - No GI consult unless obvious GIB This patient remains critically ill with one or more organ systems which are or may become a threat to life. I have spent in excess of 32 minutes discontinuously in the care and management of this patient. This time is exclusive of procedures, and includes, but is not limited to, evaluation of the patient, review of the medical record, discussions with family, consultants, nursing staff, or respiratory therapy, and documentation in the medical record. Davion Osborne MD Feb 14, 2017 14:05
[2017-02-14 14:23] LABS: AUTOMATED NEUTROPHIL # 7.2 TH/MM3 (1.8-7.7); BASOPHIL % 0.5 % (0.0-2.0); EOSINOPHIL # 0.1 TH/MM3 (0-0.4); EOSINOPHIL % 0.6 % (0.0-4.0); HEMATOCRIT 26.1 % (39.0-51.0); HEMO FLAGS DIFF FINAL; LYMPH % 12.9 % (9.0-44.0); LYMPHOCYTE # 1.3 TH/MM3 (1.0-4.8); MEAN CELL VOLUME 94.4 FL (80.0-100.0); MEAN CORPUSCULAR HEMOGLOBIN 30.7 PG (27.0-34.0); MEAN CORPUSCULAR HGB CONC 32.5 % (32.0-36.0); MONO % 15.5 % (0.0-8.0); NEUT % 70.5 % (16.0-70.0); PLATELET COUNT 292 TH/MM3 (150-450); RED BLOOD COUNT 2.76 MIL/MM3 (4.50-5.90); RED CELL DISTRIBUTION WIDTH 15.1 % (11.6-17.2); WHITE BLOOD COUNT 10.2 TH/MM3 (4.0-11.0)
--- NOTE | 2017-02-14 15:45 | HHI.NPPN ---
Subjective History of Present Illness 61-year-old male with past medical history of hypertension. History of alcoholism, bronchial asthma, anxiety, depression, alcohol abuse and bedridden status with decubitus ulcer, was admitted because of generalized weakness and altered mental status. I was called to see the patient because of elevated BUN and creatinine. Additional Remarks Patient is intubated and sedated, clinically same. Review of Systems General Constitutional: Fatigue Objective Data Data Vital Signs Date Time Temp Pulse Resp B/P (MAP) Pulse Ox O2 Delivery O2 Flow Rate FiO2 02/14/17 14:00 80 02/14/17 13:00 91 02/14/17 12:00 40 02/14/17 12:00 99.0 93 28 133/73 (93) 100 02/14/17 12:00 93 02/14/17 11:24 99 40 02/14/17 11:00 89 02/14/17 10:00 88 02/14/17 09:00 92 02/14/17 08:09 100 40 02/14/17 08:00 40 02/14/17 08:00 90 02/14/17 08:00 99.6 90 26 96/62 (73) 100 02/14/17 07:00 102 02/14/17 06:00 105 02/14/17 04:27 100 40 02/14/17 04:00 40 02/14/17 04:00 115 02/14/17 04:00 99.9 115 14 115/59 (77) 100 02/14/17 02:00 117 02/14/17 00:48 100 40 02/14/17 00:00 96 02/14/17 00:00 40 02/14/17 00:00 100.6 96 18 93/56 (68) 100 02/13/17 22:00 99 02/13/17 20:43 100 40 02/13/17 20:00 100.0 116 16 112/66 (81) 100 02/13/17 20:00 40 02/13/17 20:00 116 02/13/17 18:00 110 02/13/17 16:30 100 100 02/13/17 16:00 109 02/13/17 16:00 98.8 109 29 120/62 (81) 100 02/13/17 16:00 40 -: 02/14/17 1346 02/14/17 1112 Physical Exam General Appearance Remarks Intubated and sedated. Eyes Eye Exam: Pupils Equal Throat Throat Exam: Oral Muc[place] & Moist Neck Neck Exam: Neck Supple Pulmonary Resp Exam: Breath Sounds Equal, No Distress, Decreased Bases Cardiology CV Exam: Regular, Normal Sinus Rhythm Gastrointestinal/Abdomen GI Exam: Soft, Non-Tender, Bowel Sounds Present GI Remarks colostomy bag in place. Extremeties Extremities Exam: No Edema Neurologic Neuro Exam: Sedated Assessment/Plan Assessment Summary: VISHAL/Acute Renal Failure, Dehydration, Hypotension Electrolyte Assessment: Hypokalemia Problem List: (1) Failure to thrive in adult ICD Codes: R62.7 - Adult failure to thrive (2) Hypokalemia ICD Codes: E87.6 - Hypokalemia Status: Acute (3) High output ileostomy ICD Codes: R19.8 - High output ileostomy; Z93.2 - Ileostomy status Status: Acute (4) Anemia ICD Codes: D64.9 - Anemia Status: Acute (5) Hypokalemia ICD Codes: E87.6 - Hypokalemia Status: Acute (6) ARF (acute renal failure) ICD Codes: N17.9 - Acute kidney failure, unspecified Status: Acute Plan Patient has been non oliguric, Creatinine is improving and urine out put is better. K is normalized. Continue IVF, Follow the urine out out and BMP. Avoid Nephrotoxins. CPK is now normalized. Weaning as tolerated. Jessa Melo MD Feb 14, 2017 15:45
[2017-02-14] MEDS: PANTOPRAZOLE SODIUM 40 MG VIAL IV PUSH SCH (17:40)
--- NOTE | 2017-02-14 19:44 | HHI.PR ---
Review/Management Diagnosis/Plan: (1) Uremic encephalopathy ICD Codes: G93.41 - Metabolic encephalopathy; N19 - Unspecified kidney failure Status: Acute Plan: tremors/myoclonus may be related to acute but improving uremia vs etoh withdrawal uremic encephalopathy recs dil 11.7 tremors improved csf reviewed, hsv pcr pending palliative care following follow exam (2) Encephalopathy acute ICD Codes: G93.40 - Encephalopathy, unspecified Status: Acute (3) Seizure ICD Codes: R56.9 - Unspecified convulsions Status: Acute (4) ARF (acute renal failure) ICD Codes: N17.9 - Acute kidney failure, unspecified Status: Acute Subjective Subjective Comments No acute events reported extubated today No headache No chest pain No dyspnea Active Medications Current Medications Medications (Trade) Dose Ordered Sig/Huber Route Start Time Stop Time Status Last Admin (Romazicon Inj) 0.2 mg Q1M PRN IV PUSH 02/03/17 22:45 (NS Flush) 2 ml UNSCH PRN IV FLUSH 02/03/17 22:45 02/13/17 08:16 (NS Flush) 2 ml BID IV FLUSH 02/04/17 09:00 02/14/17 09:00 (Lilliana-Colace) 1 tab BID PO 02/04/17 09:00 02/14/17 09:20 (Milk Of Magnesia Liq) 30 ml Q12H PRN PO 02/03/17 22:45 (Senokot) 17.2 mg Q12H PRN PO 02/03/17 22:45 (Dulcolax Supp) 10 mg DAILY PRN RECTAL 02/03/17 22:45 (Lactulose Liq) 30 ml DAILY PRN PO 02/03/17 22:45 (Heparin Inj) 5,000 units Q8HR SQ 02/10/17 06:00 Future Hold 02/14/17 13:13 (Folate) 1 mg DAILY PO 02/11/17 13:00 02/14/17 09:20 (Vitamin B12) 100 mcg DAILY PO 02/11/17 13:00 02/14/17 09:21 Thiamine HCl 100 mg/Sodium Chloride 101 ml @ 101 mls/hr DAILY IV 02/11/17 15:00 02/14/17 09:20 (Cerebyx Inj) 200 mgpe Q12HR IV 02/12/17 21:00 02/13/17 22:13 Sodium Chloride 1,000 ml @ 125 mls/hr Q8H IV 02/12/17 11:15 02/14/17 18:36 (Duoneb Neb) 1 ampule Q6HR NEB INH 02/12/17 22:00 02/14/17 17:10 (Duoneb Neb) 1 ampule Q2HR NEB PRN INH 02/12/17 16:30 (Peridex 0.12% Liq) 15 ml BID@08,20 MT 02/12/17 20:00 02/14/17 08:00 (D50w (Vial) Inj) 25 ml UNSCH PRN IV PUSH 02/12/17 16:30 (NovoLIN R SUPPLEMENTAL SCALE) 1 Q6HR SQ 02/12/17 18:00 02/13/17 11:34 (Lactulose Liq) 30 ml QID PO 02/12/17 16:30 02/14/17 17:40 (Dolophine) 50 mg DAILY PO 02/13/17 09:00 02/14/17 09:20 Acyclovir Sodium 530 mg/Sodium Chloride 100 ml @ 100 mls/hr Q24H IV 02/14/17 11:00 02/14/17 11:05 Pharmacy Profile Note 0 ml @ 0 mls/hr UNSCH OTHER 02/13/17 16:30 (Protonix Inj) 40 mg Q12H IV PUSH 02/14/17 16:00 02/14/17 17:40 Vancomycin HCl 750 mg/Sodium Chloride 257.5 ml @ 250 mls/hr ONCE ONCE IV 02/15/17 05:00 02/15/17 06:01 Allergies Allergies Coded Allergies tapentadol (Unverified Allergy, Severe, AMNESIA EPISODES, 02/03/17) hydromorphone (Unverified Adverse Reaction, Severe, HALLUCINATIONS, 02/03/17) Review of Systems All other ROS: ROS reviewed as documented in chart Exam I&O / VS 02/14/17 02/14/17 02/15/17 15:00 23:00 07:00 Intake Total 201 ml 647.8 ml Output Total 1750 ml Balance 201 ml -1102.2 ml IV Total 201 ml 135.8 ml Tube Feeding 332 ml Other 180 ml Output Urine Total 400 ml Stool Total 1350 ml Vital Signs Date Time Temp Pulse Resp B/P (MAP) Pulse Ox O2 Delivery O2 Flow Rate FiO2 02/14/17 18:26 100 Nasal Cannula 3 02/14/17 18:00 114 02/14/17 17:00 102 02/14/17 16:03 100 40 02/14/17 16:00 103 02/14/17 16:00 98.8 103 17 126/72 (90) 100 02/14/17 16:00 40 02/14/17 15:45 40 02/14/17 15:45 40 02/14/17 15:00 80 02/14/17 14:00 80 02/14/17 13:00 91 02/14/17 12:00 40 02/14/17 12:00 99.0 93 28 133/73 (93) 100 02/14/17 12:00 93 02/14/17 11:24 99 40 02/14/17 11:00 89 02/14/17 10:00 88 02/14/17 09:00 92 02/14/17 08:09 100 40 02/14/17 08:00 40 02/14/17 08:00 90 02/14/17 08:00 99.6 90 26 96/62 (73) 100 02/14/17 07:00 102 02/14/17 06:00 105 02/14/17 04:27 100 40 02/14/17 04:00 40 02/14/17 04:00 115 02/14/17 04:00 99.9 115 14 115/59 (77) 100 02/14/17 02:00 117 02/14/17 00:48 100 40 02/14/17 00:00 96 02/14/17 00:00 40 02/14/17 00:00 100.6 96 18 93/56 (68) 100 02/13/17 22:00 99 02/13/17 20:43 100 40 02/13/17 20:00 100.0 116 16 112/66 (81) 100 02/13/17 20:00 40 02/13/17 20:00 116 Neurologic: Other Exam Comments more alert, cachectic appearance, mumbles name, minimally follows command, eomi , resists pupillary exam, espana to gravity, no tremors, no clonus, planterflexor Objective Micro and Labs Laboratory Tests Test 02/14/17 06:48 02/14/17 11:12 02/14/17 13:46 Random Vancomycin Level 16.6 Phenytoin (Dilantin) Level 11.7 Blood Urea Nitrogen 34 Creatinine 2.49 Random Glucose 122 Calcium Level 7.9 Sodium Level 145 Potassium Level 3.7 Chloride Level 114 Carbon Dioxide Level 23.0 Anion Gap 8 Estimat Glomerular Filtration Rate 27 White Blood Count 10.2 Red Blood Count 2.76 Hemoglobin 8.5 Hematocrit 26.1 Mean Corpuscular Volume 94.4 Mean Corpuscular Hemoglobin 30.7 Mean Corpuscular Hemoglobin Concent 32.5 Red Cell Distribution Width 15.1 Platelet Count 292 Mean Platelet Volume 8.3 Neutrophils (%) (Auto) 70.5 Lymphocytes (%) (Auto) 12.9 Monocytes (%) (Auto) 15.5 Eosinophils (%) (Auto) 0.6 Basophils (%) (Auto) 0.5 Neutrophils # (Auto) 7.2 Lymphocytes # (Auto) 1.3 Monocytes # (Auto) 1.6 Eosinophils # (Auto) 0.1 Basophils # (Auto) 0.0 CBC Comment DIFF FINAL Differential Comment Date/Time Source Procedure Growth Status 02/12/17 13:40 Blood Peripheral Aerobic Blood Culture - Preliminary NO GROWTH IN 2 DAYS Resulted 02/12/17 13:40 Blood Peripheral Anaerobic Blood Culture - Preliminary NO GROWTH IN 2 DAYS Resulted 02/12/17 15:20 Cerebral Spinal Fluid Lumbar Puncture Gram Stain - Final Resulted 02/12/17 15:20 Cerebral Spinal Fluid Lumbar Puncture CSF Culture - Preliminary NO GROWTH IN 48 HOURS. Resulted 02/12/17 17:30 Sputum Endotracheal Gram Stain - Final Complete 02/12/17 17:30 Sputum Culture - Final S. Aureus Mrsa Complete 02/12/17 16:30 Urine Catheterized Urine Urine Culture - Final S. Aureus Mrsa Complete Vinay Buitrago MD Feb 14, 2017 19:44
[2017-02-14] MEDS: ZIPRASIDONE MESYLATE 20 MG VIAL IM PRN (21:22)
[2017-02-15] VITALS (19 sets, daily range): BP systolic 145–170; BP diastolic 76–93; PULSE 103–126; RESP 20–36; TEMP 97.8–99.3; O2SAT 98–100
[2017-02-15] MEDS: RESP: ALBUTEROL 2.5 MG/IPRATROPIUM 0.5 MG NEB (SCH) INH ×4 (03:12→20:58)
[2017-02-15] MEDS: SODIUM CHLOR 0.9% 1000 ML INJ 1,000 ML IV SCH ×2 (03:40→17:45)
[2017-02-15] MEDS: PANTOPRAZOLE SODIUM 40 MG VIAL IV PUSH SCH ×2 (04:00→16:58)
[2017-02-15] MEDS ORDERED: VANCOMYCIN INJ 750 MG in SODIUM CHLOR 0.9% 250 ML INJ 250 ML IV ONE (05:00)
[2017-02-15] MEDS: INSULIN NovoLIN REGULAR SUPPLEMENTAL SCALE SQ SCH ×4 (06:00→18:00)
--- NOTE | 2017-02-15 06:12 | RADRPT ---
EXAM DATE/TIME: 02/15/2017 04:43 [facility] COMPARISON: CHEST SINGLE AP, February 12, 2017, 16:04. INDICATIONS : Shortness of breath. MEDICAL HISTORY : Hypertension. SURGICAL HISTORY : None. ENCOUNTER: Subsequent ACUITY: 2 weeks PAIN SCORE: Non-responsive. LOCATION: Bilateral chest FINDINGS: Minimal dependent opacity in the lungs likely atelectasis. No. No pneumothorax. Heart size normal. In terval extubation. CONCLUSION: 1. Minimal dependent atelectasis in the lungs. Patient has been extubated. Calvin Keller MD on February 15, 2017 at 6:08 Board Certified Radiologist. This report was verified electronically.
[2017-02-15 07:31] LABS: AUTOMATED NEUTROPHIL # 8.2 TH/MM3 (1.8-7.7); BASOPHIL % 0.3 % (0.0-2.0); EOSINOPHIL % 0.1 % (0.0-4.0); HEMATOCRIT 27.6 % (39.0-51.0); HEMO FLAGS DIFF FINAL; LYMPH % 9.9 % (9.0-44.0); MEAN CELL VOLUME 94.6 FL (80.0-100.0); MEAN CORPUSCULAR HEMOGLOBIN 30.7 PG (27.0-34.0); MEAN CORPUSCULAR HGB CONC 32.4 % (32.0-36.0); MONO % 11.2 % (0.0-8.0); NEUT % 78.5 % (16.0-70.0); PLATELET COUNT 321 TH/MM3 (150-450); RED BLOOD COUNT 2.91 MIL/MM3 (4.50-5.90); RED CELL DISTRIBUTION WIDTH 15.1 % (11.6-17.2); WHITE BLOOD COUNT 10.4 TH/MM3 (4.0-11.0)
--- NOTE | 2017-02-15 07:40 | HHI.CCPN ---
Subjective Remarks/Hospital Course Hospital Course: This is a 61yM with htn, chronic pain on methadone, anxiety, depression, etoh abuse who was previously on Hospice care but taken out of Hospice. Admitted after he became worseningly lethargic and was brought in by EMS. His inpatient admission includes a worsening acute kidney injury, and worsening encephalopathy. Today, his mental status declined and he was transferred to the ICU. When I evaluated the patient, he was obtunded, GCS of 6, I intubated the patient (see separate procedure note for details). At the request of Neurology, I performed LP. No additional history is obtainable from the patient secondary to his encephalopathy. subjective: 02/13: no improvements in encephalopathy. CSF with 100 lymphocytes, elevated protein, possibly consistent with a viral process, but opening pressure not elevated. Cr continues to rise despite + fluid balance. nephrology following. 02/14 Remains encephalopathic on sedation. Withdraws to pain. HSV pending. Creat improving. No HD per son. Currently remains DNR. Hb dropped from 11.2 to 8.5. No obvious GI bleed. Sputum and urine culture growing MRSA 02/15: Extubated yesterday tolerating well respiratory carcamo. Intermittently agitated. Creatinine is pending today Objective Vital Signs Date Time Temp Pulse Resp B/P (MAP) Pulse Ox O2 Delivery O2 Flow Rate FiO2 02/15/17 06:00 109 02/15/17 04:00 97.8 30 145/80 (101) 98 02/14/17 20:13 21 02/14/17 18:26 Nasal Cannula 3 Intake and Output 02/15/17 02/15/17 02/16/17 08:00 16:00 00:00 Intake Total 0 ml Output Total 2200 ml Balance -2200 ml Result Diagram: 02/15/17 0605 02/14/17 1112 Other Results Microbiology Date/Time Source Procedure Growth Status 02/12/17 17:30 Sputum Endotracheal Gram Stain - Final Complete 02/12/17 17:30 Sputum Culture - Final S. Aureus Mrsa Complete 02/12/17 16:30 Urine Catheterized Urine Urine Culture - Final S. Aureus Mrsa Complete Imaging Last Impressions Chest X-Ray 02/12/17 0000 Signed Impressions: Service Date/Time: Sunday, February 12, 2017 09:14 - CONCLUSION: No acute cardiopulmonary abnormality is identified. Dylon Cortez MD Head CT 02/06/17 0000 Signed Impressions: Service Date/Time: Monday, February 06, 2017 11:05 - CONCLUSION: Normal examination. Ran Hurley MD Brain MRI 02/06/17 0000 Signed Impressions: Service Date/Time: Monday, February 06, 2017 15:56 - CONCLUSION: 1. Suboptimal examination secondary to motion artifact. 2. No evidence of acute hemorrhage, mass or infarction. 3. Moderate atrophic change and chronic small vessel ischemic changes. 4. The left maxillary sinus is opacified and there is opacification of several ethmoidal air cells. Mychal Harper MD Renal Ultrasound 02/04/17 0000 Signed Impressions: Service Date/Time: Saturday, February 04, 2017 13:53 - CONCLUSION: Probable mild medical renal disease without hydronephrosis. Sid Ang MD FACR Objective Remarks GENERAL: Frail elderly male, lying in bed, intermittently agitated but follows commands HEENT: Normocephalic. Atraumatic. Pupils equal, round, reactive, conjugate. Mucous membranes are moist NECK: Trachea is midline. There is no JVD. CHEST: Equal chest rise. Few coarse rhonchi CARDIOVASCULAR: Regular rhythm. Sinus by telemetry. No murmurs ABDOMEN: Soft, nontender, nondistended. No guarding. MUSCULOSKELETAL: Pulses 2+. No peripheral edema. NEUROLOGICAL: Alert awake hyperactive. Follows commands on all 4 extremities A/P Assessment and Plan Assessment: 61yM with alcohol abuse and severe metabolic encephalopathy. Appreciate neurology ongoing recommendations. No SBT given his encephalopathy. Palliative following. Nephrology following. Critically ill with multiple organs involved and slowly improving. DNR at this time and family refused HD Plan: Severe acute encephalopathy- likely metabolic, vs hepatic - frequent neuro checks. - CSF cultures neg to date - f/u HSV - abx - lactulose - Neurology following - Use when necessary Haldol for agitation Acute hypoxic respiratory failure - Extubated yesterday tolerating well - DuoNeb as needed - wean fio2 for spo2 > 90% Severe sepsis - Sputum and urine culture positive for MRSA - Continue pharmacy dosed vancomycin - Continue acyclovir until HSV labs resulted and negative Acute kidney injury - nephrology on board. Son Refused dialysis - appears clinically euvolemic - Creatinine is steadily improving today's labs are pending, urine output 1.2 L in 24 hours Anemia, rule out GIB - Continue on Protonix 40 mg IV BID - Type and screen, Hemoccult - No GI consult unless obvious GIB - Hold DVT prophylaxis with heparin Level 2. Reconsult [facility] to assume care 02/15/17. Transfer to floor. Palliative care following. Recommend continued medical treatment given clinical improvement over last 24 hours Davion Osborne MD Feb 15, 2017 07:40
[2017-02-15 07:58] LABS: ALKALINE PHOSPHATASE 94 U/L (45-117); ALT (GPT) 11 U/L (12-78); ANION GAP 10 MEQ/L (5-15); AST (GOT) 19 U/L (15-37); BICARBONATE 23.5 MEQ/L (21.0-32.0); BLOOD UREA NITROGEN 27 MG/DL (7-18); CHLORIDE 118 MEQ/L (98-107); GLOMERULAR FILTRATION RATE 34 ML/MIN (>89); MAGNESIUM 1.3 MG/DL (1.5-2.5); POTASSIUM 3.2 MEQ/L (3.5-5.1); SODIUM (NA) 151 MEQ/L (136-145); TOTAL BILIRUBIN ADULT 0.7 MG/DL (0.2-1.0)
[2017-02-15] MEDS: CHLORHEXIDINE 0.12% (ORAL KIT) 15 ML CUP MT SCH ×2 (08:00→20:00)
[2017-02-15] MEDS ORDERED: POTASSIUM CHLOR 20 MEQ PREMIX 100 ML IV ONE (08:15)
[2017-02-15 08:33] LABS: HSV 1,PCR Negative (Negative)
[2017-02-15] MEDS: SODIUM CHLORIDE 0.9% FLUSH 10 ML FLUSH IV FLUSH SCH ×2 (09:00→20:52)
[2017-02-15] MEDS: FOSPHENYTOIN SODIUM 100 MG PE/2 ML VIAL IV SCH ×2 (09:00→20:42)
[2017-02-15] MEDS: HALOPERIDOL LACTATE 5 MG/ML AMP IV PRN ×2 (09:35→22:36)
[2017-02-15] MEDS: LACTULOSE SYRUP 20 GM/30 ML CUP PO SCH ×4 (09:35→20:52)
[2017-02-15] MEDS: METHADONE HCL 10 MG TAB PO SCH (09:35)
[2017-02-15] MEDS: FOLIC ACID 1 MG TAB PO SCH (09:36)
[2017-02-15] MEDS: DOCUSATE SODIUM 50 MG/SENNA 8.6 MG TAB PO SCH ×2 (09:36→20:42)
[2017-02-15] MEDS: CYANOCOBALAMIN 100 MCG TAB PO SCH (09:36)
--- NOTE | 2017-02-15 09:57 | HHI.NPPN ---
Subjective History of Present Illness 61-year-old male with past medical history of hypertension. History of alcoholism, bronchial asthma, anxiety, depression, alcohol abuse and bedridden status with decubitus ulcer, was admitted because of generalized weakness and altered mental status. I was called to see the patient because of elevated BUN and creatinine. Additional Remarks Patient is now extubated, awake, not fully oriented, not in distress. Review of Systems General Constitutional: Fatigue Objective Data Data Vital Signs Date Time Temp Pulse Resp B/P (MAP) Pulse Ox O2 Delivery O2 Flow Rate FiO2 02/15/17 08:32 98 21 02/15/17 08:00 98.0 105 36 157/93 (114) 02/15/17 08:00 105 02/15/17 07:00 105 02/15/17 06:00 109 02/15/17 04:00 114 02/15/17 04:00 97.8 114 30 145/80 (101) 98 02/15/17 02:00 107 02/15/17 00:00 99.3 126 34 156/83 (107) 100 02/15/17 00:00 126 02/14/17 22:00 120 02/14/17 20:13 99 21 02/14/17 20:00 111 02/14/17 20:00 98.3 111 24 131/72 (91) 98 02/14/17 18:26 100 Nasal Cannula 3 02/14/17 18:00 114 02/14/17 17:00 102 02/14/17 16:03 100 40 02/14/17 16:00 103 02/14/17 16:00 98.8 103 17 126/72 (90) 100 02/14/17 16:00 40 02/14/17 15:45 40 02/14/17 15:45 40 02/14/17 15:00 80 02/14/17 14:00 80 02/14/17 13:00 91 02/14/17 12:00 40 02/14/17 12:00 99.0 93 28 133/73 (93) 100 02/14/17 12:00 93 02/14/17 11:24 99 40 02/14/17 11:00 89 02/14/17 10:00 88 -: 02/15/17 0605 02/15/17 0605 Physical Exam General Appearance: No Acute Distress, Comfortable Eyes Eye Exam: Pupils Equal Throat Throat Exam: Oral Mucosa Cedar & Moist Neck Neck Exam: Neck Supple Pulmonary Resp Exam: Breath Sounds Equal, No Distress, Decreased Bases Cardiology CV Exam: Regular, Normal Sinus Rhythm Gastrointestinal/Abdomen GI Exam: Soft, Non-Tender, Bowel Sounds Present GI Remarks colostomy bag in place. Extremeties Extremities Exam: No Edema Neurologic Neuro Exam: Alert, Awake Assessment/Plan Assessment Summary: VISHAL/Acute Renal Failure, Dehydration, Hypotension Electrolyte Assessment: Hypokalemia Problem List: (1) Failure to thrive in adult ICD Codes: R62.7 - Adult failure to thrive (2) Hypokalemia ICD Codes: E87.6 - Hypokalemia Status: Acute (3) High output ileostomy ICD Codes: R19.8 - High output ileostomy; Z93.2 - Ileostomy status Status: Acute (4) Anemia ICD Codes: D64.9 - Anemia Status: Acute (5) Hypokalemia ICD Codes: E87.6 - Hypokalemia Status: Acute (6) ARF (acute renal failure) ICD Codes: N17.9 - Acute kidney failure, unspecified Status: Acute Plan Patient has been non oliguric, Creatinine continue to improve. and urine out put is better. K was low and replaced. Continue IVF, Follow the urine out out and BMP. Avoid Nephrotoxins. Given one dose of Vanco. Follow the urine out put and BMP. Jessa Melo MD Feb 15, 2017 09:57
--- NOTE | 2017-02-15 11:28 | HHI.HCPN ---
Reason for visit a. To assist with evaluation and management of symptoms including: confusion , weakness, dyspnea, pain. b. To assist medical decision maker(s) with: better understanding of current medical conditions; weighing benefits/burdens of medical treatment options; making medical treatment decisions. . (Elizabeth Cooper) Subjective/Interval History Patient seen and examined in ICU. No family at bedside. Patient was extubated. He is confused, oriented to self only. He is unable to answer most questions. He is restless. He is pulling on gown and trying to get out of bed. Bilateral soft wrist restraints in place. Tachycardic. Afebrile. WBC 10.4. Creatinine decreased from 2.49 to 1.99. Urine and sputum cultures positive MDRO MRSA. CRX minimal dependent atelectasis. . Family/friend interactions Spoke with son, Michael ([facility]) to provide medical update. Advised patient was extubated. Reviewed my conversation with Dr. Osborne who feels we should continue to treat MRSA sputum and urine. Son agrees to plan. He is open to consideration of transition to comfort with hospice in the coming days if further decline or no significant clinical improvement. . (Elizabeth Cooper) Advance Directives Living Will: Copy in medical record Health Care Surrogate: Copy in medical record (Elizabeth Cooper) Advance Directive Specifics Health Care Surrogate(s): Living Will and [facility] scanned into EMR. Designated health care surrogate, Michael Hernández. . Significant change in goals: NO CODE (DNR/DNI). Continue aggressive care for now. Will consider transition to comfort with hospice if no improvement or further decline. . (Elizabeth Cooper) Objective Vital Signs Date Time Temp Pulse Resp B/P (MAP) Pulse Ox O2 Delivery O2 Flow Rate FiO2 02/15/17 10:00 115 02/15/17 09:00 103 02/15/17 08:32 98 21 02/15/17 08:00 98.0 105 36 157/93 (114) 02/15/17 08:00 105 02/15/17 07:00 105 02/15/17 06:00 109 02/15/17 04:00 114 02/15/17 04:00 97.8 114 30 145/80 (101) 98 02/15/17 02:00 107 02/15/17 00:00 99.3 126 34 156/83 (107) 100 02/15/17 00:00 126 02/14/17 22:00 120 02/14/17 20:13 99 21 02/14/17 20:00 111 02/14/17 20:00 98.3 111 24 131/72 (91) 98 02/14/17 18:26 100 Nasal Cannula 3 02/14/17 18:00 114 02/14/17 17:00 102 02/14/17 16:03 100 40 02/14/17 16:00 103 02/14/17 16:00 98.8 103 17 126/72 (90) 100 02/14/17 16:00 40 02/14/17 15:45 40 02/14/17 15:45 40 02/14/17 15:00 80 02/14/17 14:00 80 02/14/17 13:00 91 02/14/17 12:00 40 02/14/17 12:00 99.0 93 28 133/73 (93) 100 02/14/17 12:00 93 02/14/17 11:24 99 40 Intake & Output 02/15/17 02/15/17 07:00 19:00 Intake Total 0 ml Output Total 2200 ml Balance -2200 ml Tube Feeding 0 ml Other 0 ml Output Urine Total 800 ml Stool Total 1400 ml Physical Exam CONSTITUTIONAL/GENERAL: This is a critically, chronically ill patient, restless. TUBES/LINES/DRAINS: wrist restraints, colostomy, Ball, PIV. SKIN: Cachectic. Ecchymoses on upper extremities. No wounds seen anteriorly. Skin temperature appropriate. Not diaphoretic. CARDIOVASCULAR: Tachycardic. No JVD. RESPIRATORY/CHEST: Symmetric, unlabored respirations. Few scattered course breath sounds. GASTROINTESTINAL: Abdomen soft, nondistended. Colostomy patent. GENITOURINARY: Without palpable bladder distension. Ball catheter in place. MUSCULOSKELETAL: Cachectic. NEUROLOGICAL: Confused, oriented to self. Restless, pulling on gown, trying to climb out of bed. Does not follow commands. PSYCHIATRIC: Confused. . (Elizabeth Cooper) Diagnostic Tests Laboratory Laboratory Tests Test 02/12/17 15:20 02/12/17 16:30 02/13/17 07:30 02/13/17 07:50 CSF Volume (Tube 1) 2.0 ML CSF Supernatant Color (tube 1) CLEAR (CLEAR) CSF Gross Blood (Tube 1) 0 (0) CSF Volume (Tube 2) 2.5 ML CSF Supernatant Color (tube 2) CLEAR (CLEAR) CSF Gross Blood (Tube 2) 0 (0) CSF Volume (Tube 3) 2.5 ML CSF Supernatant Color (tube 3) CLEAR (CLEAR) CSF Gross Blood (Tube 3) 0 (0) CSF Volume (Tube 4) 4.5 ML CSF Supernatant Color (tube 4) CLEAR (CLEAR) CSF Gross Blood (Tube 4) 0 (0) CSF WBC (Tube 4) 2 /MM3 (0-10) CSF RBC (Tube 4) 0 /MM3 (NONE) CSF Neutrophils 0 % CSF Lymphocytes 100 % CSF Glucose 70 MG/DL (40-80) CSF Total Protein 62.6 MG/DL (15.0-45.0) Herpes Simplex Virus I DNA (PCR) Negative (Negative) Herpes Simplex Virus II DNA (PCR) Negative (Negative) Urine Color YELLOW (YELLW/STRAW) Urine Turbidity CLOUDY (CLEAR) Urine pH 6.5 (5.0-8.5) Urine Specific [place] 1.025 (1.002-1.035) Urine Protein 300 mg/dL (NEG-TRACE) Urine Glucose (UA) NEG mg/dL (NEG) Urine Ketones NEG mg/dL (NEG) Urine Occult Blood MOD (NEG) Urine Nitrite POS (NEG) Urine Bilirubin NEG (NEG) Urine Urobilinogen LESS THAN 2.0 MG/DL (LESS Urine Leukocyte Esterase LARGE (NEG) Urine RBC 95 /hpf (0-3) Urine WBC /hpf (0-5) Urine WBC Clumps MANY (NONE) Urine Squamous Epithelial Cells 8 /hpf (0-5) Urine Transitional Epithelial Cells 1 /hpf (NONE) Urine Renal Epithelial Cells 1 /hpf (NONE) Urine Bacteria MANY /hpf (NONE) Urine Mucus FEW /lpf (OCC) Microscopic Urinalysis Comment CATH-CULTURE IND White Blood Count 19.7 TH/MM3 (4.0-11.0) Red Blood Count 3.69 MIL/MM3 (4.50-5.90) Hemoglobin 11.2 GM/DL (13.0-17.0) Hematocrit 34.8 % (39.0-51.0) Mean Corpuscular Volume 94.3 FL (80.0-100.0) Mean Corpuscular Hemoglobin 30.3 PG (27.0-34.0) Mean Corpuscular Hemoglobin Concent 32.2 % (32.0-36.0) Red Cell Distribution Width 15.2 % (11.6-17.2) Platelet Count 331 TH/MM3 (150-450) Mean Platelet Volume 9.1 FL (7.0-11.0) Neutrophils (%) (Auto) 73.9 % (16.0-70.0) Lymphocytes (%) (Auto) 10.9 % (9.0-44.0) Monocytes (%) (Auto) 13.5 % (0.0-8.0) Eosinophils (%) (Auto) 0.3 % (0.0-4.0) Basophils (%) (Auto) 1.4 % (0.0-2.0) Neutrophils # (Auto) 14.6 TH/MM3 (1.8-7.7) Lymphocytes # (Auto) 2.2 TH/MM3 (1.0-4.8) Monocytes # (Auto) 2.7 TH/MM3 (0-0.9) Eosinophils # (Auto) 0.1 TH/MM3 (0-0.4) Basophils # (Auto) 0.3 TH/MM3 (0-0.2) CBC Comment AUTO DIFF Differential Comment AUTO DIFF CONFIRMED Ovalocytes 1+ (NORMAL) Hematology Comments Blood Urea Nitrogen 32 MG/DL (7-18) Creatinine 3.68 MG/DL (0.60-1.30) Random Glucose 122 MG/DL (74-106) Total Protein 5.9 GM/DL (6.4-8.2) Calcium Level 7.3 MG/DL (8.5-10.1) Sodium Level 142 MEQ/L (136-145) Potassium Level 5.5 MEQ/L (3.5-5.1) Chloride Level 109 MEQ/L (98-107) Carbon Dioxide Level 20.8 MEQ/L (21.0-32.0) Anion Gap 12 MEQ/L (5-15) Estimat Glomerular Filtration Rate 17 ML/MIN (>89) Protein Corrected Calcium 7.9 MG/DL (8.5-10.1) Phenytoin (Dilantin) Level 12.0 MCG/ML (10.0-20.0) Test 02/14/17 06:48 02/14/17 11:12 02/14/17 13:46 02/15/17 06:05 Random Vancomycin Level 16.6 COMMENT Phenytoin (Dilantin) Level 11.7 MCG/ML (10.0-20.0) 12.6 MCG/ML (10.0-20.0) Blood Urea Nitrogen 34 MG/DL (7-18) 27 MG/DL (7-18) Creatinine 2.49 MG/DL (0.60-1.30) 1.99 MG/DL (0.60-1.30) Random Glucose 122 MG/DL (74-106) 84 MG/DL (74-106) Calcium Level 7.9 MG/DL (8.5-10.1) 7.9 MG/DL (8.5-10.1) Sodium Level 145 MEQ/L (136-145) 151 MEQ/L (136-145) Potassium Level 3.7 MEQ/L (3.5-5.1) 3.2 MEQ/L (3.5-5.1) Chloride Level 114 MEQ/L (98-107) 118 MEQ/L (98-107) Carbon Dioxide Level 23.0 MEQ/L (21.0-32.0) 23.5 MEQ/L (21.0-32.0) Anion Gap 8 MEQ/L (5-15) 10 MEQ/L (5-15) Estimat Glomerular Filtration Rate 27 ML/MIN (>89) 34 ML/MIN (>89) White Blood Count 10.2 TH/MM3 (4.0-11.0) 10.4 TH/MM3 (4.0-11.0) Red Blood Count 2.76 MIL/MM3 (4.50-5.90) 2.91 MIL/MM3 (4.50-5.90) Hemoglobin 8.5 GM/DL (13.0-17.0) 8.9 GM/DL (13.0-17.0) Hematocrit 26.1 % (39.0-51.0) 27.6 % (39.0-51.0) Mean Corpuscular Volume 94.4 FL (80.0-100.0) 94.6 FL (80.0-100.0) Mean Corpuscular Hemoglobin 30.7 PG (27.0-34.0) 30.7 PG (27.0-34.0) Mean Corpuscular Hemoglobin Concent 32.5 % (32.0-36.0) 32.4 % (32.0-36.0) Red Cell Distribution Width 15.1 % (11.6-17.2) 15.1 % (11.6-17.2) Platelet Count 292 TH/MM3 (150-450) 321 TH/MM3 (150-450) Mean Platelet Volume 8.3 FL (7.0-11.0) 8.2 FL (7.0-11.0) Neutrophils (%) (Auto) 70.5 % (16.0-70.0) 78.5 % (16.0-70.0) Lymphocytes (%) (Auto) 12.9 % (9.0-44.0) 9.9 % (9.0-44.0) Monocytes (%) (Auto) 15.5 % (0.0-8.0) 11.2 % (0.0-8.0) Eosinophils (%) (Auto) 0.6 % (0.0-4.0) 0.1 % (0.0-4.0) Basophils (%) (Auto) 0.5 % (0.0-2.0) 0.3 % (0.0-2.0) Neutrophils # (Auto) 7.2 TH/MM3 (1.8-7.7) 8.2 TH/MM3 (1.8-7.7) Lymphocytes # (Auto) 1.3 TH/MM3 (1.0-4.8) 1.0 TH/MM3 (1.0-4.8) Monocytes # (Auto) 1.6 TH/MM3 (0-0.9) 1.2 TH/MM3 (0-0.9) Eosinophils # (Auto) 0.1 TH/MM3 (0-0.4) 0.0 TH/MM3 (0-0.4) Basophils # (Auto) 0.0 TH/MM3 (0-0.2) 0.0 TH/MM3 (0-0.2) CBC Comment DIFF FINAL DIFF FINAL Differential Comment Total Protein 6.2 GM/DL (6.4-8.2) Albumin 2.3 GM/DL (3.4-5.0) Magnesium Level 1.3 MG/DL (1.5-2.5) Alkaline Phosphatase 94 U/L (45-117) Aspartate Amino Transf (AST/SGOT) 19 U/L (15-37) Alanine Aminotransferase (ALT/SGPT) 11 U/L (12-78) Total Bilirubin 0.7 MG/DL (0.2-1.0) (Elizabeth Cooper) Result Diagram: 02/15/1760402/15/17604 Microbiology Microbiology Date/Time Source Procedure Growth Status 02/12/17 13:40 Blood Peripheral Aerobic Blood Culture - Preliminary NO GROWTH IN 3 DAYS Resulted 02/12/17 13:40 Blood Peripheral Anaerobic Blood Culture - Preliminary NO GROWTH IN 3 DAYS Resulted 02/12/17 13:30 Blood Peripheral Aerobic Blood Culture - Preliminary NO GROWTH IN 3 DAYS Resulted 02/12/17 13:30 Blood Peripheral Anaerobic Blood Culture - Preliminary NO GROWTH IN 3 DAYS Resulted 02/12/17 15:20 Cerebral Spinal Fluid Lumbar Puncture Gram Stain - Final Complete 02/12/17 15:20 Cerebral Spinal Fluid Lumbar Puncture CSF Culture - Final NO GROWTH IN 72 HOURS Complete 02/12/17 17:30 Sputum Endotracheal Gram Stain - Final Complete 02/12/17 17:30 Sputum Culture - Final S. Aureus Mrsa Complete 02/12/17 16:30 Urine Catheterized Urine Urine Culture - Final S. Aureus Mrsa Complete Imaging Last Impressions Chest X-Ray 02/15/17 0600 Signed Impressions: Service Date/Time: Wednesday, February 15, 2017 04:43 - CONCLUSION: 1. Minimal dependent atelectasis in the lungs. Patient has been extubated. Calvin Keller MD Head CT 02/12/17 0000 Signed Impressions: Service Date/Time: Monday, February 13, 2017 15:41 - CONCLUSION: 1. Senescent changes with redemonstration of moderate periventricular small vessel ischemic white matter demyelination. 2. No acute intracranial abnormality or significant interval change. Sebastian Lopez MD Brain MRI 02/06/17 0000 Signed Impressions: Service Date/Time: Monday, February 06, 2017 15:56 - CONCLUSION: 1. Suboptimal examination secondary to motion artifact. 2. No evidence of acute hemorrhage, mass or infarction. 3. Moderate atrophic change and chronic small vessel ischemic changes. 4. The left maxillary sinus is opacified and there is opacification of several ethmoidal air cells. Mychal Harper MD Renal Ultrasound 02/04/17 0000 Signed Impressions: Service Date/Time: Saturday, February 04, 2017 13:53 - CONCLUSION: Probable mild medical renal disease without hydronephrosis. Sid Ang MD FACR . Procedures * 02/12/17 - Intubated and Lumbar puncture. . (Elizabeth Cooper) Assessment and Plan Disease Oriented Problem List: (1) Acute respiratory failure with hypoxia (2) Encephalopathy acute (3) ARF (acute renal failure) (4) MRSA pneumonia (5) UTI (urinary tract infection) Symptom Scale: (1) Chronic pain 0-10 Scale: Unable to quantify (2) Encephalopathy acute 0-10 Scale: Unable to quantify Pertinent Non-Medical Issues Psychosocial: . Lives with son. Spiritual: None. Legal: Living Will and [facility] scanned into EMR. Designated health care surrogate, Michael Hernández. Ethical issues impacting care: No known concerns at this time. . Important Contacts * Michael Hernández, [facility], son: [phone] . Prognosis 61yM with alcohol abuse and severe metabolic encephalopathy. Likely a large component of hepatic encephalopathy, although cannot rule out organic central process. Appreciate neurology ongoing recommendations. No SBT today given his encephalopathy. Palliative following. Cr rising is another organ system damaged and likely poor prognosis as well. nephrology following. Very critically ill with multiple organs involved and very poor prognosis. He likely will not survive this hospital stay. . Code Status: No Code Plan * Living Will and [facility] scanned into EMR. Designated health care surrogate, Michael Hernández. * NO CODE * 02/15/17: Spoke with son, Michael ([facility]) to provide medical update. Advised patient was extubated. Reviewed my conversation with Dr. Osborne who feels we should continue to treat MRSA sputum and urine. Son agrees to plan. He is open to consideration of transition to comfort with hospice in the coming days if further decline or no significant clinical improvement. * SYMPTOMS: Dyspnea: on mech vent. Pain: history of chronic pain, debility and now with tubes and decline. On Fentnayl and Diprivan appears comfortable. No new medication recommendations at this time, plan to wean sedation. * Palliative care will continue to follow to assist with further clarification of goals. . (Elizabeth Cooper) Attestation To help prompt me to consider important information that might be impacting today's encounter and assessment, information from prior notes written by myself or my colleagues may have been "brought forward" into today's note. My signature on this note, however, is an attestation that I personally performed the exam, history, and/or decision-making noted today, and, unless otherwise indicated, the interactions with patient, family, and staff as well as the review of records all occurred today. I also attest that the listed assessment and stated plan reflect my best clinical judgment today based on the combination of historical information, prior notes, and today's exam/ interactions. When time spent is documented, it refers only to time spent today by the signer, or if indicated, combined time spent today by collaborating physician/nurse practitioner. (Elizabeth Cooper) Collaborating MD Comments Chart reviewed. Case discussed with palliative care CURRICULUM DIRECTOR. Above note reviewed and I concur. . (Devin Mora MD) Elizabeth Cooper Feb 15, 2017 11:28 Devin Mora MD Mar 12, 2017 11:48
[2017-02-15] MEDS: THIAMINE INJ 100 MG in SODIUM CHLORIDE 0.9% INJ 100 ML IV SCH (11:38)
[2017-02-15] MEDS: SODIUM CHLORIDE 0.9% IV SCH (11:39)
[2017-02-15] MEDS: ACYCLOVIR IV SCH (11:39)
[2017-02-15] MEDS: HEPARIN SODIUM - SQ 10,000 UNITS/ML VIAL SQ SCH ×2 (14:26→20:42)
[2017-02-15 15:43] LABS: CSF CRYPTOCOCCUS AG CONF ND (NOT DETECTD)
[2017-02-15] MEDS: ZIPRASIDONE MESYLATE 20 MG VIAL IM PRN (17:02)
[2017-02-15] MEDS ORDERED: LABETALOL HCL 100 MG/20 ML VIAL IV PUSH PRN (19:15)
[2017-02-15] MEDS ORDERED: SODIUM CHLORIDE 0.9% INJ 50 ML ONE (20:37)
[2017-02-16] VITALS (10 sets, daily range): BP systolic 112–170; BP diastolic 72–96; PULSE 76–114; RESP 14–29; TEMP 97.1–98.2; O2SAT 97–100
[2017-02-16] MEDS: ZIPRASIDONE MESYLATE 20 MG VIAL IM PRN ×2 (01:05→17:28)
[2017-02-16] MEDS: RESP: ALBUTEROL 2.5 MG/IPRATROPIUM 0.5 MG NEB (SCH) INH ×3 (03:49→16:00)
[2017-02-16] MEDS: INSULIN NovoLIN REGULAR SUPPLEMENTAL SCALE SQ SCH ×4 (05:11→17:45)
[2017-02-16] MEDS: PANTOPRAZOLE SODIUM 40 MG VIAL IV PUSH SCH ×2 (05:11→16:00)
[2017-02-16] MEDS: HEPARIN SODIUM - SQ 10,000 UNITS/ML VIAL SQ SCH ×2 (05:11→14:20)
[2017-02-16] MEDS: CHLORHEXIDINE 0.12% (ORAL KIT) 15 ML CUP MT SCH (08:00)
[2017-02-16] MEDS: CYANOCOBALAMIN 100 MCG TAB PO SCH (09:00)
[2017-02-16] MEDS: FOLIC ACID 1 MG TAB PO SCH (09:01)
[2017-02-16] MEDS: DOCUSATE SODIUM 50 MG/SENNA 8.6 MG TAB PO SCH (09:01)
[2017-02-16] MEDS: LACTULOSE SYRUP 20 GM/30 ML CUP PO SCH ×3 (09:01→17:29)
[2017-02-16] MEDS: METHADONE HCL 10 MG TAB PO SCH (09:02)
[2017-02-16] MEDS: THIAMINE INJ 100 MG in SODIUM CHLORIDE 0.9% INJ 100 ML IV SCH (09:03)
[2017-02-16] MEDS: SODIUM CHLORIDE 0.9% FLUSH 10 ML FLUSH IV FLUSH SCH (09:03)
[2017-02-16] MEDS: FOSPHENYTOIN SODIUM 100 MG PE/2 ML VIAL IV SCH (09:47)
[2017-02-16] MEDS: SODIUM CHLORIDE 0.9% IV SCH (11:01)
[2017-02-16] MEDS: ACYCLOVIR IV SCH (11:01)
--- NOTE | 2017-02-16 11:05 | HHI.HCPN ---
Reason for visit a. To assist with evaluation and management of symptoms including: confusion , weakness, agitation, pain, decreased appetite. b. To assist medical decision maker(s) with: better understanding of current medical conditions; weighing benefits/burdens of medical treatment options; making medical treatment decisions. . Subjective/Interval History Patient seen and examined in ICU. No family at bedside. He is confused, tells me his name is "Antonio." When asked where he is, he answers "Antonio." When asked if he has pain answers "everywhere." Unable to further qualify or quantify. Patient remains in bilateral soft wrist restraints for agitation. Patient is not eating or drinking per nursing staff. Tachycardic. Afebrile. No new labs or imaging. Discussed with Dr. Fernandez. . Family/friend interactions Spoke with Michael Hernández (Son/HCS) to provide medical update. Patient is not eating. Michael reports he has known this is coming, that patient has been declining for sometime. He desires comfort focused care now, indicating again patient did not want to come to the hospital prior to admission. He desires comfort measures with hospice support. He desires [facility] care center placement. . Advance Directives Living Will: Copy in medical record Health Care Surrogate: Copy in medical record Advance Directive Specifics Health Care Surrogate(s): Living Will and HCS scanned into EMR. Designated health care surrogate, Michael Hernández. . Significant change in goals: NO CODE. Desires comfort measures with hospice support. . Objective Vital Signs Date Time Temp Pulse Resp B/P (MAP) Pulse Ox O2 Delivery O2 Flow Rate FiO2 02/16/17 10:22 14 02/16/17 09:32 100 21 02/16/17 06:00 111 02/16/17 04:00 97.1 108 22 168/96 (120) 100 02/16/17 04:00 108 02/16/17 02:00 112 02/16/17 00:00 98.2 100 29 165/90 (115) 99 02/16/17 00:00 100 02/15/17 22:00 104 02/15/17 20:00 97.8 107 27 170/85 (113) 02/15/17 20:00 107 02/15/17 18:00 110 02/15/17 17:00 106 02/15/17 16:00 98.0 108 20 149/76 (100) 02/15/17 16:00 108 02/15/17 15:00 107 02/15/17 14:00 111 02/15/17 13:00 104 02/15/17 12:00 108 02/15/17 12:00 98.2 108 32 161/79 (106) 02/15/17 11:00 109 Intake & Output 02/16/17 02/16/17 07:00 19:00 Intake Total 480 ml 150 ml Output Total 2400 ml Balance -1920 ml 150 ml Intake Oral 480 ml IV Total 150 ml Tube Feeding 0 ml Other 0 ml Output Urine Total 800 ml Stool Total 1600 ml Physical Exam CONSTITUTIONAL/GENERAL: This is a critically, chronically ill patient, restless. TUBES/LINES/DRAINS: wrist restraints, colostomy, Ball, PIV. SKIN: Cachectic. Ecchymoses on upper extremities. No wounds seen anteriorly. Skin temperature appropriate. Not diaphoretic. CARDIOVASCULAR: Tachycardic. No JVD. RESPIRATORY/CHEST: Symmetric, unlabored respirations. Few scattered course breath sounds. GASTROINTESTINAL: Abdomen soft, nondistended. Colostomy patent. GENITOURINARY: Without palpable bladder distension. Ball catheter in place. MUSCULOSKELETAL: Cachectic. NEUROLOGICAL: Confused. Restless. IS not answering simple questions appropriately. PSYCHIATRIC: Confused. . Diagnostic Tests Laboratory Laboratory Tests Test 02/14/17 06:48 02/14/17 11:12 02/14/17 13:46 02/15/17 06:05 Random Vancomycin Level 16.6 COMMENT Phenytoin (Dilantin) Level 11.7 MCG/ML (10.0-20.0) 12.6 MCG/ML (10.0-20.0) Blood Urea Nitrogen 34 MG/DL (7-18) 27 MG/DL (7-18) Creatinine 2.49 MG/DL (0.60-1.30) 1.99 MG/DL (0.60-1.30) Random Glucose 122 MG/DL (74-106) 84 MG/DL (74-106) Calcium Level 7.9 MG/DL (8.5-10.1) 7.9 MG/DL (8.5-10.1) Sodium Level 145 MEQ/L (136-145) 151 MEQ/L (136-145) Potassium Level 3.7 MEQ/L (3.5-5.1) 3.2 MEQ/L (3.5-5.1) Chloride Level 114 MEQ/L (98-107) 118 MEQ/L (98-107) Carbon Dioxide Level 23.0 MEQ/L (21.0-32.0) 23.5 MEQ/L (21.0-32.0) Anion Gap 8 MEQ/L (5-15) 10 MEQ/L (5-15) Estimat Glomerular Filtration Rate 27 ML/MIN (>89) 34 ML/MIN (>89) White Blood Count 10.2 TH/MM3 (4.0-11.0) 10.4 TH/MM3 (4.0-11.0) Red Blood Count 2.76 MIL/MM3 (4.50-5.90) 2.91 MIL/MM3 (4.50-5.90) Hemoglobin 8.5 GM/DL (13.0-17.0) 8.9 GM/DL (13.0-17.0) Hematocrit 26.1 % (39.0-51.0) 27.6 % (39.0-51.0) Mean Corpuscular Volume 94.4 FL (80.0-100.0) 94.6 FL (80.0-100.0) Mean Corpuscular Hemoglobin 30.7 PG (27.0-34.0) 30.7 PG (27.0-34.0) Mean Corpuscular Hemoglobin Concent 32.5 % (32.0-36.0) 32.4 % (32.0-36.0) Red Cell Distribution Width 15.1 % (11.6-17.2) 15.1 % (11.6-17.2) Platelet Count 292 TH/MM3 (150-450) 321 TH/MM3 (150-450) Mean Platelet Volume 8.3 FL (7.0-11.0) 8.2 FL (7.0-11.0) Neutrophils (%) (Auto) 70.5 % (16.0-70.0) 78.5 % (16.0-70.0) Lymphocytes (%) (Auto) 12.9 % (9.0-44.0) 9.9 % (9.0-44.0) Monocytes (%) (Auto) 15.5 % (0.0-8.0) 11.2 % (0.0-8.0) Eosinophils (%) (Auto) 0.6 % (0.0-4.0) 0.1 % (0.0-4.0) Basophils (%) (Auto) 0.5 % (0.0-2.0) 0.3 % (0.0-2.0) Neutrophils # (Auto) 7.2 TH/MM3 (1.8-7.7) 8.2 TH/MM3 (1.8-7.7) Lymphocytes # (Auto) 1.3 TH/MM3 (1.0-4.8) 1.0 TH/MM3 (1.0-4.8) Monocytes # (Auto) 1.6 TH/MM3 (0-0.9) 1.2 TH/MM3 (0-0.9) Eosinophils # (Auto) 0.1 TH/MM3 (0-0.4) 0.0 TH/MM3 (0-0.4) Basophils # (Auto) 0.0 TH/MM3 (0-0.2) 0.0 TH/MM3 (0-0.2) CBC Comment DIFF FINAL DIFF FINAL Differential Comment Total Protein 6.2 GM/DL (6.4-8.2) Albumin 2.3 GM/DL (3.4-5.0) Magnesium Level 1.3 MG/DL (1.5-2.5) Alkaline Phosphatase 94 U/L (45-117) Aspartate Amino Transf (AST/SGOT) 19 U/L (15-37) Alanine Aminotransferase (ALT/SGPT) 11 U/L (12-78) Total Bilirubin 0.7 MG/DL (0.2-1.0) Test 02/15/17 20:40 02/16/17 04:34 Potassium Level 3.4 MEQ/L (3.5-5.1) Random Vancomycin Level 11.9 COMMENT Phenytoin (Dilantin) Level 9.9 MCG/ML (10.0-20.0) Result Diagram: 02/15/1760402/15/172039 Microbiology Microbiology Date/Time Source Procedure Growth Status 02/12/17 13:40 Blood Peripheral Aerobic Blood Culture - Preliminary NO GROWTH IN 3 DAYS Resulted 02/12/17 13:40 Blood Peripheral Anaerobic Blood Culture - Preliminary NO GROWTH IN 3 DAYS Resulted 02/12/17 15:20 Cerebral Spinal Fluid Lumbar Puncture Gram Stain - Final Complete 02/12/17 15:20 Cerebral Spinal Fluid Lumbar Puncture CSF Culture - Final NO GROWTH IN 72 HOURS Complete 02/12/17 17:30 Sputum Endotracheal Gram Stain - Final Complete 02/12/17 17:30 Sputum Culture - Final S. Aureus Mrsa Complete 02/12/17 16:30 Urine Catheterized Urine Urine Culture - Final S. Aureus Mrsa Complete Imaging Last Impressions Chest X-Ray 02/15/17 0600 Signed Impressions: Service Date/Time: Wednesday, February 15, 2017 04:43 - CONCLUSION: 1. Minimal dependent atelectasis in the lungs. Patient has been extubated. Calvin Keller MD Head CT 02/12/17 0000 Signed Impressions: Service Date/Time: Monday, February 13, 2017 15:41 - CONCLUSION: 1. Senescent changes with redemonstration of moderate periventricular small vessel ischemic white matter demyelination. 2. No acute intracranial abnormality or significant interval change. Sebastian Lopez MD Brain MRI 02/06/17 0000 Signed Impressions: Service Date/Time: Monday, February 06, 2017 15:56 - CONCLUSION: 1. Suboptimal examination secondary to motion artifact. 2. No evidence of acute hemorrhage, mass or infarction. 3. Moderate atrophic change and chronic small vessel ischemic changes. 4. The left maxillary sinus is opacified and there is opacification of several ethmoidal air cells. Mychal Harper MD Renal Ultrasound 02/04/17 0000 Signed Impressions: Service Date/Time: Saturday, February 04, 2017 13:53 - CONCLUSION: Probable mild medical renal disease without hydronephrosis. Sid Ang MD FACR Procedures * 02/12/17 - Intubated and Lumbar puncture. . Assessment and Plan Disease Oriented Problem List: (1) Acute respiratory failure with hypoxia (2) Encephalopathy acute (3) ARF (acute renal failure) (4) MRSA pneumonia (5) UTI (urinary tract infection) Symptom Scale: (1) Chronic pain 0-10 Scale: Unable to quantify (2) Encephalopathy acute 0-10 Scale: Unable to quantify (3) Agitation 0-10 Scale: Unable to quantify Comment: in restraints. (4) Decreased appetite 0-10 Scale: Unable to quantify Comment: not eating or drinking, passed swallow eval for pureed and nectar thick liquids. Pertinent Non-Medical Issues Psychosocial: . Lives with son. Spiritual: None. Legal: Living Will and [facility] scanned into EMR. Designated health care surrogate, Michael Hernández. Ethical issues impacting care: No known concerns at this time. . Important Contacts * Michael Hernández, [facility], son: [phone] . Prognosis 61yM with alcohol abuse and severe metabolic encephalopathy. Likely a large component of hepatic encephalopathy, although cannot rule out organic central process. Appreciate neurology ongoing recommendations. No SBT today given his encephalopathy. Palliative following. Cr rising is another organ system damaged and likely poor prognosis as well. nephrology following. Very critically ill with multiple organs involved and very poor prognosis. He likely will not survive this hospital stay. . Code Status: No Code Plan * Living Will and HCS scanned into EMR. Designated health care surrogate, Michael Hernández. * NO CODE * 02/16/17: Spoke with son, Michael ([facility]) to provide medical update. desires transition to comfort with hospice. He desires [facility] for care center placement for management of agitation, pain. PPS 10, not eating or drinking. * Discussed with Dr. Fernandez, Dr. Osborne and nurses. * SYMPTOMS: Dyspnea: on mech vent. Pain: history of chronic pain, debility and now with tubes and decline. Reports pain everywhere. On Methadone 50 mg PO daily. Agitation: remains in restraints as he tries to climb out of bed, confused and restless. Encephalopathy: likely multifactorial. Further orders per hospice. * Palliative care will continue to follow to assist with further clarification of goals. . Attestation To help prompt me to consider important information that might be impacting today's encounter and assessment, information from prior notes written by myself or my colleagues may have been "brought forward" into today's note. My signature on this note, however, is an attestation that I personally performed the exam, history, and/or decision-making noted today, and, unless otherwise indicated, the interactions with patient, family, and staff as well as the review of records all occurred today. I also attest that the listed assessment and stated plan reflect my best clinical judgment today based on the combination of historical information, prior notes, and today's exam/ interactions. When time spent is documented, it refers only to time spent today by the signer, or if indicated, combined time spent today by collaborating physician/nurse practitioner. Elizabeth Cooper Feb 16, 2017 11:05
[2017-02-16] MEDS ORDERED: VANCOMYCIN 1,000 MG/NS 250 ML IV ONE ×2 (12:00)
--- NOTE | 2017-02-16 16:30 | HHI.NPPN ---
Subjective History of Present Illness 61-year-old male with past medical history of hypertension. History of alcoholism, bronchial asthma, anxiety, depression, alcohol abuse and bedridden status with decubitus ulcer, was admitted because of generalized weakness and altered mental status. I was called to see the patient because of elevated BUN and creatinine. Additional Remarks Patient is now extubated, awake, not fully oriented, not in distress. Review of Systems General Constitutional: Fatigue Objective Data Data 02/16/17 02/17/17 18:59 06:59 Intake Total 500 ml Balance 500 ml IV Total 500 ml Vital Signs Date Time Temp Pulse Resp B/P (MAP) Pulse Ox O2 Delivery O2 Flow Rate FiO2 02/16/17 14:00 77 02/16/17 12:00 97.4 93 14 112/72 (85) 97 02/16/17 12:00 93 02/16/17 10:22 14 02/16/17 10:00 101 02/16/17 09:32 100 21 02/16/17 08:00 97.8 25 170/94 (119) 100 02/16/17 08:00 114 02/16/17 06:00 111 02/16/17 04:00 97.1 108 22 168/96 (120) 100 02/16/17 04:00 108 02/16/17 02:00 112 02/16/17 00:00 98.2 100 29 165/90 (115) 99 02/16/17 00:00 100 02/15/17 22:00 104 02/15/17 20:00 97.8 107 27 170/85 (113) 02/15/17 20:00 107 02/15/17 18:00 110 02/15/17 17:00 106 -: 02/15/17 0605 02/15/17 2040 Physical Exam General Appearance: No Acute Distress, Comfortable Eyes Eye Exam: Pupils Equal Throat Throat Exam: Oral Mucosa [place] & Moist Neck Neck Exam: Neck Supple Pulmonary Resp Exam: Breath Sounds Equal, No Distress, Decreased Bases Cardiology CV Exam: Regular, Normal Sinus Rhythm Gastrointestinal/Abdomen GI Exam: Soft, Non-Tender, Bowel Sounds Present GI Remarks colostomy bag in place. Extremeties Extremities Exam: No Edema Neurologic Neuro Exam: Alert, Awake Assessment/Plan Assessment Summary: VISHAL/Acute Renal Failure, Dehydration, Hypotension Electrolyte Assessment: Hypokalemia Problem List: (1) Failure to thrive in adult ICD Codes: R62.7 - Adult failure to thrive (2) Hypokalemia ICD Codes: E87.6 - Hypokalemia Status: Acute (3) High output ileostomy ICD Codes: R19.8 - High output ileostomy; Z93.2 - Ileostomy status Status: Acute (4) Anemia ICD Codes: D64.9 - Anemia Status: Acute (5) Hypokalemia ICD Codes: E87.6 - Hypokalemia Status: Acute (6) ARF (acute renal failure) ICD Codes: N17.9 - Acute kidney failure, unspecified Status: Acute Plan Patient has been non oliguric, Creatinine continue to improve. and urine out put is better. K was low and replaced. Continue IVF, Follow the urine out out and BMP. Avoid Nephrotoxins. Given one dose of Vanco. Follow the urine out put and BMP. Jessa Melo MD Feb 16, 2017 16:30
--- NOTE | 2017-02-16 16:41 | HHI.DS ---
Discharge Summary Admission Date Feb 03, 2017 at 22:45 Discharge Date: Feb 16, 2017 Admitting Diagnosis ARF; sirs (1) ARF (acute renal failure) ICD Code: N17.9 - Acute kidney failure, unspecified Status: Acute (2) Failure to thrive in adult ICD Code: R62.7 - Adult failure to thrive Status: Acute (3) Hypokalemia ICD Code: E87.6 - Hypokalemia Status: Acute (4) Rhabdomyolysis ICD Code: M62.82 - Rhabdomyolysis (5) Leukocytosis ICD Code: D72.829 - Leukocytosis Status: Acute (6) Alcohol abuse ICD Code: F10.10 - Alcohol abuse, uncomplicated Procedures Lumbar puncture performed, intubation and extubation Brief History - From Admission This is a 61-year-old male with a PMH of HTN, Asthma, UC s/p Colectomy/Colostomy , Decubitus Ulcer, Chronic Pain on Methadone, Anxiety, Depression, Alcohol Abuse and Tobacco Abuse who was brought to the ER by EMS secondary to generalized weakness. Per report, pt previously on Hospice, however d/c'd home w/ Son after last admission, per EMS Son reported he was unable to care for patient any longer and called EMS. Pt very poor historian, lethargic, unable to give many details. Unable to contact Son. On arrival, BP 114/65, HR 91, O2 sat 95% on RA, Afebrile. WBC 15.9. 1112.9, producing 9.9 on 01/03/17. Na 127, K + 3.3. Creatinine 9.51, previously 0.87 on 01/03/17. Mg 2.5. CPK 594. Trop negative. INR 1.1. Dr. Melo consulted by ER physician, recommended IVF for hydration, no emergent need for dialysis at this time. CBC/BMP: 02/15/17 0605 02/15/172039 Significant Findings Laboratory Tests Test 02/14/17 06:48 02/14/17 11:12 02/14/17 13:46 02/15/17 06:05 Blood Urea Nitrogen 34 MG/DL (7-18) 27 MG/DL (7-18) Creatinine 2.49 MG/DL (0.60-1.30) 1.99 MG/DL (0.60-1.30) Random Glucose 122 MG/DL (74-106) Calcium Level 7.9 MG/DL (8.5-10.1) 7.9 MG/DL (8.5-10.1) Chloride Level 114 MEQ/L (98-107) 118 MEQ/L (98-107) Estimat Glomerular Filtration Rate 27 ML/MIN (>89) 34 ML/MIN (>89) Red Blood Count 2.76 MIL/MM3 (4.50-5.90) 2.91 MIL/MM3 (4.50-5.90) Hemoglobin 8.5 GM/DL (13.0-17.0) 8.9 GM/DL (13.0-17.0) Hematocrit 26.1 % (39.0-51.0) 27.6 % (39.0-51.0) Neutrophils (%) (Auto) 70.5 % (16.0-70.0) 78.5 % (16.0-70.0) Monocytes (%) (Auto) 15.5 % (0.0-8.0) 11.2 % (0.0-8.0) Monocytes # (Auto) 1.6 TH/MM3 (0-0.9) 1.2 TH/MM3 (0-0.9) Neutrophils # (Auto) 8.2 TH/MM3 (1.8-7.7) Total Protein 6.2 GM/DL (6.4-8.2) Albumin 2.3 GM/DL (3.4-5.0) Magnesium Level 1.3 MG/DL (1.5-2.5) Alanine Aminotransferase (ALT/SGPT) 11 U/L (12-78) Sodium Level 151 MEQ/L (136-145) Potassium Level 3.2 MEQ/L (3.5-5.1) Test 02/15/17 20:40 02/16/17 04:34 Potassium Level 3.4 MEQ/L (3.5-5.1) Phenytoin (Dilantin) Level 9.9 MCG/ML (10.0-20.0) PE at Discharge Middle aged, white male who appears cachectic and chronically ill, lying in bed , awake, making eye contact, currently in restraints, unlabored breathing Hospital Course Patient was admitted with uremic encephalopathy along with metabolic derangements. He had been started on aggressive supportive care with IV fluids and a nephrological consultation. Had extensive neurological workup done as well including imaging which showed no acute insults. Neurology was consulted, EEGs showed encephalopathy. Lumbar puncture had been performed which was suggestive of a viral process, started on acyclovir while HSV labs are pending. Patient became lethargic eventually and needed to be intubated to protect his airway. Sputum culture grew out MRSA and patient was covered with antibiotics accordingly. Patient was successfully extubated. Given his persistent fluctuating encephalopathy, the patient's stepson agreed to proceed with hospice care. Pt Condition on Discharge: Deteriorating Discharge Disposition: Hospice/Med Facility Discharge Time: <= 30 minutes Discharge Instructions DIET: Follow Instructions for: As Tolerated, No Restrictions Speech Therapy-Diet Recommends: Pureed Activities you can perform: See Additionl Instruction Other Activity Instructions: hospice Aden Fernandez MD Feb 16, 2017 16:41
[2017-02-16] MEDS: HALOPERIDOL LACTATE 5 MG/ML AMP IV PRN (17:28)
[2017-02-16 21:27] LABS: ENTEROVIRUS PCR RESULT Negative (Negative); ENTEROVIRUS PCR SPEC SOURCE CSF
[2017-02-16] MEDS ORDERED: ACYCLOVIR IV SCH (23:00)
[2017-02-16] MEDS ORDERED: SODIUM CHLORIDE 0.9% IV SCH (23:00)
[2017-02-17 03:34] LABS: CSF ANGIOTENSIN CONV ENZYME LESS THAN 5 U/L (< OR = 15)
[2017-02-17 19:54] LABS: VDRL CSF NON-REACTIVE (NON-REACTVE)
== END 2017-02-16 19:00 | disposition hospice, inpatient (51) | DRG 682 ==
LOC: NEPC 20:02 → NEDA 22:45 → N07A 02-04 01:24 → HIME 02-12 10:35
PROVIDERS: ADMIT Hospitalist; ATTEND Hospitalist
PROC: 009U3ZX Drainage of Spinal Canal, Percutaneous Approach, Diagnostic (ICD-10-PCS; principal; 2017-02-12)
PROC: 5A1945Z Respiratory Ventilation, 24-96 Consecutive Hours (ICD-10-PCS; 2017-02-12)
PROC: 0BH18EZ Insertion of Endotracheal Airway into Trachea, Via Natural or Artificial Opening Endoscopic (ICD-10-PCS; 2017-02-12)
DX: N17.9 Acute kidney failure, unspecified (principal); G93.41 Metabolic encephalopathy; J96.01 Acute respiratory failure with hypoxia; A41.02 Sepsis due to Methicillin resistant Staphylococcus aureus; J15.212 Pneumonia due to Methicillin resistant Staphylococcus aureus; L89.159 Pressure ulcer of sacral region, unspecified stage; E87.3 Alkalosis; R65.20 Severe sepsis without septic shock; E46 Unspecified protein-calorie malnutrition; M62.82 Rhabdomyolysis; E87.1 Hypo-osmolality and hyponatremia; N39.0 Urinary tract infection, site not specified; Z68.1 Body mass index [BMI] 19.9 or less, adult; R56.9 Unspecified convulsions; K72.90 Hepatic failure, unspecified without coma; E83.42 Hypomagnesemia; E87.5 Hyperkalemia; I10 Essential (primary) hypertension; F32.9 Major depressive disorder, single episode, unspecified; Z51.5 Encounter for palliative care; R62.7 Adult failure to thrive; F17.210 Nicotine dependence, cigarettes, uncomplicated; J45.909 Unspecified asthma, uncomplicated; F41.9 Anxiety disorder, unspecified; M19.90 Unspecified osteoarthritis, unspecified site; E87.6 Hypokalemia; F10.10 Alcohol abuse, uncomplicated; Z66 Do not resuscitate; D64.9 Anemia, unspecified; E86.0 Dehydration; G25.3 Myoclonus; G89.29 Other chronic pain; I95.9 Hypotension, unspecified; B95.62 Methicillin resistant Staphylococcus aureus infection as the cause of diseases classified elsewhere; M54.9 Dorsalgia, unspecified; R00.0 Tachycardia, unspecified; Z79.891 Long term (current) use of opiate analgesic; Z78.1 Physical restraint status; Z93.3 Colostomy status
CPT/HCPCS: 31500; 36600; 62270; 70450; 70551; 71010; 76775; 76937; 80048; 80053; 80069; 80076; 80185; 80202; 80307; 81001; 82140; 82164; 82550; 82552; 82607; 82746; 82805; 82945; 82948; 83605; 83735; 83873; 84100; 84132; 84155; 84157; 84300; 84443; 84484; 85025; 85610; 86403; 86592; 87040; 87070; 87086; 87147; 87186; 87205; 87493; 87498; 87529; 89051; 93005; 94002; 94003; 94150; 94640; 94664; 95819; C9113; J0133; J1630; J1644; J2060; J2250; J3010; J3370; J3411; J3475; J3480; J3486; J7030; J7040; J7050; Q2009